=== PATIENT | male | born 1955 | race American Indian/Alaskan Native ===

== ENCOUNTER 2017-03-15 11:17 | Inpatient (IN) | payer MEDICAID ==
--- NOTE | 2017-03-15 12:38 | ED PDOC ---
Arrival/HPI - General Chief Complaint: GI Problem Time Seen by Provider: 03/15/17 12:17 Historian: Patient - History of Present Illness Narrative History of Present Illness (Text): 03/15/17 12:37 A 61 year old male, whose past medical history includes COPD, presents to the emergency department complaining of non-bloody watery diarrhea for the past few weeks. Patient notes mild abdominal cramping, which has currently resolved. Patient denies any fever, chills, nausea, vomiting, chest pain, shortness of breath or any other complaints. PMD: Dr. Cohen Time/Duration: Other (few weeks) Symptom Course: Unchanged Quality: Other Context: Home Past Medical History - Provider Review Nursing Documentation Reviewed: Yes - Infectious Disease Hx of Infectious Diseases: None - Tetanus Immunization Tetanus Immunization: Up to Date - Cardiac Hx Hypertension: Yes - Pulmonary Hx Respiratory Disorders: Yes Hx Bronchitis: Yes (Chronic) Hx Chronic Obstructive Pulmonary Disease (COPD): Yes Hx Emphysema: Yes - Neurological Hx Neurological Disorder: No - HEENT Hx HEENT Disorder: No - Renal Hx Renal Disorder: No - Endocrine/Metabolic Hx Endocrine Disorders: No - Hematological/Oncological Hx Blood Disorders: No - Integumentary Hx Dermatological Disorder: No - Musculoskeletal/Rheumatological Hx Falls: No - Gastrointestinal Hx Gastrointestinal Disorders: Yes Hx Diarrhea: Yes Hx Vomiting: Yes - Genitourinary/Gynecological Hx Genitourinary Disorders: No - Psychiatric Hx Psychophysiologic Disorder: No Hx Anxiety: No Hx Bipolar Disorder: No Hx Depression: Yes Hx Emotional Abuse: No Hx Hallucinations: No Hx Panic Disorder: No Hx Post Traumatic Stress Disorder: No Hx Psychosis: No Hx Physical Abuse: No Hx Schizophrenia: No Hx Sexual Abuse: No Hx Substance Use: Yes - Past Surgical History Past Surgical History: No Previous - Anesthesia Hx Anesthesia: No Hx Anesthesia Reactions: No Hx Malignant Hyperthermia: No - Suicidal Assessment Feels Threatened In Home Enviroment: No Family/Social History - Physician Review Nursing Documentation Reviewed: Yes Family/Social History: No Known Family HX Smoking Status: Heavy Smoker > 10 Cigarettes Daily Hx Alcohol Use: No Hx Substance Use: Yes Substance used: marijuana Amount: 1 Hx Substance Use Treatment: No Allergies/Home Meds Allergies/Adverse Reactions: Allergies No Known Allergies Allergy (Verified 03/15/17 11:22) Review of Systems - Physician Review All systems were reviewed & negative as marked: Yes - Review of Systems Constitutional: absent: Fevers, Night Sweats Respiratory: absent: SOB Cardiovascular: absent: Chest Pain Gastrointestinal: Abdominal Pain, Diarrhea. absent: Nausea, Vomiting Physical Exam Vital Signs Reviewed: Yes Vital Signs Temp Pulse Resp BP Pulse Ox 03/15/17 15:44 78 18 152/91 H 97 03/15/17 11:35 98.4 F 03/15/17 11:28 80 17 157/101 H 97 Temperature: Afebrile Blood Pressure: Hypertensive Pulse: Regular Respiratory Rate: Normal Appearance: Positive for: Well-Appearing, Non-Toxic, Comfortable Pain Distress: None Mental Status: Positive for: Alert and Oriented X 3 - Systems Exam Head: Present: Atraumatic, Normocephalic Pupils: Present: PERRL Extroacular Muscles: Present: EOMI Conjunctiva: Present: Normal Mouth: Present: Moist Mucous Membranes Neck: Present: Normal Range of Motion Respiratory/Chest: Present: Clear to Auscultation, Good Air Exchange. No: Respiratory Distress, Accessory Muscle Use Cardiovascular: Present: Regular Rate and Rhythm, Normal S1, S2. No: Murmurs Abdomen: Present: Normal Bowel Sounds. No: Tenderness, Distention, Peritoneal Signs, Rebound, Guarding Back: Present: Normal Inspection Upper Extremity: Present: Normal Inspection. No: Cyanosis, Edema Lower Extremity: Present: Normal Inspection. No: Edema Neurological: Present: GCS=15, CN II-XII Intact, Speech Normal Skin: Present: Warm, Dry, Normal Color. No: Rashes Psychiatric: Present: Alert, Oriented x 3, Normal Insight, Normal Concentration Medical Decision Making ED Course and Treatment: 03/15/17 12:37 Impression: A 61 year old male with non-bloody watery diarrhea Differential Diagnosis included but are not limited to: Gastroenteritis Plan: -- Labs -- Pepcid and IV fluids -- Reassess and disposition Progress Notes: 03/15/17 15:40 Reviewed labs and plan with the patient, who expresses understanding. Plan is to admit patient. 03/15/17 16:08 Patient's lipase elevated and treated with continual IVF. Case discussed with Dr. Quispe, hospitalist, who accepts admission to med-surg. Patient aware of and in agreement with plan. - Lab Interpretations Lab Results: 03/15/17 14:13 03/15/17 14:13 Lab Results 03/15/17 14:30: Lactate Dehydrogenase 567 03/15/17 14:30: Alcohol, Quantitative < 10 03/15/17 14:13: Sodium 138, Potassium 4.2, Chloride 102, Carbon Dioxide 29, Anion Gap 11, BUN 16, Creatinine 1.0, Est GFR ( Amer) > 60, Est GFR (Non- Af Amer) > 60, Random Glucose 83, Calcium 9.3, Total Bilirubin 0.3, AST 73 H, ALT 103 H, Alkaline Phosphatase 65, Total Protein 7.1, Albumin 3.7, Globulin 3.4 , Albumin/Globulin Ratio 1.1, Lipase 2783 H 03/15/17 14:13: WBC 4.7, RBC 3.83, Hgb 12.0 L D, Hct 36.2 L, MCV 94.5, MCH 31.3 , MCHC 33.1, RDW 12.9, Plt Count 191, MPV 9.2, Gran % 64.2, Lymph % (Auto) 28.2 , Trinity % (Auto) 6.6 H, Eos % (Auto) 0.6 L, Baso % (Auto) 0.4, Gran # 3.02, Lymph # 1.3, Trinity # 0.3, Eos # 0.0, Baso # 0.02 I have reviewed the lab results: Yes - Medication Orders Current Medication Orders: Discontinued Medications Albuterol/Ipratropium (Duoneb 3 Mg/0.5 Mg (3 Ml) Ud) 3 ml IH Q4H PRN PRN Reason: Shortness of Breath Stop: 03/16/17 05:16 Albuterol/Ipratropium (Duoneb 3 Mg/0.5 Mg (3 Ml) Ud) 3 ml IH Q6H JOSEMANUEL Stop: 03/16/17 17:30 Last Admin: 03/16/17 07:52 Dose: 3 ml Amlodipine Besylate (Norvasc) 5 mg PO DAILY [facility] Last Admin: 03/16/17 11:44 Dose: 5 mg MAR Pulse and Blood Pressure Document 03/16/17 11:44 [facility] (Rec: 03/16/17 11:45 [facility] [id number]) Pulse Pulse Rate (60-90) 69 Blood Pressure Blood Pressure (100/60-150/90) 133/77 Famotidine (Pepcid) 20 mg IVP STAT STA Stop: 03/15/17 12:41 Last Admin: 03/15/17 14:12 Dose: 20 mg IVP Administration Document 03/15/17 14:12 OCS (Rec: 03/15/17 14:12 OCS [id number]) Charges for Administration # of IVP Administrations 1 Heparin Sodium (Porcine) (Heparin) 5,000 units SC Q12 JOSEMANUEL PRN Reason: Protocol Last Admin: 03/16/17 10:40 Dose: 5,000 units Subcutaneous Administrations Document 03/16/17 10:40 JOSE (Rec: 03/16/17 10:40 [id number] Injection Site MAR Injection Site Right Abdomen Charges for Administration # of Subcutaneous Administrations 1 Hydralazine HCl (Apresoline) 10 mg IVP Q6 PRN PRN Reason: Systolic Blood Pressure Last Admin: 03/15/17 22:22 Dose: 10 mg IVP Administration Document 03/15/17 22:22 ST (Rec: 03/15/17 22:23 ST [id number]) Charges for Administration # of IVP Administrations 1 MAR Pulse and Blood Pressure Document 03/15/17 22:22 ST (Rec: 03/15/17 22:23 ST [id number]) Blood Pressure Blood Pressure (100/60-150/90) 164/103 Sodium Chloride (Sodium Chloride 0.9%) 1,000 mls @ 1,000 mls/hr IV .Q1H STA Stop: 03/15/17 13:39 Last Admin: 03/15/17 14:12 Dose: 1,000 mls/hr eMAR Start Stop Document 03/15/17 14:12 OCS (Rec: 03/15/17 14:12 [facility] [facility] [id number][place] Intravenous Solution Start Date 03/15/17 Start Time 14:12 End Date 03/15/17 End time 15:12 Total Infusion Time 60 Sodium Chloride (Sodium Chloride 0.9%) 1,000 mls @ 999 mls/hr IV .Q1H1M STA Stop: 03/15/17 16:12 Last Admin: 03/15/17 15:47 Dose: 999 mls/hr eMAR Start Stop Document 03/15/17 15:47 OCS (Rec: 03/15/17 15:47 OCS [id number]) Intravenous Solution Start Date 03/15/17 Start Time 15:47 End Date 03/15/17 End time 16:48 Total Infusion Time 61 Lactated Ringer's (Lactated Ringer's) 1,000 mls @ 250 mls/hr IV .Q4H [facility] Last Admin: 03/16/17 07:16 Dose: 250 mls/hr eMAR Start Stop Document 03/16/17 07:16 LG (Rec: 03/16/17 07:18 LG [facility] [id number]) Intravenous Solution Start Date 03/16/17 Start Time 06:30 End Date 03/16/17 End time 10:30 Total Infusion Time 240 Insulin Human Lispro (Humalog Low) 0 units SC ACHS JOSEMANUEL PRN Reason: Protocol Last Admin: 03/16/17 11:45 Dose: Not Given Non-Admin Reason: Patient Refused MAR Blood Glucose Document 03/16/17 11:45 [facility] (Rec: 03/16/17 11:51 [id number]) Blood Glucose Finger Stick Blood Glucose (70-120) 238 Subcutaneous Administrations Document 03/16/17 11:45 [facility] (Rec: 03/16/17 11:51 [id number]) Charges for Administration # of Subcutaneous Administrations 1 Methylprednisolone (Solu-Medrol) 40 mg IVP Q12 [facility] Last Admin: 03/16/17 10:34 Dose: 40 mg Comments: given by mona FLORES IVP Administration Document 03/16/17 10:34 [facility] (Rec: 03/16/17 10:34 [id number]) Charges for Administration # of IVP Administrations 1 Nicotine (Nicoderm Cq) 1 patch TD DAILY [facility] Last Admin: 03/16/17 10:40 Dose: 1 patch MAR Transdermal Patch Site Document 03/16/17 10:40 [facility] (Rec: 03/16/17 10:40 [id number]) Transdermal Patch Site Transdermal Patch Site Right Outer Upper Arm Ondansetron HCl (Zofran Inj) 4 mg IVP Q4H PRN PRN Reason: Nausea/Vomiting Last Admin: 03/15/17 22:50 Dose: 4 mg IVP Administration Document 03/15/17 22:50 ST (Rec: 03/15/17 22:50 ST [id number]) Charges for Administration # of IVP Administrations 1 Pantoprazole Sodium (Protonix Inj) 40 mg IVP DAILY JOSEMAUNEL Last Admin: 03/16/17 10:36 Dose: 40 mg IVP Administration Document 03/16/17 10:36 [facility] (Rec: 03/16/17 10:36 [facility] [id number]) Charges for Administration # of IVP Administrations 1 Pneumococcal Polyvalent Vaccine (Pneumovax 23 Vaccine) 0.5 ml IM .ONCE ONE Stop: 03/15/17 20:48 - Scribe Statement The provider has reviewed the documentation as recorded by the Desireeibkellie Jimenes Provider Scribe Attestation: All medical record entries made by the Scribe were at my direction and personally dictated by me. I have reviewed the chart and agree that the record accurately reflects my personal performance of the history, physical exam, medical decision making, and the department course for this patient. I have also personally directed, reviewed, and agree with the discharge instructions and disposition. Disposition/Present on Arrival - Present on Arrival Any Indicators Present on Arrival: No History of DVT/PE: No History of Uncontrolled Diabetes: No Urinary Catheter: No History of Decub. Ulcer: No History Surgical Site Infection Following: None - Disposition Have Diagnosis and Disposition been Completed?: Yes Diagnosis: Pancreatitis Disposition: HOSPITALIZED Disposition Time: 16:08 Patient Plan: Admission Condition: GUARDED
[2017-03-15] MEDS ORDERED: Sodium Chloride 0.9% 1,000 ML IV STA ×2 (12:40→15:12)
[2017-03-15 14:26] LABS: BASO # 0.02 K/mm3 (0.0-2.0); BASO % 0.4 % (0.0-3.0); EOS % 0.6 % (1.5-5.0); GRAN # 3.02 (1.4-6.5); GRAN % 64.2 % (50.0-68.0); LYMPH # 1.3 (1.2-3.4); LYMPH % 28.2 % (22.0-35.0); MEAN CELL VOLUME 94.5 fl (80.0-105.0); MEAN CORPUSCULAR HEMOGLOBIN 31.3 pg (25.0-35.0); MEAN CORPUSCULAR HGB CONC 33.1 g/dl (31.0-37.0); MEAN PLATELET VOLUME 9.2 fl (7.0-11.0); MONO # 0.3 (0.1-0.6); MONO % 6.6 % (1.0-6.0); RBC 3.83 10^6/uL (3.5-6.1); RED CELL DISTRIBUTION WIDTH 12.9 % (11.5-14.5); WHITE BLOOD COUNT 4.7 10^3/ul (4.5-11.0)
[2017-03-15 15:08] LABS: ALB/GLOB RATIO 1.1 (1.1-1.8); ALBUMIN 3.7 g/dL (3.0-4.8); ALT/SGPT 103 U/L (7-56); AST/SGOT 73 U/L (17-59); BLOOD UREA NITROGEN 16 mg/dL (7-21); CALCIUM 9.3 mg/dL (8.4-10.5); GFR AFRICAN-AMERICAN > 60; GFR NON-AFRICAN AMERICAN > 60; LIPASE 2783 U/L (23-300)
[2017-03-15] MEDS ORDERED: Sodium Chloride 0.9% 1,000 ML IV SCH (16:30)
[2017-03-15] MEDS ORDERED: Albuterol-Ipratrop 3 mg / 0.5 (3 ml) UD IH PRN ×2 (17:07→17:11)
--- NOTE | 2017-03-15 17:38 | CP.PCM.HP ---
<Hannah Moffett - Last Filed: 03/15/17 17:17> History of Present Illness - History of Present Illness History of Present Illness: 61year old male PMHx chronic bronchitis and emphysema [and as per chart patient has a hx of hypertension, diabetes, chronic back pain, polysubstance abuse] presents to the ED complaining of 3 weeks of abdominal pain and diarrhea. Patient denied any inciting event. Reported abdominal pain is cramping in nature in the middle of his abdomen radiating to his right flank and epigastric region. Patient rated the pain a 4/10 and stated it is intermittent. Patient also reported 7-8 episodes of watery diarrhea for the past 3 weeks which wakes him up at night. At the beginning of the episodes, at first he felt constipated and 20 minutes afterwards he started to have diarrhea. He reported it was dark in color at first like "oreo cookie crumbs" and more recently it has been brown. He denied noticing any blood. Patient tried imodium, peptobismol, Tums all of which did not help. He stated that eating food would exacerbate the diarrhea. Patient still has a strong appetite and is eager to eat although he has abd pain and diarrhea when he does eat. He also admitted to a weight loss of 30 pounds of the past month [140lb to 109lb]. He also complains of a productive cough which is chronic and patient is a smoker. He also admitted to hemoptysis and SOB on exertion at times. Patient denied fever, chills, headaches , dizziness, chest pain, bladder complaints, pain/swelling in his legs bilaterally. He denied any recent travel/sick contacts. ROS: 12 point review of system reviewed and negative unless stated above. PMHx: patient admitted to chronic bronchitis and emphysema; as per chart patient has a hx of hypertension, diabetes, chronic back pain, polysubstance abuse PSurgHx: denies PProcedures: Endocsopy 10+ years ago which was normal; Patient has never had a colonoscopy PHospitalization: none PERVisits: multiple Social Hx: admits to tobacco use 1/3ppd for 40 years; also smokes marijuana- 1 blunt 3-4x/week denies EtOH and illicit drug use; lives at home with girlfriend and 2 year old daughter; does not work Meds: none ALL: NKDA PMD: Dr. Cohen- hasn't seen PMD in years as he lost his insurance and job GI: None Payroll Officer: None [facility]acy: [facility] in [place] Present on Admission - Present on Admission Any Indicators Present on Admission: No Review of Systems - Constitutional Constitutional: As Per HPI. absent: Chills, Fever - EENT Eyes: As Per HPI. absent: Blurred Vision Ears: As Per HPI. absent: Dizziness Nose/Mouth/Throat: As Per HPI. absent: Sore Throat - Cardiovascular Cardiovascular: As Per HPI, Dyspnea on Exertion. absent: Chest Pain, Dyspnea, Edema - Respiratory Respiratory: As Per HPI, Cough, Hemoptysis, Dyspnea on Exertion, Wheezing. absent: Dyspnea, Snoring, Pain on Inspiration - Gastrointestinal Gastrointestinal: As Per HPI, Abdominal Pain, Change in Bowel Habits, Constipation, Cramping, Diarrhea, Heartburn, Loose Stools. absent: Coffee Ground Emesis, Hematemesis, Hematochezia, Melena, Nausea, Vomiting - Genitourinary Genitourinary: As Per HPI. absent: Dysuria, Hematuria, Pyuria - Musculoskeletal Musculoskeletal: As Per HPI. absent: Numbness, Tingling - Integumentary Integumentary: As Per HPI. absent: Dry Skin, Rash - Neurological Neurological: As Per HPI. absent: Dizziness, Numbness, Headaches, Tingling - Psychiatric Psychiatric: As Per HPI. absent: Anxiety, Depression - Endocrine Endocrine: As Per HPI. absent: Palpitations, Polydipsia, Polyphagia, Polyuria - Hematologic/Lymphatic Hematologic: As Per HPI. absent: Easy Bleeding, Easy Bruising, Lymphadenopathy Past Patient History - Infectious Disease Hx of Infectious Diseases: None - Tetanus Immunizations Tetanus Immunization: Up to Date - Past Social History Smoking Status: Heavy Smoker > 10 Cigarettes Daily - CARDIAC Hx Hypertension: Yes - PULMONARY Hx Respiratory Disorders: Yes Hx Bronchitis: Yes (Chronic) Hx Chronic Obstructive Pulmonary Disease (COPD): Yes Hx Emphysema: Yes - NEUROLOGICAL Hx Neurological Disorder: No - HEENT Hx HEENT Problems: No - RENAL Hx Chronic Kidney Disease: No - ENDOCRINE/METABOLIC Hx Endocrine Disorders: No - HEMATOLOGICAL/ONCOLOGICAL Hx Blood Disorders: No - INTEGUMENTARY Hx Dermatological Problems: No - MUSCULOSKELETAL/RHEUMATOLOGICAL Hx Falls: No - GASTROINTESTINAL Hx Gastrointestinal Disorders: Yes Hx Diarrhea: Yes Hx Vomiting: Yes - GENITOURINARY/GYNECOLOGICAL Hx Genitourinary Disorders: No - PSYCHIATRIC Hx Psychophysiologic Disorder: No Hx Anxiety: No Hx Bipolar Disorder: No Hx Depression: Yes Hx Emotional Abuse: No Hx Hallucinations: No Hx Panic Symptoms: No Hx Post Traumatic Stress Disorder: No Hx Psychosis: No Hx Physical Abuse: No Hx Schizophrenia: No Hx Sexual Abuse: No Hx Substance Use: Yes - SURGICAL HISTORY Hx Surgeries: No - ANESTHESIA Hx Anesthesia: No Hx Anesthesia Reactions: No Hx Malignant Hyperthermia: No Meds Home Medications: Home Medication List Medication Instructions Recorded Confirmed Type Albuterol HFA [Ventolin HFA 90 2 puff IH Q4 PRN #1 inhaler 03/16/17 Rx mcg/actuation (8 g)] Methylprednisolone [Medrol Dose See Taper PO DAILY #21 mg 03/16/17 Rx Pack (21 tabs)] amLODIPine [Norvasc] 10 mg PO DAILY #30 tab 03/16/17 Rx Allergies/Adverse Reactions: Allergies Allergy/AdvReac Type Severity Reaction Status Date / Time No Known Allergies Allergy Verified 03/15/17 11:22 Physical Exam - Constitutional Appears: Non-toxic, No Acute Distress, Chronically Ill - Head Exam Head Exam: ATRAUMATIC, NORMAL INSPECTION, NORMOCEPHALIC - Eye Exam Eye Exam: PERRL, Scleral icterus. absent: Conjunctival injection Pupil Exam: NORMAL ACCOMODATION - ENT Exam ENT Exam: Mucous Membranes Dry - Neck Exam Neck exam: Positive for: Full Rom, Normal Inspection. Negative for: Lymphadenopathy - Respiratory Exam Respiratory Exam: Rhonchi, Wheezes, NORMAL BREATHING PATTERN. absent: Accessory Muscle Use, Clear to Auscultation Bilateral, Respiratory Distress - Cardiovascular Exam Cardiovascular Exam: REGULAR RHYTHM, RRR, +S1, +S2 - GI/Abdominal Exam GI & Abdominal Exam: Hyperactive Bowel Sounds, Soft, Tenderness (diffuse to deep palpation). absent: Distended, Firm, Guarding, Rigid - Rectal Exam Rectal Exam: Deferred - Extremities Exam Extremities exam: Positive for: normal capillary refill, normal inspection, pedal pulses present. Negative for: pedal edema - Neurological Exam Neurological exam: Alert, CN II-XII Intact, Normal Gait, Oriented x3 - Psychiatric Exam Psychiatric exam: Normal Affect, Normal Mood - Skin Skin Exam: Dry, Intact, Normal Color, Warm Results - Vital Signs Recent Vital Signs: Last Vital Signs Temp 98.4 F 03/15/17 11:35 Pulse 78 03/15/17 15:44 Resp 18 03/15/17 15:44 BP 152/91 H 03/15/17 15:44 Pulse Ox 97 03/15/17 15:44 - Labs Result Diagrams: 03/15/17 14:13 03/15/17 14:13 Assessment & Plan - Assessment and Plan (Free Text) Assessment: 61year old male PMHx chronic bronchitis and emphysema [and as per chart patient has a hx of hypertension, diabetes, chronic back pain, polysubstance abuse] presents to the ED complaining of 3 weeks of abdominal pain and diarrhea Plan: Abdominal pain and diarrhea -r/o pancreatitis vs infectious etiology -LDH on admission: 567 -Lipase on admission: 2783 -AST/ALT: 73/103 -f/u Abd u/s -f/u stool studies -f/u C Diff -f/u acute hepatitis panel -LR @ 250cc/hr -CLD -Wali's criteria on admission: 2 - severe pancreatitis unlikely -GI Dr. Marin consulted Hx of Emphysema -f/u CXR -Duoneb 3ml inh q6 erwin -Duoneb 3ml inh q4 prn SOB -Solumedrol 40mg ivp q12 Hx of HTN? -Norvasc 5mg po qd -Hydralazine 10mg ivp q6 prn SBP > 160mmHg Hx of DM2? -f/u HgbA1c -Accucheck ACHS -RISS low Hx of Polysubstance abuse? -f/u UDS -f/u Alc level -f/u HIV Hx of tobacco abuse -Nicoderm 1 patch td qdaily -Counseled on tobacco cessation GI ppx: Protonix 40mg ivp qd DVT ppx: SCDs, Heparin 5000u sc q12 Diet: CLD Discussed with Dr. Brittaney Moffett PGY2 <Stoney Quispe - Last Filed: 03/16/17 15:10> Results - Vital Signs Recent Vital Signs: Last Vital Signs Temp 98.6 F 03/16/17 04:55 Pulse 78 03/16/17 12:17 Resp 16 03/16/17 12:17 BP 177/104 H 03/16/17 12:17 Pulse Ox 96 03/16/17 12:17 - Labs Result Diagrams: 03/16/17 03:40 03/16/17 03:40 Labs: Laboratory Results - last 24 hr 03/15/17 03/16/17 03/16/17 21:40 03:40 03:40 WBC 4.5 RBC 3.81 Hgb 11.9 L Hct 35.6 L MCV 93.4 MCH 31.2 MCHC 33.4 RDW 12.9 Plt Count 206 MPV 9.4 Gran % 83.2 H Lymph % (Auto) 14.6 L Phelps % (Auto) 2.0 Eos % (Auto) 0.0 L Baso % (Auto) 0.2 Gran # 3.71 Lymph # 0.7 L Phelps # 0.1 Eos # 0.0 Baso # 0.01 PT INR Sodium 134 Potassium 4.1 Chloride 103 Carbon Dioxide 26 Anion Gap 10 BUN 13 Creatinine 0.8 Est GFR ( Amer) > 60 Est GFR (Non-Af Amer) > 60 POC Glucose (mg/dL) 200 H Random Glucose 102 Hemoglobin A1c Calcium 8.9 Phosphorus 3.0 Magnesium 1.7 Total Bilirubin 0.4 AST 53 ALT 87 H Alkaline Phosphatase 63 Total Protein 6.6 Albumin 3.4 Globulin 3.2 Albumin/Globulin Ratio 1.1 Triglycerides 57 Cholesterol 132 LDL Cholesterol Direct 50 HDL Cholesterol 59 Lipase Hepatitis A IgM Ab Hep Bs Antigen Hep B Core IgM Ab Hepatitis C Antibody 03/16/17 03/16/17 03/16/17 03:40 03:40 03:40 WBC RBC Hgb Hct MCV MCH MCHC RDW Plt Count MPV Gran % Lymph % (Auto) Phelps % (Auto) Eos % (Auto) Baso % (Auto) Gran # Lymph # Phelps # Eos # Baso # PT 12.9 H INR 1.13 H Sodium Potassium Chloride Carbon Dioxide Anion Gap BUN Creatinine Est GFR ( Amer) Est GFR (Non-Af Amer) POC Glucose (mg/dL) Random Glucose Hemoglobin A1c 6.6 H Calcium Phosphorus Magnesium Total Bilirubin AST ALT Alkaline Phosphatase Total Protein Albumin Globulin Albumin/Globulin Ratio Triglycerides Cholesterol LDL Cholesterol Direct HDL Cholesterol Lipase Hepatitis A IgM Ab Negative Hep Bs Antigen Negative Hep B Core IgM Ab Negative Hepatitis C Antibody Negative 03/16/17 03/16/17 03/16/17 07:38 08:21 11:02 WBC RBC Hgb Hct MCV MCH MCHC RDW Plt Count MPV Gran % Lymph % (Auto) Phelps % (Auto) Eos % (Auto) Baso % (Auto) Gran # Lymph # Phelps # Eos # Baso # PT INR Sodium Potassium Chloride Carbon Dioxide Anion Gap BUN Creatinine Est GFR ( Amer) Est GFR (Non-Af Amer) POC Glucose (mg/dL) 83 263 H Random Glucose Hemoglobin A1c Calcium Phosphorus Magnesium Total Bilirubin AST ALT Alkaline Phosphatase Total Protein Albumin Globulin Albumin/Globulin Ratio Triglycerides Cholesterol LDL Cholesterol Direct HDL Cholesterol Lipase 1236 H Hepatitis A IgM Ab Hep Bs Antigen Hep B Core IgM Ab Hepatitis C Antibody Attending/Attestation - Attestation I have personally seen and examined this patient.: Yes I have fully participated in the care of the patient.: Yes I have reviewed all pertinent clinical information: Yes Notes (Text): 03/16/17 15:07 attending note; Patient seen and examined with resident In ER. patient is a 61-year-old male with a past medical history of polysubstance abuse , active smoking,emphysema, marijuana abuse is admitted with intermittent epigastric pain and diarrhea for the past few weeks. Patient also complains of loss of weight over 1 year. Previous EGD and colonoscopy over 10 years ago was normal. Elevated lipase; mild pancreatitis. GI evaluation requested. abdominal ultrasound ordered. Patient denied alcohol abuse. Active smoking; smoking cessation is strongly advised. Started on NicoDerm patch. Patient was explained in detail about his pulmonary disease. continue DuoNeb treatment, IV Solu-Medrol. Urine drug screen ordered. Stool studies ordered. Patient does not follow up with any PMD. Patient is strongly advised to follow-up with PMD of choice upon discharge. 03/16/17 15:10
[2017-03-15 20:47] VITALS: BMI 15.2
[2017-03-15] MEDS ORDERED: Influenza Vaccine 60 mcg/0.5 mL SYR (4YR UP) IM ONE (20:47)
[2017-03-15] MEDS ORDERED: Pneumococcal 23-Valent Vaccine IM ONE (20:47)
--- NOTE | 2017-03-15 20:53 | US ---
EXAM: US Abdomen Complete CLINICAL HISTORY: 61 years old, male; Pain; Abdominal pain; Flank; Right upper quadrant (ruq); Additional info: R/O gall stones TECHNIQUE: Real-time ultrasound of the abdomen (complete) with image documentation. COMPARISON: CT - ABD PELVIS IV CONTRAST ONLY 2017-02-24 12:29 FINDINGS: Liver: Normal echogenicity. No mass. No intrahepatic bile duct dilatation. Gallbladder: No gallstones. No wall thickening. No pericholecystic fluid. No sonographic Clark's sign. Common bile duct: No dilatation. No stones. Pancreas: Unremarkable as visualized. Kidneys: Increased in echogenicity. No hydronephrosis. Spleen: No splenomegaly. Aorta: Unremarkable. No aneurysm. Inferior vena cava: Unremarkable. Free fluid: Small free fluid within abdomen. IMPRESSION: 1. Echogenic kidneys suggesting medical renal disease. 2. Small ascites.
[2017-03-15] MEDS: Albuterol-Ipratrop 3 mg / 0.5 (3 ml) UD IH SCH (21:30)
[2017-03-15] MEDS: Insulin Lispro (humaLOG) LOW Coverage SC SCH (21:50)
[2017-03-15] MEDS: Lactated Ringer's 1,000 ML IV SCH (22:06)
[2017-03-15] MEDS: MethylPREDNISolone 40 mg Vial IVP SCH (22:47)
[2017-03-16] MEDS: Albuterol-Ipratrop 3 mg / 0.5 (3 ml) UD IH SCH ×2 (01:47→07:52)
[2017-03-16] MEDS: Lactated Ringer's 1,000 ML IV SCH ×3 (02:27→10:46)
[2017-03-16 04:42] LABS: BASO # 0.01 K/mm3 (0.0-2.0); BASO % 0.2 % (0.0-3.0); GRAN # 3.71 (1.4-6.5); GRAN % 83.2 % (50.0-68.0); HEMOGLOBIN 11.9 g/dL (14.0-18.0); INR 1.13 (0.93-1.08); LYMPH # 0.7 (1.2-3.4); LYMPH % 14.6 % (22.0-35.0); MEAN CELL VOLUME 93.4 fl (80.0-105.0); MEAN CORPUSCULAR HEMOGLOBIN 31.2 pg (25.0-35.0); MEAN CORPUSCULAR HGB CONC 33.4 g/dl (31.0-37.0); MEAN PLATELET VOLUME 9.4 fl (7.0-11.0); MONO # 0.1 (0.1-0.6); PROTHROMBIN TIME 12.9 SECONDS (9.4-12.5); RBC 3.81 10^6/uL (3.5-6.1); RED CELL DISTRIBUTION WIDTH 12.9 % (11.5-14.5); WHITE BLOOD COUNT 4.5 10^3/ul (4.5-11.0)
[2017-03-16 04:56] VITALS: TEMP 98.6
[2017-03-16 04:58] LABS: LDL CHOLESTEROL 50 mg/dL (0-129)
[2017-03-16 05:19] LABS: ALB/GLOB RATIO 1.1 (1.1-1.8); ALBUMIN 3.4 g/dL (3.0-4.8); ALT/SGPT 87 U/L (7-56); AST/SGOT 53 U/L (17-59); BLOOD UREA NITROGEN 13 mg/dL (7-21); CALCIUM 8.9 mg/dL (8.4-10.5); GFR AFRICAN-AMERICAN > 60; GFR NON-AFRICAN AMERICAN > 60; HDL CHOLESTEROL 59 mg/dL (29-60); MAGNESIUM 1.7 mg/dL (1.7-2.2)
--- NOTE | 2017-03-16 06:37 | CP.PCM.CON ---
<Trae Hebert - Last Filed: 03/16/17 09:18> History of Present Illness - History of Present Illness History of Present Illness: GI Consult Note: 61year old male PMHx chronic bronchitis, emphysema, hypertension, diabetes, chronic back pain, polysubstance abuse presents to the ED c/o 3 weeks of abdominal pain and diarrhea. Pt denies any inciting event. He reports the abdominal pain is intermittent, periumbilical, cramping in nature, and radiates around to his back. The pain is 4/10 in severity. Pain is associated with 7-8 episodes of non bloody watery diarrhea for the past 3 weeks. At times he feels constipated and after 20 minutes he gets diarrhea. He denied noticing any blood. He states that he tried imodium, peptobismol, Tums which did not alleviate his symptoms. He also admits to a unintentional weight loss of 30 pounds of the past year documented as 144lb to 109lb. Lab work showed patient has elevated LFTs (AST 73, ALT 87) and Lipase of 2783. Abd US showed echogenic kidneys and small ascites. ROS: 12 point review of system reviewed and negative unless stated above. PMHx: as above PSurgHx: denies Meds: none ALL: NKDA Social Hx: admits to tobacco use 1/2 ppd for 40 years; admits to smoking marijuana- few times per week; denies EtOH and illicit drug use; lives at home with girlfriend and 3 year old daughter; does not work Endo Hx: Endoscopy & colonoscopy many years ago and was reportedly normal Review of Systems - Review of Systems All systems: reviewed and no additional remarkable complaints except Past Patient History - Infectious Disease Hx of Infectious Diseases: None - Tetanus Immunizations Tetanus Immunization: Up to Date - Past Social History Smoking Status: Former Smoker - CARDIAC Hx Cardiac Disorders: Yes Hx Hypertension: Yes - PULMONARY Hx Respiratory Disorders: Yes (smokes cigarettes,pt smokes marijuana) Hx Bronchitis: Yes (Chronic) Hx Chronic Obstructive Pulmonary Disease (COPD): Yes Hx Emphysema: Yes - NEUROLOGICAL Hx Neurological Disorder: Yes Hx Dizziness: Yes - HEENT Hx HEENT Problems: No - RENAL Hx Chronic Kidney Disease: No - ENDOCRINE/METABOLIC Hx Endocrine Disorders: No - HEMATOLOGICAL/ONCOLOGICAL Hx Blood Disorders: No - INTEGUMENTARY Hx Dermatological Problems: No - MUSCULOSKELETAL/RHEUMATOLOGICAL Hx Musculoskeletal Disorders: Yes Hx Falls: No - GASTROINTESTINAL Hx Gastrointestinal Disorders: Yes (h/o upper gi bleed) - GENITOURINARY/GYNECOLOGICAL Hx Genitourinary Disorders: No - PSYCHIATRIC Hx Psychophysiologic Disorder: No (smokes marijuana and cigarettes,) Hx Anxiety: No Hx Bipolar Disorder: No Hx Depression: Yes Hx Emotional Abuse: No Hx Hallucinations: No Hx Panic Symptoms: No Hx Post Traumatic Stress Disorder: No Hx Psychosis: No Hx Physical Abuse: No Hx Schizophrenia: No Hx Sexual Abuse: No Hx Substance Use: Yes (marijuana use 3 x a week) - SURGICAL HISTORY Hx Surgeries: No - ANESTHESIA Hx Anesthesia: No Hx Anesthesia Reactions: No Hx Malignant Hyperthermia: No Meds Allergies/Adverse Reactions: Allergies Allergy/AdvReac Type Severity Reaction Status Date / Time No Known Allergies Allergy Verified 03/15/17 11:22 - Medications Medications: Current Medications Albuterol/Ipratropium (Duoneb 3 Mg/0.5 Mg (3 Ml) Ud) 3 ml IH Q6H [facility] Stop: 03/16/17 17:30 Last Admin: 03/16/17 01:47 Dose: Not Given Amlodipine Besylate (Norvasc) 5 mg PO DAILY [facility] Heparin Sodium (Porcine) (Heparin) 5,000 units SC Q12 JOSEMANUEL PRN Reason: Protocol Last Admin: 03/15/17 22:05 Dose: Not Given Hydralazine HCl (Apresoline) 10 mg IVP Q6 PRN PRN Reason: Systolic Blood Pressure Last Admin: 03/15/17 22:22 Dose: 10 mg Lactated Ringer's (Lactated Ringer's) 1,000 mls @ 250 mls/hr IV .Q4H [facility] Last Admin: 03/16/17 02:27 Dose: 250 mls/hr Insulin Human Lispro (Humalog Low) 0 units SC ACHS JOSMEANUEL PRN Reason: Protocol Last Admin: 03/15/17 21:50 Dose: Not Given Methylprednisolone (Solu-Medrol) 40 mg IVP Q12 [facility] Last Admin: 03/15/17 22:47 Dose: 40 mg Nicotine (Nicoderm Cq) 1 patch TD DAILY [facility] Ondansetron HCl (Zofran Inj) 4 mg IVP Q4H PRN PRN Reason: Nausea/Vomiting Last Admin: 03/15/17 22:50 Dose: 4 mg Pantoprazole Sodium (Protonix Inj) 40 mg IVP DAILY [facility] Physical Exam - Constitutional Appears: No Acute Distress - Head Exam Head Exam: ATRAUMATIC, NORMOCEPHALIC - Eye Exam Eye Exam: EOMI - ENT Exam ENT Exam: Mucous Membranes Moist - Respiratory Exam Respiratory Exam: Clear to Auscultation Bilateral. absent: Wheezes - Cardiovascular Exam Cardiovascular Exam: REGULAR RHYTHM, RRR, +S1, +S2 - GI/Abdominal Exam GI & Abdominal Exam: Normal Bowel Sounds, Soft. absent: Organomegaly, Tenderness - Extremities Exam Extremities exam: Negative for: calf tenderness, pedal edema - Neurological Exam Neurological exam: Alert, Oriented x3 - Psychiatric Exam Psychiatric exam: Normal Affect, Normal Mood - Skin Skin Exam: Dry, Intact, Warm Results - Vital Signs Recent Vital Signs: Last Vital Signs Temp 98.6 F 03/16/17 04:55 Pulse 76 03/16/17 04:55 Resp 18 03/16/17 04:55 BP 142/90 03/16/17 04:55 Pulse Ox 98 03/16/17 04:55 - Labs Result Diagrams: 03/16/17 03:40 03/16/17 03:40 Labs: Laboratory Results - last 24 hr 03/15/17 03/16/17 03/16/17 21:40 03:40 03:40 WBC 4.5 RBC 3.81 Hgb 11.9 L Hct 35.6 L MCV 93.4 MCH 31.2 MCHC 33.4 RDW 12.9 Plt Count 206 MPV 9.4 Gran % 83.2 H Lymph % (Auto) 14.6 L Winkler % (Auto) 2.0 Eos % (Auto) 0.0 L Baso % (Auto) 0.2 Gran # 3.71 Lymph # 0.7 L Winkler # 0.1 Eos # 0.0 Baso # 0.01 PT INR Sodium 134 Potassium 4.1 Chloride 103 Carbon Dioxide 26 Anion Gap 10 BUN 13 Creatinine 0.8 Est GFR ( Amer) > 60 Est GFR (Non-Af Amer) > 60 POC Glucose (mg/dL) 200 H Random Glucose 102 Calcium 8.9 Phosphorus 3.0 Magnesium 1.7 Total Bilirubin 0.4 AST 53 ALT 87 H Alkaline Phosphatase 63 Total Protein 6.6 Albumin 3.4 Globulin 3.2 Albumin/Globulin Ratio 1.1 Triglycerides 57 Cholesterol 132 LDL Cholesterol Direct 50 HDL Cholesterol 59 01/26/18 03:40 WBC RBC Hgb Hct MCV MCH MCHC RDW Plt Count MPV Gran % Lymph % (Auto) Winkler % (Auto) Eos % (Auto) Baso % (Auto) Gran # Lymph # Winkler # Eos # Baso # PT 12.9 H INR 1.13 H Sodium Potassium Chloride Carbon Dioxide Anion Gap BUN Creatinine Est GFR ( Amer) Est GFR (Non-Af Amer) POC Glucose (mg/dL) Random Glucose Calcium Phosphorus Magnesium Total Bilirubin AST ALT Alkaline Phosphatase Total Protein Albumin Globulin Albumin/Globulin Ratio Triglycerides Cholesterol LDL Cholesterol Direct HDL Cholesterol Assessment & Plan - Assessment and Plan (Free Text) Assessment: 61year old male PMHx chronic bronchitis, emphysema, hypertension, diabetes, chronic back pain, polysubstance abuse presents to the ED complaining of 3 weeks of abdominal pain and diarrhea likely 2/2 pancreatitis. GI team consulted for pancreatitis. Acute pancreatitis Diabetes Polysubstance abuse Emphysema - Low fat diet as tolerated - Abdominal pain and diarrhea mostly resolved this am - Elevated lipase of 2783 - Abd US shows small ascites - IV fluids LR @ 250cc/hr - F/u acute hepatitis panel - F/u stool studies and C Diff - Ordered IgG4 to r/o autoimmune pancreatitis - Continue with Protonix 40mg IVP daily - Patient would benefit from outpatient age appropriate screening colonoscopy - Will continue to monitor patients clinical course Case and plan was reviewed and discussed in detail with Dr Shaver. <Teofilo Shaver - Last Filed: 03/16/17 10:27> Meds - Medications Medications: Current Medications Albuterol/Ipratropium (Duoneb 3 Mg/0.5 Mg (3 Ml) Ud) 3 ml IH Q6H [facility] Stop: 03/16/17 17:30 Last Admin: 03/16/17 07:52 Dose: 3 ml Amlodipine Besylate (Norvasc) 5 mg PO DAILY [facility] Heparin Sodium (Porcine) (Heparin) 5,000 units SC Q12 JOSEMANUEL PRN Reason: Protocol Last Admin: 03/15/17 22:05 Dose: Not Given Hydralazine HCl (Apresoline) 10 mg IVP Q6 PRN PRN Reason: Systolic Blood Pressure Last Admin: 03/15/17 22:22 Dose: 10 mg Lactated Ringer's (Lactated Ringer's) 1,000 mls @ 250 mls/hr IV .Q4H [facility] Last Admin: 03/16/17 07:16 Dose: 250 mls/hr Insulin Human Lispro (Humalog Low) 0 units SC ACHS JOSEMANUEL PRN Reason: Protocol Last Admin: 03/16/17 09:10 Dose: Not Given Methylprednisolone (Solu-Medrol) 40 mg IVP Q12 [facility] Last Admin: 03/15/17 22:47 Dose: 40 mg Nicotine (Nicoderm Cq) 1 patch TD DAILY [facility] Ondansetron HCl (Zofran Inj) 4 mg IVP Q4H PRN PRN Reason: Nausea/Vomiting Last Admin: 03/15/17 22:50 Dose: 4 mg Pantoprazole Sodium (Protonix Inj) 40 mg IVP DAILY [facility] Results - Vital Signs Recent Vital Signs: Last Vital Signs Temp 98.6 F 03/16/17 04:55 Pulse 76 03/16/17 04:55 Resp 18 03/16/17 04:55 BP 142/90 03/16/17 04:55 Pulse Ox 98 03/16/17 04:55 - Labs Result Diagrams: 03/16/17 03:40 03/16/17 03:40 Labs: Laboratory Results - last 24 hr 03/15/17 03/16/17 03/16/17 21:40 03:40 03:40 WBC 4.5 RBC 3.81 Hgb 11.9 L Hct 35.6 L MCV 93.4 MCH 31.2 MCHC 33.4 RDW 12.9 Plt Count 206 MPV 9.4 Gran % 83.2 H Lymph % (Auto) 14.6 L Winkler % (Auto) 2.0 Eos % (Auto) 0.0 L Baso % (Auto) 0.2 Gran # 3.71 Lymph # 0.7 L Winkler # 0.1 Eos # 0.0 Baso # 0.01 PT INR Sodium 134 Potassium 4.1 Chloride 103 Carbon Dioxide 26 Anion Gap 10 BUN 13 Creatinine 0.8 Est GFR ( Amer) > 60 Est GFR (Non-Af Amer) > 60 POC Glucose (mg/dL) 200 H Random Glucose 102 Calcium 8.9 Phosphorus 3.0 Magnesium 1.7 Total Bilirubin 0.4 AST 53 ALT 87 H Alkaline Phosphatase 63 Total Protein 6.6 Albumin 3.4 Globulin 3.2 Albumin/Globulin Ratio 1.1 Triglycerides 57 Cholesterol 132 LDL Cholesterol Direct 50 HDL Cholesterol 59 Lipase 03/16/17 03/16/17 03/16/17 03:40 07:38 08:21 WBC RBC Hgb Hct MCV MCH MCHC RDW Plt Count MPV Gran % Lymph % (Auto) Winkler % (Auto) Eos % (Auto) Baso % (Auto) Gran # Lymph # Winkler # Eos # Baso # PT 12.9 H INR 1.13 H Sodium Potassium Chloride Carbon Dioxide Anion Gap BUN Creatinine Est GFR ( Amer) Est GFR (Non-Af Amer) POC Glucose (mg/dL) 83 Random Glucose Calcium Phosphorus Magnesium Total Bilirubin AST ALT Alkaline Phosphatase Total Protein Albumin Globulin Albumin/Globulin Ratio Triglycerides Cholesterol LDL Cholesterol Direct HDL Cholesterol Lipase 1236 H Attending/Attestation - Attestation I have personally seen and examined this patient.: Yes I have fully participated in the care of the patient.: Yes I have reviewed all pertinent clinical information: Yes Notes (Text): 03/16/17 10:17 I have seen and examined patient with GI fellow and quality engineer medical device. Agree with above documentation with the following additions. In brief, this is a 61 year old male with history of polysubstance abuse, DM, HTN, who presents to hospital with complaint of abdominal pain and diarrhea. He describes 3 weeks of intermittent nadeem-umbilical abdominal pain, at times radiating to back without clear association to food consumption. During this time he also reports multiple episodes of non-bloody diarrhea, up to 6 bowel movements daily. He denies nausea, vomiting, fever/chills, or rectal bleeding. He does report an unintentional weight loss of nearly 30 pounds over the past one year. He claims to have had EGD/colonsocopy over 10 years ago which were normal as per patient. Since arrival to hospital, patient no longer has abdominal pain or diarrhea. He is upset that his diet has not been advanced beyond liquid consistency. Family history: reviewed, patient denies history of GI malignancies DM / HTN Polysubstance abuse Abdominal pain - chemical pancreatitis CT imaging from earlier this month shows no pancreatic abnormalities, US from yesterday shows no biliary dilation or cholelithiasis - Advance diet to low fat as tolerated - Continue with supportive care, IVF hydration, pain control - Follow up stool studies - Obtain IGG4 autoimmune testing given unclear etiology of acute presentation - Obtain toxicology screen - Patient would benefit from additional outpatient follow up, particularly given unexplained weight loss. Appointment made in office for patient to see Dr. Gonzalez on SundayMar 20 at 3:15 PM. Will sign off case, please reconsult as necessary, thank you.
[2017-03-16] MEDS: Insulin Lispro (humaLOG) LOW Coverage SC SCH ×2 (09:10→11:45)
--- NOTE | 2017-03-16 10:33 | RAD ---
HISTORY: Emphysema. COMPARISON: 02/24/2017. TECHNIQUE: Chest PA and lateral FINDINGS: LUNGS: Hyperinflation, manifestations of COPD. No active pulmonary disease. Pleural parenchymal scarring at the apices with hilar retraction. PLEURA: No significant pleural effusion identified. No pneumothorax apparent. CARDIOVASCULAR: Normal. OSSEOUS STRUCTURES: No significant abnormalities. VISUALIZED UPPER ABDOMEN: Normal. OTHER FINDINGS: None. IMPRESSION: No active acute pulmonary abnormalities. No significant interval change compared to the prior examination(s).
[2017-03-16] MEDS: MethylPREDNISolone 40 mg Vial IVP SCH (10:34)
[2017-03-16 11:57] LABS: HEPATITIS B SURFACE AG Negative (NEGATIVE)
[2017-03-16 12:03] LABS: HEPATITIS A IGM NEGATIVE (NEGATIVE); HEPATITIS B CORE AB NEGATIVE (NEGATIVE)
[2017-03-16 12:15] LABS: HEPATITIS C ANTIBODY NEGATIVE (NEGATIVE)
[2017-03-16 12:18] VITALS: BP 177/104; PULSE 78; RESP 16; O2SAT 96
--- NOTE | 2017-03-16 19:45 | CP.PCM.DIS ---
<Conrado Solano - Last Filed: 03/16/17 21:23> Provider - Provider Date of Admission: 03/15/17 16:08 Attending physician: Stoney Quispe MD Primary care physician: Robin Cohen MD Consults: GI: Sivakumar Time Spent in preparation of Discharge (in minutes): 45 Diagnosis - Discharge Diagnosis (1) Pancreatitis Status: Acute (2) COPD (chronic obstructive pulmonary disease) Status: Chronic (3) Diabetes Status: Chronic (4) Hypertension Status: Chronic (5) Substance abuse Status: Chronic Hospital Course - Lab Results Lab Results: Most Recent Lab Values WBC 4.5 10^3/ul (4.5-11.0) 03/16/17 03:40 RBC 3.81 10^6/uL (3.5-6.1) 03/16/17 03:40 Hgb 11.9 g/dL (14.0-18.0) L 03/16/17 03:40 Hct 35.6 % (42.0-52.0) L 03/16/17 03:40 MCV 93.4 fl (80.0-105.0) 03/16/17 03:40 MCH 31.2 pg (25.0-35.0) 03/16/17 03:40 MCHC 33.4 g/dl (31.0-37.0) 03/16/17 03:40 RDW 12.9 % (11.5-14.5) 03/16/17 03:40 Plt Count 206 10^3/uL (120.0-450.0) 03/16/17 03:40 MPV 9.4 fl (7.0-11.0) 03/16/17 03:40 Gran % 83.2 % (50.0-68.0) H 03/16/17 03:40 Lymph % (Auto) 14.6 % (22.0-35.0) L 03/16/17 03:40 Piute % (Auto) 2.0 % (1.0-6.0) 03/16/17 03:40 Eos % (Auto) 0.0 % (1.5-5.0) L 03/16/17 03:40 Baso % (Auto) 0.2 % (0.0-3.0) 03/16/17 03:40 Gran # 3.71 (1.4-6.5) 03/16/17 03:40 Lymph # 0.7 (1.2-3.4) L 03/16/17 03:40 Piute # 0.1 (0.1-0.6) 03/16/17 03:40 Eos # 0.0 (0.0-0.7) 03/16/17 03:40 Baso # 0.01 K/mm3 (0.0-2.0) 03/16/17 03:40 PT 12.9 SECONDS (9.4-12.5) H 03/16/17 03:40 INR 1.13 (0.93-1.08) H 03/16/17 03:40 Sodium 134 mmol/L (132-148) 03/16/17 03:40 Potassium 4.1 mmol/L (3.6-5.0) 03/16/17 03:40 Chloride 103 mmol/L (98-107) 03/16/17 03:40 Carbon Dioxide 26 mmol/L (21-33) 03/16/17 03:40 Anion Gap 10 (10-20) 03/16/17 03:40 BUN 13 mg/dL (7-21) 03/16/17 03:40 Creatinine 0.8 mg/dl (0.8-1.5) 03/16/17 03:40 Est GFR ( Amer) > 60 03/16/17 03:40 Est GFR (Non-Af Amer) > 60 03/16/17 03:40 POC Glucose (mg/dL) 263 mg/dL (65-110) H 03/16/17 11:02 Random Glucose 102 mg/dL (70-110) 03/16/17 03:40 Hemoglobin A1c 6.6 % (4.2-6.5) H 03/16/17 03:40 Calcium 8.9 mg/dL (8.4-10.5) 03/16/17 03:40 Phosphorus 3.0 mg/dL (2.5-4.5) 03/16/17 03:40 Magnesium 1.7 mg/dL (1.7-2.2) 03/16/17 03:40 Total Bilirubin 0.4 mg/dL (0.2-1.3) 03/16/17 03:40 AST 53 U/L (17-59) 03/16/17 03:40 ALT 87 U/L (7-56) H 03/16/17 03:40 Alkaline Phosphatase 63 U/L (38-126) 03/16/17 03:40 Lactate Dehydrogenase 567 U/L (333-699) 03/15/17 14:30 Total Protein 6.6 g/dL (5.8-8.3) 03/16/17 03:40 Albumin 3.4 g/dL (3.0-4.8) 03/16/17 03:40 Globulin 3.2 gm/dL 03/16/17 03:40 Albumin/Globulin Ratio 1.1 (1.1-1.8) 03/16/17 03:40 Triglycerides 57 mg/dL (35-160) 03/16/17 03:40 Cholesterol 132 mg/dL (130-200) 03/16/17 03:40 LDL Cholesterol Direct 50 mg/dL (0-129) 03/16/17 03:40 HDL Cholesterol 59 mg/dL (29-60) 03/16/17 03:40 Lipase 1236 U/L (23-300) H 03/16/17 07:38 Alcohol, Quantitative < 10 mg/dL (0-10) 03/15/17 14:30 Hepatitis A IgM Ab Negative (NEGATIVE) 03/16/17 03:40 Hep Bs Antigen Negative (NEGATIVE) 03/16/17 03:40 Hep B Core IgM Ab Negative (NEGATIVE) 03/16/17 03:40 Hepatitis C Antibody Negative (NEGATIVE) 03/16/17 03:40 - Hospital Course Hospital Course: 61-year-old male with a past medical history of polysubstance abuse, active smoking, emphysema, marijuana abuse, DM, HTN, who presented complaining of abdominal pain and diarrhea for the past three weeks. After initial fluid resuscitation, patient was tolerating a diet and constant requesting advancement beyond a liquid diet, since admission. Patient had typical pancreatitis pain and elevated lipase, and was diagnosed with mild pancreatitis , and treated as such. Workup in the hospital was negative for mechanical or infectious etiology. Autoimmune workup was ordered and stool studies were obtained to ascertain the etiology of his diarrhea. During his hospitalization, he was also treated for COPD, hypertension, and diabetes. Today, patient was feeling much better in the morning, and denies abdominal pain , nausea, vomiting, diarrhea, constipation, fever, chills, chest pain, shortness of breath. He had a formed BM this morning, and ate a regular breakfast. As patient's clinical status improved dramatically, he was prepared for discharge. Patient became belligerent and angry that he was being discharged after only one day, and began shouting about his pain, though earlier in the day, he reported significant improvement in his pain, and was tolerating a regular diet, and no longer had any diarrhea. Patient was given new prescriptions for antihypertensives and COPD medications, as well as an appointment made in office for patient to see GI Dr. Gonzalez on SundayMar 20 at 3:15 PM. He was instructed to follow up with his primary care doctor within one week and to return to the ER if necessary. Patient was discharged to home. Discharge Exam - Head Exam Head Exam: ATRAUMATIC, NORMOCEPHALIC - Eye Exam Eye Exam: EOMI, Normal appearance, PERRL Pupil Exam: NORMAL ACCOMODATION - Neck Exam Neck exam: Normal Inspection - Respiratory Exam Respiratory Exam: Decreased Breath Sounds, Wheezes (faint), NORMAL BREATHING PATTERN - Cardiovascular Exam Cardiovascular Exam: RRR, +S1, +S2 - GI/Abdominal Exam GI & Abdominal Exam: Normal Bowel Sounds, Soft, Unremarkable. absent: Tenderness - Extremities Exam Extremities exam: normal inspection - Neurological Exam Neurological exam: Alert, CN II-XII Intact, Oriented x3 - Psychiatric Exam Psychiatric exam: Normal Affect, Normal Mood Additional comments: Patient became agitated and aggresive upon discharge - Skin Skin Exam: Dry, Intact, Normal Color Discharge Plan - Discharge Medications Prescriptions: Albuterol HFA [Ventolin HFA 90 mcg/actuation (8 g)] 2 puff IH Q4 PRN #1 inhaler PRN Reason: Wheezing amLODIPine [Norvasc] 10 mg PO DAILY #30 tab Methylprednisolone [Medrol Dose Pack (21 tabs)] See Taper PO DAILY #21 mg - Follow Up Plan Condition: GOOD Disposition: HOME/ ROUTINE Instructions: Pancreatitis (DC), Influenza Vaccine (GEN) Additional Instructions: 1. Continue to take medrol dose marisela, as instructed 2. Continue to take Norvasc 10mg daily for blood pressure control 3. Make sure to drink plenty of fluid; abstain from any alcohol consumption 4. Follow up with Dr. Gonzalez; appointment made for March 20 at 3:15 PM in [facility] 4th floor 5. Follow up with your primary care doctor or with [facility] clinic within one week for BP check and continued monitoring 6. For any new or worsening concerns, contact your PCP immediately, or return to the ER Referrals: Dinh Gonazlez MD [Staff Provider] - <Stoney Quispe - Last Filed: 03/17/17 14:09> Provider - Provider Date of Admission: 03/15/17 16:08 Attending physician: Stoney Quispe MD Primary care physician: Robin Cohen MD Hospital Course - Lab Results Lab Results: Micro Results 03/16/17 12:11 Stool Stool Culture - Preliminary LACTOSE MITOCHONDRIAL DISORDERS COUNSELOR, SUB SELENITE BROTH. Most Recent Lab Values WBC 4.5 10^3/ul (4.5-11.0) 03/16/17 03:40 RBC 3.81 10^6/uL (3.5-6.1) 03/16/17 03:40 Hgb 11.9 g/dL (14.0-18.0) L 03/16/17 03:40 Hct 35.6 % (42.0-52.0) L 03/16/17 03:40 MCV 93.4 fl (80.0-105.0) 03/16/17 03:40 MCH 31.2 pg (25.0-35.0) 03/16/17 03:40 MCHC 33.4 g/dl (31.0-37.0) 03/16/17 03:40 RDW 12.9 % (11.5-14.5) 03/16/17 03:40 Plt Count 206 10^3/uL (120.0-450.0) 03/16/17 03:40 MPV 9.4 fl (7.0-11.0) 03/16/17 03:40 Gran % 83.2 % (50.0-68.0) H 03/16/17 03:40 Lymph % (Auto) 14.6 % (22.0-35.0) L 03/16/17 03:40 Pi[place] % (Auto) 2.0 % (1.0-6.0) 03/16/17 03:40 Eos % (Auto) 0.0 % (1.5-5.0) L 03/16/17 03:40 Baso % (Auto) 0.2 % (0.0-3.0) 03/16/17 03:40 Gran # 3.71 (1.4-6.5) 03/16/17 03:40 Lymph # 0.7 (1.2-3.4) L 03/16/17 03:40 [place] # 0.1 (0.1-0.6) 03/16/17 03:40 Eos # 0.0 (0.0-0.7) 03/16/17 03:40 Baso # 0.01 K/mm3 (0.0-2.0) 03/16/17 03:40 PT 12.9 SECONDS (9.4-12.5) H 03/16/17 03:40 INR 1.13 (0.93-1.08) H 03/16/17 03:40 Sodium 134 mmol/L (132-148) 03/16/17 03:40 Potassium 4.1 mmol/L (3.6-5.0) 03/16/17 03:40 Chloride 103 mmol/L (98-107) 03/16/17 03:40 Carbon Dioxide 26 mmol/L (21-33) 03/16/17 03:40 Anion Gap 10 (10-20) 03/16/17 03:40 BUN 13 mg/dL (7-21) 03/16/17 03:40 Creatinine 0.8 mg/dl (0.8-1.5) 03/16/17 03:40 Est GFR ( Amer) > 60 03/16/17 03:40 Est GFR (Non-Af Amer) > 60 03/16/17 03:40 POC Glucose (mg/dL) 263 mg/dL (65-110) H 03/16/17 11:02 Random Glucose 102 mg/dL (70-110) 03/16/17 03:40 Hemoglobin A1c 6.6 % (4.2-6.5) H 03/16/17 03:40 Calcium 8.9 mg/dL (8.4-10.5) 03/16/17 03:40 Phosphorus 3.0 mg/dL (2.5-4.5) 03/16/17 03:40 Magnesium 1.7 mg/dL (1.7-2.2) 03/16/17 03:40 Total Bilirubin 0.4 mg/dL (0.2-1.3) 03/16/17 03:40 AST 53 U/L (17-59) 03/16/17 03:40 ALT 87 U/L (7-56) H 03/16/17 03:40 Alkaline Phosphatase 63 U/L (38-126) 03/16/17 03:40 Lactate Dehydrogenase 567 U/L (333-699) 03/15/17 14:30 Total Protein 6.6 g/dL (5.8-8.3) 03/16/17 03:40 Albumin 3.4 g/dL (3.0-4.8) 03/16/17 03:40 Globulin 3.2 gm/dL 03/16/17 03:40 Albumin/Globulin Ratio 1.1 (1.1-1.8) 03/16/17 03:40 Triglycerides 57 mg/dL (35-160) 03/16/17 03:40 Cholesterol 132 mg/dL (130-200) 03/16/17 03:40 LDL Cholesterol Direct 50 mg/dL (0-129) 03/16/17 03:40 HDL Cholesterol 59 mg/dL (29-60) 03/16/17 03:40 Lipase 1236 U/L (23-300) H 03/16/17 07:38 Alcohol, Quantitative < 10 mg/dL (0-10) 03/15/17 14:30 Hepatitis A IgM Ab Negative (NEGATIVE) 03/16/17 03:40 Hep Bs Antigen Negative (NEGATIVE) 03/16/17 03:40 Hep B Core IgM Ab Negative (NEGATIVE) 03/16/17 03:40 Hepatitis C Antibody Negative (NEGATIVE) 03/16/17 03:40 HIV 1&2 Ag/Ab, 4th Gen Nonreactive (Nonreactive) 03/16/17 03:40 Attending/Attestation - Attestation I have personally seen and examined this patient.: Yes I have fully participated in the care of the patient.: Yes I have reviewed all pertinent clinical information, including history, physical exam and plan: Yes Notes (Text): 03/17/17 14:06 attending note; patient is a 61-year-old male with a past medical history of polysubstance abuse , active smoking,emphysema, marijuana abuse is admitted with intermittent epigastric pain and diarrhea for the past few weeks. Patient also complains of loss of weight over 1 year. Previous EGD and colonoscopy over 10 years ago was normal. Elevated lipase; mild pancreatitis. GI evaluation appreciated. Active smoking; smoking cessation is strongly advised. Started on NicoDerm patch. Patient was explained in detail about his pulmonary disease/copd. Urine drug screen ordered. patient did not give a sample. Stool studies ordered. patient has been tolerating regular diet. Seen by GI. Outpatient follow-up appointment made GI clinic. colonoscopy will be arranged by GI. opiate abuse; patient is constantly asking for pain medication. But tolerating diet well. Denies any nausea or vomiting. Ambulating fine. Does not appear to be in any pain. no diarrhea documented as per nursing staff. Patient is strongly advised to follow-up with PMD of choice upon discharge. 03/17/17 14:09
== END 2017-03-16 13:46 | disposition home or self-care (01) | DRG 204 ==
LOC: ED 11:17 → ERH 16:08 → 2A 19:12 → 5RNO 03-16 12:17
PROVIDERS: ADMIT Internal Medicine; ATTEND Internal Medicine
DX: K85.90 Acute pancreatitis without necrosis or infection, unspecified (principal); J43.9 Emphysema, unspecified; I10 Essential (primary) hypertension; E11.9 Type 2 diabetes mellitus without complications; R19.7 Diarrhea, unspecified; F17.210 Nicotine dependence, cigarettes, uncomplicated; G89.29 Other chronic pain; M54.9 Dorsalgia, unspecified; F12.10 Cannabis abuse, uncomplicated; R63.4 Abnormal weight loss

== ENCOUNTER 2017-04-06 15:51 | Inpatient (IN) | payer MEDICAID ==
[2017-04-06 15:51] VITALS: BMI 15.2
[2017-04-06] MEDS ORDERED: Sodium Chloride 0.9% 1,000 ML IV STA (17:52)
--- NOTE | 2017-04-06 17:55 | ED PDOC ---
Arrival/HPI - General Chief Complaint: GI Problem Time Seen by Provider: 04/06/17 17:52 Historian: Patient - History of Present Illness Narrative History of Present Illness (Text): 04/06/171899 pt p/w + 2.5 months onset of daily diarrhea, at least 5-6 episodes/day; poor appetite, + intermittent abd cramps; was recently evaluated/admitted at [facility] and was subsequently discharged home; pt states he felt no improvement, and has lost ~ 35lbs over the last 2.5 months; pt + mild weakness/ fatigue; no fever/chills/sweats, no cp/sob/palpitations, + mid abd cramps, no nausea/vomiting, no urinary changes, no gross bleeding, no rashes, no LOC; pt is here for further eval; pt's without other complaints. 04/06/171914 pt also is non-compliant with his medications, due to loss of insurance ~ 2-3 years ago Time/Duration: > month Symptom Onset: Gradual Symptom Course: Unchanged Quality: Cramping Severity Level: 4 Activities at Onset: Rest Context: Home Past Medical History - Provider Review Nursing Documentation Reviewed: Yes - Travel History Have you recently traveled outside [place] w/in the past 3 mons?: No - Past History Past History: No Previous - Infectious Disease Hx of Infectious Diseases: None - Tetanus Immunization Tetanus Immunization: Up to Date - Cardiac Hx Hypertension: Yes - Pulmonary Hx Respiratory Disorders: Yes Hx Bronchitis: Yes (Chronic) Hx Chronic Obstructive Pulmonary Disease (COPD): Yes Hx Emphysema: Yes - Neurological Hx Neurological Disorder: No - HEENT Hx HEENT Disorder: No - Renal Hx Renal Disorder: No - Endocrine/Metabolic Hx Endocrine Disorders: No - Hematological/Oncological Hx Blood Disorders: No - Integumentary Hx Dermatological Disorder: No - Musculoskeletal/Rheumatological Hx Falls: No - Gastrointestinal Hx Gastrointestinal Disorders: Yes Hx Diarrhea: Yes Hx Vomiting: Yes - Genitourinary/Gynecological Hx Genitourinary Disorders: No - Psychiatric Hx Psychophysiologic Disorder: No Hx Anxiety: No Hx Bipolar Disorder: No Hx Depression: Yes Hx Emotional Abuse: No Hx Hallucinations: No Hx Panic Disorder: No Hx Post Traumatic Stress Disorder: No Hx Psychosis: No Hx Physical Abuse: No Hx Schizophrenia: No Hx Sexual Abuse: No Hx Substance Use: Yes - Past Surgical History Past Surgical History: No Previous - Anesthesia Hx Anesthesia: No Hx Anesthesia Reactions: No Hx Malignant Hyperthermia: No - Suicidal Assessment Feels Threatened In Home Enviroment: No Family/Social History - Physician Review Nursing Documentation Reviewed: Yes Family/Social History: No Known Family HX Smoking Status: Heavy Smoker > 10 Cigarettes Daily Hx Alcohol Use: No Hx Substance Use: Yes Substance used: marijuana Amount: 1 Hx Substance Use Treatment: No Allergies/Home Meds Allergies/Adverse Reactions: Allergies No Known Allergies Allergy (Verified 04/06/17 17:09) Review of Systems - Review of Systems Constitutional: Fatigue, Weight Change. absent: Fevers, Night Sweats Eyes: Normal ENT: Normal Respiratory: Normal Cardiovascular: Normal Gastrointestinal: Abdominal Pain, Diarrhea Genitourinary Male: Normal Musculoskeletal: Normal Skin: Normal Neurological: Normal Endocrine: Normal Hemo/Lymphatic: Normal Psychiatric: Normal Physical Exam Vital Signs Reviewed: Yes Vital Signs Temp Pulse Resp BP Pulse Ox 04/06/17 21:24 74 16 122/60 99 04/06/17 21:03 98.3 F 75 16 114/70 100 04/06/17 19:00 98.2 F 75 16 115/59 L 99 04/06/17 17:07 98.3 F 97 H 16 131/87 97 Temperature: Afebrile Blood Pressure: Normal Pulse: Regular Respiratory Rate: Normal Appearance: Positive for: Well-Appearing, Cachectic Pain Distress: None Mental Status: Positive for: Alert and Oriented X 3 - Systems Exam Head: Present: Atraumatic, Normocephalic, Other (bi-temporal wasting noted) Pupils: Present: PERRL, Other (no nystagmus, no photophobia, sclera anicteric) Extroacular Muscles: Present: EOMI Conjunctiva: Present: Normal Ears: Present: Normal Mouth: Present: Dry, Other (fair dentitions, no drooling/stridor, no exudate/ lesions, uvula/tongue are midline, no dysphonia) Pharnyx: Present: Normal Nose (External): Present: Atraumatic Nose (Internal): Present: Normal Inspection Neck: Present: Normal Range of Motion, Trachea Midline. No: MIDLINE TENDERNESS Respiratory/Chest: Present: Good Air Exchange, Other (+ coarse breath sounds b/l , + basiliar wheezing noted, no rales/rhonchi, no accessory muscle use noted, no retractions noted, no tachypenia) Cardiovascular: Present: Regular Rate and Rhythm, Normal S1, S2. No: Murmurs Abdomen: Present: Normal Bowel Sounds, Other (very thin male, no focal tenderness, no rodriguez's sign, no mcburney's point tenderness, no masses/rebound/ guarding/rigidity) Back: Present: Normal Inspection. No: CVA Tenderness, Midline Tenderness Upper Extremity: Present: Normal Inspection, Normal ROM, NORMAL PULSES, Neurovascularly Intact, Capillary Refill < 2s. No: Deformity Lower Extremity: Present: Normal Inspection, NORMAL PULSES, Normal ROM, Neurovascularly Intact, Capillary Refill < 2 s, Other (+ ambulatory, neurovasc intact b/l, strength 5/5 grossly intact b/l) Neurological: Present: GCS=15, CN II-XII Intact, Speech Normal Skin: Present: Warm, Normal Color, Other (cap refill ~ 1sec, no ulcerations, no petechiae, no rashes) Psychiatric: Present: Alert, Oriented x 3 Medical Decision Making ED Course and Treatment: 04/06/17 19:00 Impression: abd cramps, cachetic, weight loss/FTT, diarrhea x months i have consider all the differential diagnosis regarding pt's chief medical complaints/clinical findings, including but are not limited to: abd pain/FTT, diarrhea x months A/P: abd pain/cramps, cachetic, weight loss, diarrhea x months - labs - iv - observe - supportive care 1999 pt is currently comfortable pt is not in any distress pt states he is hungry NO vomiting pt is made aware of pt's medical results agrees with admission 04/06/17 21:[address] Bhardwaj, overnight hospitalist, whom is made aware of patient's medical condition and agrees with admission. Requests ABG to be ordered. Re-evaluation Time: 20:30 Reassessment Condition: Improving,but remains with symptoms - Lab Interpretations Lab Results: 04/06/17 17:53 04/06/17 17:53 Lab Results 04/06/17 17:53: Sodium 142, Potassium 3.8, Chloride 97 L, Carbon Dioxide 33, Anion Gap 16, BUN 12, Creatinine 0.9, Est GFR ( Amer) > 60, Est GFR (Non- Af Amer) > 60, Random Glucose 84, Calcium 10.2, Total Bilirubin 0.5, AST 53, ALT 66 H, Alkaline Phosphatase 81, Total Protein 8.3, Albumin 4.3, Globulin 4.0 , Albumin/Globulin Ratio 1.1, Lipase 6853 H 04/06/17 17:53: Urine Color Straw, Urine Appearance Sl cloudy, Urine pH 6.5, Ur Specific [place] >= 1.030, Urine Protein 100 H, Urine Glucose (UA) Negative, Urine Ketones 15 H, Urine Blood Moderate H, Urine Nitrate Negative, Urine Bilirubin Small H, Urine Urobilinogen 0.2, Ur Leukocyte Esterase Negative, Urine RBC 5 - 10, Urine WBC 2 - 5, Ur Epithelial Cells 1 - 3, Urine Bacteria Few 04/06/17 17:53: WBC 6.1 D, RBC 3.89, Hgb 12.3 L, Hct 36.3 L, MCV 93.3, MCH 31.6 , MCHC 33.9, RDW 13.3, Plt Count 242, MPV 9.5, Gran % 66.0, Lymph % (Auto) 23.3 , Mcdonald % (Auto) 10.2 H, Eos % (Auto) 0.3 L, Baso % (Auto) 0.2, Gran # 4.02, Lymph # (Auto) 1.4, Mcdonald # (Auto) 0.6, Eos # (Auto) 0.0, Baso # (Auto) 0.01 I have reviewed the lab results: Yes Interpretation: Abnormal lab values (elevated LIPASE) - EKG Interpretation EKG Interpretation (Text): 04/06/17 22:15 NSR at 65 bpm, normal axis, no ectopy, no st-t changes, Voltage criteria LVH, ABNL EKG; unchanged compare with old ekg 01/2016 Interpreted by ED Physician: Yes Type: 12 lead EKG Comparison: Similar to previous EKG - Medication Orders Current Medication Orders: Albuterol/Ipratropium (Duoneb 3 Mg/0.5 Mg (3 Ml) Ud) 3 ml IH Q6H JOSEMANUEL Stop: 04/07/17 16:16 Sodium Chloride (Sodium Chloride 0.9%) 1,000 mls @ 100 mls/hr IV .Q10H JOSEMANUEL Pantoprazole Sodium (Protonix Ec Tab) 40 mg PO DAILY JOSEMANUEL Discontinued Medications Albuterol/Ipratropium (Duoneb 3 Mg/0.5 Mg (3 Ml) Ud) 3 ml IH Q15M JOSEMANUEL Stop: 04/06/17 18:31 Last Admin: 04/06/17 18:42 Dose: 3 ml Famotidine (Pepcid) 20 mg IVP STAT STA Stop: 04/06/17 17:53 Last Admin: 04/06/17 18:15 Dose: 20 mg IVP Administration Document 04/06/17 18:15 SF (Rec: 04/06/17 18:16 SF [id number]) Charges for Administration # of IVP Administrations 1 Sodium Chloride (Sodium Chloride 0.9%) 1,000 mls @ 1,000 mls/hr IV .Q1H STA Stop: 04/06/17 18:51 Last Admin: 04/06/17 18:17 Dose: 1,000 mls/hr eMAR Start Stop Document 04/06/17 18:17 SF (Rec: 04/06/17 18:17 SF [id number]) Intravenous Solution Start Date 04/06/17 Start Time 18:17 End Date 04/06/17 End time 19:17 Total Infusion Time 60 Methylprednisolone (Solu-Medrol) 125 mg IVP STAT STA Stop: 04/06/17 17:54 Last Admin: 04/06/17 18:16 Dose: 125 mg IVP Administration Document 04/06/17 18:16 SF (Rec: 04/06/17 18:16 SF [id number]) Charges for Administration # of IVP Administrations 1 Disposition/Present on Arrival - Present on Arrival Any Indicators Present on Arrival: No History of DVT/PE: No History of Uncontrolled Diabetes: No Urinary Catheter: No History of Decub. Ulcer: No History Surgical Site Infection Following: None - Disposition Have Diagnosis and Disposition been Completed?: Yes Diagnosis: Acute pancreatitis, Weight loss, Cachectic, Diarrhea Disposition: HOSPITALIZED Disposition Time: 21:00 Patient Plan: Admission Condition: STABLE
[2017-04-06] MEDS: Albuterol-Ipratrop 3 mg / 0.5 (3 ml) UD IH SCH ×3 (18:16→18:42)
[2017-04-06 18:24] LABS: PH,URINE 6.5 (4.7-8.0); URINE BILIRUBIN SMALL (NEGATIVE); URINE BLOOD MODERATE (NEGATIVE); URINE GLUCOSE (UA) NEGATIVE (NEGATIVE); URINE LEUKOCYTE ESTERASE NEGATIVE Leu/uL (NEGATIVE); URINE NITRATE NEGATIVE (NEGATIVE); URINE PROTEIN 100 mg/dL (<30 mg/dL); URINE UROBILINOGEN 0.2 E.U./dL (<1 E.U./dL)
[2017-04-06 18:26] LABS: BASO # 0.01 K/mm3 (0.0-2.0); BASO % 0.2 % (0.0-3.0); EOS % 0.3 % (1.5-5.0); GRAN # 4.02 (1.4-6.5); HEMOGLOBIN 12.3 g/dL (14.0-18.0); LYMPH # 1.4 (1.2-3.4); LYMPH % 23.3 % (22.0-35.0); MEAN CELL VOLUME 93.3 fl (80.0-105.0); MEAN CORPUSCULAR HEMOGLOBIN 31.6 pg (25.0-35.0); MEAN CORPUSCULAR HGB CONC 33.9 g/dl (31.0-37.0); MEAN PLATELET VOLUME 9.5 fl (7.0-11.0); MONO # 0.6 (0.1-0.6); MONO % 10.2 % (1.0-6.0); RBC 3.89 10^6/uL (3.5-6.1); RED CELL DISTRIBUTION WIDTH 13.3 % (11.5-14.5); WHITE BLOOD COUNT 6.1 10^3/ul (4.5-11.0)
[2017-04-06 18:29] LABS: URINE APPEARANCE SL CLOUDY (CLEAR); URINE COLOR STRAW (YELLOW)
[2017-04-06 18:46] LABS: URINE BACTERIA FEW (NEG)
[2017-04-06 19:28] LABS: ALB/GLOB RATIO 1.1 (1.1-1.8); ALBUMIN 4.3 g/dL (3.0-4.8); ALT/SGPT 66 U/L (7-56); AST/SGOT 53 U/L (17-59); BLOOD UREA NITROGEN 12 mg/dL (7-21); CALCIUM 10.2 mg/dL (8.4-10.5); GFR AFRICAN-AMERICAN > 60; GFR NON-AFRICAN AMERICAN > 60; LIPASE 6853 U/L (23-300)
[2017-04-06] MEDS ORDERED: Sodium Chloride 0.9% 1,000 ML IV SCH (22:15)
[2017-04-06 22:27] LABS: ARTERIAL BLOOD GAS HCO3 27.9 mmol/L (21-28); ARTERIAL BLOOD GAS HEMOGLOBIN 11.4 g/dL (11.7-17.4); ARTERIAL BLOOD GAS O2 CAPACITY 15.6 mL/dl (16-24); ARTERIAL BLOOD GAS O2 CONTENT 15.1 ML/dl (15-23); ARTERIAL BLOOD GAS O2 SAT 97.1 % (95-98); ARTERIAL BLOOD GAS PCO2 44 mm/Hg (35-45); ARTERIAL BLOOD GAS PH 7.41 (7.35-7.45); ARTERIAL BLOOD GAS TCO2 29.3 mmol.L (22-28)
[2017-04-06 22:45] LABS: MAGNESIUM 2.1 mg/dL (1.7-2.2)
[2017-04-06] MEDS ORDERED: Albuterol-Ipratrop 3 mg / 0.5 (3 ml) UD IH PRN (23:23)
--- NOTE | 2017-04-06 23:25 | CP.PCM.HP ---
History of Present Illness - History of Present Illness History of Present Illness: 61 year old Male with PMHx of pancreatitis, polysubtance abuse, tobacco abuse, emphysema, Diabetes, hypertension, and COPD presents with complaints of diarrhea for the past 2 and 1/2 months. Patients presented with similar symptoms last month and was treated for pancreatitis conservatively. Patient was supposed to follow up with primary physician and GI (Dr. Gonzalez) but did not due to insurance issues. Patient states he has had about a 40 lbs weight loss over the past 2 and half months without an active attempt to lose weight. He complains of 4/10 crampy abdominal pain. He denies any fever, chills, chest pain, worsening SOB, nausea, vomiting, or any urinary symptoms. Patient states he found blood in his stool for the fist time on Sunday. He denies any dizziness, lightheadedness, palpitations, or generalized weakness. ROS: As stated above PMHx: pancreatitis, polysubtance abuse, tobacco abuse, emphysema, Diabetes, hypertension, and COPD PSHx: Denies Allergies: Denies Social Hx: 1/2-1 PPD for about 50 years. Denies Alcohol use. Admits to occasional marijuana use Hos: 2017 for similar symptoms FamHx: Denies Meds: Denies PMD: Dr. Sandoval Pryor/Dr. Rahman Present on Admission - Present on Admission Any Indicators Present on Admission: No Review of Systems - Review of Systems Review of Systems: As per HPI Past Patient History - Infectious Disease Hx of Infectious Diseases: None - Tetanus Immunizations Tetanus Immunization: Up to Date - Past Social History Smoking Status: Heavy Smoker > 10 Cigarettes Daily - CARDIAC Hx Hypertension: Yes - PULMONARY Hx Respiratory Disorders: Yes Hx Bronchitis: Yes (Chronic) Hx Chronic Obstructive Pulmonary Disease (COPD): Yes Hx Emphysema: Yes - NEUROLOGICAL Hx Neurological Disorder: No - HEENT Hx HEENT Problems: No - RENAL Hx Chronic Kidney Disease: No - ENDOCRINE/METABOLIC Hx Endocrine Disorders: No - HEMATOLOGICAL/ONCOLOGICAL Hx Blood Disorders: No - INTEGUMENTARY Hx Dermatological Problems: No - MUSCULOSKELETAL/RHEUMATOLOGICAL Hx Falls: No - GASTROINTESTINAL Hx Gastrointestinal Disorders: Yes Hx Diarrhea: Yes Hx Vomiting: Yes - GENITOURINARY/GYNECOLOGICAL Hx Genitourinary Disorders: No - PSYCHIATRIC Hx Psychophysiologic Disorder: No Hx Anxiety: No Hx Bipolar Disorder: No Hx Depression: Yes Hx Emotional Abuse: No Hx Hallucinations: No Hx Panic Symptoms: No Hx Post Traumatic Stress Disorder: No Hx Psychosis: No Hx Physical Abuse: No Hx Schizophrenia: No Hx Sexual Abuse: No Hx Substance Use: Yes - SURGICAL HISTORY Hx Surgeries: No - ANESTHESIA Hx Anesthesia: No Hx Anesthesia Reactions: No Hx Malignant Hyperthermia: No Meds Allergies/Adverse Reactions: Allergies Allergy/AdvReac Type Severity Reaction Status Date / Time No Known Allergies Allergy Verified 04/06/17 17:09 Physical Exam - Constitutional Appears: Non-toxic, No Acute Distress, Older Than Stated Age, Cachectic - Head Exam Head Exam: ATRAUMATIC, NORMAL INSPECTION, NORMOCEPHALIC - Eye Exam Eye Exam: EOMI, Normal appearance. absent: Scleral icterus - ENT Exam ENT Exam: Mucous Membranes Moist - Neck Exam Neck exam: Negative for: Lymphadenopathy - Respiratory Exam Respiratory Exam: Rales (Upper Lungs, B/L ), NORMAL BREATHING PATTERN. absent: Accessory Muscle Use, Clear to Auscultation Bilateral, Rhonchi, Wheezes, Respiratory Distress, Stridor - Cardiovascular Exam Cardiovascular Exam: RRR, +S1, +S2. absent: Diastolic murmur, JVD, Systolic Murmur - GI/Abdominal Exam GI & Abdominal Exam: Normal Bowel Sounds, Soft. absent: Organomegaly, Rebound, Rigid, Tenderness - Rectal Exam Additional comments: Patient refused rectal exam. - Extremities Exam Extremities exam: Positive for: normal capillary refill, normal inspection, pedal pulses present. Negative for: calf tenderness, pedal edema Additional comments: Finger Clubbing, B/L - Neurological Exam Neurological exam: Alert, Oriented x3 - Psychiatric Exam Psychiatric exam: Normal Affect, Normal Mood - Skin Skin Exam: Dry, Intact, Normal Color, Warm Results - Vital Signs Recent Vital Signs: Last Vital Signs Temp 98.3 F 04/06/17 21:03 Pulse 74 04/06/17 21:24 Resp 16 04/06/17 21:24 BP 122/60 04/06/17 21:24 Pulse Ox 99 04/06/17 21:24 - Labs Result Diagrams: 04/06/17 17:53 04/06/17 17:53 Labs: Laboratory Results - last 24 hr 04/06/17 04/06/17 21:45 22:24 ESR 75 H pCO2 44 pO2 71.0 L HCO3 27.9 ABG pH 7.41 ABG Total CO2 29.3 H ABG O2 Saturation 97.1 ABG O2 Content 15.1 ABG Base Excess 2.8 ABG Hemoglobin 11.4 L ABG Carboxyhemoglobin 2.4 H POC ABG HHb (Measured) 2.8 ABG Methemoglobin 1.0 ABG O2 Capacity 15.6 L Hgb O2 Saturation 93.8 L FiO2 21.0 Assessment & Plan - Assessment and Plan (Free Text) Assessment: 61 year old Male with PMHx of pancreatitis, polysubtance abuse, tobacco abuse, emphysema, Diabetes, hypertension, and COPD presents with complaints of diarrhea for the past 2 and 1/2 months. Plan: Chronic Watery Diarrhea DDX: Crohns, IBS, Celiac Disease, Microscopic Colitis, Chronic Pancreatitis ESR: Elevated @ 75 NPO after Midnight GI Consult (Dr. Gonzalez) Stool Culture/Occult Blood/C.Diff Tissue Transglutaminase IgA/IgG Abdominal Ultrasound Elevated Lipase w/ mild Abdominal Pain: DDx: Pancreatitis, Gastritis Abdominal Ultrasound: PENDING read Abdominal MRI Fluids, LR @ 100. Consider switching to 5-10 mL/kg/hr HIV 1 & 2 Hx of COPD DuoNebs Q6H JOSEMANUEL, Q2H PRN Patient has no home meds Hx of HTN Patient has no home meds Currently Normotensive Hx of Diabetes F/U HgBA1c Hx of Tobacco Abuse Nicotine Patch Proph Protonix/SCDs Patient seen and examined with Attending (Dr. Mario) Blanquita Perla, PGY1
[2017-04-07] MEDS ORDERED: Lactated Ringer's 1,000 ML IV SCH ×2 (00:15→07:30)
--- NOTE | 2017-04-07 01:21 | US ---
EXAM: US Abdomen Complete CLINICAL HISTORY: 61 years old, male; Pain; Abdominal pain; Generalized; Additional info: Abdominal pain, elevated lipase, diarrhea TECHNIQUE: Real-time ultrasound of the abdomen (complete) with image documentation. COMPARISON: US - ABDOMEN COMPLETE 2017-03-15 18:19 FINDINGS: Artifacts: Limited due to bowel gas shadowing. Limited due to shadowing from the ribs. Liver: The liver measures 13.5 cm. Limited evaluation of the liver due to shadowing. There is hepatic pedal flow in the portal vein. Gallbladder: The gallbladder wall measures 2 mm.There was no right upper quadrant tenderness during the sonographic examination. Correlation with patient's pain medication status is recommended. No gallstones. Common bile duct: Normal common bile duct measuring 5-6 mm the patient's stated age. No stones. No dilation. Pancreas: Dilated pancreatic duct measuring 6 mm. This is more prominent when compared to prior examination. The pancreas is not well-seen. Kidneys: The right kidney measures 8.8 x 4.1 x 4.1 cm. The left kidney measures 9.8 x 4.5 x 4.1 cm. Limited evaluation of the kidney due to shadowing. No hydronephrosis. Spleen: The spleen measures 7.2 x 2.9 x 2.7 cm. Aorta: The proximal aorta measures 2.3 cm. the mid to distal aorta is not well-seen. Inferior vena cava: IVC seen. Free fluid: Small to moderate amount of ascites. IMPRESSION: 1. Dilated pancreatic duct measuring 6 mm. This is more prominent when compared to prior examination. 2. Small to moderate amount of ascites.
[2017-04-07] MEDS: Albuterol-Ipratrop 3 mg / 0.5 (3 ml) UD IH SCH ×4 (01:22→14:00)
[2017-04-07] MEDS: Pantoprazole 40 mg EC Tab PO SCH (05:40)
[2017-04-07 08:23] LABS: GRAN # 3.69 (1.4-6.5); GRAN % 73.6 % (50.0-68.0); LYMPH # 0.9 (1.2-3.4); LYMPH % 18.8 % (22.0-35.0); MEAN CORPUSCULAR HEMOGLOBIN 31.3 pg (25.0-35.0); MEAN PLATELET VOLUME 9.3 fl (7.0-11.0); MONO # 0.4 (0.1-0.6); MONO % 7.6 % (1.0-6.0); RBC 3.52 10^6/uL (3.5-6.1); RED CELL DISTRIBUTION WIDTH 13.4 % (11.5-14.5)
[2017-04-07 08:47] LABS: ALB/GLOB RATIO 1.1 (1.1-1.8); ALT/SGPT 58 U/L (7-56); AST/SGOT 35 U/L (17-59); BLOOD UREA NITROGEN 17 mg/dL (7-21); CALCIUM 9.9 mg/dL (8.4-10.5); GFR AFRICAN-AMERICAN > 60; GFR NON-AFRICAN AMERICAN > 60; HDL CHOLESTEROL 65 mg/dL (29-60)
[2017-04-07 08:54] LABS: LDL CHOLESTEROL 68 mg/dL (0-129)
--- NOTE | 2017-04-07 10:11 | CARD ---
APPROVED REPORT EKG Measurement Heart [id number] <Conclusion> Normal sinus rhythm Septal SD, old No change
--- NOTE | 2017-04-07 11:14 | CP.PCM.CON ---
<Missy Hollins - Last Filed: 04/07/17 11:16> History of Present Illness - History of Present Illness History of Present Illness: GI Fellow PGY 4 Consult Note This is a 61year old male PMHx emphysema, hypertension, diabetes, chronic back pain presents to the ED c/o 2 days of abdominal pain and diarrhea. Pt reports diarrhea and weight loos over the past few months has lead to 3 admissions. He reports the abdominal pain is intermittent, periumbilical, cramping in nature, and radiates around to his back. He has been having 6-10 episodes of water diarrhea and feels like when he eats it runs straight out of him. He also reports losing weight but denies any decreased appetite or abdominal pain, no nausea or vomiting. There is documented unintentional weight loss of 30 pounds over the past year as 144lb to 109lbs. He denied noticing any melena or hematochezia. Pt denies any hx of alcohol abuse, prior US neg for gallstones, triglyceride levels negative, IgG4 level elevated. Pt also reports trauma to his back and leg after falling off a truck while picking up trash for the [facility]. No priro issues of abdominal pain, diarrhea or weightless since over the past 3-4 months. Pt denies any dry mouth, joint pain/swelling or skin rash. Lab work showed Lipase of 6853. ROS: 12 point review of system reviewed and negative unless stated above. PMHx: as above PSurgHx: denies Social Hx: admits to tobacco use 1/2 ppd for 40 years; admits to smoking marijuana- few times per week; denies EtOH and illicit drug use Endo Hx: Endoscopy & colonoscopy many years ago and was reportedly normal Past Patient History - Infectious Disease Hx of Infectious Diseases: None - Tetanus Immunizations Tetanus Immunization: Up to Date - Past Social History Smoking Status: Light Smoker < 10 Cigarettes Daily - CARDIAC Hx Hypertension: Yes - PULMONARY Hx Respiratory Disorders: Yes Hx Bronchitis: Yes (Chronic) Hx Chronic Obstructive Pulmonary Disease (COPD): Yes Hx Emphysema: Yes - NEUROLOGICAL Hx Neurological Disorder: No - HEENT Hx HEENT Problems: No - RENAL Hx Chronic Kidney Disease: No - ENDOCRINE/METABOLIC Hx Endocrine Disorders: No - HEMATOLOGICAL/ONCOLOGICAL Hx Blood Disorders: No - INTEGUMENTARY Hx Dermatological Problems: No - MUSCULOSKELETAL/RHEUMATOLOGICAL Hx Falls: No - GASTROINTESTINAL Hx Gastrointestinal Disorders: Yes - GENITOURINARY/GYNECOLOGICAL Hx Genitourinary Disorders: No - PSYCHIATRIC Hx Psychophysiologic Disorder: No Hx Anxiety: No Hx Bipolar Disorder: No Hx Depression: Yes Hx Emotional Abuse: No Hx Hallucinations: No Hx Panic Symptoms: No Hx Post Traumatic Stress Disorder: No Hx Psychosis: No Hx Physical Abuse: No Hx Schizophrenia: No Hx Sexual Abuse: No - SURGICAL HISTORY Hx Surgeries: No - ANESTHESIA Hx Anesthesia: No Hx Anesthesia Reactions: No Hx Malignant Hyperthermia: No Meds Allergies/Adverse Reactions: Allergies Allergy/AdvReac Type Severity Reaction Status Date / Time No Known Allergies Allergy Verified 04/06/17 17:09 - Medications Medications: Current Medications Albuterol/Ipratropium (Duoneb 3 Mg/0.5 Mg (3 Ml) Ud) 3 ml IH Q6H [facility] Stop: 04/07/17 16:16 Last Admin: 04/07/17 09:42 Dose: 3 ml Albuterol/Ipratropium (Duoneb 3 Mg/0.5 Mg (3 Ml) Ud) 3 ml IH Q2H PRN PRN Reason: Shortness of Breath Lactated Ringer's (Lactated Ringer's) 1,000 mls @ 250 mls/hr IV .Q4H [facility] Nicotine (Nicoderm Cq) 1 patch TD DAILY PRN PRN Reason: URGE TO SMOKE Pantoprazole Sodium (Protonix Ec Tab) 40 mg PO 0600 [facility] Last Admin: 04/07/17 05:40 Dose: Not Given Physical Exam - Constitutional Appears: Non-toxic, No Acute Distress, Cachectic - Head Exam Head Exam: ATRAUMATIC, NORMAL INSPECTION, NORMOCEPHALIC - Eye Exam Eye Exam: EOMI, Normal appearance, PERRL Pupil Exam: NORMAL ACCOMODATION - ENT Exam ENT Exam: Mucous Membranes Moist - Neck Exam Neck exam: Positive for: Normal Inspection - Respiratory Exam Respiratory Exam: NORMAL BREATHING PATTERN - Cardiovascular Exam Cardiovascular Exam: RRR - GI/Abdominal Exam GI & Abdominal Exam: Normal Bowel Sounds, Soft, Tenderness. absent: Distended, Guarding, Organomegaly, Rebound - Rectal Exam Rectal Exam: Deferred - Extremities Exam Extremities exam: Positive for: full ROM, normal inspection - Back Exam Back exam: NORMAL INSPECTION - Neurological Exam Neurological exam: Alert, Oriented x3 - Psychiatric Exam Psychiatric exam: Normal Affect, Normal Mood - Skin Skin Exam: Dry, Intact, Normal Color, Warm Results - Vital Signs Recent Vital Signs: Last Vital Signs Temp 97.4 F L 04/07/17 07:30 Pulse 84 04/07/17 07:30 Resp 16 04/07/17 07:30 BP 133/97 H 04/07/17 07:30 Pulse Ox 98 04/07/17 07:30 - Labs Result Diagrams: 04/07/17 07:00 04/07/17 07:00 Labs: Laboratory Results - last 24 hr 04/06/17 04/06/17 04/07/17 21:45 22:24 07:00 WBC RBC Hgb Hct MCV MCH MCHC RDW Plt Count MPV Gran % Lymph % (Auto) Upton % (Auto) Eos % (Auto) Baso % (Auto) Gran # Lymph # (Auto) Upton # (Auto) Eos # (Auto) Baso # (Auto) ESR 75 H pCO2 44 pO2 71.0 L HCO3 27.9 ABG pH 7.41 ABG Total CO2 29.3 H ABG O2 Saturation 97.1 ABG O2 Content 15.1 ABG Base Excess 2.8 ABG Hemoglobin 11.4 L ABG Carboxyhemoglobin 2.4 H POC ABG HHb (Measured) 2.8 ABG Methemoglobin 1.0 ABG O2 Capacity 15.6 L Hgb O2 Saturation 93.8 L FiO2 21.0 Sodium 141 Potassium 4.1 Chloride 99 Carbon Dioxide 30 Anion Gap 17 BUN 17 Creatinine 0.8 Est GFR ( Amer) > 60 Est GFR (Non-Af Amer) > 60 Random Glucose 106 Calcium 9.9 Total Bilirubin 0.5 AST 35 ALT 58 H Alkaline Phosphatase 66 Total Protein 7.5 Albumin 4.0 Globulin 3.5 Albumin/Globulin Ratio 1.1 Triglycerides 56 Cholesterol 151 LDL Cholesterol Direct 68 HDL Cholesterol 65 H 04/07/17 07:00 WBC 5.0 RBC 3.52 Hgb 11.0 L Hct 32.4 L MCV 92.0 MCH 31.3 MCHC 34.0 RDW 13.4 Plt Count 232 MPV 9.3 Gran % 73.6 H Lymph % (Auto) 18.8 L Upton % (Auto) 7.6 H Eos % (Auto) 0.0 L Baso % (Auto) 0.0 Gran # 3.69 Lymph # (Auto) 0.9 L Upton # (Auto) 0.4 Eos # (Auto) 0.0 Baso # (Auto) 0.00 ESR pCO2 pO2 HCO3 ABG pH ABG Total CO2 ABG O2 Saturation ABG O2 Content ABG Base Excess ABG Hemoglobin ABG Carboxyhemoglobin POC ABG HHb (Measured) ABG Methemoglobin ABG O2 Capacity Hgb O2 Saturation FiO2 Sodium Potassium Chloride Carbon Dioxide Anion Gap BUN Creatinine Est GFR ( Amer) Est GFR (Non-Af Amer) Random Glucose Calcium Total Bilirubin AST ALT Alkaline Phosphatase Total Protein Albumin Globulin Albumin/Globulin Ratio Triglycerides Cholesterol LDL Cholesterol Direct HDL Cholesterol Assessment & Plan - Assessment and Plan (Free Text) Assessment: This is a 61year old male PMHx chronic bronchitis, emphysema, hypertension, diabetes, chronic back pain presents to the ED complaining of 3 days of abdominal pain and diarrhea. 1. Acute pancreatitis 2. Weight loss 3. Diabetes 4. 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 - Will order MRCP to evaluate pancreas - IV fluids LR @ 150cc/hr - Will order fecal elastase to r/o pancreatic insufficiency causing diarrhea and may need to be started on pancreatic enzymes based on results - Continue with Protonix 40mg po daily - Patient would benefit from outpatient EUS with FNB of pancreas - Will continue to monitor patients clinical course <Dinh Gonzalez - Last Filed: 04/07/17 14:55> Meds - Medications Medications: Current Medications Albuterol/Ipratropium (Duoneb 3 Mg/0.5 Mg (3 Ml) Ud) 3 ml IH Q6H [facility] Stop: 04/07/17 16:16 Last Admin: 04/07/17 14:00 Dose: 3 ml Albuterol/Ipratropium (Duoneb 3 Mg/0.5 Mg (3 Ml) Ud) 3 ml IH Q2H PRN PRN Reason: Shortness of Breath Lactated Ringer's (Lactated Ringer's) 1,000 mls @ 150 mls/hr IV .Q6H40M [facility] Last Admin: 04/07/17 11:55 Dose: 150 mls/hr Nicotine (Nicoderm Cq) 1 patch TD DAILY PRN PRN Reason: URGE TO SMOKE Pantoprazole Sodium (Protonix Ec Tab) 40 mg PO 0600 [facility] Last Admin: 04/07/17 05:40 Dose: Not Given Results - Vital Signs Recent Vital Signs: Last Vital Signs Temp 97.4 F L 04/07/17 07:30 Pulse 84 04/07/17 07:30 Resp 16 04/07/17 07:30 BP 133/97 H 04/07/17 07:30 Pulse Ox 98 04/07/17 07:30 - Labs Result Diagrams: 04/07/17 07:00 04/07/17 07:00 Labs: Laboratory Results - last 24 hr 04/06/17 04/06/17 04/07/17 21:45 22:24 07:00 WBC RBC Hgb Hct MCV MCH MCHC RDW Plt Count MPV Gran % Lymph % (Auto) Upton % (Auto) Eos % (Auto) Baso % (Auto) Gran # Lymph # (Auto) Upton # (Auto) Eos # (Auto) Baso # (Auto) ESR 75 H pCO2 44 pO2 71.0 L HCO3 27.9 ABG pH 7.41 ABG Total CO2 29.3 H ABG O2 Saturation 97.1 ABG O2 Content 15.1 ABG Base Excess 2.8 ABG Hemoglobin 11.4 L ABG Carboxyhemoglobin 2.4 H POC ABG HHb (Measured) 2.8 ABG Methemoglobin 1.0 ABG O2 Capacity 15.6 L Hgb O2 Saturation 93.8 L FiO2 21.0 Sodium 141 Potassium 4.1 Chloride 99 Carbon Dioxide 30 Anion Gap 17 BUN 17 Creatinine 0.8 Est GFR ( Amer) > 60 Est GFR (Non-Af Amer) > 60 Random Glucose 106 Hemoglobin A1c Calcium 9.9 Total Bilirubin 0.5 AST 35 ALT 58 H Alkaline Phosphatase 66 Total Protein 7.5 Albumin 4.0 Globulin 3.5 Albumin/Globulin Ratio 1.1 Triglycerides 56 Cholesterol 151 LDL Cholesterol Direct 68 HDL Cholesterol 65 H HIV 1&2 Antibody Screen 04/07/17 04/07/17 04/07/17 07:00 07:00 07:00 WBC 5.0 RBC 3.52 Hgb 11.0 L Hct 32.4 L MCV 92.0 MCH 31.3 MCHC 34.0 RDW 13.4 Plt Count 232 MPV 9.3 Gran % 73.6 H Lymph % (Auto) 18.8 L Upton % (Auto) 7.6 H Eos % (Auto) 0.0 L Baso % (Auto) 0.0 Gran # 3.69 Lymph # (Auto) 0.9 L Upton # (Auto) 0.4 Eos # (Auto) 0.0 Baso # (Auto) 0.00 ESR pCO2 pO2 HCO3 ABG pH ABG Total CO2 ABG O2 Saturation ABG O2 Content ABG Base Excess ABG Hemoglobin ABG Carboxyhemoglobin POC ABG HHb (Measured) ABG Methemoglobin ABG O2 Capacity Hgb O2 Saturation FiO2 Sodium Potassium Chloride Carbon Dioxide Anion Gap BUN Creatinine Est GFR ( Amer) Est GFR (Non-Af Amer) Random Glucose Hemoglobin A1c 6.4 Calcium Total Bilirubin AST ALT Alkaline Phosphatase Total Protein Albumin Globulin Albumin/Globulin Ratio Triglycerides Cholesterol LDL Cholesterol Direct HDL Cholesterol HIV 1&2 Antibody Screen Negative Attending/Attestation - Attestation I have personally seen and examined this patient.: Yes I have fully participated in the care of the patient.: Yes I have reviewed all pertinent clinical information: Yes Notes (Text): 04/07/17 14:53 61 year old male with h/o COPD, HTN, DM admitted with abdominal pain, weight loss, and diarrhea, with possible pancreatitis. 1. Acute pancreatitis 2. Diarrhea 3. Weight loss Plan: -advance diet as tolerated -IV hydration -check IGG4 again, previous was slightly high -check CA 19-9 -check MRI/MRCP abdomen to eval pancreas for abnormalities or mass -check stool elastase to eval for panc insufficiency
[2017-04-07] MEDS: Lactated Ringer's 1,000 ML IV SCH (11:55)
[2017-04-07] MEDS ORDERED: Gadodiamide 287 MG/ML VIAL (15ML) IV ONE (16:18)
--- NOTE | 2017-04-07 17:44 | MRI ---
PROCEDURE: Magnetic Resonance Cholangiopancreatography HISTORY: COMPARISON: None available. TECHNIQUE: Multiplanar, multisequence MR images of the abdomen were obtained, including heavily T2 weighted MRCP images of the biliary system. Rotating maximum intensity projection images of the biliary system were generated. FINDINGS: MRCP: The MRCP is grossly limited. The common bile duct is of normal caliber. It measures approximately 6 mm. There is no intraluminal filling defect identified. LIVER: Normal size, contour and signal intensity. No mass. No biliary ductal dilatation. Smooth contour. GALLBLADDER: Unremarkable. SPLEEN: Unremarkable. PANCREAS: There is dilatation of the pancreatic duct to a diameter approximately 6 mm in the pancreatic body. The pancreatic duct is not visualized in the region of the pancreatic. This raises suspicion of a pancreatic mass or pancreatic ductal stricture, although no discrete mass is identified. Please note that post gadolinium images were grossly technically limited and are not available for evaluation of possible pancreatic mass. Recommend further evaluation with multiphasic contrast enhanced CT examination of the abdomen. ADRENALS: Unremarkable. KIDNEYS: Unremarkable. AORTA: No aneurysm. ASCITES: There is mild ascites. OTHER FINDINGS: None. IMPRESSION: Pancreatic ductal dilatation in the body and tail without visualization of the duct in the pancreatic head. Although no discrete mass is identified, this raises some suspicion of a pancreatic neoplasm or pancreatic ductal stricture. There is no biliary dilatation. There is mild ascites. Post gadolinium evaluation is grossly technically limited.
[2017-04-07] MEDS ORDERED: Morphine 4 mg/ml ISec IVP STA (19:52)
--- NOTE | 2017-04-08 06:05 | CP.PCM.PN ---
<Xu Poe - Last Filed: 04/08/17 06:09> Subjective - Date & Time of Evaluation Date of Evaluation: 04/07/17 Time of Evaluation: 07:35 - Subjective Subjective: Patient seen and examined at bedside in no acute distress. States he has no acute complaints aside from being really hungry. States his diarrhea has resolved since being admitted. Denies diarrhea, abdominal pain, shortness of breath, chest pain, nausea, vomiting, fevers, chills. Objective - Vital Signs/Intake and Output Vital Signs (last 24 hours): Temp Pulse Resp BP Pulse Ox 97.7 F 98 H 18 96/55 L 97 04/07/17 16:00 04/07/17 16:00 04/07/17 16:00 04/07/17 16:00 04/07/17 16:00 Intake and Output: 04/07/17 04/08/17 18:59 06:59 Intake Total 360 Balance 360 - Medications Medications: Current Medications Albuterol/Ipratropium (Duoneb 3 Mg/0.5 Mg (3 Ml) Ud) 3 ml IH Q2H PRN PRN Reason: Shortness of Breath Lactated Ringer's (Lactated Ringer's) 1,000 mls @ 150 mls/hr IV .Q6H40M [facility] Last Admin: 04/07/17 11:55 Dose: 150 mls/hr Nicotine (Nicoderm Cq) 1 patch TD DAILY PRN PRN Reason: URGE TO SMOKE Pantoprazole Sodium (Protonix Ec Tab) 40 mg PO 0600 [facility] Last Admin: 04/07/17 05:40 Dose: Not Given - Labs Labs: 04/07/17 07:00 04/07/17 07:00 - Constitutional Appears: Non-toxic, No Acute Distress - Head Exam Head Exam: ATRAUMATIC, NORMAL INSPECTION, NORMOCEPHALIC - Eye Exam Eye Exam: EOMI, Normal appearance - ENT Exam ENT Exam: Mucous Membranes Moist, Normal Exam - Neck Exam Neck Exam: Normal Inspection - Respiratory Exam Respiratory Exam: Clear to Ausculation Bilateral, NORMAL BREATHING PATTERN. absent: Rhonchi, Wheezes - Cardiovascular Exam Cardiovascular Exam: RRR, +S1, +S2 - GI/Abdominal Exam GI & Abdominal Exam: Soft, Normal Bowel Sounds. absent: Tenderness - Back Exam Back Exam: NORMAL INSPECTION - Neurological Exam Neurological Exam: Alert, Awake, Oriented x3 - Psychiatric Exam Psychiatric exam: Normal Affect, Normal Mood - Skin Skin Exam: Intact, Normal Color, Warm Assessment and Plan - Assessment and Plan (Free Text) Assessment: 61 year old Male with PMHx of pancreatitis, polysubtance abuse, tobacco abuse, emphysema, Diabetes, hypertension, and COPD presents with complaints of diarrhea for the past 2 and 1/2 months with associated 35 pound weight loss. Plan: Chronic Watery Diarrhea DDX: Pancreatic cancer vs. Chronic Pancreatitis vs. Microscopic Colitis vs. IBS ESR: 75 Heart healthy diet GI Consulted Stool Culture/Occult Blood/C.Diff; pending Tissue Transglutaminase IgA/IgG; pending Abdominal Ultrasound; dilated pancreatic duct measuring 6 mm, small amount of ascites present Elevated Lipase w/ mild Abdominal Pain: DDx: Pancreatitis, Gastritis Abdominal Ultrasound;dilated pancreatic duct measuring 6 mm, small amount of ascites present Abdominal MRI Fluids, LR @ 250 HIV 1 & 2; pending Hx of COPD DuoNebs Q6H [facility], Q2H PRN Patient has no home meds Hx of HTN Patient has no home meds Currently Normotensive Hx of Diabetes HgBA1c 6.4 Hx of Tobacco Abuse Nicotine Patch Proph Protonix/SCDs Patient seen and examined with Attending Dr. Mario <Burt Mario - Last Filed: 04/08/17 17:57> Objective - Vital Signs/Intake and Output Vital Signs (last 24 hours): Temp Pulse Resp BP Pulse Ox 97.9 F 70 20 142/86 96 04/08/17 08:00 04/08/17 08:00 04/08/17 08:00 04/08/17 08:00 04/08/17 08:00 Intake and Output: 04/08/17 04/08/17 06:59 18:59 Intake Total 360 Balance 360 - Medications Medications: Current Medications Albuterol/Ipratropium (Duoneb 3 Mg/0.5 Mg (3 Ml) Ud) 3 ml IH Q2H PRN PRN Reason: Shortness of Breath Lactated Ringer's (Lactated Ringer's) 1,000 mls @ 150 mls/hr IV .Q6H[facility]M [facility] Last Admin: 04/08/17 13:49 Dose: 150 mls/hr Morphine Sulfate (Morphine) 1 mg IVP Q4H PRN PRN Reason: Pain, moderate (4-7) Last Admin: 04/08/17 13:49 Dose: 1 mg Nicotine (Nicoderm Cq) 1 patch TD DAILY PRN PRN Reason: URGE TO SMOKE Pantoprazole Sodium (Protonix Ec Tab) 40 mg PO 0600 [facility] Last Admin: 04/08/17 06:18 Dose: 40 mg - Labs Labs: 04/08/17 08:00 04/08/17 08:00 Attending/Attestation - Attestation I have personally seen and examined this patient.: Yes I have fully participated in the care of the patient.: Yes I have reviewed all pertinent clinical information, including history, physical exam and plan: Yes Notes (Text): I have seen and examined the patient at bedside. Agree with the above note with the following additions/ exceptions: Briefly this is 61 year old male with history of pancreatitis, polysubtance abuse, tobacco abuse and COPD who came for evaluation of chronic watery diarrhea, abdominal soreness and 35 pounds unintentional weight loss. Lipase is elevated. Patient has acute pancreatitis. He was made NPO and started on LR@250 cc. Patient had multiple visits to the hospital and was advised to have a follow up. Patient has been very non compliant with follow up. Patient states that previously he did not have insurance therefor he was not able to follow up. His diarrhea has improved today. Fecal elastase pending to r/o pancreatic insufficiency. Stool culture pending. Cdiff pending. GI consult appreciated. US revealed 6 mm dilated pancreatic duct. MRCP ordered. HIV pending. Continue nicotine patch. Counselling provided regarding tobacco use. Hba1c is 6.4. Upon discharge patient will follow up with Dr Gonzalez and Dr Cohen. Dr Burt Mario
[2017-04-08] MEDS: Pantoprazole 40 mg EC Tab PO SCH (06:18)
[2017-04-08] MEDS: Lactated Ringer's 1,000 ML IV SCH ×2 (06:37→13:49)
[2017-04-08] MEDS ORDERED: Albuterol-Ipratrop 3 mg / 0.5 (3 ml) UD IH PRN (08:08)
--- NOTE | 2017-04-08 08:10 | CP.PCM.PN ---
Subjective - Date & Time of Evaluation Date of Evaluation: 04/08/17 Time of Evaluation: 08:10 - Subjective Subjective: Patient seen and examined at bedside. Patient is in no acute distress and has no acute complaints at this time. States he has a strong appetitie and feels better now than he has in the past few months. States he discussed with GI team plan for further outpatient workup regarding new finding from PRCP. Patient states his abdomen feels slightly sore but is in no pain at the moment. Denies diarrhea, nausea, vomiting, shortness of breath, fevers, chills. Objective - Vital Signs/Intake and Output Vital Signs (last 24 hours): Temp Pulse Resp BP Pulse Ox 97.7 F 98 H 18 96/55 L 97 04/07/17 16:00 04/07/17 16:00 04/07/17 16:00 04/07/17 16:00 04/07/17 16:00 Intake and Output: 04/08/17 04/08/17 06:59 18:59 Intake Total 360 Balance 360 - Medications Medications: Current Medications Albuterol/Ipratropium (Duoneb 3 Mg/0.5 Mg (3 Ml) Ud) 3 ml IH Q2H PRN PRN Reason: Shortness of Breath Albuterol/Ipratropium (Duoneb 3 Mg/0.5 Mg (3 Ml) Ud) 3 ml IH Q15M PRN PRN Reason: Shortness of Breath Stop: 04/08/17 08:46 Lactated Ringer's (Lactated Ringer's) 1,000 mls @ 150 mls/hr IV .Q6H40M [facility] Last Admin: 04/08/17 06:37 Dose: 150 mls/hr Nicotine (Nicoderm Cq) 1 patch TD DAILY PRN PRN Reason: URGE TO SMOKE Pantoprazole Sodium (Protonix Ec Tab) 40 mg PO 0600 [facility] Last Admin: 04/08/17 06:18 Dose: 40 mg - Labs Labs: 04/07/17 07:00 04/07/17 07:00 - Constitutional Appears: Non-toxic, No Acute Distress - Head Exam Head Exam: ATRAUMATIC, NORMAL INSPECTION, NORMOCEPHALIC - Eye Exam Eye Exam: EOMI, Normal appearance - ENT Exam ENT Exam: Mucous Membranes Moist - Respiratory Exam Respiratory Exam: Clear to Ausculation Bilateral, Rhonchi (lower right lobe), NORMAL BREATHING PATTERN. absent: Wheezes - Cardiovascular Exam Cardiovascular Exam: REGULAR RHYTHM, +S1, +S2 - Extremities Exam Extremities Exam: Normal Inspection - Back Exam Back Exam: NORMAL INSPECTION - Neurological Exam Neurological Exam: Alert, Awake, Oriented x3 - Psychiatric Exam Psychiatric exam: Normal Affect, Normal Mood - Skin Skin Exam: Intact, Normal Color, Warm Assessment and Plan - Assessment and Plan (Free Text) Assessment: 61 year old Male with PMHx of pancreatitis, polysubtance abuse, tobacco abuse, emphysema, Diabetes, hypertension, and COPD presents with complaints of diarrhea for the past 2 and 1/2 months with associated 35 pound weight loss found to have possible pancreatic mass vs. ductal stricture. Plan: Chronic Watery Diarrhea DDX: Pancreatic cancer vs. Chronic Pancreatitis vs. Microscopic Colitis vs. IBS ESR: 75 Heart healthy diet GI Consulted Stool Culture/Occult Blood/C.Diff; pending Tissue Transglutaminase IgA/IgG; pending Abdominal Ultrasound; dilated pancreatic duct measuring 6 mm, small amount of ascites present Elevated Lipase w/ mild Abdominal Pain: DDx: Pancreatitis, Gastritis Abdominal Ultrasound;dilated pancreatic duct measuring 6 mm, small amount of ascites present MRCP; pancreatic duct not visualized, raising suspicin of a pancreatic mass or pancreatic ductal stricture. Fluids, LR @ 250 HIV 1 & 2; pending Hx of COPD DuoNebs Q6H [facility], Q2H PRN Patient has no home meds Hx of HTN Patient has no home meds Currently Normotensive Hx of Diabetes HgBA1c 6.4 Hx of Tobacco Abuse Nicotine Patch Proph Protonix/SCDs Patient seen and examined with Attending Dr. Mario
[2017-04-08 08:30] LABS: BASO # 0.02 K/mm3 (0.0-2.0); BASO % 0.4 % (0.0-3.0); EOS # 0.1 (0.0-0.7); EOS % 0.9 % (1.5-5.0); GRAN # 3.2 (1.4-6.5); GRAN % 57.8 % (50.0-68.0); LYMPH # 1.8 (1.2-3.4); LYMPH % 32.1 % (22.0-35.0); MEAN CELL VOLUME 93.2 fl (80.0-105.0); MEAN CORPUSCULAR HEMOGLOBIN 31.2 pg (25.0-35.0); MEAN CORPUSCULAR HGB CONC 33.4 g/dl (31.0-37.0); MONO # 0.5 (0.1-0.6); MONO % 8.8 % (1.0-6.0); RBC 3.53 10^6/uL (3.5-6.1); RED CELL DISTRIBUTION WIDTH 13.4 % (11.5-14.5); WHITE BLOOD COUNT 5.5 10^3/ul (4.5-11.0)
[2017-04-08 08:38] VITALS: BP 142/86; PULSE 70; RESP 20; TEMP 97.9; O2SAT 96
[2017-04-08] MEDS: Morphine 2 mg/ml ISec IVP PRN ×2 (08:43→13:49)
[2017-04-08 08:47] LABS: ALB/GLOB RATIO 1.1 (1.1-1.8); ALBUMIN 3.5 g/dL (3.0-4.8); ALT/SGPT 62 U/L (7-56); AST/SGOT 53 U/L (17-59); BLOOD UREA NITROGEN 16 mg/dL (7-21); CALCIUM 9.3 mg/dL (8.4-10.5); GFR AFRICAN-AMERICAN > 60; GFR NON-AFRICAN AMERICAN > 60
--- NOTE | 2017-04-08 11:12 | CP.PCM.PN ---
<Missy Hollins - Last Filed: 04/08/17 11:13> Subjective - Date & Time of Evaluation Date of Evaluation: 04/08/17 Time of Evaluation: 07:40 - Subjective Subjective: GI Fellow PGY4 Progress Note Pt seen and evaluated at bedside, pt reports no more abdominal pain or diarrhea since admission. He reports a good appetite with no N/V. ROS: A 12pt ROS was negative except as above. Objective - Vital Signs/Intake and Output Vital Signs (last 24 hours): Temp Pulse Resp BP Pulse Ox 97.9 F 70 20 142/86 96 04/08/17 08:00 04/08/17 08:00 04/08/17 08:00 04/08/17 08:00 04/08/17 08:00 Intake and Output: 04/08/17 04/08/17 06:59 18:59 Intake Total 360 Balance 360 - Medications Medications: Current Medications Albuterol/Ipratropium (Duoneb 3 Mg/0.5 Mg (3 Ml) Ud) 3 ml IH Q2H PRN PRN Reason: Shortness of Breath Lactated Ringer's (Lactated Ringer's) 1,000 mls @ 150 mls/hr IV .Q6H40M [facility] Last Admin: 04/08/17 06:37 Dose: 150 mls/hr Morphine Sulfate (Morphine) 1 mg IVP Q4H PRN PRN Reason: Pain, moderate (4-7) Last Admin: 04/08/17 08:43 Dose: 1 mg Nicotine (Nicoderm Cq) 1 patch TD DAILY PRN PRN Reason: URGE TO SMOKE Pantoprazole Sodium (Protonix Ec Tab) 40 mg PO 0600 [facility] Last Admin: 04/08/17 06:18 Dose: 40 mg - Labs Labs: 04/08/17 08:00 04/08/17 08:00 - Constitutional Appears: Non-toxic, No Acute Distress - Head Exam Head Exam: ATRAUMATIC, NORMAL INSPECTION, NORMOCEPHALIC - Eye Exam Eye Exam: EOMI, Normal appearance, PERRL - ENT Exam ENT Exam: Mucous Membranes Moist, Normal Exam - Respiratory Exam Respiratory Exam: Clear to Ausculation Bilateral, NORMAL BREATHING PATTERN - Cardiovascular Exam Cardiovascular Exam: REGULAR RHYTHM - GI/Abdominal Exam GI & Abdominal Exam: Soft, Normal Bowel Sounds. absent: Distended, Tenderness - Extremities Exam Extremities Exam: Full ROM - Back Exam Back Exam: NORMAL INSPECTION - Neurological Exam Neurological Exam: Alert, Awake, Oriented x3 - Psychiatric Exam Psychiatric exam: Normal Affect, Normal Mood - Skin Skin Exam: Dry, Intact, Normal Color, Warm Assessment and Plan - Assessment and Plan (Free Text) Assessment: This is a 61year old male PMHx chronic bronchitis, emphysema, hypertension, diabetes, chronic back pain presents to the ED complaining of 3 days of abdominal pain and diarrhea. 1. Acute pancreatitis r/o pancreatic malignancy 2. Weight loss 3. Diabetes 4. Diarrhea Plan: -Continue supportive care with pain control and anti-emetics - Clinically pt with no abdominal pain, continue low fat diet - MRCP with dilated PD, concerning for pancreatic malignancy with [id number] - IV fluids - Fecal elastase to r/o pancreatic insufficiency causing diarrhea and may need to be started on pancreatic enzymes based on results - Continue with Protonix 40mg po daily - Discussed with patient need for outpatient EUS with FNB of pancreas, will make appointment for pt to have procedure done by the end of the week, pt's contact number is [phone] - From GI perspective pt okay for discharge home with followup for outpt procedure to be scheduled for this week <Dinh Gonzalez - Last Filed: 04/08/17 14:28> Objective - Vital Signs/Intake and Output Vital Signs (last 24 hours): Temp Pulse Resp BP Pulse Ox 97.9 F 70 20 142/86 96 04/08/17 08:00 04/08/17 08:00 04/08/17 08:00 04/08/17 08:00 04/08/17 08:00 Intake and Output: 04/08/17 04/08/17 06:59 18:59 Intake Total 360 Balance 360 - Medications Medications: Current Medications Albuterol/Ipratropium (Duoneb 3 Mg/0.5 Mg (3 Ml) Ud) 3 ml IH Q2H PRN PRN Reason: Shortness of Breath Lactated Ringer's (Lactated Ringer's) 1,000 mls @ 150 mls/hr IV .Q6H40M [facility] Last Admin: 04/08/17 13:49 Dose: 150 mls/hr Morphine Sulfate (Morphine) 1 mg IVP Q4H PRN PRN Reason: Pain, moderate (4-7) Last Admin: 04/08/17 13:49 Dose: 1 mg Nicotine (Nicoderm Cq) 1 patch TD DAILY PRN PRN Reason: URGE TO SMOKE Pantoprazole Sodium (Protonix Ec Tab) 40 mg PO 0600 [facility] Last Admin: 04/08/17 06:18 Dose: 40 mg - Labs Labs: 04/08/17 08:00 04/08/17 08:00 Attending/Attestation - Attestation I have personally seen and examined this patient.: Yes I have fully participated in the care of the patient.: Yes I have reviewed all pertinent clinical information, including history, physical exam and plan: Yes Notes (Text): 04/08/17 14:27 61 year old male with h/o COPD, HTN, DM admitted with abdominal pain, weight loss, and diarrhea, with possible pancreatitis. 1. Acute pancreatitis 2. Diarrhea 3. Weight loss Plan: -advance diet as tolerated -IV hydration -markedly elevated ca 19-9 -reviewed MRI and prior CT -suspect pancreatic malignancy -will arrange outpatient EUS later this week for biopsy (sun//sunday depending on availability)
[2017-04-08 12:56] LABS: BARBITURATES, UR NEGATIVE (NEGATIVE); BENZODIAZEPINES, UR NEGATIVE (NEGATIVE); OPIATES, UR POSITIVE (NEGATIVE); PHENCYCLIDINE, UR NEGATIVE (NEGATIVE)
--- NOTE | 2017-04-08 16:05 | CP.PCM.DIS ---
Provider - Provider Date of Admission: 04/06/17 21:00 Attending physician: Burt Mario MD Primary care physician: Kavon Pryor MD [facility] Course - Lab Results Lab Results: Most Recent Lab Values WBC 5.5 10^3/ul (4.5-11.0) 04/08/17 08:00 RBC 3.53 10^6/uL (3.5-6.1) 04/08/17 08:00 Hgb 11.0 g/dL (14.0-18.0) L 04/08/17 08:00 Hct 32.9 % (42.0-52.0) L 04/08/17 08:00 MCV 93.2 fl (80.0-105.0) 04/08/17 08:00 MCH 31.2 pg (25.0-35.0) 04/08/17 08:00 MCHC 33.4 g/dl (31.0-37.0) 04/08/17 08:00 RDW 13.4 % (11.5-14.5) 04/08/17 08:00 Plt Count 220 10^3/uL (120.0-450.0) 04/08/17 08:00 MPV 9.0 fl (7.0-11.0) 04/08/17 08:00 Gran % 57.8 % (50.0-68.0) 04/08/17 08:00 Lymph % (Auto) 32.1 % (22.0-35.0) 04/08/17 08:00 [place] % (Auto) 8.8 % (1.0-6.0) H 04/08/17 08:00 Eos % (Auto) 0.9 % (1.5-5.0) L 04/08/17 08:00 Baso % (Auto) 0.4 % (0.0-3.0) 04/08/17 08:00 Gran # 3.20 (1.4-6.5) 04/08/17 08:00 Lymph # (Auto) 1.8 (1.2-3.4) 04/08/17 08:00 [place] # (Auto) 0.5 (0.1-0.6) 04/08/17 08:00 Eos # (Auto) 0.1 (0.0-0.7) 04/08/17 08:00 Baso # (Auto) 0.02 K/mm3 (0.0-2.0) 04/08/17 08:00 ESR 75 mm/hr (0.00-15.0) H 04/06/17 21:45 pCO2 44 mm/Hg (35-45) 04/06/17 22:24 pO2 71.0 mm/Hg (80-100) L 04/06/17 22:24 HCO3 27.9 mmol/L (21-28) 04/06/17 22:24 ABG pH 7.41 (7.35-7.45) 04/06/17 22:24 ABG Total CO2 29.3 mmol.L (22-28) H 04/06/17 22:24 ABG O2 Saturation 97.1 % (95-98) 04/06/17 22:24 ABG O2 Content 15.1 ML/dl (15-23) 04/06/17 22:24 ABG Base Excess 2.8 mmol/L (-2.0-3.0) 04/06/17 22:24 ABG Hemoglobin 11.4 g/dL (11.7-17.4) L 04/06/17 22:24 ABG Carboxyhemoglobin 2.4 % (0.5-1.5) H 04/06/17 22:24 POC ABG HHb (Measured) 2.8 % (0-5) 04/06/17 22:24 ABG Methemoglobin 1.0 % (0.0-3.0) 04/06/17 22:24 ABG O2 Capacity 15.6 mL/dl (16-24) L 04/06/17 22:24 Hgb O2 Saturation 93.8 % (95.0-98.0) L 04/06/17 22:24 FiO2 21.0 % 04/06/17 22:24 Sodium 139 mmol/L (132-148) 04/08/17 08:00 Potassium 4.0 mmol/L (3.6-5.0) 04/08/17 08:00 Chloride 98 mmol/L (98-107) 04/08/17 08:00 Carbon Dioxide 33 mmol/L (21-33) 04/08/17 08:00 Anion Gap 12 (10-20) 04/08/17 08:00 BUN 16 mg/dL (7-21) 04/08/17 08:00 Creatinine 0.7 mg/dl (0.8-1.5) L 04/08/17 08:00 Est GFR ( Amer) > 60 04/08/17 08:00 Est GFR (Non-Af Amer) > 60 04/08/17 08:00 Random Glucose 82 mg/dL (70-110) 04/08/17 08:00 Hemoglobin A1c 6.4 % (4.2-6.5) 04/07/17 07:00 Calcium 9.3 mg/dL (8.4-10.5) 04/08/17 08:00 Phosphorus 3.6 mg/dL (2.5-4.5) 04/06/17 17:53 Magnesium 2.1 mg/dL (1.7-2.2) 04/06/17 17:53 Total Bilirubin 0.4 mg/dL (0.2-1.3) 04/08/17 08:00 AST 53 U/L (17-59) 04/08/17 08:00 ALT 62 U/L (7-56) H 04/08/17 08:00 Alkaline Phosphatase 54 U/L (38-126) 04/08/17 08:00 Total Protein 6.7 g/dL (5.8-8.3) 04/08/17 08:00 Albumin 3.5 g/dL (3.0-4.8) 04/08/17 08:00 Globulin 3.2 gm/dL 04/08/17 08:00 Albumin/Globulin Ratio 1.1 (1.1-1.8) 04/08/17 08:00 Triglycerides 56 mg/dL (35-160) 04/07/17 07:00 Cholesterol 151 mg/dL (130-200) 04/07/17 07:00 LDL Cholesterol Direct 68 mg/dL (0-129) 04/07/17 07:00 HDL Cholesterol 65 mg/dL (29-60) H 04/07/17 07:00 Lipase 6853 U/L (23-300) H 18 17:53 CA 19-9 Antigen 2440 U/mL (0-37) H 04/07/17 16:00 Urine Color Straw (YELLOW) 04/06/17 17:53 Urine Appearance Sl cloudy (CLEAR) 02/16/18 17:53 Urine pH 6.5 (4.7-8.0) 04/06/17 17:53 Ur Specific [place] >= 1.030 (1.005-1.035) 04/06/17 17:53 Urine Protein 100 mg/dL (<30 mg/dL) H 04/06/17 17:53 Urine Glucose (UA) Negative mg/dL (NEGATIVE) 04/06/17 17:53 Urine Ketones 15 mg/dL (NEGATIVE) H 04/06/17 17:53 Urine Blood Moderate (NEGATIVE) H 04/06/17 17:53 Urine Nitrate Negative (NEGATIVE) 04/06/17 17:53 Urine Bilirubin Small (NEGATIVE) H 04/06/17 17:53 Urine Urobilinogen 0.2 E.U./dL (<1 E.U./dL) 04/06/17 17:53 Ur Leukocyte Esterase Negative Ailyn/uL (NEGATIVE) 04/06/17 17:53 Urine RBC 5 - 10 /hpf (0-2) 04/06/17 17:53 Urine WBC 2 - 5 /hpf (0-6) 04/06/17 17:53 Ur Epithelial Cells 1 - 3 /hpf (0-5) 04/06/17 17:53 Urine Bacteria Few (NEG) 04/06/17 17:53 Urine Opiates Screen Positive (NEGATIVE) H 04/08/17 12:13 Urine Methadone Screen Negative (NEGATIVE) 04/08/17 12:13 Ur Barbiturates Screen Negative (NEGATIVE) 04/08/17 12:13 Ur Phencyclidine Scrn Negative (NEGATIVE) 04/08/17 12:13 Ur Amphetamines Screen Negative (NEGATIVE) 04/08/17 12:13 U Benzodiazepines Scrn Negative (NEGATIVE) 04/08/17 12:13 U Oth Cocaine Metabols Negative (NEGATIVE) 04/08/17 12:13 U Cannabinoids Screen Negative (NEGATIVE) 04/08/17 12:13 HIV 1&2 Antibody Screen Negative (NEGATIVE) 04/07/17 07:00 Discharge Exam - Head Exam Head Exam: ATRAUMATIC, NORMAL INSPECTION, NORMOCEPHALIC Discharge Plan - Follow Up Plan Condition: STABLE Disposition: HOME/ ROUTINE Referrals: Kavon Pryor MD [Primary Care Provider] -
--- NOTE | 2017-04-08 18:09 | CP.PCM.DIS ---
<Xu Poe - Last Filed: 04/08/17 18:12> Provider - Provider Date of Admission: 04/06/17 21:00 Attending physician: Burt Mario MD Primary care physician: Kavon Pryor MD Consults: Gastroenterology: Dr Gonzalez. Time Spent in preparation of Discharge (in minutes): 45 Diagnosis - Discharge Diagnosis (1) Pancreatic mass Status: Acute Priority: High (2) Cachectic Status: Acute Priority: High (3) Diarrhea Status: Acute Priority: High (4) Weight loss Status: Acute Priority: High (5) Pancreatitis Status: Acute Priority: High Hospital Course - Lab Results Lab Results: Most Recent Lab Values WBC 5.5 10^3/ul (4.5-11.0) 04/08/17 08:00 RBC 3.53 10^6/uL (3.5-6.1) 04/08/17 08:00 Hgb 11.0 g/dL (14.0-18.0) L 04/08/17 08:00 Hct 32.9 % (42.0-52.0) L 04/08/17 08:00 MCV 93.2 fl (80.0-105.0) 04/08/17 08:00 MCH 31.2 pg (25.0-35.0) 04/08/17 08:00 MCHC 33.4 g/dl (31.0-37.0) 04/08/17 08:00 RDW 13.4 % (11.5-14.5) 04/08/17 08:00 Plt Count 220 10^3/uL (120.0-450.0) 04/08/17 08:00 MPV 9.0 fl (7.0-11.0) 04/08/17 08:00 Gran % 57.8 % (50.0-68.0) 04/08/17 08:00 Lymph % (Auto) 32.1 % (22.0-35.0) 04/08/17 08:00 [place] % (Auto) 8.8 % (1.0-6.0) H 04/08/17 08:00 Eos % (Auto) 0.9 % (1.5-5.0) L 04/08/17 08:00 Baso % (Auto) 0.4 % (0.0-3.0) 04/08/17 08:00 Gran # 3.20 (1.4-6.5) 04/08/17 08:00 Lymph # (Auto) 1.8 (1.2-3.4) 04/08/17 08:00 [place] # (Auto) 0.5 (0.1-0.6) 04/08/17 08:00 Eos # (Auto) 0.1 (0.0-0.7) 04/08/17 08:00 Baso # (Auto) 0.02 K/mm3 (0.0-2.0) 04/08/17 08:00 ESR 75 mm/hr (0.00-15.0) H 04/06/17 21:45 pCO2 44 mm/Hg (35-45) 04/06/17 22:24 pO2 71.0 mm/Hg (80-100) L 04/06/17 22:24 HCO3 27.9 mmol/L (21-28) 04/06/17 22:24 ABG pH 7.41 (7.35-7.45) 04/06/17 22:24 ABG Total CO2 29.3 mmol.L (22-28) H 04/06/17 22:24 ABG O2 Saturation 97.1 % (95-98) 04/06/17 22:24 ABG O2 Content 15.1 ML/dl (15-23) 04/06/17 22:24 ABG Base Excess 2.8 mmol/L (-2.0-3.0) 04/06/17 22:24 ABG Hemoglobin 11.4 g/dL (11.7-17.4) L 04/06/17 22:24 ABG Carboxyhemoglobin 2.4 % (0.5-1.5) H 04/06/17 22:24 POC ABG HHb (Measured) 2.8 % (0-5) 04/06/17 22:24 ABG Methemoglobin 1.0 % (0.0-3.0) 04/06/17 22:24 ABG O2 Capacity 15.6 mL/dl (16-24) L 04/06/17 22:24 Hgb O2 Saturation 93.8 % (95.0-98.0) L 04/06/17 22:24 FiO2 21.0 % 04/06/17 22:24 Sodium 139 mmol/L (132-148) 04/08/17 08:00 Potassium 4.0 mmol/L (3.6-5.0) 04/08/17 08:00 Chloride 98 mmol/L (98-107) 04/08/17 08:00 Carbon Dioxide 33 mmol/L (21-33) 04/08/17 08:00 Anion Gap 12 (10-20) 04/08/17 08:00 BUN 16 mg/dL (7-21) 04/08/17 08:00 Creatinine 0.7 mg/dl (0.8-1.5) L 04/08/17 08:00 Est GFR ( Amer) > 60 04/08/17 08:00 Est GFR (Non-Af Amer) > 60 04/08/17 08:00 Random Glucose 82 mg/dL (70-110) 04/08/17 08:00 Hemoglobin A1c 6.4 % (4.2-6.5) 04/07/17 07:00 Calcium 9.3 mg/dL (8.4-10.5) 04/08/17 08:00 Phosphorus 3.6 mg/dL (2.5-4.5) 04/06/17 17:53 Magnesium 2.1 mg/dL (1.7-2.2) 04/06/17 17:53 Total Bilirubin 0.4 mg/dL (0.2-1.3) 04/08/17 08:00 AST 53 U/L (17-59) 04/08/17 08:00 ALT 62 U/L (7-56) H 04/08/17 08:00 Alkaline Phosphatase 54 U/L (38-126) 04/08/17 08:00 Total Protein 6.7 g/dL (5.8-8.3) 04/08/17 08:00 Albumin 3.5 g/dL (3.0-4.8) 04/08/17 08:00 Globulin 3.2 gm/dL 04/08/17 08:00 Albumin/Globulin Ratio 1.1 (1.1-1.8) 04/08/17 08:00 Triglycerides 56 mg/dL (35-160) 04/07/17 07:00 Cholesterol 151 mg/dL (130-200) 02/17/18 07:00 LDL Cholesterol Direct 68 mg/dL (0-129) 04/07/17 07:00 HDL Cholesterol 65 mg/dL (29-60) H 04/07/17 07:00 Lipase 6853 U/L (23-300) H 04/06/17 17:53 CA 19-9 Antigen 2440 U/mL (0-37) H 04/07/17 16:00 Urine Color Straw (YELLOW) 04/06/17 17:53 Urine Appearance Sl cloudy (CLEAR) 04/06/17 17:53 Urine pH 6.5 (4.7-8.0) 04/06/17 17:53 Ur Specific [place] >= 1.030 (1.005-1.035) 04/06/17 17:53 Urine Protein 100 mg/dL (<30 mg/dL) H 04/06/17 17:53 Urine Glucose (UA) Negative mg/dL (NEGATIVE) 04/06/17 17:53 Urine Ketones 15 mg/dL (NEGATIVE) H 04/06/17 17:53 Urine Blood Moderate (NEGATIVE) H 04/06/17 17:53 Urine Nitrate Negative (NEGATIVE) 04/06/17 17:53 Urine Bilirubin Small (NEGATIVE) H 04/06/17 17:53 Urine Urobilinogen 0.2 E.U./dL (<1 E.U./dL) 04/06/17 17:53 Ur Leukocyte Esterase Negative Ailyn/uL (NEGATIVE) 04/06/17 17:53 Urine RBC 5 - 10 /hpf (0-2) 04/06/17 17:53 Urine WBC 2 - 5 /hpf (0-6) 04/06/17 17:53 Ur Epithelial Cells 1 - 3 /hpf (0-5) 04/06/17 17:53 Urine Bacteria Few (NEG) 04/06/17 17:53 Urine Opiates Screen Positive (NEGATIVE) H 04/08/17 12:13 Urine Methadone Screen Negative (NEGATIVE) 04/08/17 12:13 Ur Barbiturates Screen Negative (NEGATIVE) 04/08/17 12:13 Ur Phencyclidine Scrn Negative (NEGATIVE) 04/08/17 12:13 Ur Amphetamines Screen Negative (NEGATIVE) 04/08/17 12:13 U Benzodiazepines Scrn Negative (NEGATIVE) 04/08/17 12:13 U Oth Cocaine Metabols Negative (NEGATIVE) 04/08/17 12:13 U Cannabinoids Screen Negative (NEGATIVE) 04/08/17 12:13 HIV 1&2 Antibody Screen Negative (NEGATIVE) 04/07/17 07:00 - Hospital Course Hospital Course: Patient is a 61 year old male with a past medical history significant for polysubstance abuse, pancreatitis , diabetes mellitus, hypertension, COPD who presented with complaints of diarhea for two and a half months associated with abdominal pain. Upon being admitted abdominal ultrasound was performed which revealed a dilated pancreatic duct of 6 mm as well as small to moderate ascites. Patient's lab values also revealed acute pancreatitis. Patient started on lactated ringers and allowed oral intake considering patient's desire to eat. Patient was evaluated by GI which recommended MRCP. MRCP was performed and revealed possible pancreatic mass which could be possible neoplasm vs. pancreatic ductal stricture. As per GI patient is cleared for discharge with protonix and will follow up with GI for outpatient EUS later this week for biopsy. Patient was in agreement with plan and then discharged. Case reviewed and discussed with Dr. Shelbi Poe PGY1 Discharge Exam - Head Exam Head Exam: ATRAUMATIC, NORMAL INSPECTION, NORMOCEPHALIC - Eye Exam Eye Exam: EOMI, Normal appearance - ENT Exam ENT Exam: Mucous Membranes Moist, Normal Exam - Neck Exam Neck exam: Normal Inspection - Respiratory Exam Respiratory Exam: Clear to PA & Lateral, NORMAL BREATHING PATTERN, UNREMARKABLE - Cardiovascular Exam Cardiovascular Exam: REGULAR RHYTHM, +S1, +S2 - GI/Abdominal Exam GI & Abdominal Exam: Normal Bowel Sounds, Unremarkable - Extremities Exam Extremities exam: normal inspection - Back Exam Back exam: NORMAL INSPECTION - Neurological Exam Neurological exam: Alert, Oriented x3 - Psychiatric Exam Psychiatric exam: Normal Affect, Normal Mood - Skin Skin Exam: Dry, Intact, Normal Color Discharge Plan - Discharge Medications Prescriptions: Gabapentin [Neurontin] 100 mg PO TID PRN #15 capsule PRN Reason: Pain, Moderate (4-7) Pantoprazole [Protonix EC Tab] 40 mg PO 0600 14 Days #14 ect - Follow Up Plan Condition: STABLE Disposition: HOME/ ROUTINE Instructions: Pancreatitis, Flu Vaccine Additional Instructions: 1. Please follow up with your PMD within 3-5 days regarding this admission. 2. Please fill and take medication as prescribed. 3. Do not hesitate to return to the ED if symptoms worsen or return. 4. Radioimaging results were discussed with you by Gastroenterology team and Internal medicine team, outpatient EUS will be arranged for later this week for biopsy (sun//sunday depending on availability) please follow up. Referrals: Kavon Pryor MD [Primary Care Provider] - <Burt Mario - Last Filed: 04/08/17 18:24> Provider - Provider Date of Admission: 04/06/17 21:00 Attending physician: Burt Mario MD Primary care physician: Kavon Pryor MD [facility] Course - Lab Results Lab Results: Most Recent Lab Values WBC 5.5 10^3/ul (4.5-11.0) 04/08/17 08:00 RBC 3.53 10^6/uL (3.5-6.1) 04/08/17 08:00 Hgb 11.0 g/dL (14.0-18.0) L 04/08/17 08:00 Hct 32.9 % (42.0-52.0) L 04/08/17 08:00 MCV 93.2 fl (80.0-105.0) 04/08/17 08:00 MCH 31.2 pg (25.0-35.0) 04/08/17 08:00 MCHC 33.4 g/dl (31.0-37.0) 04/08/17 08:00 RDW 13.4 % (11.5-14.5) 04/08/17 08:00 Plt Count 220 10^3/uL (120.0-450.0) 04/08/17 08:00 MPV 9.0 fl (7.0-11.0) 04/08/17 08:00 Gran % 57.8 % (50.0-68.0) 04/08/17 08:00 Lymph % (Auto) 32.1 % (22.0-35.0) 04/08/17 08:00 [place] % (Auto) 8.8 % (1.0-6.0) H 04/08/17 08:00 Eos % (Auto) 0.9 % (1.5-5.0) L 04/08/17 08:00 Baso % (Auto) 0.4 % (0.0-3.0) 04/08/17 08:00 Gran # 3.20 (1.4-6.5) 04/08/17 08:00 Lymph # (Auto) 1.8 (1.2-3.4) 04/08/17 08:00 [place] # (Auto) 0.5 (0.1-0.6) 04/08/17 08:00 Eos # (Auto) 0.1 (0.0-0.7) 04/08/17 08:00 Baso # (Auto) 0.02 K/mm3 (0.0-2.0) 04/08/17 08:00 ESR 75 mm/hr (0.00-15.0) H 04/06/17 21:45 pCO2 44 mm/Hg (35-45) 04/06/17 22:24 pO2 71.0 mm/Hg (80-100) L 04/06/17 22:24 HCO3 27.9 mmol/L (21-28) 04/06/17 22:24 ABG pH 7.41 (7.35-7.45) 04/06/17 22:24 ABG Total CO2 29.3 mmol.L (22-28) H 04/06/17 22:24 ABG O2 Saturation 97.1 % (95-98) 04/06/17 22:24 ABG O2 Content 15.1 ML/dl (15-23) 04/06/17 22:24 ABG Base Excess 2.8 mmol/L (-2.0-3.0) 04/06/17 22:24 ABG Hemoglobin 11.4 g/dL (11.7-17.4) L 04/06/17 22:24 ABG Carboxyhemoglobin 2.4 % (0.5-1.5) H 04/06/17 22:24 POC ABG HHb (Measured) 2.8 % (0-5) 04/06/17 22:24 ABG Methemoglobin 1.0 % (0.0-3.0) 04/06/17 22:24 ABG O2 Capacity 15.6 mL/dl (16-24) L 04/06/17 22:24 Hgb O2 Saturation 93.8 % (95.0-98.0) L 04/06/17 22:24 FiO2 21.0 % 04/06/17 22:24 Sodium 139 mmol/L (132-148) 04/08/17 08:00 Potassium 4.0 mmol/L (3.6-5.0) 04/08/17 08:00 Chloride 98 mmol/L (98-107) 04/08/17 08:00 Carbon Dioxide 33 mmol/L (21-33) 04/08/17 08:00 Anion Gap 12 (10-20) 04/08/17 08:00 BUN 16 mg/dL (7-21) 04/08/17 08:00 Creatinine 0.7 mg/dl (0.8-1.5) L 04/08/17 08:00 Est GFR ( Amer) > 60 04/08/17 08:00 Est GFR (Non-Af Amer) > 60 04/08/17 08:00 Random Glucose 82 mg/dL (70-110) 04/08/17 08:00 Hemoglobin A1c 6.4 % (4.2-6.5) 04/07/17 07:00 Calcium 9.3 mg/dL (8.4-10.5) 04/08/17 08:00 Phosphorus 3.6 mg/dL (2.5-4.5) 04/06/17 17:53 Magnesium 2.1 mg/dL (1.7-2.2) 04/06/17 17:53 Total Bilirubin 0.4 mg/dL (0.2-1.3) 04/08/17 08:00 AST 53 U/L (17-59) 04/08/17 08:00 ALT 62 U/L (7-56) H 04/08/17 08:00 Alkaline Phosphatase 54 U/L (38-126) 04/08/17 08:00 Total Protein 6.7 g/dL (5.8-8.3) 04/08/17 08:00 Albumin 3.5 g/dL (3.0-4.8) 04/08/17 08:00 Globulin 3.2 gm/dL 04/08/17 08:00 Albumin/Globulin Ratio 1.1 (1.1-1.8) 04/08/17 08:00 Triglycerides 56 mg/dL (35-160) 04/07/17 07:00 Cholesterol 151 mg/dL (130-200) 04/07/17 07:00 LDL Cholesterol Direct 68 mg/dL (0-129) 04/07/17 07:00 HDL Cholesterol 65 mg/dL (29-60) H 04/07/17 07:00 Lipase 6853 U/L (23-300) H 04/06/17 17:53 CA 19-9 Antigen 2440 U/mL (0-37) H 18 16:00 Urine Color Straw (YELLOW) 04/06/17 17:53 Urine Appearance Sl cloudy (CLEAR) 04/06/17 17:53 Urine pH 6.5 (4.7-8.0) 04/06/17 17:53 Ur Specific [place] >= 1.030 (1.005-1.035) 04/06/17 17:53 Urine Protein 100 mg/dL (<30 mg/dL) H 04/06/17 17:53 Urine Glucose (UA) Negative mg/dL (NEGATIVE) 04/06/17 17:53 Urine Ketones 15 mg/dL (NEGATIVE) H 04/06/17 17:53 Urine Blood Moderate (NEGATIVE) H 04/06/17 17:53 Urine Nitrate Negative (NEGATIVE) 04/06/17 17:53 Urine Bilirubin Small (NEGATIVE) H 04/06/17 17:53 Urine Urobilinogen 0.2 E.U./dL (<1 E.U./dL) 04/06/17 17:53 Ur Leukocyte Esterase Negative Ailyn/uL (NEGATIVE) 04/06/17 17:53 Urine RBC 5 - 10 /hpf (0-2) 04/06/17 17:53 Urine WBC 2 - 5 /hpf (0-6) 04/06/17 17:53 Ur Epithelial Cells 1 - 3 /hpf (0-5) 04/06/17 17:53 Urine Bacteria Few (NEG) 04/06/17 17:53 Urine Opiates Screen Positive (NEGATIVE) H 04/08/17 12:13 Urine Methadone Screen Negative (NEGATIVE) 04/08/17 12:13 Ur Barbiturates Screen Negative (NEGATIVE) 04/08/17 12:13 Ur Phencyclidine Scrn Negative (NEGATIVE) 04/08/17 12:13 Ur Amphetamines Screen Negative (NEGATIVE) 04/08/17 12:13 U Benzodiazepines Scrn Negative (NEGATIVE) 04/08/17 12:13 U Oth Cocaine Metabols Negative (NEGATIVE) 04/08/17 12:13 U Cannabinoids Screen Negative (NEGATIVE) 04/08/17 12:13 HIV 1&2 Antibody Screen Negative (NEGATIVE) 04/07/17 07:00 Attending/Attestation - Attestation I have personally seen and examined this patient.: Yes I have fully participated in the care of the patient.: Yes I have reviewed all pertinent clinical information, including history, physical exam and plan: Yes Notes (Text): I have seen and examined the patient at bedside. Agree with the above note with the following additions/ exceptions: Briefly this is 61 year old male with history of pancreatitis, polysubtance abuse, tobacco abuse and COPD who came for evaluation of chronic watery diarrhea, abdominal soreness and 35 pounds unintentional weight loss. Lipase was elevated upon admission. Patient was diagnosed with acute pancreatitis. He was made NPO and started on IVF. His abdominal soreness has completely resolved and he was able to tolerate regular diet which was ordered early in the morning by GI team. Patient has been very non compliant with follow up. Patient states that previously he did not have insurance therefor he was not able to follow up. His diarrhea has resolved. Fecal elastase pending to r/o pancreatic insufficiency. Stool culture and Cdiffwas not sent.. GI consult appreciated. US revealed 6 mm dilated pancreatic duct. MRCP revealed possible pancreatic mass . CA19-9 is elevated. Advised the patient regarding importance of follow up. Patient was explained hat he needs EUS which will be done later this week by Dr Gonzalez. Patient assured us that he will follow up this time and his daughter will bring him for EUS and biopsy. Patient was cleared for discharge by GI team. HIV pending. Continue nicotine patch. Counselling provided regarding tobacco use. Hba1c is 6.4. Upon discharge patient will follow up with Dr Gonzalez and Dr Cohen (Dr Sandoval Pryor). Dr Burt Mario
== END 2017-04-08 18:06 | disposition home or self-care (01) | DRG 204 ==
LOC: ED 15:51 → ERH 21:00 → 5RSO 22:40
PROVIDERS: ADMIT Hospitalist; ATTEND Hospitalist
DX: K85.90 Acute pancreatitis without necrosis or infection, unspecified (principal); R64 Cachexia; J43.9 Emphysema, unspecified; R18.8 Other ascites; E11.9 Type 2 diabetes mellitus without complications; F12.90 Cannabis use, unspecified, uncomplicated; I10 Essential (primary) hypertension; K86.89 Other specified diseases of pancreas; R62.7 Adult failure to thrive; Z91.14 Patient's other noncompliance with medication regimen; Z91.19 Patient's noncompliance with other medical treatment and regimen; F17.210 Nicotine dependence, cigarettes, uncomplicated; R40.2412 Glasgow coma scale score 13-15, at arrival to emergency department; M54.9 Dorsalgia, unspecified; R19.7 Diarrhea, unspecified; Z68.1 Body mass index [BMI] 19.9 or less, adult

== ENCOUNTER 2017-04-23 12:24 | Emergency (ER) | payer MEDICAID, OTHER ==
[2017-04-23 12:33] VITALS: TEMP 97.5; BMI 15.0
[2017-04-23] MEDS ORDERED: HYDROmorphone 2 mg/ml ISec IVP STA (12:35)
[2017-04-23] MEDS ORDERED: Sodium Chloride 0.9% 1,000 ML IV STA (12:35)
[2017-04-23] MEDS ORDERED: DiphenhydrAMINE 50 mg/ml Inj IVP STA (12:35)
[2017-04-23] MEDS ORDERED: Multivitamin (MVI) 10 ML, Thiamine 100 MG, Folic Acid 1 MG in Dextrose 5% In Water 1,00... IV ONE (12:35)
--- NOTE | 2017-04-23 12:38 | ED PDOC ---
Arrival/HPI - General Time Seen by Provider: 04/23/17 12:28 Historian: Patient - History of Present Illness Narrative History of Present Illness (Text): 04/23/17 12:34 Bandar Berman is a 61 year old male, whose past medical history includes COPD, who presents to the emergency department complaining of abdominal pain and multiple episodes of diarrhea for the past few days. Patient notes that he recently had an endoscopy last week at [facility]. Patient says that he was evaluated h in the emergency department twice before for the same symptoms. Patient denies any urinary symptoms, back pain, or any other complaints at this time. Patient endorses that he smokes marijuana occasionally. Time/Duration: 4-6 hours Symptom Onset: Gradual Symptom Course: Unchanged Activities at Onset: Light Past Medical History - Provider Review Nursing Documentation Reviewed: Yes - Past History Past History: No Previous - Infectious Disease Hx of Infectious Diseases: None - Tetanus Immunization Tetanus Immunization: Up to Date - Cardiac Hx Cardiac Disorders: Yes Hx Hypertension: Yes - Pulmonary Hx Respiratory Disorders: Yes Hx Bronchitis: Yes (CHRONIC) Hx Emphysema: Yes - Neurological Hx Neurological Disorder: No - HEENT Hx HEENT Disorder: No - Renal Hx Renal Disorder: No - Endocrine/Metabolic Hx Endocrine Disorders: No - Hematological/Oncological Hx Blood Disorders: No - Integumentary Hx Dermatological Disorder: No - Musculoskeletal/Rheumatological Hx Back Pain: Yes - Gastrointestinal Hx Gastrointestinal Disorders: Yes Hx Pancreatitis: Yes Other/Comment: DIARRHEA, ABDOMINAL PAIN - Genitourinary/Gynecological Hx Genitourinary Disorders: No - Psychiatric Hx Psychophysiologic Disorder: No Hx Substance Use: Yes - Past Surgical History Past Surgical History: No Previous - Surgical History Other/Comment: BRONCHOSCOPY - Anesthesia Hx Anesthesia: Yes Hx Anesthesia Reactions: No - Suicidal Assessment Feels Threatened In Home Enviroment: No Family/Social History - Physician Review Nursing Documentation Reviewed: Yes Family/Social History: No Known Family HX Smoking Status: Heavy Smoker > 10 Cigarettes Daily Hx Alcohol Use: No Hx Substance Use: Yes Substance used: marijuana Amount: 1 Hx Substance Use Treatment: No Allergies/Home Meds Allergies/Adverse Reactions: Allergies No Known Allergies Allergy (Verified 04/23/17 12:40) Review of Systems - Physician Review All systems were reviewed & negative as marked: Yes - Review of Systems Constitutional: absent: Fevers Eyes: absent: Vision Changes ENT: absent: Hearing Changes Respiratory: absent: SOB, Cough Cardiovascular: absent: Chest Pain Gastrointestinal: Abdominal Pain, Diarrhea Genitourinary Male: absent: Dysuria Musculoskeletal: absent: Arthralgias Skin: absent: Rash, Pruritis Neurological: absent: Headache Endocrine: absent: Diaphoresis Hemo/Lymphatic: absent: Adenopathy Psychiatric: absent: Anxiety, Depression Physical Exam Vital Signs Reviewed: Yes Vital Signs Temp Pulse Resp BP Pulse Ox 04/23/17 14:44 88 25 H 161/88 H 94 L 04/23/17 12:33 97.5 F L 80 18 137/104 H 99 Blood Pressure: Hypertensive Pulse: Regular Respiratory Rate: Normal Appearance: Positive for: Other (emaciated) Pain Distress: None Mental Status: Positive for: Alert and Oriented X 3 - Systems Exam Head: Present: Atraumatic, Normocephalic Pupils: Present: PERRL Extroacular Muscles: Present: EOMI Conjunctiva: Present: Normal Mouth: Present: Moist Mucous Membranes Neck: Present: Normal Range of Motion Respiratory/Chest: Present: Clear to Auscultation, Good Air Exchange. No: Respiratory Distress, Accessory Muscle Use Cardiovascular: Present: Regular Rate and Rhythm, Normal S1, S2. No: Murmurs Abdomen: Present: Normal Bowel Sounds. No: Tenderness, Distention, Peritoneal Signs Back: Present: Normal Inspection Upper Extremity: Present: Normal Inspection. No: Cyanosis, Edema Lower Extremity: Present: Normal Inspection. No: Edema Neurological: Present: GCS=15, CN II-XII Intact, Speech Normal Skin: Present: Warm, Dry, Normal Color. No: Rashes Psychiatric: Present: Alert, Oriented x 3, Normal Insight, Normal Concentration Medical Decision Making ED Course and Treatment: 04/23/17 12:47 Impression: 61 year old male complaining of abdominal pain and multiple episodes of diarrhea today. Differential Diagnosis included but are not limited to: Plan: -- Abdomen and Pelvis CT w/o contrast -- VBG and Blood Culture -- Urinalysis -- Labs -- Benadryl, Dilaudid, Toradol, Zofran, and IV fluids -- Reassess and disposition Prior Visits: Notes and results from previous visits were reviewed. Patient was last seen in the emergency department on 04/08/17 for 2.5 months onset of daily diarrhea, at least 5-6 episodes/day; poor appetite, + intermittent abd cramps. Patient was admitted to hospitalist care for further evaluation. Progress Notes: 04/23/17 15:[address] Cohn, who is aware and accepts patient to his service. 04/23/17 16:27 Leaving Against Medical Advice (AMA): The patient is choosing to leave against medical advice. I have personally explained to the patient that choosing to do so may result in permanent bodily harm or . I have discussed at great length that without further evaluation and monitoring there may be unforeseen circumstances and/or deterioration causing permanent bodily harm or as a result of their choice. The patient is alert, oriented, and shows the mental capacity to make clear decisions regarding the patients health care at this time. The patient continues to wish to leave against medical advice. In light of the patients decision to leave against medical advice, follow-up has been arranged and the patient is aware of the importance to following up as instructed. The patient has been advised that they should return to the emergency room immediately if they change their mind at any time, or if their condition begins to change or worsen in any way. - Lab Interpretations Lab Results: 04/23/17 13:24 04/23/17 13:24 Lab Results 04/23/17 13:24: Alcohol, Quantitative < 10 04/23/17 13:24: Sodium 141, Chloride 102, Potassium 3.7, Carbon Dioxide 31, Anion Gap 12, BUN 13, Creatinine 0.7 L, Est GFR ( Amer) > 60, Est GFR ( Non-Af Amer) > 60, Random Glucose 101, Calcium 9.4, Phosphorus 3.7, Magnesium 2.1, Total Bilirubin 0.3, AST 35, ALT 48, Alkaline Phosphatase 68, Total Protein 7.1, Albumin 3.6, Globulin 3.4, Albumin/Globulin Ratio 1.1, Lipase 4715 H 04/23/17 13:24: pO2 108 H, VBG pH 7.37, VBG pCO2 54.0, VBG HCO3 31.2 H, VBG Total CO2 32.9 H, VBG O2 Sat (Calc) 98.2 H, VBG Base Excess 4.5 H, VBG Potassium 3.8, Sodium 138.0, Chloride 105.0, Glucose 104, Lactate 1.1, FiO2 21.0 , Venous Blood Potassium 3.8 04/23/17 13:24: PT 12.2, INR 1.07 04/23/17 13:24: WBC 5.2, RBC 3.39 L, Hgb 10.7 L, Hct 32.2 L, MCV 95.0, MCH 31.6 , MCHC 33.2, RDW 14.1, Plt Count 249, MPV 9.1, Gran % 69.3 H, Lymph % (Auto) 20.9 L, [place] % (Auto) 8.6 H, Eos % (Auto) 0.8 L, Baso % (Auto) 0.4, Gran # 3.61 , Lymph # (Auto) 1.1 L, [place] # (Auto) 0.5, Eos # (Auto) 0.0, Baso # (Auto) 0.02 I have reviewed the lab results: Yes - RAD Interpretation Radiology Orders: 04/23/17 12:38 ABD PELVIS PO & IV CONTRAST [CT] Stat - Medication Orders Current Medication Orders: Discontinued Medications Diphenhydramine HCl (Benadryl) 25 mg IVP STAT STA Stop: 04/23/17 12:36 Last Admin: 04/23/17 13:28 Dose: 25 mg IVP Administration Document 04/23/17 13:28 MR (Rec: 04/23/17 13:28 MR [id number]) Charges for Administration # of IVP Administrations 1 Hydromorphone HCl (Dilaudid) 2 mg IVP STAT STA Stop: 04/23/17 12:36 Last Admin: 04/23/17 13:28 Dose: 2 mg MAR Pain Assessment Document 04/23/17 13:28 MR (Rec: 04/23/17 13:29 MR [id number]) Pain Reassessment Is this a pain reassessment? No Sleep Is patient sleeping during reassessment? No Presence of Pain Presence of Pain Yes Pain Scale Used Pain Scale Used Numeric Location Pain Location Body Site Abdomen Description Description Sharp Intensity of Pain at present 6 Pain Behavior Rubbing Site Facial Grimacing Alleviating Factors/Management Medication Techniques Alleviating Factors Medication IVP Administration Document 04/23/17 13:28 MR (Rec: 04/23/17 13:29 [id number]) Charges for Administration # of IVP Administrations 1 Multivitamins/Vitamin C 10 ml/Thiamine HCl 100 mg/ Folic Acid 1 mg/ Dextrose 1, 011.2 mls @ 1,000 mls/hr IV .Q1H1M ONE Stop: 04/23/17 13:35 Last Admin: 04/23/17 15:14 Dose: 1,000 mls/hr eMAR Start Stop Document 04/23/17 15:14 LA (Rec: 04/23/17 15:14 LA [id number]) Intravenous Solution Start Date 04/23/17 Start Time 15:14 Sodium Chloride (Sodium Chloride 0.9%) 1,000 mls @ 999 mls/hr IV .Q1H1M STA Stop: 04/23/17 13:35 Last Admin: 04/23/17 13:28 Dose: 999 mls/hr eMAR Start Stop Document 04/23/17 13:28 MR (Rec: 04/23/17 13:28 MR [id number]) Intravenous Solution Start Date 04/23/17 Start Time 13:28 End Date 04/23/17 End time 14:28 Total Infusion Time 60 Lactated Ringer's (Lactated Ringer's) 1,000 mls @ 250 mls/hr IV .Q4H JOSEMANUEL Ketorolac Tromethamine (Toradol) 30 mg IVP STAT STA Stop: 04/23/17 12:36 Last Admin: 04/23/17 13:29 Dose: 30 mg MAR Pain Assessment Document 04/23/17 13:29 MR (Rec: 04/23/17 13:30 MR [id number]) Pain Reassessment Is this a pain reassessment? No Sleep Is patient sleeping during reassessment? No Presence of Pain Presence of Pain Yes Pain Scale Used Pain Scale Used Numeric Location Pain Location Body Site Abdomen Description Description Sharp Intensity of Pain at present 6 Pain Behavior Grasping Site Rubbing Site Facial Grimacing Alleviating Factors/Management Medication Techniques Alleviating Factors Medication IVP Administration Document 04/23/17 13:29 MR (Rec: 04/23/17 13:30 MR [id number]) Charges for Administration # of IVP Administrations 1 Ondansetron HCl (Zofran Inj) 8 mg IVP STAT STA Stop: 04/23/17 12:36 Last Admin: 04/23/17 13:29 Dose: 8 mg IVP Administration Document 04/23/17 13:29 MR (Rec: 04/23/17 13:29 MR [id number]) Charges for Administration # of IVP Administrations 1 Ondansetron HCl (Zofran Inj) 4 mg IVP Q4H PRN PRN Reason: Nausea/Vomiting Pantoprazole Sodium (Protonix Inj) 40 mg IVP DAILY JOSEMANUEL Vitamin A (Vitamin A & D Oint Ud Foilpak) 1 ea TOP Q2 PRN PRN Reason: Dry mouth - PA / [employer] / Resident Statement MD/DO has reviewed & agrees with the documentation as recorded. - Scribe Statement The provider has reviewed the documentation as recorded by the Suzanne Fung Provider Scribe Attestation: All medical record entries made by the Desireeibkellie were at my direction and personally dictated by me. I have reviewed the chart and agree that the record accurately reflects my personal performance of the history, physical exam, medical decision making, and the department course for this patient. I have also personally directed, reviewed, and agree with the discharge instructions and disposition. Disposition/Present on Arrival - Present on Arrival Any Indicators Present on Arrival: No History of DVT/PE: No History of Uncontrolled Diabetes: No Urinary Catheter: No History Surgical Site Infection Following: None - Disposition Have Diagnosis and Disposition been Completed?: Yes Diagnosis: Pancreatitis Disposition: AGAINST MEDICAL ADVICE Disposition Time: 18:00 (AMA) Patient Plan: Other Condition: GOOD Forms: [employer] ([place])
[2017-04-23] MEDS ORDERED: Iohexol 240 (50 ml) ONE (13:09)
[2017-04-23 13:44] LABS: VENOUS BLOOD GAS BASE EXCESS 4.5 mmol/L (0.0-2.0); VENOUS BLOOD GAS PO2 108 mm/Hg (30-55); VENOUS BLOOD PH 7.37 (7.32-7.43)
[2017-04-23 13:51] LABS: BASO # 0.02 K/mm3 (0.0-2.0); BASO % 0.4 % (0.0-3.0); EOS % 0.8 % (1.5-5.0); GRAN # 3.61 (1.4-6.5); GRAN % 69.3 % (50.0-68.0); HEMOGLOBIN 10.7 g/dL (14.0-18.0); LYMPH # 1.1 (1.2-3.4); LYMPH % 20.9 % (22.0-35.0); MEAN CORPUSCULAR HEMOGLOBIN 31.6 pg (25.0-35.0); MEAN CORPUSCULAR HGB CONC 33.2 g/dl (31.0-37.0); MEAN PLATELET VOLUME 9.1 fl (7.0-11.0); MONO # 0.5 (0.1-0.6); MONO % 8.6 % (1.0-6.0); RBC 3.39 10^6/uL (3.5-6.1); RED CELL DISTRIBUTION WIDTH 14.1 % (11.5-14.5); WHITE BLOOD COUNT 5.2 10^3/ul (4.5-11.0)
[2017-04-23 13:53] LABS: INR 1.07 (0.93-1.08); PROTHROMBIN TIME 12.2 SECONDS (9.4-12.5)
[2017-04-23 14:13] LABS: ALB/GLOB RATIO 1.1 (1.1-1.8); ALBUMIN 3.6 g/dL (3.0-4.8); ALT/SGPT 48 U/L (7-56); AST/SGOT 35 U/L (17-59); BLOOD UREA NITROGEN 13 mg/dL (7-21); CALCIUM 9.4 mg/dL (8.4-10.5); GFR AFRICAN-AMERICAN > 60; GFR NON-AFRICAN AMERICAN > 60; MAGNESIUM 2.1 mg/dL (1.7-2.2)
[2017-04-23 14:18] LABS: LIPASE 4715 U/L (23-300)
[2017-04-23] MEDS ORDERED: Iohexol 350 MG/100 ML VIAL ONE (14:45)
[2017-04-23 14:46] VITALS: BP 161/88; PULSE 88; RESP 25; O2SAT 94
--- NOTE | 2017-04-23 15:40 | CT ---
PROCEDURE: CT Abdomen and Pelvis with contrast HISTORY: Abdominal Pain/Pancreatitis COMPARISON: 02/24/2017 TECHNIQUE: Contrast dose: 100 cc of Omni 350 Radiation dose: Total exam DLP = 189 mGy-cm. This CT exam was performed using one or more of the following dose reduction techniques: Automated exposure control, adjustment of the mA and/or kV according to patient size, and/or use of iterative reconstruction technique. FINDINGS: LOWER THORAX: Scattered bulla are seen at the lung bases LIVER: Unremarkable. No gross lesion or ductal dilatation. GALLBLADDER AND BILE DUCTS: Unremarkable. PANCREAS: The pancreatic duct is dilated measuring 5 mm in diameter. This has increased compared to the previous study. There is no obvious obstructing mass. SPLEEN: Unremarkable. ADRENALS: Unremarkable. No mass. KIDNEYS AND URETERS: Unremarkable. No hydronephrosis. No solid mass. VASCULATURE: Unremarkable. No aortic aneurysm. BOWEL: There is a lack of intra-abdominal fat. There is edema in the mesenteric and subcutaneous fat planes. There is also a small amount of ascites. These findings make it difficult to evaluate for inflammation. The findings are similar to the previous study. APPENDIX: Normal appendix. PERITONEUM: Unremarkable. No free fluid. No free air. LYMPH NODES: Unremarkable. No enlarged lymph nodes. BLADDER: Unremarkable. REPRODUCTIVE: Unremarkable. BONES: No acute fracture. OTHER FINDINGS: None. IMPRESSION: There is a lack of intra-abdominal fat. There is edema in the mesenteric and subcutaneous fat planes. There is also a small amount of ascites. These findings make it difficult to evaluate for inflammation. The findings are similar to the previous study. The pancreatic duct is dilated measuring 5 mm in diameter. This has increased compared to the previous study. There is no obvious obstructing mass.
[2017-04-23] MEDS ORDERED: Vitamins A & D Oint UD Foilpak TOP PRN (16:08)
[2017-04-23] MEDS ORDERED: Lactated Ringer's 1,000 ML IV SCH (16:15)
== END 2017-04-23 16:55 | disposition left against medical advice (07) ==
LOC: ED 12:24 → UNDOADMIN 15:53 → ERH 15:53
DX: K85.90 Acute pancreatitis without necrosis or infection, unspecified (principal)
CPT/HCPCS: 74177; 80053; 80320; 82330; 82803; 83690; 83735; 84100; 85025; 85610; 87040; 96361; 96374; 96375; 99284; J1170; J1200; J1885; J2405; J3411; J7040; J7070; Q9966; Q9967

== ENCOUNTER 2017-06-05 11:27 | Inpatient (IN) | payer MEDICAID, OTHER ==
[2017-06-05 11:28] VITALS: BMI 15.0
[2017-06-05] MEDS ORDERED: Famotidine 20mg/50ml 20 MG/50 ML BAG IVPB STA (12:04)
[2017-06-05] MEDS ORDERED: Morphine 4 mg/ml ISec IVP STA (12:04)
--- NOTE | 2017-06-05 12:08 | ED PDOC ---
Arrival/HPI - General Chief Complaint: Weakness/Neurological Deficit Time Seen by Provider: 06/05/17 11:53 Historian: Patient, Other (friend) - History of Present Illness Narrative History of Present Illness (Text): 06/05/17 12:06 pt p/w + progressive weakness/malaise/easily fatigued over the last few weeks; pt states he has lost ~ 10-15lbs in the last 2 weeks alone; pt was seen by Dr Oquendo earlier today and noted how weak/frail and thin patient had become in a short period of time and expressed concern, instructing patient to come to ED for further eval/mgt; pt is noted to have ongoing acute pancreatic Cancer pathology, no therapy is currently recommended or proposed at this time and Dr Oquendo had mention to patient possible hospice care; pt states persistent mid abd pain, at most pain is severe at 8-9/10; pt states mild nausea, no fever/ chills/sweats, no cp/sob/palpitations, no vomiting, no urinary/bowel changes ( chronic diarrhea over the last few months, non-bloody); pt with poor appetite, no fall/trauma/sick contact, no optics technical officer denied other complaints pt is here for further eval. PCP: Sandoval Pryor/Noel GI: Lisa Oncology: Jere Time/Duration: < month Symptom Onset: Gradual Symptom Course: Worsening Quality: Tightness, Cramping Severity Level: 9, Severe Activities at Onset: Rest Context: Home Past Medical History - Provider Review Nursing Documentation Reviewed: Yes - Travel History Have you recently traveled outside [place] w/in the past 3 mons?: No - Past History Past History: No Previous - Infectious Disease Hx of Infectious Diseases: None - Tetanus Immunization Tetanus Immunization: Up to Date - Cardiac Hx Cardiac Disorders: Yes Hx Hypertension: Yes - Pulmonary Hx Respiratory Disorders: Yes Hx Bronchitis: Yes (CHRONIC) Hx Chronic Obstructive Pulmonary Disease (COPD): Yes Hx Emphysema: Yes - Neurological Hx Neurological Disorder: No Hx Dizziness: Yes - HEENT Hx HEENT Disorder: No - Renal Hx Renal Disorder: No - Endocrine/Metabolic Hx Endocrine Disorders: No - Hematological/Oncological Hx Blood Disorders: No - Integumentary Hx Dermatological Disorder: No - Musculoskeletal/Rheumatological Hx Musculoskeletal Disorders: Yes Hx Back Pain: Yes Hx Falls: No - Gastrointestinal Hx Gastrointestinal Disorders: Yes Hx Pancreatitis: Yes Other/Comment: DIARRHEA, ABDOMINAL PAIN - Genitourinary/Gynecological Hx Genitourinary Disorders: No - Psychiatric Hx Psychophysiologic Disorder: No Hx Anxiety: No Hx Bipolar Disorder: No Hx Depression: Yes Hx Emotional Abuse: No Hx Hallucinations: No Hx Panic Disorder: No Hx Paranoia: No Hx Post Traumatic Stress Disorder: No Hx Psychosis: No Hx Physical Abuse: No Hx Schizophrenia: No Hx Sexual Abuse: No Hx Substance Use: Yes - Past Surgical History Past Surgical History: No Previous - Surgical History Other/Comment: BRONCHOSCOPY, EGD EUS - Anesthesia Hx Anesthesia: Yes Hx Anesthesia Reactions: No Hx Malignant Hyperthermia: No - Suicidal Assessment Feels Threatened In Home Enviroment: No Family/Social History - Physician Review Nursing Documentation Reviewed: Yes Family/Social History: No Known Family HX Smoking Status: Heavy Smoker > 10 Cigarettes Daily Hx Alcohol Use: No Hx Substance Use: Yes Substance used: marijuana Amount: 1 Hx Substance Use Treatment: No Allergies/Home Meds Allergies/Adverse Reactions: Allergies No Known Allergies Allergy (Verified 04/30/17 11:04) Home Medications: Home Meds Medication Instructions Recorded Confirmed Pantoprazole [Protonix EC Tab] 40 mg PO TID 04/30/17 06/05/17 Review of Systems - Review of Systems Constitutional: Fatigue, Weight Change Eyes: Normal ENT: Normal Respiratory: Normal Cardiovascular: Normal Gastrointestinal: Abdominal Pain, Diarrhea, Nausea Genitourinary Male: Normal Musculoskeletal: Normal Skin: Normal Neurological: Dizziness. absent: Headache Endocrine: Normal Hemo/Lymphatic: Normal Psychiatric: Normal Physical Exam Vital Signs Reviewed: Yes Vital Signs Temp Pulse Resp BP Pulse Ox 06/05/17 14:59 98.2 F 57 L 18 141/75 100 06/05/17 12:17 65 18 99 Temperature: Afebrile Blood Pressure: Normal Pulse: Regular Respiratory Rate: Normal Appearance: Positive for: Well-Appearing, Uncomfortable, Other (alert/awake, GCS = 15, oriented x 3, uncomfortable, mild distress due to abd pain, cooperative, resting in bed) Pain Distress: Mild Mental Status: Positive for: Alert and Oriented X 3 - Systems Exam Head: Present: Atraumatic, Normocephalic, Other (bi-temporal wasting noted) Pupils: Present: PERRL, Other (visual field intact b/l, no photophobia, sclera anicteric, no nystagmus) Extroacular Muscles: Present: EOMI Conjunctiva: Present: Normal Ears: Present: Normal Mouth: Present: Dry, Other (fair dentitions, mild dry oral mucosa, uvula/tongue are midline, no exudate/lesions, no dyphonia) Pharnyx: Present: Normal Nose (External): Present: Atraumatic Nose (Internal): Present: Normal Inspection Neck: Present: Normal Range of Motion, Trachea Midline, Other (no step off, no midline tenderness, no meningeal signs, no nuchal rigidity). No: Meningeal Signs, MIDLINE TENDERNESS Respiratory/Chest: Present: Clear to Auscultation, Good Air Exchange Cardiovascular: Present: Regular Rate and Rhythm, Normal S1, S2. No: Murmurs Abdomen: Present: Normal Bowel Sounds, Other (thin male, diffuse mid abd tenderness, no masses/rebound/guarding/rigidity, no rodriguez's sign, no mcburney' s point tenderness) Back: Present: Normal Inspection. No: CVA Tenderness, Midline Tenderness, Paraspinal Tenderness Upper Extremity: Present: Normal Inspection, Normal ROM, NORMAL PULSES, Neurovascularly Intact Lower Extremity: Present: Normal Inspection, NORMAL PULSES, Normal ROM, Neurovascularly Intact Neurological: Present: GCS=15, CN II-XII Intact, Speech Normal Skin: Present: Warm, Normal Color, Other (dry, cap refill < 1sec, no ulcerations , no petechiae, no rashes) Psychiatric: Present: Alert, Normal Insight, Normal Concentration Medical Decision Making ED Course and Treatment: 06/05/17 12:00 Impression: weakness, FTT, intractable abd pain/pancreatic cancer i have consider all the differential diagnosis regarding pt's chief medical complaints/clinical findings, including but are not limited to: weakness, FTT, intractable abd pain/pancreatic cancer A/P: weakness, FTT, intractable abd pain/pancreatic cancer - labs - iv - xray - supportive care - observe/reevaluation 06/05/[address] Cohen as he is preparation room manager for Dr Sandoval Pryor, made aware, would like hospitalists to admit patient I spoke to hospitalists preparation room manager, made aware, agrees with admission 06/06/17 1430 pt states he still has abd pain pt is requesting a dose of nebulizer for his bronchitis pt is made aware of his medical results agrees with admission Re-evaluation Time: 13:30 Reassessment Condition: Improving,but remains with symptoms - Lab Interpretations Lab Results: 06/05/17 12:30 06/05/17 12:30 Lab Results 06/05/17 13:30: Blood Type B NEGATIVE, Antibody Screen Negative, BBK History Checked Patient has bt 06/05/17 12:30: pO2 59 H, VBG pH 7.37, VBG pCO2 52.0, VBG HCO3 30.1 H, VBG Total CO2 31.7 H, VBG O2 Sat (Calc) 91.5 H, VBG Base Excess 3.6 H, VBG Potassium 3.8, Sodium 139.0, Chloride 106.0, Glucose 76, Lactate 1.3, FiO2 21.0 , Venous Blood Potassium 3.8 06/05/17 12:30: Sodium 141, Chloride 102, Potassium 4.1, Carbon Dioxide 29, Anion Gap 14, BUN 26 H, Creatinine 0.8, Est GFR ( Amer) > 60, Est GFR ( Non-Af Amer) > 60, Random Glucose 77, Calcium 9.2, Total Bilirubin 0.5, AST 60 H D, ALT 75 H, Alkaline Phosphatase 235 H D, Troponin I 0.06 D, Total Protein 7.2, Albumin 3.8, Globulin 3.4, Albumin/Globulin Ratio 1.1, Amylase 411 H, Lipase 3646 H 06/05/17 12:30: PT 14.6 H, INR 1.26 H, APTT 25.7 06/05/17 12:30: WBC 6.0, RBC 3.71, Hgb 11.9 L, Hct 34.9 L, MCV 94.1, MCH 32.1, MCHC 34.1, RDW 13.5, Plt Count 353, MPV 8.7, Gran % 79.2 H, Lymph % (Auto) 14.8 L, Izard % (Auto) 5.0, Eos % (Auto) 0.8 L, Baso % (Auto) 0.2, Gran # 4.76, Lymph # (Auto) 0.9 L, Izard # (Auto) 0.3, Eos # (Auto) 0.1, Baso # (Auto) 0.01 I have reviewed the lab results: Yes Interpretation: Abnormal lab values (+ elevated lipase; abnl LFTs) - RAD Interpretation Narrative RAD Interpretations (Text): Report Date : 06/05/2017 12:52:22 Procedure: Chest xray Dictator : Delfino Webber MD IMPRESSION: Hyperinflation with severe emphysematous changes. . Areas of fibrosis and honeycomb formation with large bleb/small bullous changes upper lobe predominance again noted. Mild biapical pleural thickening as well. Radiology Orders: 06/05/17 12:03 CHEST PORTABLE [RAD] Stat Painting Department Supervisor: Radiologist - EKG Interpretation EKG Interpretation (Text): 06/05/17 23:18 NSR at 60 bpm, normal axis, no ectopy, qs in leads V1-2, non-specific st-t changes, ABNL EKG; unchanged compare with old ekg 03/2017 Interpreted by ED Physician: Yes Type: 12 lead EKG Comparison: Similar to previous EKG - Medication Orders Current Medication Orders: Albuterol/Ipratropium (Duoneb 3 Mg/0.5 Mg (3 Ml) Ud) 3 ml IH [id number] [facility] Last Admin: 06/05/17 19:56 Dose: 3 ml Albuterol/Ipratropium (Duoneb 3 Mg/0.5 Mg (3 Ml) Ud) 3 ml IH Q2H PRN PRN Reason: Shortness of Breath Last Admin: 06/05/17 16:53 Dose: 3 ml Amlodipine Besylate (Norvasc) 10 mg PO DAILY [facility] Heparin Sodium (Porcine) (Heparin) 5,000 units SC Q12 JOSEMANUEL PRN Reason: Protocol Last Admin: 06/05/17 21:28 Dose: 5,000 units Subcutaneous Administrations Document 06/05/17 21:28 LIV (Rec: 06/05/17 21:28 LIV [id number]) Injection Site MAR Injection Site Left Abdomen Charges for Administration # of Subcutaneous Administrations 1 Sodium Chloride (Sodium Chloride 0.9%) 1,000 mls @ 100 mls/hr IV .Q10H [facility] Insulin Human Regular (Humulin R Low) 0 units SC ACHS JOSEMANUEL PRN Reason: Protocol Last Admin: 06/05/17 21:28 Dose: Not Given Non-Admin Reason: Blood Sugar Parameter MAR Blood Glucose Document 06/05/17 21:28 LIV (Rec: 06/05/17 21:28 LIV [id number]) Blood Glucose Finger Stick Blood Glucose (70-120) 172 Morphine Sulfate (Morphine) 2 mg IVP Q6H PRN PRN Reason: Pain, severe (8-10) Last Admin: 06/05/17 21:28 Dose: 2 mg MAR Pain Assessment Document 06/05/17 21:28 OLIVD (Rec: 06/05/17 21:30 OLIVD [id number]) Pain Reassessment Is this a pain reassessment? No Presence of Pain Presence of Pain Yes Pain Scale Used Pain Scale Used Numeric Location Left, Right or Bilateral Bilateral Pain Location Body Site Abdomen Description Description Constant Intensity of Pain at present 8 Pain Behavior Moaning IVP Administration Document 06/05/17 21:28 OLIVD (Rec: 06/05/17 21:30 OLIVD [id number]) Charges for Administration # of IVP Administrations 1 Re-Assess: AMBROSIO Pain Assessment Document 06/05/17 22:28 OLIVD (Rec: 06/05/17 23:00 OLIVD [id number]) Pain Reassessment Is this a pain reassessment? Yes Sleep Is patient sleeping during reassessment? Yes Nicotine (Nicoderm Cq) 1 patch TD DAILY JOSEMANUEL Last Admin: 06/05/17 17:34 Dose: 1 patch [facility] Transdermal Patch Site Document 06/05/17 17:34 MV (Rec: 06/05/17 17:34 MV [facility] [id number]) Transdermal Patch Site Transdermal Patch Site Left Outer Upper Arm Ondansetron HCl (Zofran Inj) 4 mg IVP Q6H PRN PRN Reason: Nausea/Vomiting Pantoprazole Sodium (Protonix Inj) 40 mg IVP DAILY JOSEMANUEL Discontinued Medications Albuterol/Ipratropium (Duoneb 3 Mg/0.5 Mg (3 Ml) Ud) 3 ml IH STAT STA Stop: 06/05/17 13:50 Last Admin: 06/05/17 16:53 Dose: Famotidine (Pepcid 20mg/50ml Premix) 20 mg in 50 mls @ 100 mls/hr IVPB STAT STA Stop: 06/05/17 12:33 Last Admin: 06/05/17 13:07 Dose: 100 mls/hr eMAR Start Stop Document 06/05/17 13:07 ASTRONOMY PROFESSOR (Rec: 06/05/17 13:08 ASTRONOMY PROFESSOR [id number]) Intravenous Solution Start Date 06/05/17 Start Time 13:08 End Date 06/05/17 End time 13:43 Total Infusion Time 35 Sodium Chloride (Sodium Chloride 0.9%) 1,000 mls @ 100 mls/hr IV .Q10H JOSEMANUEL Last Admin: 06/05/17 13:06 Dose: 100 mls/hr eMAR Start Stop Document 06/05/17 13:06 [facility] (Rec: 06/05/17 13:06 [facility] [id number]) Intravenous Solution Start Date 06/05/17 Start Time 13:06 Morphine Sulfate (Morphine) 4 mg IVP STAT STA Stop: 06/05/17 12:05 Last Admin: 06/05/17 13:08 Dose: 4 mg MAR Pain Assessment Document 06/05/17 13:08 [facility] (Rec: 06/05/17 13:08 [facility] [id number]) Pain Reassessment Is this a pain reassessment? No IVP Administration Document 06/05/17 13:08 [facility] (Rec: 06/05/17 13:08 [facility] [id number]) Charges for Administration # of IVP Administrations 1 Ondansetron HCl (Zofran Inj) 4 mg IVP STAT STA Stop: 06/05/17 12:05 Last Admin: 06/05/17 13:08 Dose: 4 mg IVP Administration Document 06/05/17 13:08 [facility] (Rec: 06/05/17 13:08 [facility] [id number]) Charges for Administration # of IVP Administrations 1 Pneumococcal Polyvalent Vaccine (Pneumovax 23 Vaccine) 0.5 ml IM .ONCE ONE Stop: 06/05/17 22:58 Disposition/Present on Arrival - Present on Arrival Any Indicators Present on Arrival: No History of DVT/PE: No History of Uncontrolled Diabetes: No Urinary Catheter: No History of Decub. Ulcer: No History Surgical Site Infection Following: None - Disposition Have Diagnosis and Disposition been Completed?: Yes Diagnosis: FTT (failure to thrive) in adult, Weakness, Pancreatitis, Pancreatic cancer Disposition: HOSPITALIZED Disposition Time: 13:35 Patient Plan: Admission Patient Problems: Current Active Problems Problem Status Onset FTT (failure to thrive) in adult Acute Weakness Acute Pancreatitis Acute Pancreatic cancer Acute Condition: STABLE
[2017-06-05] MEDS ORDERED: Sodium Chloride 0.9% 1,000 ML IV SCH (12:15)
[2017-06-05 12:48] LABS: VENOUS BLOOD GAS BASE EXCESS 3.6 mmol/L (0.0-2.0); VENOUS BLOOD GAS PO2 59 mm/Hg (30-55); VENOUS BLOOD PH 7.37 (7.32-7.43)
[2017-06-05 12:50] LABS: BASO # 0.01 K/mm3 (0.0-2.0); BASO % 0.2 % (0.0-3.0); EOS # 0.1 (0.0-0.7); EOS % 0.8 % (1.5-5.0); GRAN # 4.76 (1.4-6.5); GRAN % 79.2 % (50.0-68.0); HEMOGLOBIN 11.9 g/dL (14.0-18.0); LYMPH # 0.9 (1.2-3.4); LYMPH % 14.8 % (22.0-35.0); MEAN CELL VOLUME 94.1 fl (80.0-105.0); MEAN CORPUSCULAR HEMOGLOBIN 32.1 pg (25.0-35.0); MEAN CORPUSCULAR HGB CONC 34.1 g/dl (31.0-37.0); MEAN PLATELET VOLUME 8.7 fl (7.0-11.0); MONO # 0.3 (0.1-0.6); RBC 3.71 10^6/uL (3.5-6.1); RED CELL DISTRIBUTION WIDTH 13.5 % (11.5-14.5)
--- NOTE | 2017-06-05 12:53 | RAD ---
HISTORY: Weakness. COMPARISON: Comparison made with prior study 03/15/2017 FINDINGS: LUNGS: Hyperinflation with severe emphysematous changes. . Areas of fibrosis and honeycomb formation with large bleb/small bullous changes upper lobe predominance again noted. Mild biapical pleural thickening as well. PLEURA: No effusion. No apparent Pneumothorax apparent. CARDIOVASCULAR: Normal. OSSEOUS STRUCTURES: No significant abnormalities. VISUALIZED UPPER ABDOMEN: Normal. OTHER FINDINGS: None. IMPRESSION: Hyperinflation with severe emphysematous changes. . Areas of fibrosis and honeycomb formation with large bleb/small bullous changes upper lobe predominance again noted. Mild biapical pleural thickening as well.
[2017-06-05 12:57] LABS: ALB/GLOB RATIO 1.1 (1.1-1.8); ALBUMIN 3.8 g/dL (3.0-4.8); ALT/SGPT 75 U/L (7-56); AMYLASE 411 U/L (35-125); AST/SGOT 60 U/L (17-59); BLOOD UREA NITROGEN 26 mg/dL (7-21); CALCIUM 9.2 mg/dL (8.4-10.5); GFR AFRICAN-AMERICAN > 60; GFR NON-AFRICAN AMERICAN > 60
[2017-06-05 13:03] LABS: INR 1.26 (0.93-1.08); PARTIAL THROMBOPLASTIN TIME 25.7 Seconds (25.1-36.5); PROTHROMBIN TIME 14.6 SECONDS (9.4-12.5)
[2017-06-05 13:09] LABS: TROPONIN I 0.06 ng/mL
[2017-06-05 13:19] LABS: LIPASE 3646 U/L (23-300)
[2017-06-05] MEDS ORDERED: Dextrose 5%/0.45% NS 1,000 ML IV SCH (13:45)
[2017-06-05] MEDS ORDERED: Albuterol-Ipratrop 3 mg / 0.5 (3 ml) UD IH STA (13:49)
--- NOTE | 2017-06-05 13:59 | CP.PCM.HP ---
<Talia Frankel - Last Filed: 06/05/17 15:05> History of Present Illness - History of Present Illness History of Present Illness: CC: Abdominal pain History of present illness: Patient is a 61 year old male with past medical history of pancreatic cancer, hypertension, COPD, Diabetes Mellitus [place] [facility] [place]qu[place]. Patient states that he has been having worsening abdominal pain. States that he ran out of pain medication. Pain is diffuse and constant in nature. Patient is poor historian, aggravated during the interview. History is limited. Patient admits to having diarrhea 3-4 times a day. He was recently treated with PO vancomycin. Denies headaches, dizziness, cp, palpitations, sob, nausea/vomiting , urinary symptoms. ED course: Morphine 4mg IV, Pepcid 20mg, Duonebs, NS, Zofran PMD: Sandoval Pryor/Noel Allergies: NKDA Medications: Albuterol, Protonix, Norvasc, Gabapentin Medical History: pancreatic cancer, hypertension, COPD, Diabetes Mellitus Surgical History: Denies Social History: Smokes 7-8 cigarettes a day, smokes marijuana, denies alcohol use Present on Admission - Present on Admission Any Indicators Present on Admission: No Past Patient History - Infectious Disease Hx of Infectious Diseases: None - Tetanus Immunizations Tetanus Immunization: Up to Date - Past Medical History & Family History Past Medical History?: Yes - Past Social History Smoking Status: Heavy Smoker > 10 Cigarettes Daily - CARDIAC Hx Cardiac Disorders: Yes Hx Hypertension: Yes - PULMONARY Hx Respiratory Disorders: Yes Hx Bronchitis: Yes (CHRONIC) Hx Chronic Obstructive Pulmonary Disease (COPD): Yes Hx Emphysema: Yes - NEUROLOGICAL Hx Neurological Disorder: No Hx Dizziness: Yes - HEENT Hx HEENT Problems: No - RENAL Hx Chronic Kidney Disease: No - ENDOCRINE/METABOLIC Hx Endocrine Disorders: No - HEMATOLOGICAL/ONCOLOGICAL Hx Blood Disorders: No - INTEGUMENTARY Hx Dermatological Problems: No - MUSCULOSKELETAL/RHEUMATOLOGICAL Hx Musculoskeletal Disorders: Yes Hx Back Pain: Yes Hx Falls: No - GASTROINTESTINAL Hx Gastrointestinal Disorders: Yes Hx Pancreatitis: Yes Other/Comment: DIARRHEA, ABDOMINAL PAIN - GENITOURINARY/GYNECOLOGICAL Hx Genitourinary Disorders: No - PSYCHIATRIC Hx Psychophysiologic Disorder: No Hx Anxiety: No Hx Bipolar Disorder: No Hx Depression: Yes Hx Emotional Abuse: No Hx Hallucinations: No Hx Panic Symptoms: No Hx Paranoia: No Hx Post Traumatic Stress Disorder: No Hx Psychosis: No Hx Physical Abuse: No Hx Schizophrenia: No Hx Sexual Abuse: No Hx Substance Use: Yes - SURGICAL HISTORY Other/Comment: BRONCHOSCOPY, EGD EUS - ANESTHESIA Hx Anesthesia: Yes Hx Anesthesia Reactions: No Hx Malignant Hyperthermia: No Meds Allergies/Adverse Reactions: Allergies Allergy/AdvReac Type Severity Reaction Status Date / Time No Known Allergies Allergy Verified 04/30/17 11:04 Physical Exam - Constitutional Appears: Non-toxic, No Acute Distress, Cachectic, Chronically Ill - Head Exam Head Exam: ATRAUMATIC, NORMAL INSPECTION, NORMOCEPHALIC - Eye Exam Eye Exam: EOMI, Normal appearance - ENT Exam ENT Exam: Mucous Membranes Moist - Respiratory Exam Respiratory Exam: Clear to Auscultation Bilateral, NORMAL BREATHING PATTERN. absent: Rales, Rhonchi, Wheezes - Cardiovascular Exam Cardiovascular Exam: REGULAR RHYTHM, +S1, +S2 - GI/Abdominal Exam GI & Abdominal Exam: Normal Bowel Sounds, Soft. absent: Guarding, Rebound, Rigid - Extremities Exam Extremities exam: Positive for: normal inspection, pedal pulses present - Neurological Exam Neurological exam: Alert, Normal Gait, Oriented x3 - Psychiatric Exam Psychiatric exam: Normal Affect, Normal Mood - Skin Skin Exam: Dry, Normal Color, Warm Results - Vital Signs Recent Vital Signs: Last Vital Signs Temp Pulse 65 06/05/17 12:17 Resp 18 06/05/17 12:17 BP Pulse Ox 99 06/05/17 12:17 - Labs Result Diagrams: 06/05/17 12:30 06/05/17 12:30 Assessment & Plan - Assessment and Plan (Free Text) Assessment: Patient is 61 year old male with past medical history of pancreatic cancer, COPD , Hypertension, DM presented [place] [facility] [place] abdominal pain. Pancreatitis/Pancreatic Cancer: -Will admit inpatient -EGD: pancreatic duct stricture, moderate dilation of the pancreatic duct in the body of the pancrease and pancreatic duct in the tail of the panceas was found diffusely. EUS showed mass in the pancreas head -Pathology showed invasive adenocarcinoma, moderate to poorly differentiated -Pet Scan did not show evidence of metastaiss; pulmonary nodule was present, read as inflammatory -Lipase 3,646; Amylase 411 -IV fluid hydration -Clear liquid diet -Zofran prn nausea -Morphine prn pain -Heme/Onc on consult, Dr Oquendo help appreciated -GI on consult, Dr Gonzalez, help appreciated Diarrhea -Patient states that he has been having 3-4 episodes a day -History of C diff in the past, treated with Vancomycin -Will send stool for C diff History of COPD: -CXR: Hyperinflation with severe emphysematous changes. Areas of fibrosis and honeycomb formation with large bleb/small bullous changes upper lobe predominance again noted. Mild biapical thickening as well -Nicotine patch ordered -Duonebs Q6H JOSEMANUEL, Q2H PRN Hypertension -Continue Norvasc 10mg PO daily Diabetes Mellitus -HbA1C 03/2017 was 6.4 -Insulin sliding scale -Accuchecks ACHS History of substance abuse -F/U UTOX GI/DVT ppx: -Protonix 40mg IVP daily -Heparin 5000 Q12H -Patient asked about code status, does not wish to discuss at this time; Full code Plan discussed with Dr Cohn <Ldyia Cohn - Last Filed: 06/06/17 17:19> Results - Vital Signs Recent Vital Signs: Last Vital Signs Temp 98.2 F 06/06/17 08:16 Pulse 66 06/06/17 08:16 Resp 18 06/06/17 08:16 BP 145/100 H 06/06/17 09:30 Pulse Ox 98 06/06/17 08:16 - Labs Result Diagrams: 06/06/17 06:00 06/06/17 06:00 Labs: Laboratory Results - last 24 hr 06/05/17 06/05/17 06/05/17 17:11 19:10 19:10 WBC RBC Hgb Hct MCV MCH MCHC RDW Plt Count MPV Gran % Lymph % (Auto) Frontier % (Auto) Eos % (Auto) Baso % (Auto) Gran # Lymph # (Auto) Frontier # (Auto) Eos # (Auto) Baso # (Auto) Sodium Potassium Chloride Carbon Dioxide Anion Gap BUN Creatinine Est GFR ( Amer) Est GFR (Non-Af Amer) POC Glucose (mg/dL) 76 Random Glucose Calcium Total Bilirubin AST ALT Alkaline Phosphatase Total Protein Albumin Globulin Albumin/Globulin Ratio Urine Color Yellow Urine Appearance Sl cloudy Urine pH 6.0 Ur Specific [place] >= 1.030 Urine Protein 30 H Urine Glucose (UA) Negative Urine Ketones Trace H Urine Blood Small H Urine Nitrate Negative Urine Bilirubin Negative Urine Urobilinogen 0.2 Ur Leukocyte Esterase Negative Urine RBC 1 - 3 Urine WBC Negative Urine Opiates Screen Positive H Urine Methadone Screen Negative Ur Barbiturates Screen Negative Ur Phencyclidine Scrn Negative Ur Amphetamines Screen Negative U Benzodiazepines Scrn Negative U Oth Cocaine Metabols Negative U Cannabinoids Screen Positive H 06/05/17 06/06/17 06/06/17 21:21 06:00 06:00 WBC 7.4 D RBC 3.23 L Hgb 10.1 L Hct 29.9 L MCV 92.6 MCH 31.3 MCHC 33.8 RDW 13.2 Plt Count 320 MPV 8.7 Gran % 71.4 H Lymph % (Auto) 18.4 L Frontier % (Auto) 7.7 H Eos % (Auto) 2.2 Baso % (Auto) 0.3 Gran # 5.28 Lymph # (Auto) 1.4 Frontier # (Auto) 0.6 Eos # (Auto) 0.2 Baso # (Auto) 0.02 Sodium 138 Potassium 3.6 Chloride 101 Carbon Dioxide 29 Anion Gap 11 BUN 21 Creatinine 0.7 L Est GFR ( Amer) > 60 Est GFR (Non-Af Amer) > 60 POC Glucose (mg/dL) 172 H Random Glucose 93 Calcium 8.8 Total Bilirubin 0.3 AST 81 H D ALT 72 H Alkaline Phosphatase 217 H Total Protein 6.6 Albumin 3.4 Globulin 3.2 Albumin/Globulin Ratio 1.1 Urine Color Urine Appearance Urine pH Ur Specific [place] Urine Protein Urine Glucose (UA) Urine Ketones Urine Blood Urine Nitrate Urine Bilirubin Urine Urobilinogen Ur Leukocyte Esterase Urine RBC Urine WBC Urine Opiates Screen Urine Methadone Screen Ur Barbiturates Screen Ur Phencyclidine Scrn Ur Amphetamines Screen U Benzodiazepines Scrn U Oth Cocaine Metabols U Cannabinoids Screen 06/06/17 06/06/17 06/06/17 07:14 11:24 16:52 WBC RBC Hgb Hct MCV MCH MCHC RDW Plt Count MPV Gran % Lymph % (Auto) Frontier % (Auto) Eos % (Auto) Baso % (Auto) Gran # Lymph # (Auto) Frontier # (Auto) Eos # (Auto) Baso # (Auto) Sodium Potassium Chloride Carbon Dioxide Anion Gap BUN Creatinine Est GFR ( Amer) Est GFR (Non-Af Amer) POC Glucose (mg/dL) 95 137 H 97 Random Glucose Calcium Total Bilirubin AST ALT Alkaline Phosphatase Total Protein Albumin Globulin Albumin/Globulin Ratio Urine Color Urine Appearance Urine pH Ur Specific [place] Urine Protein Urine Glucose (UA) Urine Ketones Urine Blood Urine Nitrate Urine Bilirubin Urine Urobilinogen Ur Leukocyte Esterase Urine RBC Urine WBC Urine Opiates Screen Urine Methadone Screen Ur Barbiturates Screen Ur Phencyclidine Scrn Ur Amphetamines Screen U Benzodiazepines Scrn U Oth Cocaine Metabols U Cannabinoids Screen Attending/Attestation - Attestation I have personally seen and examined this patient.: Yes I have fully participated in the care of the patient.: Yes I have reviewed all pertinent clinical information: Yes Notes (Text): 06/06/17 17:16 Medical record note made by the resident after discussion with my direction and input after the patient was personally seen and examined by me. I have reviewed the chart and agree that the record accurately reflects by personal performance of the history, physical exam, data review, and medical decision-making, in the course for the patient. I have also personally directed the plan of care. 61 M w/ hx of invasive adenocarcinoma of the pancreas, HTN, chronic smoking and drug abuse , who presents with abdominal pain. Pt was found to have elevated lipase.Patient abdominal examination is benigh.We will start patient on IV hydration, clear liquid diet and PRN Pain medication.We will get Oncology evaluation. COPD is stable, patient is on room air and is not wheezing. Management plan was discussed in detail with patient. Education was provided.
[2017-06-05] MEDS ORDERED: Albuterol-Ipratrop 3 mg / 0.5 (3 ml) UD IH PRN (14:32)
[2017-06-05] MEDS: Insulin Reg-LOW-Coverage SC SCH ×2 (17:32→21:28)
[2017-06-05 19:35] LABS: URINE APPEARANCE SL CLOUDY (CLEAR); URINE BILIRUBIN NEGATIVE (NEGATIVE); URINE BLOOD SMALL (NEGATIVE); URINE COLOR YELLOW (YELLOW); URINE GLUCOSE (UA) NEGATIVE (NEGATIVE); URINE LEUKOCYTE ESTERASE NEGATIVE Leu/uL (NEGATIVE); URINE PROTEIN 30 mg/dL (<30 mg/dL); URINE UROBILINOGEN 0.2 E.U./dL (<1 E.U./dL)
[2017-06-05 19:42] LABS: URINE WBC NEGATIVE /hpf (0-6)
[2017-06-05] MEDS: Albuterol-Ipratrop 3 mg / 0.5 (3 ml) UD IH SCH (19:56)
[2017-06-05 20:04] LABS: BARBITURATES, UR NEGATIVE (NEGATIVE); BENZODIAZEPINES, UR NEGATIVE (NEGATIVE); OPIATES, UR POSITIVE (NEGATIVE); PHENCYCLIDINE, UR NEGATIVE (NEGATIVE)
--- NOTE | 2017-06-05 21:22 | CARD ---
APPROVED REPORT EKG Measurement Heart [id number] <Conclusion> Sinus bradycardia with premature atrial complexes Septal infarct, age undetermined Abnormal ECG
[2017-06-05] MEDS: Morphine 4 mg/ml ISec IVP PRN (21:28)
[2017-06-05] MEDS ORDERED: Pneumococcal 23-Valent Vaccine IM ONE (22:57)
[2017-06-06] MEDS: Albuterol-Ipratrop 3 mg / 0.5 (3 ml) UD IH SCH ×5 (02:29→20:26)
[2017-06-06 06:20] LABS: BASO # 0.02 K/mm3 (0.0-2.0); BASO % 0.3 % (0.0-3.0); EOS # 0.2 (0.0-0.7); EOS % 2.2 % (1.5-5.0); GRAN # 5.28 (1.4-6.5); GRAN % 71.4 % (50.0-68.0); HEMOGLOBIN 10.1 g/dL (14.0-18.0); LYMPH # 1.4 (1.2-3.4); LYMPH % 18.4 % (22.0-35.0); MEAN CELL VOLUME 92.6 fl (80.0-105.0); MEAN CORPUSCULAR HEMOGLOBIN 31.3 pg (25.0-35.0); MEAN CORPUSCULAR HGB CONC 33.8 g/dl (31.0-37.0); MEAN PLATELET VOLUME 8.7 fl (7.0-11.0); MONO # 0.6 (0.1-0.6); MONO % 7.7 % (1.0-6.0); RBC 3.23 10^6/uL (3.5-6.1); RED CELL DISTRIBUTION WIDTH 13.2 % (11.5-14.5)
[2017-06-06 07:06] LABS: WHITE BLOOD COUNT 7.4 10^3/ul (4.5-11.0)
[2017-06-06 07:31] LABS: ALB/GLOB RATIO 1.1 (1.1-1.8); ALBUMIN 3.4 g/dL (3.0-4.8); ALT/SGPT 72 U/L (7-56); AST/SGOT 81 U/L (17-59); BLOOD UREA NITROGEN 21 mg/dL (7-21); CALCIUM 8.8 mg/dL (8.4-10.5); GFR AFRICAN-AMERICAN > 60; GFR NON-AFRICAN AMERICAN > 60
[2017-06-06] MEDS: Insulin Reg-LOW-Coverage SC SCH (07:48)
--- NOTE | 2017-06-06 11:32 | CP.PCM.CON ---
<Kasi Manjarrez - Last Filed: 06/06/17 11:45> History of Present Illness - History of Present Illness History of Present Illness: PGY4 Initial GI Consultation This is a 61year old male PMHx invasive adenocarcinoma of the pancreas ( diagnosed 04/2017), emphysema, hypertension, diabetes, chronic back pain presents to the ED c/o acute on chronic abd pain. Pt states that his pain is in the epigastic area radiating toward his back. He noted that his pain was a 10 out of 10. He was at Dr. Oquendo's office for f/u and was referred to the ER. He was found to have an elevated lipase >1000. He states that he ran out of his pain medication. He denied noticing any melena or hematochezia. Pt denies any hx of alcohol abuse, prior US neg for gallstones, triglyceride levels negative, IgG4 level elevated. Significant weightloss over the past 3-4 months. Today in the AM, he wanted to advance his diet and noted that his abd pain has improved significantly. ROS: 12 point review of system reviewed and negative unless stated above. PMHx: as above PSurgHx: denies Family hx: reviewed; denies any hx of GI malignancy Social Hx: admits to tobacco use 1/2 ppd for 40 years; admits to smoking marijuana- few times per week; denies EtOH and illicit drug use Endo Hx: ERCP/Spyglass w/ biopsy of PD stricture 03/2017 (biopsy neg and FNA inconclusive), Repeat EUS w/ FNA 04/2017 + invasive adenocarcinoma of pancreas ROS: 12 point ROS conducted, neg other than above Past Patient History - Infectious Disease Hx of Infectious Diseases: None - Tetanus Immunizations Tetanus Immunization: Up to Date - Past Medical History & Family History Past Medical History?: Yes - Past Social History Smoking Status: Heavy Smoker > 10 Cigarettes Daily - CARDIAC Hx Cardiac Disorders: Yes Hx Hypertension: Yes - PULMONARY Hx Respiratory Disorders: Yes Hx Bronchitis: Yes (CHRONIC) Hx Chronic Obstructive Pulmonary Disease (COPD): Yes Hx Emphysema: Yes - NEUROLOGICAL Hx Neurological Disorder: No Hx Dizziness: Yes - HEENT Hx HEENT Problems: No - RENAL Hx Chronic Kidney Disease: No - ENDOCRINE/METABOLIC Hx Endocrine Disorders: No - HEMATOLOGICAL/ONCOLOGICAL Hx Blood Disorders: No - INTEGUMENTARY Hx Dermatological Problems: No - MUSCULOSKELETAL/RHEUMATOLOGICAL Hx Musculoskeletal Disorders: Yes Hx Back Pain: Yes Hx Falls: No - GASTROINTESTINAL Hx Gastrointestinal Disorders: Yes Hx Pancreatitis: Yes Other/Comment: DIARRHEA, ABDOMINAL PAIN - GENITOURINARY/GYNECOLOGICAL Hx Genitourinary Disorders: No - PSYCHIATRIC Hx Psychophysiologic Disorder: No Hx Anxiety: No Hx Bipolar Disorder: No Hx Depression: Yes Hx Emotional Abuse: No Hx Hallucinations: No Hx Panic Symptoms: No Hx Paranoia: No Hx Post Traumatic Stress Disorder: No Hx Psychosis: No Hx Physical Abuse: No Hx Schizophrenia: No Hx Sexual Abuse: No Hx Substance Use: Yes - SURGICAL HISTORY Other/Comment: BRONCHOSCOPY, EGD EUS - ANESTHESIA Hx Anesthesia: Yes Hx Anesthesia Reactions: No Hx Malignant Hyperthermia: No Meds Allergies/Adverse Reactions: Allergies Allergy/AdvReac Type Severity Reaction Status Date / Time No Known Allergies Allergy Verified 04/30/17 11:04 - Medications Medications: Current Medications Albuterol/Ipratropium (Duoneb 3 Mg/0.5 Mg (3 Ml) Ud) 3 ml IH [id number] [facility] Last Admin: 06/06/17 08:06 Dose: 3 ml Albuterol/Ipratropium (Duoneb 3 Mg/0.5 Mg (3 Ml) Ud) 3 ml IH Q2H PRN PRN Reason: Shortness of Breath Last Admin: 06/05/17 16:53 Dose: 3 ml Amlodipine Besylate (Norvasc) 10 mg PO DAILY [facility] Last Admin: 06/06/17 09:30 Dose: 10 mg Heparin Sodium (Porcine) (Heparin) 5,000 units SC Q12 [facility] PRN Reason: Protocol Last Admin: 06/06/17 09:30 Dose: 5,000 units Sodium Chloride (Sodium Chloride 0.9%) 1,000 mls @ 100 mls/hr IV .Q10H [facility] Morphine Sulfate (Morphine) 2 mg IVP Q6H PRN PRN Reason: Pain, severe (8-10) Last Admin: 06/05/17 21:28 Dose: 2 mg Nicotine (Nicoderm Cq) 1 patch TD DAILY [facility] Last Admin: 06/06/17 09:29 Dose: 1 patch Ondansetron HCl (Zofran Inj) 4 mg IVP Q6H PRN PRN Reason: Nausea/Vomiting Pantoprazole Sodium (Protonix Inj) 40 mg IVP DAILY [facility] Last Admin: 06/06/17 09:29 Dose: 40 mg Physical Exam - Constitutional Appears: Well, No Acute Distress - Head Exam Head Exam: ATRAUMATIC, NORMOCEPHALIC - Eye Exam Eye Exam: Normal appearance - ENT Exam ENT Exam: Mucous Membranes Moist, Normal Exam - Neck Exam Neck exam: Positive for: Normal Inspection - Respiratory Exam Respiratory Exam: Clear to Auscultation Bilateral, NORMAL BREATHING PATTERN. absent: Rales, Rhonchi, Wheezes, Respiratory Distress - Cardiovascular Exam Cardiovascular Exam: REGULAR RHYTHM, +S1, +S2 - GI/Abdominal Exam GI & Abdominal Exam: Normal Bowel Sounds, Soft, Tenderness (epigastric area). absent: Distended, Firm, Guarding, Hernia, Organomegaly, Rebound, Rigid - Extremities Exam Extremities exam: Negative for: joint swelling, pedal edema - Neurological Exam Neurological exam: Alert, Oriented x3 - Psychiatric Exam Psychiatric exam: Normal Affect, Normal Mood - Skin Skin Exam: Dry, Intact, Normal Color, Warm Results - Vital Signs Recent Vital Signs: Last Vital Signs Temp 98.2 F 06/06/17 08:16 Pulse 66 06/06/17 08:16 Resp 18 06/06/17 08:16 BP 145/100 H 06/06/17 09:30 Pulse Ox 98 06/06/17 08:16 - Labs Result Diagrams: 06/06/17 06:00 06/06/17 06:00 Labs: Laboratory Results - last 24 hr 06/05/17 06/05/17 06/05/17 16:14 17:11 19:10 WBC RBC Hgb Hct MCV MCH MCHC RDW Plt Count MPV Gran % Lymph % (Auto) [place] % (Auto) Eos % (Auto) Baso % (Auto) Gran # Lymph # (Auto) [place] # (Auto) Eos # (Auto) Baso # (Auto) Sodium Potassium Chloride Carbon Dioxide Anion Gap BUN Creatinine Est GFR ( Amer) Est GFR (Non-Af Amer) POC Glucose (mg/dL) 47 L 76 Random Glucose Calcium Total Bilirubin AST ALT Alkaline Phosphatase Total Protein Albumin Globulin Albumin/Globulin Ratio Urine Color Urine Appearance Urine pH Ur Specific [place] Urine Protein Urine Glucose (UA) Urine Ketones Urine Blood Urine Nitrate Urine Bilirubin Urine Urobilinogen Ur Leukocyte Esterase Urine RBC Urine WBC Urine Opiates Screen Positive H Urine Methadone Screen Negative Ur Barbiturates Screen Negative Ur Phencyclidine Scrn Negative Ur Amphetamines Screen Negative U Benzodiazepines Scrn Negative U Oth Cocaine Metabols Negative U Cannabinoids Screen Positive H 06/05/17 06/05/17 06/06/17 19:10 21:21 06:00 WBC 7.4 D RBC 3.23 L Hgb 10.1 L Hct 29.9 L MCV 92.6 MCH 31.3 MCHC 33.8 RDW 13.2 Plt Count 320 MPV 8.7 Gran % 71.4 H Lymph % (Auto) 18.4 L [place] % (Auto) 7.7 H Eos % (Auto) 2.2 Baso % (Auto) 0.3 Gran # 5.28 Lymph # (Auto) 1.4 [place] # (Auto) 0.6 Eos # (Auto) 0.2 Baso # (Auto) 0.02 Sodium Potassium Chloride Carbon Dioxide Anion Gap BUN Creatinine Est GFR ( Amer) Est GFR (Non-Af Amer) POC Glucose (mg/dL) 172 H Random Glucose Calcium Total Bilirubin AST ALT Alkaline Phosphatase Total Protein Albumin Globulin Albumin/Globulin Ratio Urine Color Yellow Urine Appearance Sl cloudy Urine pH 6.0 Ur Specific [place] >= 1.030 Urine Protein 30 H Urine Glucose (UA) Negative Urine Ketones Trace H Urine Blood Small H Urine Nitrate Negative Urine Bilirubin Negative Urine Urobilinogen 0.2 Ur Leukocyte Esterase Negative Urine RBC 1 - 3 Urine WBC Negative Urine Opiates Screen Urine Methadone Screen Ur Barbiturates Screen Ur Phencyclidine Scrn Ur Amphetamines Screen U Benzodiazepines Scrn U Oth Cocaine Metabols U Cannabinoids Screen 06/06/17 06/06/17 06:00 07:14 WBC RBC Hgb Hct MCV MCH MCHC RDW Plt Count MPV Gran % Lymph % (Auto) [place] % (Auto) Eos % (Auto) Baso % (Auto) Gran # Lymph # (Auto) [place] # (Auto) Eos # (Auto) Baso # (Auto) Sodium 138 Potassium 3.6 Chloride 101 Carbon Dioxide 29 Anion Gap 11 BUN 21 Creatinine 0.7 L Est GFR ( Amer) > 60 Est GFR (Non-Af Amer) > 60 POC Glucose (mg/dL) 95 Random Glucose 93 Calcium 8.8 Total Bilirubin 0.3 AST 81 H D ALT 72 H Alkaline Phosphatase 217 H Total Protein 6.6 Albumin 3.4 Globulin 3.2 Albumin/Globulin Ratio 1.1 Urine Color Urine Appearance Urine pH Ur Specific [place] Urine Protein Urine Glucose (UA) Urine Ketones Urine Blood Urine Nitrate Urine Bilirubin Urine Urobilinogen Ur Leukocyte Esterase Urine RBC Urine WBC Urine Opiates Screen Urine Methadone Screen Ur Barbiturates Screen Ur Phencyclidine Scrn Ur Amphetamines Screen U Benzodiazepines Scrn U Oth Cocaine Metabols U Cannabinoids Screen Assessment & Plan - Assessment and Plan (Free Text) Assessment: Bandar Berman is a 61M w/ hx of invasive adenocarcinoma of the pancreas, HTN, who presents with abd pain. Pt was found to have elevated lipase. Acute recurrent pancreatitis Invasive Pancreatic adeno Chronic diarrhea Plan: Advance diet as tolerated Follow-up with hem/onc and Dr. Gonzalez as an oupt Pain control in the meantime, panc enzymes, and ppi Continue IV fluids while in the hospital, but can d/c if tolerating PO intake will check TG continue to monitor daily HCT and BUN while in hospital if able to tolerate reg diet without pain and pain has sig imporved, can be d/c home from GI standpoint D/W Dr. Shaver <Teofilo Shaver - Last Filed: 06/06/17 14:04> Meds - Medications Medications: Current Medications Albuterol/Ipratropium (Duoneb 3 Mg/0.5 Mg (3 Ml) Ud) 3 ml IH [id number] [facility] Last Admin: 06/06/17 13:15 Dose: 3 ml Albuterol/Ipratropium (Duoneb 3 Mg/0.5 Mg (3 Ml) Ud) 3 ml IH Q2H PRN PRN Reason: Shortness of Breath Last Admin: 06/05/17 16:53 Dose: 3 ml Amlodipine Besylate (Norvasc) 10 mg PO DAILY [facility] Last Admin: 06/06/17 09:30 Dose: 10 mg Heparin Sodium (Porcine) (Heparin) 5,000 units SC Q12 [facility] PRN Reason: Protocol Last Admin: 06/06/17 09:30 Dose: 5,000 units Sodium Chloride (Sodium Chloride 0.9%) 1,000 mls @ 100 mls/hr IV .Q10H [facility] Last Admin: 06/06/17 11:45 Dose: Not Given Morphine Sulfate (Morphine) 2 mg IVP Q6H PRN PRN Reason: Pain, severe (8-10) Last Admin: 06/06/17 12:12 Dose: 2 mg Nicotine (Nicoderm Cq) 1 patch TD DAILY [facility] Last Admin: 06/06/17 09:29 Dose: 1 patch Ondansetron HCl (Zofran Inj) 4 mg IVP Q6H PRN PRN Reason: Nausea/Vomiting Pantoprazole Sodium (Protonix Inj) 40 mg IVP DAILY [facility] Last Admin: 06/06/17 09:29 Dose: 40 mg Results - Vital Signs Recent Vital Signs: Last Vital Signs Temp 98.2 F 06/06/17 08:16 Pulse 66 06/06/17 08:16 Resp 18 06/06/17 08:16 BP 145/100 H 06/06/17 09:30 Pulse Ox 98 06/06/17 08:16 - Labs Result Diagrams: 06/06/17 06:00 06/06/17 06:00 Labs: Laboratory Results - last 24 hr 06/05/17 06/05/17 06/05/17 16:14 17:11 19:10 WBC RBC Hgb Hct MCV MCH MCHC RDW Plt Count MPV Gran % Lymph % (Auto) [place] % (Auto) Eos % (Auto) Baso % (Auto) Gran # Lymph # (Auto) [place] # (Auto) Eos # (Auto) Baso # (Auto) Sodium Potassium Chloride Carbon Dioxide Anion Gap BUN Creatinine Est GFR ( Amer) Est GFR (Non-Af Amer) POC Glucose (mg/dL) 47 L 76 Random Glucose Calcium Total Bilirubin AST ALT Alkaline Phosphatase Total Protein Albumin Globulin Albumin/Globulin Ratio Urine Color Urine Appearance Urine pH Ur Specific [place] Urine Protein Urine Glucose (UA) Urine Ketones Urine Blood Urine Nitrate Urine Bilirubin Urine Urobilinogen Ur Leukocyte Esterase Urine RBC Urine WBC Urine Opiates Screen Positive H Urine Methadone Screen Negative Ur Barbiturates Screen Negative Ur Phencyclidine Scrn Negative Ur Amphetamines Screen Negative U Benzodiazepines Scrn Negative U Oth Cocaine Metabols Negative U Cannabinoids Screen Positive H 06/05/17 06/05/17 06/06/17 19:10 21:21 06:00 WBC 7.4 D RBC 3.23 L Hgb 10.1 L Hct 29.9 L MCV 92.6 MCH 31.3 MCHC 33.8 RDW 13.2 Plt Count 320 MPV 8.7 Gran % 71.4 H Lymph % (Auto) 18.4 L [place] % (Auto) 7.7 H Eos % (Auto) 2.2 Baso % (Auto) 0.3 Gran # 5.28 Lymph # (Auto) 1.4 [place] # (Auto) 0.6 Eos # (Auto) 0.2 Baso # (Auto) 0.02 Sodium Potassium Chloride Carbon Dioxide Anion Gap BUN Creatinine Est GFR ( Amer) Est GFR (Non-Af Amer) POC Glucose (mg/dL) 172 H Random Glucose Calcium Total Bilirubin AST ALT Alkaline Phosphatase Total Protein Albumin Globulin Albumin/Globulin Ratio Urine Color Yellow Urine Appearance Sl cloudy Urine pH 6.0 Ur Specific [place] >= 1.030 Urine Protein 30 H Urine Glucose (UA) Negative Urine Ketones Trace H Urine Blood Small H Urine Nitrate Negative Urine Bilirubin Negative Urine Urobilinogen 0.2 Ur Leukocyte Esterase Negative Urine RBC 1 - 3 Urine WBC Negative Urine Opiates Screen Urine Methadone Screen Ur Barbiturates Screen Ur Phencyclidine Scrn Ur Amphetamines Screen U Benzodiazepines Scrn U Oth Cocaine Metabols U Cannabinoids Screen 06/06/17 06/06/17 06/06/17 06:00 07:14 11:24 WBC RBC Hgb Hct MCV MCH MCHC RDW Plt Count MPV Gran % Lymph % (Auto) [place] % (Auto) Eos % (Auto) Baso % (Auto) Gran # Lymph # (Auto) [place] # (Auto) Eos # (Auto) Baso # (Auto) Sodium 138 Potassium 3.6 Chloride 101 Carbon Dioxide 29 Anion Gap 11 BUN 21 Creatinine 0.7 L Est GFR ( Amer) > 60 Est GFR (Non-Af Amer) > 60 POC Glucose (mg/dL) 95 137 H Random Glucose 93 Calcium 8.8 Total Bilirubin 0.3 AST 81 H D ALT 72 H Alkaline Phosphatase 217 H Total Protein 6.6 Albumin 3.4 Globulin 3.2 Albumin/Globulin Ratio 1.1 Urine Color Urine Appearance Urine pH Ur Specific [place] Urine Protein Urine Glucose (UA) Urine Ketones Urine Blood Urine Nitrate Urine Bilirubin Urine Urobilinogen Ur Leukocyte Esterase Urine RBC Urine WBC Urine Opiates Screen Urine Methadone Screen Ur Barbiturates Screen Ur Phencyclidine Scrn Ur Amphetamines Screen U Benzodiazepines Scrn U Oth Cocaine Metabols U Cannabinoids Screen Attending/Attestation - Attestation I have personally seen and examined this patient.: Yes I have fully participated in the care of the patient.: Yes I have reviewed all pertinent clinical information: Yes Notes (Text): 06/06/17 13:59 I have seen and examined patient with GI fellow. Agree with above documentation with the following additions. In brief, this is a 61 year old male with history of pancreatic cancer, DM, HTN who presented to hospital with complaint of abdominal pain. He describes recently running out of outpatient pain medication and on arrival to oncologist office he was found to have significant epigastric 10/10 intensity pain radiating to back and sent to hospital. He denies associated nausea, vomiting, fever/chills, diarrhea, rectal bleeding, or recent weight loss since cancer diagnosis. He has been tolerating PO diet recently without difficulty. He is currently seen resting in bed comfortably, claims pain has now resolved since arrival to hospital and asking for diet to be advanced. Review of vitals from today shows elevated BP. Pancreatic cancer DM / HTN Acute abdominal pain, resolved - Low fat diet as tolerated - Continue with pancreatic enzyme replacement therapy - Pain control - No further planned inpatient GI intervention, follow up oncology recommendations. If tolerating PO diet from GI standpoint ok to discharge home with subsequent outpatient follow up. Will sign off case, please reconsult as necessary, thank you.
[2017-06-06] MEDS: Sodium Chloride 0.9% 1,000 ML IV SCH ×2 (11:45→17:07)
[2017-06-06] MEDS: Morphine 4 mg/ml ISec IVP PRN ×2 (12:12→20:25)
--- NOTE | 2017-06-06 15:23 | CP.PCM.PN ---
<Talia Frankel - Last Filed: 06/06/17 15:26> Subjective - Date & Time of Evaluation Date of Evaluation: 06/06/17 Time of Evaluation: 15:21 - Subjective Subjective: Internal Medicine Progress Note: Patient seen and examined at bedside. Per nursing no acute events overnight. Patient having some abdominal discomfort but improving. Tolerated diet, ambulating without difficulty. Patient is unsure if he wants to proceed with chemotherapy. Denies headaches, dizziness, cp, palpitations, sob, urinary symptoms. Objective - Vital Signs/Intake and Output Vital Signs (last 24 hours): Temp Pulse Resp BP Pulse Ox 98.2 F 66 18 145/100 H 98 06/06/17 08:16 06/06/17 08:16 06/06/17 08:16 06/06/17 09:30 06/06/17 08:16 Intake and Output: 06/06/17 06/06/17 06:59 18:59 Intake Total 2880 Balance 2880 - Medications Medications: Current Medications Albuterol/Ipratropium (Duoneb 3 Mg/0.5 Mg (3 Ml) Ud) 3 ml IH [id number] [facility] Last Admin: 06/06/17 13:15 Dose: 3 ml Albuterol/Ipratropium (Duoneb 3 Mg/0.5 Mg (3 Ml) Ud) 3 ml IH Q2H PRN PRN Reason: Shortness of Breath Last Admin: 06/05/17 16:53 Dose: 3 ml Amlodipine Besylate (Norvasc) 10 mg PO DAILY [facility] Last Admin: 06/06/17 09:30 Dose: 10 mg Heparin Sodium (Porcine) (Heparin) 5,000 units SC Q12 [facility] PRN Reason: Protocol Last Admin: 06/06/17 09:30 Dose: 5,000 units Sodium Chloride (Sodium Chloride 0.9%) 1,000 mls @ 100 mls/hr IV .Q10H [facility] Last Admin: 06/06/17 11:45 Dose: Not Given Morphine Sulfate (Morphine) 2 mg IVP Q6H PRN PRN Reason: Pain, severe (8-10) Last Admin: 06/06/17 12:12 Dose: 2 mg Nicotine (Nicoderm Cq) 1 patch TD DAILY [facility] Last Admin: 06/06/17 09:29 Dose: 1 patch Ondansetron HCl (Zofran Inj) 4 mg IVP Q6H PRN PRN Reason: Nausea/Vomiting Pantoprazole Sodium (Protonix Inj) 40 mg IVP DAILY [facility] Last Admin: 06/06/17 09:29 Dose: 40 mg - Labs Labs: 06/06/17 06:00 06/06/17 06:00 PT 14.6 SECONDS (9.4-12.5) H 06/05/17 12:30 INR 1.26 (0.93-1.08) H 06/05/17 12:30 APTT 25.7 Seconds (25.1-36.5) 06/05/17 12:30 - Constitutional Appears: Non-toxic, No Acute Distress, Cachectic, Chronically Ill - Head Exam Head Exam: ATRAUMATIC, NORMAL INSPECTION, NORMOCEPHALIC - Eye Exam Eye Exam: EOMI, Normal appearance Pupil Exam: NORMAL ACCOMODATION - ENT Exam ENT Exam: Mucous Membranes Moist - Respiratory Exam Respiratory Exam: Clear to Ausculation Bilateral, NORMAL BREATHING PATTERN. absent: Rales, Rhonchi, Wheezes - Cardiovascular Exam Cardiovascular Exam: REGULAR RHYTHM, +S1, +S2 - GI/Abdominal Exam GI & Abdominal Exam: Soft, Tenderness, Normal Bowel Sounds. absent: Guarding, Rigid - Extremities Exam Extremities Exam: Normal Inspection - Back Exam Back Exam: NORMAL INSPECTION - Neurological Exam Neurological Exam: Alert, Awake, CN II-XII Intact, Normal Gait, Oriented x3 - Psychiatric Exam Psychiatric exam: Anxious, Normal Affect, Normal Mood - Skin Skin Exam: Dry, Normal Color, Warm Assessment and Plan - Assessment and Plan (Free Text) Assessment: Patient is 61 year old male with past medical history of pancreatic cancer, COPD , Hypertension, DM [place] [facility] [place]. Pancreatitis/Pancreatic Cancer: -Abdominal pain improving, diet advanced to low fat/low cholesterol -EGD: pancreatic duct stricture, moderate dilation of the pancreatic duct in the body of the pancrease and pancreatic duct in the tail of the panceas was found diffusely. EUS showed mass in the pancreas head -Pathology showed invasive adenocarcinoma, moderate to poorly differentiated -Pet Scan did not show evidence of metastasis; pulmonary nodule was present, read as inflammatory -Lipase 3,646; Amylase 411 on admission -IV fluid hydration -Zofran prn nausea, Morphine prn pain -Heme/Onc on consult, Dr Oquendo help appreciated -GI on consult, feng Ross appreciated -Patient to follow up with Dr Oquendo on Sunday to discuss treatment options ( chemotherapy) Diarrhea -Patient states that he has been having 3-4 episodes a day -History of C diff in the past, treated with Vancomycin -C diff negative History of COPD: -CXR: Hyperinflation with severe emphysematous changes. Areas of fibrosis and honeycomb formation with large bleb/small bullous changes upper lobe predominance again noted. Mild biapical thickening as well -Nicotine patch ordered -Duonebs Q6H [facility], Q2H PRN Hypertension -Continue Norvasc 10mg PO daily Diabetes Mellitus -HbA1C 03/2017 was 6.4 History of substance abuse -UTOX positive for opiates and cannibinoids -Cessation advised GI/DVT ppx: -Protonix 40mg IVP daily -Heparin 5000 Q12H -Patient asked about code status, does not wish to discuss at this time; Full code Plan discussed with Dr Cohn <Lydia Cohn - Last Filed: 06/06/17 17:21> Objective - Vital Signs/Intake and Output Vital Signs (last 24 hours): Temp Pulse Resp BP Pulse Ox 98.2 F 66 18 145/100 H 98 06/06/17 08:16 06/06/17 08:16 06/06/17 08:16 06/06/17 09:30 06/06/17 08:16 Intake and Output: 06/06/17 06/06/17 06:59 18:59 Intake Total 2880 Balance 2880 - Medications Medications: Current Medications Albuterol/Ipratropium (Duoneb 3 Mg/0.5 Mg (3 Ml) Ud) 3 ml IH [id number] [facility] Last Admin: 06/06/17 13:15 Dose: 3 ml Albuterol/Ipratropium (Duoneb 3 Mg/0.5 Mg (3 Ml) Ud) 3 ml IH Q2H PRN PRN Reason: Shortness of Breath Last Admin: 06/05/17 16:53 Dose: 3 ml Amlodipine Besylate (Norvasc) 10 mg PO DAILY [facility] Last Admin: 06/06/17 09:30 Dose: 10 mg Heparin Sodium (Porcine) (Heparin) 5,000 units SC Q12 [facility] PRN Reason: Protocol Last Admin: 06/06/17 09:30 Dose: 5,000 units Sodium Chloride (Sodium Chloride 0.9%) 1,000 mls @ 100 mls/hr IV .Q10H [facility] Last Admin: 06/06/17 17:07 Dose: 100 mls/hr Morphine Sulfate (Morphine) 2 mg IVP Q6H PRN PRN Reason: Pain, severe (8-10) Last Admin: 06/06/17 12:12 Dose: 2 mg Nicotine (Nicoderm Cq) 1 patch TD DAILY [facility] Last Admin: 06/06/17 09:29 Dose: 1 patch Ondansetron HCl (Zofran Inj) 4 mg IVP Q6H PRN PRN Reason: Nausea/Vomiting Pantoprazole Sodium (Protonix Inj) 40 mg IVP DAILY [facility] Last Admin: 06/06/17 09:29 Dose: 40 mg - Labs Labs: 06/06/17 06:00 06/06/17 06:00 PT 14.6 SECONDS (9.4-12.5) H 06/05/17 12:30 INR 1.26 (0.93-1.08) H 06/05/17 12:30 APTT 25.7 Seconds (25.1-36.5) 06/05/17 12:30 Attending/Attestation - Attestation I have personally seen and examined this patient.: Yes I have fully participated in the care of the patient.: Yes I have reviewed all pertinent clinical information, including history, physical exam and plan: Yes Notes (Text): 06/06/17 17:20 Medical record note made by the resident after discussion with my direction and input after the patient was personally seen and examined by me. I have reviewed the chart and agree that the record accurately reflects by personal performance of the history, physical exam, data review, and medical decision-making, in the course for the patient. I have also personally directed the plan of care. 61 M w/ hx of invasive adenocarcinoma of the pancreas, HTN, chronic smoking and drug abuse , who presents with abdominal pain. Pt was found to have elevated lipase.Patient abdominal examination is benign.He is tolerating diet.Patient is not sure about chemotherapy for his cancer.He is ambulatory. He can be discharged home aqnd will follow up with his Oncologist. . Management plan was discussed in detail with patient. Education was provided.
--- NOTE | 2017-06-06 18:38 | CON ---
DATE: ONCOLOGY CONSULTATION HISTORY OF PRESENT ILLNESS: This is a 61-year-old man with pancreas cancer, most likely metastatic to his peritoneum. He has been having abdominal pains for many months and he underwent 2 procedures to have biopsies of his pancreas and these were all negative. He currently underwent an upper endoscopy and also they were looking for gallstone and found adenocarcinoma of the pancreas. I saw him a week and a half ago in the office and made arrangements to get a CAT/PET scan and I saw him again yesterday in the office with the CAT/PET scan showed that there was ascites and some uptake probably in the lymph nodes of the periaortic region. The patient has been having severe abdominal pain and was admitted because he has now eaten, just feeling very weak and having abdominal pain. PHYSICAL EXAMINATION: SKIN: No petechiae, no bruises. HEENT: Severe temporal wasting noted, anicteric. NODES: Nonpalpable in axillary, cervical, supraclavicular, or inguinal regions. LUNGS: Clear. HEART: S1 and S2. ABDOMEN: Shows no liver, no spleen, no mass. Some mild tenderness, but ascites is present. EXTREMITIES: No edema. CENTRAL NERVOUS SYSTEM: No focal finding. LABORATORY DATA: Show a BUN of 26 with a creatinine of 0.8. He was dehydrated. The AST and ALT are in the 60-75 range, alkaline phosphatase 20-35. This is relatively new. amylase 400, lipase 3600. So, he may have had an element of pancreatitis here and dehydration with a white count of 7, hemoglobin of 10.1, and platelet count of 320. ASSESSMENT AND PLAN: I also spoke with the patient at length yesterday and explained that the pancreas cancer is not curable and that he will get treatment with chemotherapy if he was strong enough and the chemotherapy is not to cure, but to slow down and that an alternative would be hospice where he will stay home and have nursing care until he . I told them that we would see how he did in the office, in the hospital and he can make a decision. So at this point, we are treating him for pancreatitis and dehydration. If he is somewhat better and more stable, we can consider putting in a Port-A-Cath with Interventional Radiology by Dr. Yousif Pryor and then see about sending him home for chemotherapy. The alternative would be placement as I do not believe he has very much family to help him out at home. Nick Oquendo MD
[2017-06-07] MEDS: Albuterol-Ipratrop 3 mg / 0.5 (3 ml) UD IH SCH ×2 (01:48→08:01)
--- NOTE | 2017-06-07 06:44 | CP.PCM.DIS ---
<Talia Frankel - Last Filed: 06/07/17 10:55> Provider - Provider Date of Admission: 06/05/17 13:34 Attending physician: Lydia Cohn MD Primary care physician: Azael Cameron MD Consults: GI: Lisa Time Spent in preparation of Discharge (in minutes): 32 Hospital Course - Lab Results Lab Results: Micro Results 06/05/17 20:42 Stool C. difficile Antigen & Toxin A,B (M - Final Most Recent Lab Values WBC 7.4 10^3/ul (4.5-11.0) D 06/06/17 06:00 RBC 3.23 10^6/uL (3.5-6.1) L 06/06/17 06:00 Hgb 10.1 g/dL (14.0-18.0) L 06/06/17 06:00 Hct 29.9 % (42.0-52.0) L 06/06/17 06:00 MCV 92.6 fl (80.0-105.0) 06/06/17 06:00 MCH 31.3 pg (25.0-35.0) 06/06/17 06:00 MCHC 33.8 g/dl (31.0-37.0) 06/06/17 06:00 RDW 13.2 % (11.5-14.5) 06/06/17 06:00 Plt Count 320 10^3/uL (120.0-450.0) 06/06/17 06:00 MPV 8.7 fl (7.0-11.0) 06/06/17 06:00 Gran % 71.4 % (50.0-68.0) H 06/06/17 06:00 Lymph % (Auto) 18.4 % (22.0-35.0) L 06/06/17 06:00 Simpson % (Auto) 7.7 % (1.0-6.0) H 06/06/17 06:00 Eos % (Auto) 2.2 % (1.5-5.0) 06/06/17 06:00 Baso % (Auto) 0.3 % (0.0-3.0) 06/06/17 06:00 Gran # 5.28 (1.4-6.5) 06/06/17 06:00 Lymph # (Auto) 1.4 (1.2-3.4) 06/06/17 06:00 [place] # (Auto) 0.6 (0.1-0.6) 06/06/17 06:00 Eos # (Auto) 0.2 (0.0-0.7) 06/06/17 06:00 Baso # (Auto) 0.02 K/mm3 (0.0-2.0) 06/06/17 06:00 PT 14.6 SECONDS (9.4-12.5) H 06/05/17 12:30 INR 1.26 (0.93-1.08) H 06/05/17 12:30 APTT 25.7 Seconds (25.1-36.5) 06/05/17 12:30 pO2 59 mm/Hg (30-55) H 06/05/17 12:30 VBG pH 7.37 (7.32-7.43) 06/05/17 12:30 VBG pCO2 52.0 (40-60) 06/05/17 12:30 VBG HCO3 30.1 mmol/l (21-28) H 06/05/17 12:30 VBG Total CO2 31.7 mmol.L (22-28) H 06/05/17 12:30 VBG O2 Sat (Calc) 91.5 % (40-65) H 06/05/17 12:30 VBG Base Excess 3.6 mmol/L (0.0-2.0) H 06/05/17 12:30 VBG Potassium 3.8 mmol/L (3.6-5.2) 06/05/17 12:30 Sodium 139.0 mmol/L (132-148) 06/05/17 12:30 Chloride 106.0 mmol/L (98-107) 06/05/17 12:30 Glucose 76 mg/dl (75-110) 06/05/17 12:30 Lactate 1.3 mmol/L (0.7-2.1) 06/05/17 12:30 FiO2 21.0 % 06/05/17 12:30 Sodium 138 mmol/L (132-148) 06/06/17 06:00 Potassium 3.6 mmol/L (3.6-5.0) 06/06/17 06:00 Chloride 101 mmol/L (98-107) 06/06/17 06:00 Carbon Dioxide 29 mmol/L (21-33) 06/06/17 06:00 Anion Gap 11 (10-20) 06/06/17 06:00 BUN 21 mg/dL (7-21) 06/06/17 06:00 Creatinine 0.7 mg/dl (0.8-1.5) L 06/06/17 06:00 Est GFR ( Amer) > 60 06/06/17 06:00 Est GFR (Non-Af Amer) > 60 06/06/17 06:00 POC Glucose (mg/dL) 207 mg/dL (65-110) H 06/06/17 21:00 Random Glucose 93 mg/dL (70-110) 06/06/17 06:00 Calcium 8.8 mg/dL (8.4-10.5) 06/06/17 06:00 Total Bilirubin 0.3 mg/dL (0.2-1.3) 06/06/17 06:00 AST 81 U/L (17-59) H D 06/06/17 06:00 ALT 72 U/L (7-56) H 06/06/17 06:00 Alkaline Phosphatase 217 U/L (38-126) H 06/06/17 06:00 Troponin I 0.06 ng/mL D 06/05/17 12:30 Total Protein 6.6 g/dL (5.8-8.3) 06/06/17 06:00 Albumin 3.4 g/dL (3.0-4.8) 06/06/17 06:00 Globulin 3.2 gm/dL 06/06/17 06:00 Albumin/Globulin Ratio 1.1 (1.1-1.8) 06/06/17 06:00 Amylase 411 U/L (35-125) H 06/05/17 12:30 Lipase 3646 U/L (23-300) H 06/05/17 12:30 Venous Blood Potassium 3.8 mmol/L (3.6-5.2) 06/05/17 12:30 Urine Color Yellow (YELLOW) 06/05/17 19:10 Urine Appearance Sl cloudy (CLEAR) 06/05/17 19:10 Urine pH 6.0 (4.7-8.0) 06/05/17 19:10 Ur Specific [place] >= 1.030 (1.005-1.035) 06/05/17 19:10 Urine Protein 30 mg/dL (<30 mg/dL) H 06/05/17 19:10 Urine Glucose (UA) Negative mg/dL (NEGATIVE) 06/05/17 19:10 Urine Ketones Trace mg/dL (NEGATIVE) H 06/05/17 19:10 Urine Blood Small (NEGATIVE) H 06/05/17 19:10 Urine Nitrate Negative (NEGATIVE) 06/05/17 19:10 Urine Bilirubin Negative (NEGATIVE) 06/05/17 19:10 Urine Urobilinogen 0.2 E.U./dL (<1 E.U./dL) 06/05/17 19:10 Ur Leukocyte Esterase Negative Ailyn/uL (NEGATIVE) 06/05/17 19:10 Urine RBC 1 - 3 /hpf (0-2) 06/05/17 19:10 Urine WBC Negative /hpf (0-6) 06/05/17 19:10 Urine Opiates Screen Positive (NEGATIVE) H 06/05/17 19:10 Urine Methadone Screen Negative (NEGATIVE) 06/05/17 19:10 Ur Barbiturates Screen Negative (NEGATIVE) 06/05/17 19:10 Ur Phencyclidine Scrn Negative (NEGATIVE) 06/05/17 19:10 Ur Amphetamines Screen Negative (NEGATIVE) 06/05/17 19:10 U Benzodiazepines Scrn Negative (NEGATIVE) 06/05/17 19:10 U Oth Cocaine Metabols Negative (NEGATIVE) 06/05/17 19:10 U Cannabinoids Screen Positive (NEGATIVE) H 06/05/17 19:10 Blood Type B NEGATIVE 06/05/17 13:30 Antibody Screen Negative 06/05/17 13:30 BBK History Checked Patient has bt 06/05/17 13:30 - Hospital Course Hospital Course: History of Present Illness: Patient is a 61 year old male with past medical history of pancreatic cancer, hypertension, COPD, Diabetes Mellitus presented to [facility] from Dr Oquendo's office. Patient states that he has been having worsening abdominal pain. States that he ran out of pain medication. Pain is diffuse and constant in nature. Patient is poor historian, aggravated during the interview. History is limited. Patient admits to having diarrhea 3-4 times a day. He was recently treated with PO vancomycin. Denies headaches, dizziness, cp, palpitations, sob, nausea/vomiting , urinary symptoms. Hospital Course: Patient was admitted to Med/Surg. Lipase was elevated at 3,646, amylase 411. Patient started on IV fluids for pancreatitis. GI was consulted and on the case. Heme/Onc also consulted. Attempt was made to discuss code status with the patient, however the patient did not want to discuss at this time. Patients diet was advanced. LFTs were mildly elevated and was improving. Patient was having loose stools, he has history of C diff in the past. C diff sent and was negative. On day of discharge, pain improving. Patient was ambulating and tolerating diet. Patient instructed to follow up with Dr Oquendo Sunday at 10am to discuss treatment options. Patient also to follow up with Dr Gonzalez outpatient. Patient medically stable for discharge home. Discharge Medications: Percocet 5/325mg PO Q6H prn pain Discharge Exam - Head Exam Head Exam: ATRAUMATIC, NORMAL INSPECTION, NORMOCEPHALIC - Eye Exam Eye Exam: EOMI, Normal appearance Pupil Exam: NORMAL ACCOMODATION - Respiratory Exam Respiratory Exam: Clear to PA & Lateral, NORMAL BREATHING PATTERN, UNREMARKABLE. absent: Rales, Rhonchi, Wheezes - Cardiovascular Exam Cardiovascular Exam: REGULAR RHYTHM, +S1, +S2 - GI/Abdominal Exam GI & Abdominal Exam: Normal Bowel Sounds, Soft, Tenderness (mild diffuse tenderness to palpation). absent: Guarding, Rebound, Rigid - Extremities Exam Extremities exam: normal inspection - Back Exam Back exam: NORMAL INSPECTION - Neurological Exam Neurological exam: Alert, CN II-XII Intact, Normal Gait, Oriented x3 - Psychiatric Exam Psychiatric exam: Normal Affect, Normal Mood - Skin Skin Exam: Dry, Normal Color, Warm Discharge Plan - Discharge Medications Prescriptions: oxyCODONE/Acetaminophen [Percocet 5/325 mg Tab] 1 ea PO Q6H PRN #20 tab PRN Reason: Pain, Severe (8-10) - Follow Up Plan Condition: STABLE Disposition: HOME/ ROUTINE Instructions: Pancreatic Cancer Additional Instructions: 1. Take medication as prescribed. 2. Low fat diet. 3. Follow up with Dr. Oquendo at his office on Sunday 10am to discuss further treatment recommendations. Referrals: Nick Oquendo MD [Medical Doctor] - Azael Cameron MD [Primary Care Provider] - Follow up with primary <Lydia Cohn - Last Filed: 06/07/17 13:09> Provider - Provider Date of Admission: 06/05/17 13:34 Attending physician: Lydia Cohn MD Primary care physician: Azael Cameron MD Hospital Course - Lab Results Lab Results: Micro Results 06/05/17 20:42 Stool C. difficile Antigen & Toxin A,B (M - Final Most Recent Lab Values WBC 5.5 10^3/ul (4.5-11.0) D 06/07/17 06:00 RBC 3.24 10^6/uL (3.5-6.1) L 06/07/17 06:00 Hgb 10.2 g/dL (14.0-18.0) L 06/07/17 06:00 Hct 29.9 % (42.0-52.0) L 06/07/17 06:00 MCV 92.3 fl (80.0-105.0) 06/07/17 06:00 MCH 31.5 pg (25.0-35.0) 06/07/17 06:00 MCHC 34.1 g/dl (31.0-37.0) 06/07/17 06:00 RDW 13.2 % (11.5-14.5) 06/07/17 06:00 Plt Count 306 10^3/uL (120.0-450.0) 06/07/17 06:00 MPV 8.4 fl (7.0-11.0) 06/07/17 06:00 Gran % 58.9 % (50.0-68.0) 06/07/17 06:00 Lymph % (Auto) 28.4 % (22.0-35.0) 06/07/17 06:00 Simpson % (Auto) 8.1 % (1.0-6.0) H 06/07/17 06:00 Eos % (Auto) 4.2 % (1.5-5.0) 06/07/17 06:00 Baso % (Auto) 0.4 % (0.0-3.0) 06/07/17 06:00 Gran # 3.26 (1.4-6.5) 06/07/17 06:00 Lymph # (Auto) 1.6 (1.2-3.4) 06/07/17 06:00 [place] # (Auto) 0.5 (0.1-0.6) 06/07/17 06:00 Eos # (Auto) 0.2 (0.0-0.7) 06/07/17 06:00 Baso # (Auto) 0.02 K/mm3 (0.0-2.0) 06/07/17 06:00 PT 14.6 SECONDS (9.4-12.5) H 06/05/17 12:30 INR 1.26 (0.93-1.08) H 06/05/17 12:30 APTT 25.7 Seconds (25.1-36.5) 06/05/17 12:30 pO2 59 mm/Hg (30-55) H 06/05/17 12:30 VBG pH 7.37 (7.32-7.43) 06/05/17 12:30 VBG pCO2 52.0 (40-60) 06/05/17 12:30 VBG HCO3 30.1 mmol/l (21-28) H 06/05/17 12:30 VBG Total CO2 31.7 mmol.L (22-28) H 06/05/17 12:30 VBG O2 Sat (Calc) 91.5 % (40-65) H 06/05/17 12:30 VBG Base Excess 3.6 mmol/L (0.0-2.0) H 06/05/17 12:30 VBG Potassium 3.8 mmol/L (3.6-5.2) 06/05/17 12:30 Sodium 139.0 mmol/L (132-148) 06/05/17 12:30 Chloride 106.0 mmol/L (98-107) 06/05/17 12:30 Glucose 76 mg/dl (75-110) 06/05/17 12:30 Lactate 1.3 mmol/L (0.7-2.1) 06/05/17 12:30 FiO2 21.0 % 06/05/17 12:30 Sodium 136 mmol/L (132-148) 06/07/17 06:00 Potassium 3.6 mmol/L (3.6-5.0) 06/07/17 06:00 Chloride 99 mmol/L (98-107) 06/07/17 06:00 Carbon Dioxide 31 mmol/L (21-33) 06/07/17 06:00 Anion Gap 11 (10-20) 06/07/17 06:00 BUN 15 mg/dL (7-21) 06/07/17 06:00 Creatinine 0.7 mg/dl (0.8-1.5) L 06/07/17 06:00 Est GFR ( Amer) > 60 06/07/17 06:00 Est GFR (Non-Af Amer) > 60 06/07/17 06:00 POC Glucose (mg/dL) 93 mg/dL (65-110) 06/07/17 07:31 Random Glucose 88 mg/dL (70-110) 06/07/17 06:00 Calcium 8.6 mg/dL (8.4-10.5) 06/07/17 06:00 Total Bilirubin 0.3 mg/dL (0.2-1.3) 06/07/17 06:00 AST 57 U/L (17-59) 06/07/17 06:00 ALT 68 U/L (7-56) H 06/07/17 06:00 Alkaline Phosphatase 191 U/L (38-126) H 06/07/17 06:00 Troponin I 0.06 ng/mL D 06/05/17 12:30 Total Protein 6.6 g/dL (5.8-8.3) 06/07/17 06:00 Albumin 3.5 g/dL (3.0-4.8) 06/07/17 06:00 Globulin 3.1 gm/dL 06/07/17 06:00 Albumin/Globulin Ratio 1.1 (1.1-1.8) 06/07/17 06:00 Amylase 411 U/L (35-125) H 06/05/17 12:30 Lipase 3646 U/L (23-300) H 06/05/17 12:30 Venous Blood Potassium 3.8 mmol/L (3.6-5.2) 06/05/17 12:30 Urine Color Yellow (YELLOW) 06/05/17 19:10 Urine Appearance Sl cloudy (CLEAR) 06/05/17 19:10 Urine pH 6.0 (4.7-8.0) 06/05/17 19:10 Ur Specific [place] >= 1.030 (1.005-1.035) 06/05/17 19:10 Urine Protein 30 mg/dL (<30 mg/dL) H 06/05/17 19:10 Urine Glucose (UA) Negative mg/dL (NEGATIVE) 06/05/17 19:10 Urine Ketones Trace mg/dL (NEGATIVE) H 06/05/17 19:10 Urine Blood Small (NEGATIVE) H 06/05/17 19:10 Urine Nitrate Negative (NEGATIVE) 06/05/17 19:10 Urine Bilirubin Negative (NEGATIVE) 06/05/17 19:10 Urine Urobilinogen 0.2 E.U./dL (<1 E.U./dL) 06/05/17 19:10 Ur Leukocyte Esterase Negative Ailyn/uL (NEGATIVE) 06/05/17 19:10 Urine RBC 1 - 3 /hpf (0-2) 06/05/17 19:10 Urine WBC Negative /hpf (0-6) 06/05/17 19:10 Urine Opiates Screen Positive (NEGATIVE) H 06/05/17 19:10 Urine Methadone Screen Negative (NEGATIVE) 06/05/17 19:10 Ur Barbiturates Screen Negative (NEGATIVE) 06/05/17 19:10 Ur Phencyclidine Scrn Negative (NEGATIVE) 06/05/17 19:10 Ur Amphetamines Screen Negative (NEGATIVE) 06/05/17 19:10 U Benzodiazepines Scrn Negative (NEGATIVE) 06/05/17 19:10 U Oth Cocaine Metabols Negative (NEGATIVE) 06/05/17 19:10 U Cannabinoids Screen Positive (NEGATIVE) H 06/05/17 19:10 Blood Type B NEGATIVE 06/05/17 13:30 Antibody Screen Negative 06/05/17 13:30 BBK History Checked Patient has bt 06/05/17 13:30 Attending/Attestation - Attestation I have personally seen and examined this patient.: Yes I have fully participated in the care of the patient.: Yes I have reviewed all pertinent clinical information, including history, physical exam and plan: Yes Notes (Text): 06/07/17 13:05 Medical record note made by the resident after discussion with my direction and input after the patient was personally seen and examined by me. I have reviewed the chart and agree that the record accurately reflects by personal performance of the history, physical exam, data review, and medical decision-making, in the course for the patient. I have also personally directed the plan of care. 61 yrs old male with PMH of recently diagnosed invasive adenocarcinoma of the pancreas, HTN, chronic smoking and drug abuse , was admitted with abdominal pain. Patient was found to have elevated lipase.Patient abdominal examination is benign.He is tolerating diet.Patient is not sure about chemotherapy for his cancer.He is ambulatory.He will be discharged home and will follow up with his Oncologist for treatment options for his pancreatic cancer. The issue of chronic sming and Marijuana abuse was also discussed in detail. . Management plan was discussed in detail with patient. Education was provided. DIAGNOSIS. Abdominal pain due to Invasive adenocarcinoma of the pancreas 06/07/17 13:08
[2017-06-07 07:15] LABS: BASO # 0.02 K/mm3 (0.0-2.0); BASO % 0.4 % (0.0-3.0); EOS # 0.2 (0.0-0.7); EOS % 4.2 % (1.5-5.0); GRAN # 3.26 (1.4-6.5); GRAN % 58.9 % (50.0-68.0); HEMOGLOBIN 10.2 g/dL (14.0-18.0); LYMPH # 1.6 (1.2-3.4); LYMPH % 28.4 % (22.0-35.0); MEAN CELL VOLUME 92.3 fl (80.0-105.0); MEAN CORPUSCULAR HEMOGLOBIN 31.5 pg (25.0-35.0); MEAN CORPUSCULAR HGB CONC 34.1 g/dl (31.0-37.0); MEAN PLATELET VOLUME 8.4 fl (7.0-11.0); MONO # 0.5 (0.1-0.6); MONO % 8.1 % (1.0-6.0); RBC 3.24 10^6/uL (3.5-6.1); RED CELL DISTRIBUTION WIDTH 13.2 % (11.5-14.5); WHITE BLOOD COUNT 5.5 10^3/ul (4.5-11.0)
[2017-06-07 07:36] LABS: ALB/GLOB RATIO 1.1 (1.1-1.8); ALBUMIN 3.5 g/dL (3.0-4.8); ALT/SGPT 68 U/L (7-56); AST/SGOT 57 U/L (17-59); BLOOD UREA NITROGEN 15 mg/dL (7-21); CALCIUM 8.6 mg/dL (8.4-10.5); GFR AFRICAN-AMERICAN > 60; GFR NON-AFRICAN AMERICAN > 60
[2017-06-07 08:28] VITALS: PULSE 80; RESP 18; TEMP 98.1; O2SAT 100
[2017-06-07] MEDS: Morphine 4 mg/ml ISec IVP PRN (09:30)
[2017-06-07 09:37] VITALS: BP 126/81
== END 2017-06-07 10:29 | disposition home or self-care (01) | DRG 203 ==
LOC: ED 11:27 → ERH 13:34 → 3RNO 15:14
PROVIDERS: ADMIT Internal Medicine; ATTEND Internal Medicine
DX: C25.9 Malignant neoplasm of pancreas, unspecified (principal); E86.0 Dehydration; K85.90 Acute pancreatitis without necrosis or infection, unspecified; J43.9 Emphysema, unspecified; R18.8 Other ascites; E11.9 Type 2 diabetes mellitus without complications; F12.10 Cannabis abuse, uncomplicated; F17.210 Nicotine dependence, cigarettes, uncomplicated; G89.29 Other chronic pain; I10 Essential (primary) hypertension; K52.9 Noninfective gastroenteritis and colitis, unspecified; K86.1 Other chronic pancreatitis; R62.7 Adult failure to thrive; Z79.899 Other long term (current) drug therapy; Z85.07 Personal history of malignant neoplasm of pancreas

== ENCOUNTER 2017-06-14 12:24 | Emergency (ER) | payer OTHER ==
[2017-06-14 12:49] VITALS: TEMP 97.3
[2017-06-14 12:51] VITALS: BMI 14.6
--- NOTE | 2017-06-14 12:51 | ED PDOC ---
Arrival/HPI - General Time Seen by Provider: 06/14/17 12:46 - History of Present Illness Narrative History of Present Illness (Text): 06/14/17 12:49 Patient is a 61 y/o M with pancreatic cancer with ?peritoneal mets, htn, copd, dm, with recent admission for worsening abdominal pain, discharged on percocet, presenting with persistent abdominal pain. Patient reports that he followed up with Dr. Oquendo last week and is scheduled to start pallative chemotherapy once his insurance is approved. Patient reports that he has had generalized abdominal pain, vomiting, and bright bed blood in his stool. Reports diarrhea. (c.diff culture on prior admission was negative). Patient denies chest pain or shortness of breath. Oncologist: Jere GI: Lisa Past Medical History - Past History Past History: No Previous - Infectious Disease Hx of Infectious Diseases: None - Tetanus Immunization Tetanus Immunization: Up to Date - Cardiac Hx Cardiac Disorders: Yes Hx Hypertension: Yes - Pulmonary Hx Respiratory Disorders: Yes Hx Bronchitis: Yes (CHRONIC) Hx Chronic Obstructive Pulmonary Disease (COPD): Yes Hx Emphysema: Yes - Neurological Hx Neurological Disorder: No Hx Dizziness: Yes - HEENT Hx HEENT Disorder: No - Renal Hx Renal Disorder: No - Endocrine/Metabolic Hx Endocrine Disorders: No - Hematological/Oncological Hx Blood Disorders: No - Integumentary Hx Dermatological Disorder: No - Musculoskeletal/Rheumatological Hx Musculoskeletal Disorders: Yes Hx Back Pain: Yes Hx Falls: No - Gastrointestinal Hx Gastrointestinal Disorders: Yes Hx Pancreatitis: Yes Other/Comment: DIARRHEA, ABDOMINAL PAIN - Genitourinary/Gynecological Hx Genitourinary Disorders: No - Psychiatric Hx Psychophysiologic Disorder: No Hx Anxiety: No Hx Bipolar Disorder: No Hx Depression: Yes Hx Emotional Abuse: No Hx Hallucinations: No Hx Panic Disorder: No Hx Paranoia: No Hx Post Traumatic Stress Disorder: No Hx Psychosis: No Hx Physical Abuse: No Hx Schizophrenia: No Hx Sexual Abuse: No Hx Substance Use: Yes - Past Surgical History Past Surgical History: No Previous - Surgical History Other/Comment: BRONCHOSCOPY, EGD EUS - Anesthesia Hx Anesthesia: Yes Hx Anesthesia Reactions: No Hx Malignant Hyperthermia: No - Suicidal Assessment Feels Threatened In Home Enviroment: No Family/Social History Family/Social History: No Known Family HX Smoking Status: Heavy Smoker > 10 Cigarettes Daily Hx Alcohol Use: No Hx Substance Use: Yes Substance used: marijuana Amount: 1 Hx Substance Use Treatment: No Allergies/Home Meds Allergies/Adverse Reactions: Allergies No Known Allergies Allergy (Verified 04/30/17 11:04) Home Medications: Home Meds Medication Instructions Recorded Confirmed Pantoprazole [Protonix EC Tab] 40 mg PO TID 04/30/17 06/05/17 Review of Systems - Review of Systems Constitutional: Weight Change. absent: Fevers Eyes: absent: Vision Changes ENT: absent: Hearing Changes Respiratory: absent: SOB, Cough, Sputum, Wheezing Cardiovascular: absent: Chest Pain, Palpitations, Edema, Orthopnea Gastrointestinal: Abdominal Pain, Diarrhea, Nausea, Vomiting. absent: Constipation Genitourinary Male: absent: Dysuria, Frequency, Hematuria Musculoskeletal: Arthralgias Skin: absent: Rash, Pruritis Neurological: absent: Headache Psychiatric: absent: Anxiety, Depression Physical Exam Vital Signs Temp Pulse Resp BP Pulse Ox 06/14/17 15:34 66 18 138/87 97 06/14/17 12:54 65 98 06/14/17 12:48 97.3 F L 136/87 Temperature: Afebrile Blood Pressure: Normal Pulse: Regular Respiratory Rate: Normal Appearance: Positive for: Well-Appearing, Non-Toxic, Cachectic Pain Distress: None Mental Status: Positive for: Alert and Oriented X 3 - Systems Exam Head: Present: Atraumatic, Normocephalic Pupils: Present: PERRL Extroacular Muscles: Present: EOMI Conjunctiva: Present: Normal Mouth: Present: Moist Mucous Membranes Neck: Present: Normal Range of Motion Respiratory/Chest: Present: Clear to Auscultation, Good Air Exchange. No: Respiratory Distress, Accessory Muscle Use Cardiovascular: Present: Regular Rate and Rhythm, Normal S1, S2. No: Murmurs Abdomen: Present: Tenderness (generalized). No: Rebound, Guarding Upper Extremity: Present: Normal Inspection Lower Extremity: Present: Normal Inspection Neurological: Present: GCS=15, CN II-XII Intact, Gait Normal Psychiatric: Present: Alert, Oriented x 3 Medical Decision Making ED Course and Treatment: 06/14/17 14:31 Labs at baseline Spoke to Dr. Oquendo. Reports that patient continues to refuse hospice. Reports that there are no curative options and that chemotherapy would be pallative. Reports that patient has home po pain medication. Reports that if patient is tolerating po, has pain resolved, and symptoms improved, patient can be discharged home and there is nothing that inpatient admission could offer. 06/14/17 15:22 On reevaluation after food and IV hydration patient reports that he feels better. I again explained to patient the terminal nature of his disease and offered hospice. He again refused hospice and became angry that I have no curative options. He reports that he wants to leave the ED. He reports that he was not told that cancer is not curative, in conflict of my conversation with Dr. Oquendo and as documented by medicine team on prior admission. I believe there is some component of denial. Patient reports that he wants to go. He was instructed on importance of following up with oncology. - Lab Interpretations Lab Results: 06/14/17 13:27 06/14/17 13:27 Lab Results 06/14/17 13:35: Blood Type B NEGATIVE, Antibody Screen Negative, BBK History Checked Patient has bt 06/14/17 13:27: PT 16.2 H, INR 1.40 H, APTT 25.1 06/14/17 13:27: Sodium 143, Potassium 4.2, Chloride 103, Carbon Dioxide 31, Anion Gap 13, BUN 32 H, Creatinine 0.9, Est GFR ( Amer) > 60, Est GFR ( Non-Af Amer) > 60, Random Glucose 112 H, Calcium 9.1, Phosphorus 4.1, Magnesium 2.2, Total Bilirubin 0.4, AST 61 H, ALT 80 H, Alkaline Phosphatase 141 H D, Total Protein 6.7, Albumin 3.5, Globulin 3.2, Albumin/Globulin Ratio 1.1, Lipase 3166 H 06/14/17 13:27: WBC 4.9, RBC 3.41 L, Hgb 10.9 L, Hct 32.3 L, MCV 94.7, MCH 32.0 , MCHC 33.7, RDW 13.4, Plt Count 298, MPV 8.5, Gran % 70.0 H, Lymph % (Auto) 24.1, [place] % (Auto) 5.3, Eos % (Auto) 0.4 L, Baso % (Auto) 0.2, Gran # 3.40, Lymph # (Auto) 1.2, [place] # (Auto) 0.3, Eos # (Auto) 0.0, Baso # (Auto) 0.01 - Medication Orders Current Medication Orders: Discontinued Medications Sodium Chloride (Sodium Chloride 0.9%) 1,000 mls @ 999 mls/hr IV .Q1H1M STA Stop: 06/14/17 13:56 Last Admin: 06/14/17 13:10 Dose: 999 mls/hr eMAR Start Stop Document 06/14/17 13:10 EQ (Rec: 06/14/17 13:10 [id number]) Intravenous Solution Start Date 06/14/17 Start Time 13:10 Sodium Chloride (Sodium Chloride 0.9%) 2,000 mls @ 999 mls/hr IV .Q2H1M STA Stop: 06/14/17 16:28 Last Admin: 06/14/17 15:29 Dose: Not Given Non-Admin Reason: Patient Refused Metoclopramide HCl (Reglan) 10 mg IVP STAT STA Stop: 06/14/17 13:00 Last Admin: 06/14/17 13:09 Dose: 10 mg IVP Administration Document 06/14/17 13:09 EQ (Rec: 06/14/17 13:09 [id number]) Charges for Administration # of IVP Administrations 1 Morphine Sulfate (Morphine) 4 mg IVP STAT STA Stop: 06/14/17 12:57 Last Admin: 06/14/17 13:09 Dose: 4 mg MAR Pain Assessment Document 06/14/17 13:09 EQ (Rec: 06/14/17 13:10 [id number]) Pain Reassessment Is this a pain reassessment? No Sleep Is patient sleeping during reassessment? No Presence of Pain Presence of Pain Yes IVP Administration Document 06/14/17 13:09 EQ (Rec: 06/14/17 13:10 EQ [id number]) Charges for Administration # of IVP Administrations 1 Disposition/Present on Arrival - Present on Arrival Any Indicators Present on Arrival: No History of DVT/PE: No History of Uncontrolled Diabetes: No Urinary Catheter: No History Surgical Site Infection Following: None - Disposition Have Diagnosis and Disposition been Completed?: Yes Diagnosis: Pancreatic cancer, FTT (failure to thrive) in adult Disposition: HOME/ ROUTINE Disposition Time: 15:24 Patient Plan: Discharge Condition: FAIR Discharge Instructions (ExitCare): Pancreatic Cancer, Failure to Thrive, Adult (DC) Additional Instructions: Follow-up with your oncologist for further management. Follow-up with PMD within 2 days. Return to ED if condition worsens. Take pain medication for your cancer pain. Return immediately with any worsening symptoms. Forms: [employer] ([place]ian)
[2017-06-14] MEDS ORDERED: Sodium Chloride 0.9% 1,000 ML IV STA (12:56)
[2017-06-14] MEDS ORDERED: Morphine 4 mg/ml ISec IVP STA (12:56)
[2017-06-14 13:31] LABS: BASO # 0.01 K/mm3 (0.0-2.0); BASO % 0.2 % (0.0-3.0); EOS % 0.4 % (1.5-5.0); GRAN # 3.4 (1.4-6.5); HEMOGLOBIN 10.9 g/dL (14.0-18.0); LYMPH # 1.2 (1.2-3.4); LYMPH % 24.1 % (22.0-35.0); MEAN CELL VOLUME 94.7 fl (80.0-105.0); MEAN CORPUSCULAR HGB CONC 33.7 g/dl (31.0-37.0); MEAN PLATELET VOLUME 8.5 fl (7.0-11.0); MONO # 0.3 (0.1-0.6); MONO % 5.3 % (1.0-6.0); RBC 3.41 10^6/uL (3.5-6.1); RED CELL DISTRIBUTION WIDTH 13.4 % (11.5-14.5); WHITE BLOOD COUNT 4.9 10^3/ul (4.5-11.0)
[2017-06-14 13:43] LABS: INR 1.4 (0.93-1.08); PARTIAL THROMBOPLASTIN TIME 25.1 Seconds (25.1-36.5); PROTHROMBIN TIME 16.2 SECONDS (9.4-12.5)
[2017-06-14 14:18] LABS: ALB/GLOB RATIO 1.1 (1.1-1.8); ALBUMIN 3.5 g/dL (3.0-4.8); ALT/SGPT 80 U/L (7-56); AST/SGOT 61 U/L (17-59); BLOOD UREA NITROGEN 32 mg/dL (7-21); CALCIUM 9.1 mg/dL (8.4-10.5); GFR AFRICAN-AMERICAN > 60; GFR NON-AFRICAN AMERICAN > 60; LIPASE 3166 U/L (23-300)
[2017-06-14] MEDS ORDERED: Sodium Chloride 0.9% 2,000 ML IV STA (14:28)
[2017-06-14 15:35] VITALS: BP 138/87; PULSE 66; RESP 18; O2SAT 97
== END 2017-06-14 15:35 | disposition home or self-care (01) ==
LOC: ED 12:24
DX: C25.9 Malignant neoplasm of pancreas, unspecified (principal); R62.7 Adult failure to thrive; E11.9 Type 2 diabetes mellitus without complications; I10 Essential (primary) hypertension; J44.9 Chronic obstructive pulmonary disease, unspecified; F17.210 Nicotine dependence, cigarettes, uncomplicated
CPT/HCPCS: 80053; 83690; 83735; 84100; 85025; 85610; 85730; 86850; 86900; 96374; 96375; 99283; J2270; J2765; J7040

== ENCOUNTER 2017-06-22 17:38 | Emergency (ER) | payer OTHER ==
--- NOTE | 2017-06-22 18:03 | ED PDOC ---
Arrival/HPI - General Chief Complaint: Abdominal Pain Time Seen by Provider: 06/22/17 17:57 Historian: Patient, Other (family - brother) - History of Present Illness Narrative History of Present Illness (Text): 06/22/17 18:00 pt p/w + worsening mid/lower abd pain today, similar pain in the past, consistent with pt's hx of pancreatitis/pancreatic cancer; pt also noted + sob/ wheezing, consistent with his prior hx of COPD/emphysema; pt still smokes; pt states at home pain medications are not helping with his pain currently; pt states intact appetite, no nausea/vomiting, no fever/sweats, intermittent chills , no palpitations, no numbness/tingling, no urinary/bowel changes; pt is here for further eval pt's without other complaints pt is accompanied by his brother PCP: none? HEME/ONC: DR short Time/Duration: Other (chronic) Symptom Course: Worsening Quality: Aching, Cramping Severity Level: Severe Activities at Onset: Rest Context: Home Past Medical History - Provider Review Nursing Documentation Reviewed: Yes - Travel History Have you recently traveled outside [place] w/in the past 3 mons?: No - Past History Past History: No Previous - Infectious Disease Hx of Infectious Diseases: None - Tetanus Immunization Tetanus Immunization: Up to Date - Cardiac Hx Cardiac Disorders: Yes Hx Hypertension: Yes - Pulmonary Hx Respiratory Disorders: Yes Hx Bronchitis: Yes (CHRONIC) Hx Chronic Obstructive Pulmonary Disease (COPD): Yes Hx Emphysema: Yes - Neurological Hx Neurological Disorder: No Hx Dizziness: Yes - HEENT Hx HEENT Disorder: No - Renal Hx Renal Disorder: No - Endocrine/Metabolic Hx Endocrine Disorders: No - Hematological/Oncological Hx Blood Disorders: No - Integumentary Hx Dermatological Disorder: No - Musculoskeletal/Rheumatological Hx Musculoskeletal Disorders: Yes Hx Back Pain: Yes Hx Falls: No - Gastrointestinal Hx Gastrointestinal Disorders: Yes Hx Pancreatitis: Yes Other/Comment: DIARRHEA, ABDOMINAL PAIN - Genitourinary/Gynecological Hx Genitourinary Disorders: No - Psychiatric Hx Psychophysiologic Disorder: No Hx Anxiety: No Hx Bipolar Disorder: No Hx Depression: Yes Hx Emotional Abuse: No Hx Hallucinations: No Hx Panic Disorder: No Hx Paranoia: No Hx Post Traumatic Stress Disorder: No Hx Psychosis: No Hx Physical Abuse: No Hx Schizophrenia: No Hx Sexual Abuse: No Hx Substance Use: Yes - Past Surgical History Past Surgical History: No Previous - Surgical History Other/Comment: BRONCHOSCOPY, EGD EUS - Anesthesia Hx Anesthesia: Yes Hx Anesthesia Reactions: No Hx Malignant Hyperthermia: No - Suicidal Assessment Feels Threatened In Home Enviroment: No Family/Social History - Physician Review Nursing Documentation Reviewed: Yes Family/Social History: No Known Family HX Smoking Status: Heavy Smoker > 10 Cigarettes Daily Hx Alcohol Use: No Hx Substance Use: Yes Substance used: marijuana Amount: 1 Hx Substance Use Treatment: No Allergies/Home Meds Allergies/Adverse Reactions: Allergies No Known Allergies Allergy (Verified 04/30/17 11:04) Home Medications: Home Meds Medication Instructions Recorded Confirmed Pantoprazole [Protonix EC Tab] 40 mg PO TID 04/30/17 06/05/17 Review of Systems - Review of Systems Constitutional: Fatigue, Weight Change Eyes: Normal ENT: Normal Respiratory: SOB, Cough, Wheezing. absent: Sputum Cardiovascular: Normal Gastrointestinal: Abdominal Pain. absent: Nausea, Vomiting Genitourinary Male: Normal Musculoskeletal: Normal Skin: Normal Neurological: Normal Endocrine: Normal Hemo/Lymphatic: Normal Psychiatric: Normal Physical Exam Vital Signs Reviewed: Yes Vital Signs Temp Pulse Resp BP Pulse Ox 06/22/17 18:00 98.2 F 86 18 138/75 97 Temperature: Afebrile Blood Pressure: Normal Pulse: Regular Respiratory Rate: Normal Appearance: Positive for: Uncomfortable, Cachectic, Other (mild distress due to pain, uncomfortable, alert/awake, GCS = 15, oriented x 3, cooperative, follows command with ease) Pain Distress: Moderate Mental Status: Positive for: Alert and Oriented X 3 - Systems Exam Head: Present: Atraumatic, Normocephalic, Other (bi-tempora wasting) Pupils: Present: PERRL, Other (no nystagmus, no photophobia, sclera anicteric, visual field intact b/l) Extroacular Muscles: Present: EOMI Conjunctiva: Present: Normal Ears: Present: Normal Mouth: Present: Other (fair dentitions, dry oral mucosa, no drooling/stridor, no exudate/lesions, uvula/tongue are midline) Pharnyx: Present: Normal Nose (External): Present: Atraumatic Nose (Internal): Present: Normal Inspection Neck: Present: Normal Range of Motion, Trachea Midline. No: Meningeal Signs, MIDLINE TENDERNESS, Paraspinal Tenderness Respiratory/Chest: Present: Decreased Breath Sounds, Other (+ bi-basiliar wheezing, left >> right; no rales/rhonchi, no tachypenia/rales, no accessory muscle use noted). No: Respiratory Distress, Accessory Muscle Use Cardiovascular: Present: Regular Rate and Rhythm, Normal S1, S2. No: Murmurs Abdomen: Present: Normal Bowel Sounds, Other (very thin male, + diffuse mid abd tenderness, no rodriguez's sign, no mcburney's point tenderness, no masses/rebound/ guarding/rigidity) Back: Present: Normal Inspection. No: CVA Tenderness, Midline Tenderness, Paraspinal Tenderness Upper Extremity: Present: Normal Inspection, Normal ROM, NORMAL PULSES, Neurovascularly Intact. No: Deformity Lower Extremity: Present: Normal Inspection, NORMAL PULSES, Normal ROM, Neurovascularly Intact Neurological: Present: GCS=15, CN II-XII Intact, Speech Normal Skin: Present: Warm, Dry, Other (cap refill ~ 1 sec, no ulcerations, no petechiae, no rashes). No: Rashes Psychiatric: Present: Alert, Oriented x 3 Medical Decision Making ED Course and Treatment: 06/22/17 18:01 Impression: epigastric pain i have consider all the differential diagnosis regarding pt's chief medical complaints/clinical findings, including but are not limited to: epigastric pain , acute on chronic (pancreatic cancer) A/P: pancreatic cancer, acute on chronic pain; sob - labs - iv - supportive care - observe/reevaluation 06/22/17 18:30 pt is comfortable pt is not in any distress/pain pt is hungry and requesting a meal pt tolerated po well 1930 pt remained comfortable pt is made aware of his medical results pt is encouraged fluids pt is encouraged not to smoke pt will f/u as directed pt will be discharged home Re-evaluation Time: 19:53 Reassessment Condition: Improved - Lab Interpretations Lab Results: 06/22/17 18:50 06/22/17 18:50 Lab Results 06/22/17 19:48: Urine Color Yellow, Urine Appearance Clear, Urine pH 7.0, Ur Specific [place] 1.020, Urine Protein 30 H, Urine Glucose (UA) Negative, Urine Ketones Negative, Urine Blood Moderate H, Urine Nitrate Negative, Urine Bilirubin Negative, Urine Urobilinogen 0.2, Ur Leukocyte Esterase Negative, Urine RBC 2 - 5, Urine WBC 0 - 2, Ur Epithelial Cells 0 - 2 06/22/17 18:50: pO2 81 H, VBG pH 7.48 H, VBG pCO2 49.0, VBG HCO3 36.5 H, VBG Total CO2 38.0 H, VBG O2 Sat (Calc) 97.5 H, VBG Base Excess 11.2 H, VBG Potassium 3.8, Sodium 139.0, Chloride 104.0, Glucose 66 L, Lactate 0.8, FiO2 21.0, Venous Blood Potassium 3.8 06/22/17 18:50: Sodium 140, Chloride 99, Potassium 4.0, Carbon Dioxide 35 H, Anion Gap 10, BUN 33 H, Creatinine 0.8, Est GFR ( Amer) > 60, Est GFR ( Non-Af Amer) > 60, Random Glucose 66 L, Calcium 8.3 L, Magnesium 2.3 H, Total Bilirubin 0.7, AST 85 H, ALT 82 H, Alkaline Phosphatase 125, NT-Pro-B Natriuret Pep 1040 H, Total Protein 6.6, Albumin 3.2, Globulin 3.3, Albumin/Globulin Ratio 1.0 L, Lipase 6125 H 06/22/17 18:50: WBC 6.8, RBC 3.50, Hgb 11.1 L, Hct 33.4 L, MCV 95.4, MCH 31.7, MCHC 33.2, RDW 13.4, Plt Count 159, MPV 9.4, Gran % 81.7 H, Lymph % (Auto) 14.6 L, [place] % (Auto) 3.7, Eos % (Auto) 0.0 L, Baso % (Auto) 0.0, Gran # 5.54, Lymph # (Auto) 1.0 L, [place] # (Auto) 0.3, Eos # (Auto) 0.0, Baso # (Auto) 0.00 I have reviewed the lab results: Yes Interpretation: Abnormal lab values (elevated LFTs, unchanged) - Medication Orders Current Medication Orders: Discontinued Medications Albuterol/Ipratropium (Duoneb 3 Mg/0.5 Mg (3 Ml) Ud) 3 ml IH Q15M JOSEMANUEL Stop: 06/22/17 18:46 Last Admin: 06/22/17 18:54 Dose: 3 ml Famotidine (Pepcid 20mg/50ml Premix) 20 mg in 50 mls @ 100 mls/hr IVPB STAT STA Stop: 06/22/17 18:37 Last Admin: 06/22/17 18:53 Dose: 100 mls/hr eMAR Start Stop Document 06/22/17 18:53 SS (Rec: 06/22/17 18:53 SS [id number]) Intravenous Solution Start Date 06/22/17 Start Time 18:53 End Date 06/22/17 End time 19:30 Total Infusion Time 37 Sodium Chloride (Sodium Chloride 0.9%) 1,000 mls @ 1,000 mls/hr IV .Q1H STA Stop: 06/22/17 19:06 Last Admin: 06/22/17 18:54 Dose: 1,000 mls/hr eMAR Start Stop Document 06/22/17 18:54 SS (Rec: 06/22/17 18:54 SS [id number]) Intravenous Solution Start Date 06/22/17 Start Time 18:54 End Date 06/22/17 End time 19:54 Total Infusion Time 60 Morphine Sulfate (Morphine) 4 mg IVP STAT STA Stop: 06/22/17 18:08 Last Admin: 06/22/17 18:53 Dose: 4 mg MAR Pain Assessment Document 06/22/17 18:53 SS (Rec: 06/22/17 18:54 SS [id number]) Pain Reassessment Is this a pain reassessment? No Sleep Is patient sleeping during reassessment? No Presence of Pain Presence of Pain Yes Location Pain Location Body Site Abdomen IVP Administration Document 06/22/17 18:53 SS (Rec: 06/22/17 18:54 SS [id number]) Charges for Administration # of IVP Administrations 1 Morphine Sulfate (Morphine) 4 mg IVP STAT STA Stop: 06/22/17 18:10 Ondansetron HCl (Zofran Inj) 4 mg IVP STAT STA Stop: 06/22/17 18:08 Last Admin: 06/22/17 18:54 Dose: 4 mg IVP Administration Document 06/22/17 18:54 SS (Rec: 06/22/17 18:54 SS [id number]) Charges for Administration # of IVP Administrations 1 Prednisone (Prednisone Tab) 60 mg PO STAT ONE Stop: 06/22/17 18:09 Last Admin: 06/22/17 19:24 Dose: 60 mg Disposition/Present on Arrival - Present on Arrival Any Indicators Present on Arrival: No History of DVT/PE: No History of Uncontrolled Diabetes: No Urinary Catheter: No History of Decub. Ulcer: No History Surgical Site Infection Following: None - Disposition Have Diagnosis and Disposition been Completed?: Yes Diagnosis: Pancreatic cancer, COPD (chronic obstructive pulmonary disease), Weight loss, Chronic abdominal pain Disposition: HOME/ ROUTINE Disposition Time: 19:54 Patient Plan: Discharge Condition: STABLE Discharge Instructions (ExitCare): Pancreatic Cancer, Chronic Obstructive Pulmonary Disease (COPD), Including Emphysema, Chronic Pain (DC) Print Language: SPANISH Additional Instructions: Make sure to see your doctor in 1-2 days DRINK PLENTY OF FLUIDS take your medications as prescribed DONT SMOKE IF YOU SMOKE RETURN TO ED IF worse pain, cant breath, persistent vomiting, high fever >101- 102 for hours, altered behavior, slurr speech, facial changes, focal weakness ( arm/leg or both), unable to urinate, heavy/persistent bleeding, passing out, chest pain, or other medical emergencies Referrals: [facility] Remaria, [Primary Care Provider] - Follow up with primary Nick Oquendo MD [Medical Doctor] - Follow up with primary Forms: [employer] ([place])
[2017-06-22] MEDS ORDERED: Sodium Chloride 0.9% 1,000 ML IV STA (18:07)
[2017-06-22] MEDS ORDERED: Morphine 4 mg/ml ISec IVP STA ×2 (18:07→18:09)
[2017-06-22] MEDS ORDERED: Famotidine 20mg/50ml 20 MG/50 ML BAG IVPB STA (18:08)
[2017-06-22 18:10] VITALS: BMI 13.9
[2017-06-22 18:33] VITALS: BP 138/75; PULSE 86; RESP 18; TEMP 98.2; O2SAT 97
[2017-06-22] MEDS: Albuterol-Ipratrop 3 mg / 0.5 (3 ml) UD IH SCH (18:54)
[2017-06-22 19:07] LABS: GRAN # 5.54 (1.4-6.5); GRAN % 81.7 % (50.0-68.0); HEMOGLOBIN 11.1 g/dL (14.0-18.0); LYMPH % 14.6 % (22.0-35.0); MEAN CELL VOLUME 95.4 fl (80.0-105.0); MEAN CORPUSCULAR HEMOGLOBIN 31.7 pg (25.0-35.0); MEAN CORPUSCULAR HGB CONC 33.2 g/dl (31.0-37.0); MEAN PLATELET VOLUME 9.4 fl (7.0-11.0); MONO # 0.3 (0.1-0.6); MONO % 3.7 % (1.0-6.0); RBC 3.5 10^6/uL (3.5-6.1); RED CELL DISTRIBUTION WIDTH 13.4 % (11.5-14.5); WHITE BLOOD COUNT 6.8 10^3/ul (4.5-11.0)
[2017-06-22 19:12] LABS: VENOUS BLOOD GAS BASE EXCESS 11.2 mmol/L (0.0-2.0); VENOUS BLOOD GAS PO2 81 mm/Hg (30-55); VENOUS BLOOD PH 7.48 (7.32-7.43)
[2017-06-22 19:23] LABS: B-TYPE NATRIURETIC PEPTIDE 1040 pg/mL (0-450)
[2017-06-22 19:25] LABS: ALBUMIN 3.2 g/dL (3.0-4.8); ALT/SGPT 82 U/L (7-56); AST/SGOT 85 U/L (17-59); BLOOD UREA NITROGEN 33 mg/dL (7-21); CALCIUM 8.3 mg/dL (8.4-10.5); GFR AFRICAN-AMERICAN > 60; GFR NON-AFRICAN AMERICAN > 60
[2017-06-22 20:01] LABS: URINE BILIRUBIN NEGATIVE (NEGATIVE); URINE BLOOD MODERATE (NEGATIVE); URINE GLUCOSE (UA) NEGATIVE (NEGATIVE); URINE LEUKOCYTE ESTERASE NEGATIVE Leu/uL (NEGATIVE); URINE PROTEIN 30 mg/dL (<30 mg/dL); URINE UROBILINOGEN 0.2 E.U./dL (<1 E.U./dL)
[2017-06-22 20:02] LABS: URINE APPEARANCE CLEAR (CLEAR); URINE COLOR YELLOW (YELLOW)
[2017-06-22 20:03] LABS: URINE WBC 0 - 2 /hpf (0-6)
[2017-06-22 20:04] LABS: URINE EPITHELIAL CELLS 0 - 2 /hpf (0-5)
[2017-06-22 20:11] LABS: LIPASE 6125 U/L (23-300)
== END 2017-06-22 20:35 | disposition home or self-care (01) ==
LOC: ED 17:38
DX: C25.9 Malignant neoplasm of pancreas, unspecified (principal); J44.9 Chronic obstructive pulmonary disease, unspecified; R10.9 Unspecified abdominal pain; G89.29 Other chronic pain; R63.4 Abnormal weight loss; Z68.1 Body mass index [BMI] 19.9 or less, adult; I10 Essential (primary) hypertension; F17.210 Nicotine dependence, cigarettes, uncomplicated
CPT/HCPCS: 80053; 81001; 82803; 83690; 83735; 83880; 85025; 94640; 96365; 96375; 99283; J2270; J2405; J7040

== ENCOUNTER 2017-06-24 17:23 | Inpatient (IN) | payer OTHER ==
[2017-06-24 17:27] VITALS: BMI 13.9
[2017-06-24] MEDS ORDERED: HYDROmorphone 1 mg/ml ISec IVP STA (18:00)
[2017-06-24] MEDS ORDERED: Sodium Chloride 0.9% 1,000 ML IV SCH (18:00)
--- NOTE | 2017-06-24 18:03 | ED PDOC ---
Arrival/HPI - General Chief Complaint: Abdominal Pain Time Seen by Provider: 06/24/17 17:33 Historian: Patient - History of Present Illness Narrative History of Present Illness (Text): 06/24/17 17:58 61 y/o male, pmh including copd/pancreatic cancer/dm, nkda, c/o epigastric abdominal with nausea and vomiting started today. Pt. stated that he has chronic pancreatic cancer, not sure if he is under the hospice care, stated that he has epigastric pain today, couple episodes of vomiting, no night sweat, no rash, no numbness or tingling, no palpitation, no rash, no flank pain, no urinary symptoms, no other medical or psychological complaints. Past Medical History - Provider Review Nursing Documentation Reviewed: Yes - Travel History Have you recently traveled outside [place] w/in the past 3 mons?: Yes - Past History Past History: No Previous - Infectious Disease Hx of Infectious Diseases: None - Tetanus Immunization Tetanus Immunization: Up to Date - Cardiac Hx Cardiac Disorders: Yes Hx Hypertension: Yes - Pulmonary Hx Respiratory Disorders: Yes Hx Bronchitis: Yes (CHRONIC) Hx Chronic Obstructive Pulmonary Disease (COPD): Yes Hx Emphysema: Yes - Neurological Hx Neurological Disorder: No Hx Dizziness: Yes - HEENT Hx HEENT Disorder: No - Renal Hx Renal Disorder: No - Endocrine/Metabolic Hx Endocrine Disorders: No - Hematological/Oncological Hx Blood Disorders: No - Integumentary Hx Dermatological Disorder: No - Musculoskeletal/Rheumatological Hx Musculoskeletal Disorders: Yes Hx Back Pain: Yes Hx Falls: No - Gastrointestinal Hx Gastrointestinal Disorders: Yes Hx Pancreatitis: Yes Other/Comment: DIARRHEA, ABDOMINAL PAIN - Genitourinary/Gynecological Hx Genitourinary Disorders: No - Psychiatric Hx Psychophysiologic Disorder: No Hx Anxiety: No Hx Bipolar Disorder: No Hx Depression: Yes Hx Emotional Abuse: No Hx Hallucinations: No Hx Panic Disorder: No Hx Post Traumatic Stress Disorder: No Hx Psychosis: No Hx Physical Abuse: No Hx Schizophrenia: No Hx Sexual Abuse: No Hx Substance Use: Yes - Past Surgical History Past Surgical History: No Previous - Surgical History Other/Comment: BRONCHOSCOPY, EGD EUS - Anesthesia Hx Anesthesia: Yes Hx Anesthesia Reactions: No Hx Malignant Hyperthermia: No - Suicidal Assessment Feels Threatened In Home Enviroment: No Family/Social History - Physician Review Nursing Documentation Reviewed: Yes Family/Social History: Unknown Family HX Smoking Status: Heavy Smoker > 10 Cigarettes Daily Hx Alcohol Use: No Hx Substance Use: Yes Substance used: marijuana Amount: 1 Hx Substance Use Treatment: No Allergies/Home Meds Allergies/Adverse Reactions: Allergies No Known Allergies Allergy (Verified 04/30/17 11:04) Home Medications: Home Meds Medication Instructions Recorded Confirmed Pantoprazole [Protonix EC Tab] 40 mg PO TID 04/30/17 06/05/17 Review of Systems - Review of Systems Constitutional: absent: Fatigue, Fevers Eyes: absent: Vision Changes ENT: absent: Hearing Changes Respiratory: absent: SOB, Cough Cardiovascular: absent: Chest Pain Gastrointestinal: Abdominal Pain, Nausea, Vomiting. absent: Diarrhea Skin: absent: Rash, Pruritis Neurological: absent: Headache, Dizziness Psychiatric: absent: Anxiety, Depression Physical Exam Vital Signs Reviewed: Yes Vital Signs Temp Pulse Resp BP Pulse Ox 06/24/17 20:41 44 L 16 161/80 H 100 06/24/17 19:40 55 L 18 190/93 H 97 06/24/17 17:43 98.3 F 71 18 145/114 H Temperature: Afebrile Blood Pressure: Hypertensive Pulse: Regular Respiratory Rate: Normal Appearance: Positive for: Ill-Appearing, Unkept Pain Distress: Moderate Mental Status: Positive for: Alert and Oriented X 3 - Systems Exam Head: Present: Atraumatic, Normocephalic Pupils: Present: PERRL Extroacular Muscles: Present: EOMI Conjunctiva: Present: Normal Mouth: Present: Moist Mucous Membranes Neck: Present: Normal Range of Motion Respiratory/Chest: Present: Clear to Auscultation, Good Air Exchange. No: Respiratory Distress, Accessory Muscle Use Cardiovascular: Present: Regular Rate and Rhythm, Normal S1, S2. No: Murmurs Abdomen: Present: Tenderness (+epigastric tenderness, negative rodriguez). No: Distention, Peritoneal Signs, Rebound, Guarding Back: Present: Normal Inspection Upper Extremity: Present: Normal Inspection. No: Cyanosis, Edema Lower Extremity: Present: Normal Inspection. No: Edema Neurological: Present: GCS=15, Speech Normal, Motor Func Grossly Intact, Memory Normal Skin: Present: Warm, Dry, Normal Color. No: Rashes Psychiatric: Present: Alert, Oriented x 3, Normal Insight, Normal Concentration Medical Decision Making ED Course and Treatment: 06/24/17 18:03 -labs/lipase/cardiac enzyme -ekg -abdominal and chest xray -IVF/pepcid/zofran/dilaudid/aspirin 06/24/17 19:49 -NSR @ 73 BPM, no ST elevation or depression, T wave inversion on lead V3V4, compared with previous ekg. -Chest xray No significant interval change. -Abdominal xrays show No acute findings. -Labs show glucose 40 (D50 and D25 ordered), Lipase 3237 -Troponin is 0.25 -UA is pending -Pt. needs to be admitted for abnormal ekg to rule out ACS although epigastric can be cardiopulmonary related. I spoke to Dr. Holt (poundmaster) covering Dr. T[employer] telecommunications professional, discussed about the case/labs/ekg suggest no anticoagulant or cardiac cath indicated at this time except aspirin and betablocker if needed which he will see the patient tomorrow and repeat troponin trending, consult placed in for him. -Hospitalist paged. -I discussed with Dr. Perkins about the case and he agreed with the consult. Note , pt. has no chest pain. 06/24/17 20:01 -I spoke to the ICU oncall Dr. Tavarez, discussed about the case/labs/vital signs/ poundmaster consult and recommendation, agreed no betablocker and no anticoagulant, tele is sufficient and not a candidiate for ICU as per Dr. Tavarez. vice president regulatory Dr. Frankel and Dr. Tavarez will both evaluate the patient on the bed side. -Cardiac pace attached for bradycardia. 06/24/17 20:05 -Pt. awared of the findings and I spent 15 minutes discussed with him about the labs/radiology result and ICU/poundmaster recommendation. - Critical Care Critical Care Minutes: 30 minutes Critical Care Time: Unstable Narrative Critical Care (Text): 06/24/17 20:00 NSTEMI/hypoglycemia, ICU and poundmaster consult. - Lab Interpretations Lab Results: 06/24/17 18:27 06/24/17 18:27 Lab Results 06/24/17 19:38: POC Glucose (mg/dL) 143 H 06/24/17 18:27: WBC 7.8, RBC 4.25, Hgb 13.7 L D, Hct 40.1 L, MCV 94.4, MCH 32.2 , MCHC 34.2, RDW 13.5, Plt Count 208, MPV 10.1, Gran % 84.8 H, Lymph % (Auto) 14.6 L, [place] % (Auto) 0.6 L, Eos % (Auto) 0.0 L, Baso % (Auto) 0.0, Gran # 6.64 H, Lymph # (Auto) 1.1 L, [place] # (Auto) 0.1, Eos # (Auto) 0.0, Baso # (Auto) 0.00 06/24/17 18:27: Sodium 144, Potassium 4.0, Chloride 97 L, Carbon Dioxide 36 H, Anion Gap 15, BUN 49 H, Creatinine 0.9, Est GFR ( Amer) > 60, Est GFR ( Non-Af Amer) > 60, Random Glucose 40 L* D, Calcium 8.6, Magnesium 2.5 H, Total Bilirubin 1.4 H, AST 112 H D, ALT 108 H, Alkaline Phosphatase 152 H D, Lactate Dehydrogenase 1023 H, Total Creatine Kinase 380 H, CK-MB (CK-2) 1.7, CK-MB (CK-2 ) % Cancelled, Troponin I 0.25 H* D, Total Protein 7.5, Albumin 3.9, Globulin 3.7, Albumin/Globulin Ratio 1.0 L, Lipase 3237 H 06/24/17 17:40: PT 21.4 H, INR 1.85 H, APTT 25.1 I have reviewed the lab results: Yes - RAD Interpretation Radiology Orders: 06/24/17 18:00 ABD 2 VIEWS (FLAT/UP OR DECUB) [RAD] Stat 06/24/17 18:01 CHEST PORTABLE [RAD] Stat Chest xray: Intraperitoneal space: No definite pneumoperitoneum. Gastrointestinal tract: Unremarkable. No dilation. Organs: Unremarkable as visualized. Bones/joints: Degenerative changes of spine. No acute fracture. Other findings: No abnormal calcifications. IMPRESSION: 1. No acute findings. 2. Non-acute findings are described above. Thank you for allowing us to participate in the care of your patient. Dictated and Authenticated by: Kyle Amos MD 06/24/2017 9:37 PM Eastern Time ([place] & [place]) Abdominal xray: Lungs: Probable extensive fibrosis/scarring within lung apices, grossly stable. No new consolidation. Pleural space: No pleural effusion. No pneumothorax. Heart: No cardiomegaly. Mediastinum: Retraction of nima. Bones/joints: No acute fracture. Tubes, lines and devices: Leads overlying chest. IMPRESSION: 1. No significant interval change. 2. Incidental/non-acute findings are described above. Thank you for allowing us to participate in the care of your patient. Dictated and Authenticated by: Kyle Amos MD 06/24/2017 9:37 PM Eastern Time ([place] & [place]) Dredge Runner: Radiologist - EKG Interpretation EKG Interpretation (Text): 06/24/17 18:06 -NSR @ 73 BPM, no ST elevation or depression, T wave inversion on lead V3V4, compared with previous ekg. Interpreted by ED Physician: Yes Type: 12 lead EKG Comparison: Com.w/previous EKG - Medication Orders Current Medication Orders: Dextrose/Sodium Chloride (Dextrose 5%/0.9% Ns 1000 Ml) 1,000 mls @ 125 mls/hr IV .Q8H JOSEMANUEL Last Admin: 06/24/17 19:41 Dose: 125 mls/hr eMAR Start Stop Document 06/24/17 19:41 JOL (Rec: 06/24/17 19:41 LONG [id number]) Intravenous Solution Start Date 06/24/17 Start Time 19:41 Discontinued Medications Aspirin (Aspirin) 325 mg PO STAT STA Stop: 06/24/17 18:13 Last Admin: 06/24/17 18:29 Dose: 325 mg Dextrose (Dextrose 50% Inj) 50 ml IVP STAT STA Stop: 06/24/17 19:23 Last Admin: 06/24/17 19:25 Dose: 50 ml IVP Administration Document 06/24/17 19:25 JOL (Rec: 06/24/17 19:41 LONG [id number]) Charges for Administration # of IVP Administrations 1 Famotidine (Pepcid) 20 mg IVP STAT STA Stop: 06/24/17 18:01 Last Admin: 06/24/17 18:30 Dose: 20 mg IVP Administration Document 06/24/17 18:30 [facility] (Rec: 06/24/17 18:30 [facility] [id number]) Charges for Administration # of IVP Administrations 1 Hydromorphone HCl (Dilaudid) 1 mg IVP STAT STA Stop: 06/24/17 18:01 Last Admin: 06/24/17 18:30 Dose: 1 mg MAR Pain Assessment Document 06/24/17 18:30 [facility] (Rec: 06/24/17 18:30 [facility] [id number]) Pain Reassessment Is this a pain reassessment? No Sleep Is patient sleeping during reassessment? No Presence of Pain Presence of Pain Yes Pain Scale Used Pain Scale Used Numeric Location Pain Location Body Site Abdomen Description Intensity of Pain at present 8 IVP Administration Document 06/24/17 18:30 [facility] (Rec: 06/24/17 18:30 [facility] [id number]) Charges for Administration # of IVP Administrations 1 Sodium Chloride (Sodium Chloride 0.9%) 1,000 mls @ 100 mls/hr IV .Q10H JOSEMANUEL Last Admin: 06/24/17 18:29 Dose: 100 mls/hr eMAR Start Stop Document 06/24/17 18:29 [facility] (Rec: 06/24/17 18:29 [facility] [id number]) Intravenous Solution Start Date 06/24/17 Start Time 18:29 Ondansetron HCl (Zofran Inj) 4 mg IVP STAT STA Stop: 06/24/17 18:01 Last Admin: 06/24/17 18:30 Dose: 4 mg IVP Administration Document 06/24/17 18:30 [facility] (Rec: 06/24/17 18:30 [facility] [id number]) Charges for Administration # of IVP Administrations 1 - PA / MAINTENANCE ASSISTANT / Resident Statement MD/DO has reviewed & agrees with the documentation as recorded. Disposition/Present on Arrival - Present on Arrival Any Indicators Present on Arrival: No History of DVT/PE: No History of Uncontrolled Diabetes: No Urinary Catheter: No History of Decub. Ulcer: No History Surgical Site Infection Following: None - Disposition Have Diagnosis and Disposition been Completed?: Yes Diagnosis: Pancreatic cancer, Abnormal EKG, Epigastric abdominal pain, Elevated troponin, NSTEMI (non-ST elevated myocardial infarction), Hypoglycemia Disposition: HOSPITALIZED Disposition Time: 18:09 Patient Plan: Admission, Telemetry Patient Problems: Current Active Problems Problem Status Onset Pancreatic cancer Acute Abnormal EKG Acute Epigastric abdominal pain Acute Elevated troponin Acute NSTEMI (non-ST elevated myocardial infarction) Acute Hypoglycemia Acute Condition: STABLE
[2017-06-24 19:05] LABS: GRAN # 6.64 (1.4-6.5); GRAN % 84.8 % (50.0-68.0); HEMOGLOBIN 13.7 g/dL (14.0-18.0); LYMPH # 1.1 (1.2-3.4); LYMPH % 14.6 % (22.0-35.0); MEAN CELL VOLUME 94.4 fl (80.0-105.0); MEAN CORPUSCULAR HEMOGLOBIN 32.2 pg (25.0-35.0); MEAN CORPUSCULAR HGB CONC 34.2 g/dl (31.0-37.0); MEAN PLATELET VOLUME 10.1 fl (7.0-11.0); MONO # 0.1 (0.1-0.6); MONO % 0.6 % (1.0-6.0); RBC 4.25 10^6/uL (3.5-6.1); RED CELL DISTRIBUTION WIDTH 13.5 % (11.5-14.5); WHITE BLOOD COUNT 7.8 10^3/ul (4.5-11.0)
[2017-06-24] MEDS ORDERED: Dextrose 50% SYRINGE Inj (50 ml) IVP STA (19:22)
[2017-06-24 19:23] LABS: ALBUMIN 3.9 g/dL (3.0-4.8); ALT/SGPT 108 U/L (7-56); AST/SGOT 112 U/L (17-59); BLOOD UREA NITROGEN 49 mg/dL (7-21); CALCIUM 8.6 mg/dL (8.4-10.5); GFR AFRICAN-AMERICAN > 60; GFR NON-AFRICAN AMERICAN > 60; LIPASE 3237 U/L (23-300); TROPONIN I 0.25 ng/mL
[2017-06-24 19:30] LABS: CK-MB 1.7 ng/mL (0.0-3.6)
[2017-06-24] MEDS: Dextrose 5%/0.9% NS 1,000 ML IV SCH (19:41)
[2017-06-24 19:58] LABS: INR 1.85 (0.93-1.08); PARTIAL THROMBOPLASTIN TIME 25.1 Seconds (25.1-36.5); PROTHROMBIN TIME 21.4 SECONDS (9.4-12.5)
--- NOTE | 2017-06-24 21:37 | RAD ---
EXAM: XR Chest, 1 View CLINICAL HISTORY: 61 years old, male; Signs and symptoms; Other: Medical clearance TECHNIQUE: Frontal view of the chest. COMPARISON: No relevant prior studies available. FINDINGS: Lungs: Probable extensive fibrosis/scarring within lung apices, grossly stable. No new consolidation. Pleural space: No pleural effusion. No pneumothorax. Heart: No cardiomegaly. Mediastinum: Retraction of nima. Bones/joints: No acute fracture. Tubes, lines and devices: Leads overlying chest. IMPRESSION: 1. No significant interval change. 2. Incidental/non-acute findings are described above.
--- NOTE | 2017-06-24 21:38 | RAD ---
EXAM: XR Abdomen, 2 Views CLINICAL HISTORY: 61 years old, male; Signs and symptoms; Other: Pancreatic cancer and vomiting, R/O obstruction TECHNIQUE: Frontal view of the abdomen/pelvis with upright view of the abdomen. COMPARISON: No relevant prior studies available. FINDINGS: Intraperitoneal space: No definite pneumoperitoneum. Gastrointestinal tract: Unremarkable. No dilation. Organs: Unremarkable as visualized. Bones/joints: Degenerative changes of spine. No acute fracture. Other findings: No abnormal calcifications. IMPRESSION: 1.No acute findings. 2.Non-acute findings are described above.
[2017-06-24] MEDS ORDERED: Albuterol 0.083% Inhal Sol (2.5 mg/3 mL) UD IH PRN (22:02)
--- NOTE | 2017-06-25 01:25 | CP.PCM.HP ---
<Lang Dubois - Last Filed: 06/25/17 01:19> History of Present Illness - History of Present Illness History of Present Illness: CC: Nausea/Vomiting HPI: 61 year old AA male with past medical history that includes pancreatic cancer, COPD, and DM complaining of epigastric pain and nausea vomiting beginning today. Patient reports he suddenly developed his symptoms today and reports a few episodes of non bloody vomiting. Patient reports ability to tolerate regular diet when pain medication is active. He denies fever, chills, diarrhea, shortness of breath, chest pain, sweats. In ED patient found to have elevated troponin of 0.[address] segment elevations or depressions. Cardiology was notified and patient was not plavix loaded as per cardiology instructions. PMD: Sandoval Pryor/Noel Allergies: NKDA Medications: Albuterol, Protonix, Norvasc, Gabapentin Medical History: pancreatic cancer, hypertension, COPD, Diabetes Mellitus Surgical History: Denies Social History: Smokes 7-8 cigarettes a day, smokes marijuana, denies alcohol use Oncologist: Dr. Oquendo GI: Dr. Gonzalez Review of Systems - Review of Systems All systems: reviewed and no additional remarkable complaints except (as mentioned in HPI) Past Patient History - Infectious Disease Hx of Infectious Diseases: None - Tetanus Immunizations Tetanus Immunization: Up to Date - Past Medical History & Family History Past Medical History?: Yes - Past Social History Smoking Status: Current Some Days Smoker - CARDIAC Hx Cardiac Disorders: Yes Hx Hypertension: Yes - PULMONARY Hx Respiratory Disorders: Yes Hx Bronchitis: Yes (CHRONIC) Hx Chronic Obstructive Pulmonary Disease (COPD): Yes Hx Emphysema: Yes - NEUROLOGICAL Hx Neurological Disorder: No Hx Dizziness: Yes - HEENT Hx HEENT Problems: No - RENAL Hx Chronic Kidney Disease: No - ENDOCRINE/METABOLIC Hx Endocrine Disorders: No - HEMATOLOGICAL/ONCOLOGICAL Hx Blood Disorders: No - INTEGUMENTARY Hx Dermatological Problems: No - MUSCULOSKELETAL/RHEUMATOLOGICAL Hx Musculoskeletal Disorders: Yes Hx Back Pain: Yes Hx Falls: No - GASTROINTESTINAL Hx Gastrointestinal Disorders: Yes Hx Pancreatitis: Yes Other/Comment: DIARRHEA, ABDOMINAL PAIN - GENITOURINARY/GYNECOLOGICAL Hx Genitourinary Disorders: No - PSYCHIATRIC Hx Psychophysiologic Disorder: No Hx Anxiety: No Hx Bipolar Disorder: No Hx Depression: Yes Hx Emotional Abuse: No Hx Hallucinations: No Hx Panic Symptoms: No Hx Post Traumatic Stress Disorder: No Hx Psychosis: No Hx Physical Abuse: No Hx Schizophrenia: No Hx Sexual Abuse: No Hx Substance Use: Yes (Marijuana) - SURGICAL HISTORY Other/Comment: BRONCHOSCOPY, EGD EUS - ANESTHESIA Hx Anesthesia: Yes Hx Anesthesia Reactions: No Hx Malignant Hyperthermia: No Meds Allergies/Adverse Reactions: Allergies Allergy/AdvReac Type Severity Reaction Status Date / Time No Known Allergies Allergy Verified 04/30/17 11:04 Physical Exam - Constitutional Appears: Older Than Stated Age Additional comments: thin, cachectic male - Head Exam Head Exam: ATRAUMATIC, NORMAL INSPECTION, NORMOCEPHALIC Additional comments: temporal bossing - Eye Exam Eye Exam: EOMI, PERRL - Neck Exam Neck exam: Positive for: Full Rom. Negative for: Lymphadenopathy - Respiratory Exam Respiratory Exam: Clear to Auscultation Bilateral, NORMAL BREATHING PATTERN. absent: Rhonchi, Wheezes - Cardiovascular Exam Cardiovascular Exam: Bradycardia, REGULAR RHYTHM, +S1, +S2 - GI/Abdominal Exam GI & Abdominal Exam: Diminished Bowel Sounds, Soft, Tenderness (mid epigastric tenderness). absent: Guarding, Rigid - Extremities Exam Extremities exam: Positive for: normal capillary refill, pedal pulses present. Negative for: calf tenderness, pedal edema - Neurological Exam Neurological exam: Alert, Oriented x3 Additional comments: motor and sensory grossly intact, able to follow simple commands, move all four extremities past midline - Psychiatric Exam Psychiatric exam: Normal Affect, Normal Mood - Skin Skin Exam: Dry, Warm Results - Vital Signs Recent Vital Signs: Last Vital Signs Temp 97.4 F L 06/24/17 22:19 Pulse 48 L 06/24/17 22:19 Resp 18 06/24/17 22:19 BP 170/105 H 06/24/17 22:19 Pulse Ox 100 06/24/17 20:41 - Labs Result Diagrams: 06/24/17 18:27 06/24/17 18:27 Assessment & Plan - Assessment and Plan (Free Text) Assessment: Patient is 61 year old male with past medical history of pancreatic cancer, COPD , Hypertension, DM presented to [facility] [place] with nausea and vomiting. Patient found to have elevated troponin and admitted for NSTEMI. Cardiology consulted and on board. Plan: NSTEMI Details: - EKG in ED: NSR @ 73 BPM, no ST elevation or depression, T wave inversion on lead V3V4, compared with previous ekg - Troponin 0.25 - Cardiology consulted, Dr. Talavera - no AC or cardiac cath indicated at time - Beta Dennis held due to bradycardia - CXR no acute findings, probable extensive fibrosis/scarring with lung apices, stable - Hypoglycemia of 40 on admission - D50 and D25 administered Plan: - Statin, Nitro prn, ASA - Hold BB due to bradycardia - f/u cardiology recs Hx of Pancreatitis/Pancreatic Cancer: - Previous EGD: pancreatic duct stricture, moderate dilation of the pancreatic duct in the body of the pancreas and pancreatic duct in the tail of the pancreas was found diffusely. EUS showed mass in the pancreas head - Pathology showed invasive adenocarcinoma, moderate to poorly differentiated - Previous Pet Scan did not show evidence of metastasis; pulmonary nodule was present, read as inflammatory - Lipase 3,237 - IV fluid hydration - Zofran prn nausea History of COPD: -CXR: No sigficiant intreval changes -Duonebs Q6H prn sob Hypertension -Continue Norvasc 10mg PO daily - Holding BB due to bradycardia Diabetes Mellitus -HbA1C 03/2017 was 6.4 - Patient hypoglycemic on admission -Insulin sliding scale low -Accuchecks ACHS GI ppx: Protonix DVT ppx: Heparin Case and plan discussed with attending Rosio Dubois PGY-1 - Date & Time Date: 06/25/17 Time: 01:28 <Daysi SERRANO,Gasper - Last Filed: 06/25/17 13:05> Present on Admission - Present on Admission Any Indicators Present on Admission: No Results - Vital Signs Recent Vital Signs: Last Vital Signs Temp 98.7 F 06/25/17 12:00 Pulse 84 06/25/17 12:00 Resp 18 06/25/17 12:00 BP 138/100 H 06/25/17 12:00 Pulse Ox 94 L 06/25/17 06:00 - Labs Result Diagrams: 06/25/17 05:30 06/25/17 05:30 Labs: Laboratory Results - last 24 hr 06/25/17 06/25/17 06/25/17 00:40 05:30 05:30 WBC 6.8 RBC 3.62 Hgb 11.4 L D Hct 34.1 L MCV 94.2 MCH 31.5 MCHC 33.4 RDW 13.3 Plt Count 155 MPV 9.6 Gran % 85.5 H Lymph % (Auto) 13.6 L Toombs % (Auto) 0.9 L Eos % (Auto) 0.0 L Baso % (Auto) 0.0 Gran # 5.84 Lymph # (Auto) 0.9 L Toombs # (Auto) 0.1 Eos # (Auto) 0.0 Baso # (Auto) 0.00 PT 21.9 H INR 1.88 H APTT 23.8 L Sodium Potassium Chloride Carbon Dioxide Anion Gap BUN Creatinine Est GFR ( Amer) Est GFR (Non-Af Amer) Random Glucose Calcium Magnesium Total Bilirubin AST ALT Alkaline Phosphatase Troponin I 0.23 H* Total Protein Albumin Globulin Albumin/Globulin Ratio 06/25/17 05:30 WBC RBC Hgb Hct MCV MCH MCHC RDW Plt Count MPV Gran % Lymph % (Auto) Toombs % (Auto) Eos % (Auto) Baso % (Auto) Gran # Lymph # (Auto) Toombs # (Auto) Eos # (Auto) Baso # (Auto) PT INR APTT Sodium 140 Potassium 3.1 L Chloride 97 L Carbon Dioxide 32 Anion Gap 15 BUN 40 H Creatinine 0.8 Est GFR ( Amer) > 60 Est GFR (Non-Af Amer) > 60 Random Glucose 214 H Calcium 7.6 L Magnesium 1.9 Total Bilirubin 1.0 AST 94 H ALT 93 H Alkaline Phosphatase 123 Troponin I 0.27 H* Total Protein 6.1 Albumin 3.0 Globulin 3.1 Albumin/Globulin Ratio 1.0 L Attending/Attestation - Attestation I have personally seen and examined this patient.: Yes I have fully participated in the care of the patient.: Yes I have reviewed all pertinent clinical information: Yes Notes (Text): -I agree with the above H&P completed by the resident physician with the following changes and/or additions: The patient is a 61 year old man with a history of pancreatic cancer, COPD, HTN and NIDDM who is being admitted to telemetry for NSTEMI. Per phone rec's from cardiology (obtained by ED physician), we will not initiate therapeutic anticoagulation. Due to patient's sinus bradycardia (HR=40's), beta-dennis will not be given overnight. He will only receive Lipitor and ASA. We will check serial trop's and EKG's. As mentioned above, cardiology has already been consulted.
[2017-06-25] MEDS: Dextrose 5%/0.9% NS 1,000 ML IV SCH ×4 (04:57→23:09)
[2017-06-25] MEDS ORDERED: Morphine 4 mg/ml ISec IVP ONE (05:07)
[2017-06-25 06:26] LABS: GRAN # 5.84 (1.4-6.5); GRAN % 85.5 % (50.0-68.0); LYMPH # 0.9 (1.2-3.4); LYMPH % 13.6 % (22.0-35.0); MEAN CELL VOLUME 94.2 fl (80.0-105.0); MEAN CORPUSCULAR HEMOGLOBIN 31.5 pg (25.0-35.0); MEAN CORPUSCULAR HGB CONC 33.4 g/dl (31.0-37.0); MEAN PLATELET VOLUME 9.6 fl (7.0-11.0); MONO # 0.1 (0.1-0.6); MONO % 0.9 % (1.0-6.0); RBC 3.62 10^6/uL (3.5-6.1); RED CELL DISTRIBUTION WIDTH 13.3 % (11.5-14.5); WHITE BLOOD COUNT 6.8 10^3/ul (4.5-11.0)
[2017-06-25 06:36] LABS: HEMOGLOBIN 11.4 g/dL (14.0-18.0)
[2017-06-25 06:39] LABS: INR 1.88 (0.93-1.08); PARTIAL THROMBOPLASTIN TIME 23.8 Seconds (25.1-36.5); PROTHROMBIN TIME 21.9 SECONDS (9.4-12.5)
[2017-06-25 07:23] LABS: ALT/SGPT 93 U/L (7-56); AST/SGOT 94 U/L (17-59); BLOOD UREA NITROGEN 40 mg/dL (7-21); CALCIUM 7.6 mg/dL (8.4-10.5); GFR AFRICAN-AMERICAN > 60; GFR NON-AFRICAN AMERICAN > 60; TROPONIN I 0.27 ng/mL
[2017-06-25] MEDS: Insulin Lispro (humaLOG) LOW Coverage SC SCH ×4 (08:27→22:36)
[2017-06-25] MEDS ORDERED: Morphine 4 mg/ml ISec IVP STA ×2 (11:19→22:54)
[2017-06-25] MEDS ORDERED: Oxycodone/Acetaminophen 5/325 mg Tab PO PRN (12:39)
[2017-06-25] MEDS ORDERED: Potassium Chloride 20 mEq ER Tab PO STA (13:20)
[2017-06-25] MEDS: Albuterol-Ipratrop 3 mg / 0.5 (3 ml) UD IH PRN ×2 (14:05→18:40)
--- NOTE | 2017-06-25 14:07 | CARD ---
APPROVED REPORT EKG Measurement Heart [id number] ID [id number] <Conclusion> Marked sinus bradycardia Septal infarct, age undetermined Abnormal ECG
--- NOTE | 2017-06-25 14:08 | CARD ---
APPROVED REPORT EKG Measurement Heart [id number] <Conclusion> Normal sinus rhythm Septal infarct, age undetermined T wave abnormality, consider inferior ischemia T wave abnormality, consider anterior ischemia Abnormal ECG
[2017-06-25 14:47] LABS: CK-MB 1.9 ng/mL (0.0-3.6); TROPONIN I 0.21 ng/mL
[2017-06-25] MEDS: Pantoprazole 40 mg EC Tab PO SCH ×2 (14:49→18:02)
[2017-06-25] MEDS ORDERED: Potassium Chloride 20 mEq ER Tab PO ONE (15:30)
[2017-06-25] MEDS: PROTEASE PO SCH (18:01)
[2017-06-25] MEDS: LIPASE PO SCH (18:01)
[2017-06-25] MEDS: AMYLASE PO SCH (18:01)
--- NOTE | 2017-06-25 21:31 | CON ---
DATE: 06/25/2017 INDICATIONS: Mid epigastric pain and positive troponins with EKG changes. HISTORY OF PRESENT ILLNESS: This is a 61-year-old male with pancreatic cancer who was admitted yesterday with mid epigastric pain and nausea with vomiting, which developed suddenly. He was seen in the emergency room and admitted to telemetry. This morning, he feels much better. There was no chest pain. The mid epigastric discomfort has subsided. There is no shortness of breath, orthopnea, PND, syncope, dizziness, vertigo, palpitations, edema, claudication. No fever, chills, cough, sputum production, hemoptysis. No melena. PAST MEDICAL HISTORY: Notable for pancreatic cancer. He is under the care of Dr. Gonzalez and Dr. Oquendo. He has COPD, diabetes, hypertension. MEDICATIONS: See MAR SOCIAL HISTORY: He is a current smoker. He smokes marijuana in addition to cigarettes. He does not drink alcohol. FAMILY HISTORY: Noncontributory. REVIEW OF SYSTEMS: A 10-point review of systems is otherwise unremarkable except as noted above. ALLERGIES: THERE WERE NO MEDICATION ALLERGIES REPORTED. PHYSICAL EXAMINATION: GENERAL: He is a cachectic male, who looks older than his stated age. VITAL SIGNS: Notable for sinus rhythm to sinus bradycardia, 48 to 72 beats per minute. He is afebrile. Blood pressure 125/97, respirations 18 to 20, O2 sat 94% to 100% on room air. HEENT: Reveals no neck vein distention, thyromegaly, or carotid bruits. Mucous membranes are moist. Conjunctivae are pink. NECK: Supple. LUNGS: Lung irggins clear. HEART: Reveals irregular rhythm, normal first and second heart sounds. ABDOMEN: Reveals no mass, organomegaly, tenderness, rebound, or guarding. No CVA tenderness. No palpable abdominal aortic aneurysm. EXTREMITIES: Reveal no cyanosis, clubbing, or edema. NEUROLOGIC: He is awake, alert, and oriented. PSYCHIATRIC: Normal as to mood and affect. SKIN: Warm and dry. No rash or cellulitis. LABORATORY AND IMAGING: EKG demonstrates sinus bradycardia, T-wave inversions in V2, V3, V4, new compared to an old EKG. An x-ray of the abdomen reveals no acute findings. A chest x-ray reveals extensive fibrosis, scarring in the lung apices, no change. White count normal, hemoglobin 11.4, hematocrit 34.1, platelet count normal. PT 21.9, INR 1.88, PTT 23.8. Electrolytes noted for potassium of 3.1 this morning, BUN 40, creatinine 0.8. Blood sugar was 40, repeat 214. Magnesium 1.9. Elevated LFTs are noted. CK 380. Troponin 0.25, 0.23, and 0.27. Lipase 3237. IMPRESSION: Bandar Berman is a 61-year-old man with advanced pancreatic cancer who presented with mid epigastric pain, mildly elevated troponins, and T-wave inversions in precordial leads that were new. He is getting aspirin and Lipitor. Beta-darrin was not given because of baseline bradycardia. I will order an echocardiogram to help differentiate whether or not he has suffered an NSTEMI versus mid epigastric pain due to pancreatic cancer and nonspecific elevation of the troponin and nonspecific ST changes on his current EKG. Given his diagnosis of pancreatic cancer, a conservative approach to potential cardiac disease seems warranted. He is getting aspirin, IV fluids, albuterol, Lipitor, nicotine patch, Norvasc, Pepcid. I will order an echocardiogram. We will monitor I's and O's and check stool for occult blood. He can be out of bed to a chair. He will have GI and Oncology followup. I will follow along with you and make additional recommendations based on his clinical course. Daryl Talavera MD MTDD
[2017-06-25 23:20] LABS: CK-MB 2.1 ng/mL (0.0-3.6); TROPONIN I 0.17 ng/mL
[2017-06-26] MEDS: Dextrose 5%/0.9% NS 1,000 ML IV SCH ×3 (05:50→21:30)
[2017-06-26 06:17] LABS: EOS % 0.3 % (1.5-5.0); GRAN # 4.95 (1.4-6.5); GRAN % 79.2 % (50.0-68.0); HEMOGLOBIN 10.2 g/dL (14.0-18.0); LYMPH # 1.2 (1.2-3.4); LYMPH % 19.5 % (22.0-35.0); MEAN CELL VOLUME 93.6 fl (80.0-105.0); MEAN CORPUSCULAR HEMOGLOBIN 31.2 pg (25.0-35.0); MEAN CORPUSCULAR HGB CONC 33.3 g/dl (31.0-37.0); MEAN PLATELET VOLUME 9.6 fl (7.0-11.0); MONO # 0.1 (0.1-0.6); RBC 3.27 10^6/uL (3.5-6.1); RED CELL DISTRIBUTION WIDTH 13.1 % (11.5-14.5); WHITE BLOOD COUNT 6.3 10^3/ul (4.5-11.0)
[2017-06-26 06:46] LABS: TROPONIN I 0.16 ng/mL
[2017-06-26 07:09] LABS: CK-MB 1.8 ng/mL (0.0-3.6)
[2017-06-26] MEDS ORDERED: Morphine 2 mg/ml ISec IVP PRN ×2 (07:13→07:15)
[2017-06-26] MEDS ORDERED: Morphine 4 mg/ml ISec IV PRN (07:26)
[2017-06-26] MEDS: Albuterol-Ipratrop 3 mg / 0.5 (3 ml) UD IH PRN ×3 (07:51→20:13)
--- NOTE | 2017-06-26 08:40 | CP.PCM.PN ---
Subjective - Date & Time of Evaluation Date of Evaluation: 06/26/17 Time of Evaluation: 07:00 - Subjective Subjective: Stable on 2R. Still JOVANI pain. Not eating much. Wt = 91 lbs. V/S noted. RSR PE: Lungs: clear Cor.: S1S2 Abd.: soft Ext.: no edema Neuro.: alert I/O= 120/1100 trop 0.16 Echo done. See report. Objective - Vital Signs/Intake and Output Vital Signs (last 24 hours): Temp Pulse Resp BP Pulse Ox 97.7 F 79 18 127/84 100 06/26/17 05:56 06/26/17 05:56 06/26/17 05:56 06/26/17 05:56 06/26/17 05:56 Intake and Output: 06/26/17 06/26/17 06:59 18:59 Intake Total 1500 120 Output Total 1100 Balance 1500 -980 - Medications Medications: Current Medications Albuterol Sulfate (Albuterol 0.083% Inhal Roxann (2.5 Mg/3 Ml) Ud) 2.5 mg IH [id number] PRN PRN Reason: Wheezing Albuterol/Ipratropium (Duoneb 3 Mg/0.5 Mg (3 Ml) Ud) 3 ml IH [id number] PRN PRN Reason: Shortness of Breath Last Admin: 06/26/17 07:51 Dose: 3 ml Amlodipine Besylate (Norvasc) 10 mg PO DAILY [facility] Last Admin: 06/25/17 09:40 Dose: 10 mg Aspirin (Aspirin Chewable) 81 mg PO DAILY [facility] Last Admin: 06/25/17 11:34 Dose: 81 mg Atorvastatin Calcium (Lipitor) 80 mg PO DIN [facility] Last Admin: 06/25/17 18:01 Dose: 80 mg Heparin Sodium (Porcine) (Heparin) 5,000 units SC Q8 JOSEMANUEL PRN Reason: Protocol Last Admin: 06/26/17 05:39 Dose: 5,000 units Dextrose/Sodium Chloride (Dextrose 5%/0.9% Ns 1000 Ml) 1,000 mls @ 125 mls/hr IV .Q8H [facility] Last Admin: 06/26/17 05:50 Dose: 125 mls/hr Insulin Human Lispro (Humalog Low) 0 units SC ACHS [facility] PRN Reason: Protocol Last Admin: 06/25/17 22:36 Dose: Not Given Morphine Sulfate (Morphine) 4 mg IV Q4H PRN PRN Reason: Pain, moderate (4-7) Nicotine (Nicoderm Cq) 1 patch TD DAILY [facility] Last Admin: 06/25/17 09:40 Dose: 1 patch Lipase/Protease/Amylase [Zenpep Dr 25,000 Unit Capsule] 1 each PO WM [facility] Last Admin: 06/25/17 18:01 Dose: Not Given Pantoprazole Sodium (Protonix Ec Tab) 40 mg PO TID [facility] Last Admin: 06/25/17 18:02 Dose: 40 mg Potassium Phos/Sodium Phos (Neutra-Phos) 1 pkt PO Q2H [facility] Stop: 06/26/17 11:31 - Labs Labs: 06/26/17 05:30 06/25/17 05:30 PT 21.9 SECONDS (9.4-12.5) H 06/25/17 05:30 INR 1.88 (0.93-1.08) H 06/25/17 05:30 APTT 23.8 Seconds (25.1-36.5) L 06/25/17 05:30 Assessment and Plan - Assessment and Plan (Free Text) Assessment: Epigastric pain probably due to pancreatic cancer Possible acute NH, possible old NH. COPD Diabetes HBP Cachexia Plan: Check echo results As per GI and Oncology and Medical Team Analgesia. IVF Conservative cardiac care.
[2017-06-26] MEDS: Potassium & Sodium Phosphate PO SCH ×3 (09:03→13:03)
[2017-06-26] MEDS: Pantoprazole 40 mg EC Tab PO SCH ×3 (09:03→17:32)
[2017-06-26] MEDS: Insulin Lispro (humaLOG) LOW Coverage SC SCH ×4 (09:03→21:24)
[2017-06-26] MEDS: LIPASE PO SCH ×3 (09:05→17:08)
[2017-06-26] MEDS: AMYLASE PO SCH ×3 (09:05→17:08)
[2017-06-26] MEDS: PROTEASE PO SCH ×3 (09:05→17:08)
--- NOTE | 2017-06-26 09:31 | CARD ---
APPROVED REPORT EXAM: Two-dimensional and M-mode echocardiogram with Doppler and color Doppler. Other Information Quality : FairRhythm : INDICATION JOVANI pain, + trops, abn. ECG. 2D DIMENSIONS Left Atrium (2D)2.9 (1.6-4.0cm)IVSd1.0 (0.7-1.1cm) LVDd3.6 (3.9-5.9cm)PWd1.2 (0.7-1.1cm) LVDs2.9 (2.5-4.0cm)LVEF (%)45.0 (>50%) M-Mode DIMENSIONS Aortic Root2.60 (2.2-3.7cm)Aortic Cusp Exc.1.70 (1.5-2.0cm) Aortic Valve AoV Peak Ibbzyfyz61.9cm/s Mitral Valve E/A ratio0.0 TDI E/Lateral E'0.0E/Medial E'0.0 Tricuspid Valve TR Peak [id number] [id number] Peak Gr.15mmHg [id number] LEFT VENTRICLE The left ventricle is normal size. There is normal left ventricular wall thickness. Left ventricle systolic function is mildly impaired. The Ejection Fraction is - 45 % RIGHT VENTRICLE The right ventricle is normal size. ATRIA The left atrium size is normal. The right atrium size is normal. The interatrial septum is intact with no evidence for an atrial septal defect. AORTIC VALVE The aortic valve is moderately calcified. MITRAL VALVE The mitral valve is moderately thickened but opens well. TRICUSPID VALVE The tricuspid valve is normal in structure. There is trace tricuspid regurgitation. PULMONIC VALVE The pulmonic valve is not well visualized. PERICARDIAL EFFUSION There is no pericardial effusion. <Conclusion> The left ventricle is normal size. There is normal left ventricular wall thickness. Left ventricle systolic function is mildly impaired. The Ejection Fraction is - 45 % The aortic valve is moderately calcified. Aortic sclerosis.
[2017-06-26 10:28] LABS: ALB/GLOB RATIO 0.9 (1.1-1.8); ALBUMIN 2.7 g/dL (3.0-4.8); ALT/SGPT 90 U/L (7-56); AST/SGOT 71 U/L (17-59); BLOOD UREA NITROGEN 17 mg/dL (7-21); CALCIUM 7.3 mg/dL (8.4-10.5); GFR AFRICAN-AMERICAN > 60; GFR NON-AFRICAN AMERICAN > 60
[2017-06-26] MEDS ORDERED: Potassium Phosphate 15 MMOLE in Sodium Chloride 0.9% 250 ML IVPB ONE ×2 (12:12→23:38)
[2017-06-26] MEDS: Potassium Chloride 20 mEq ER Tab PO STA ×2 (13:03→13:07)
[2017-06-26] MEDS: Potassium Chloride 20 mEq ER Tab PO ONE ×2 (13:32→19:36)
[2017-06-26] MEDS: Morphine 4 mg/ml ISec IVP PRN ×2 (14:21→20:11)
--- NOTE | 2017-06-26 14:55 | CP.PCM.PN ---
<Veronica Sharif - Last Filed: 06/26/17 14:38> Subjective - Date & Time of Evaluation Date of Evaluation: 06/26/17 Time of Evaluation: 14:38 - Subjective Subjective: Veronica Sharif, PGY1, Progress Note for Dr Scott: Patient seen and examined at bedside. Overnight, pt had abdominal pain, requiring morphine. This AM, pt reports persistent intractable abdominal pain and requests to be sent home on oxycodone 10 mg (double the dose he was on at home). Denies further nausea, vomiting, diarrheal episodes since admission. Pt reports good appetite and tolerating PO diet well. Denies cp, sob, dizziness, urinary symptoms, leg swelling. Objective - Vital Signs/Intake and Output Vital Signs (last 24 hours): Temp Pulse Resp BP Pulse Ox 97.7 F 81 18 136/93 H 100 06/26/17 12:00 06/26/17 12:00 06/26/17 12:00 06/26/17 12:00 06/26/17 05:56 Intake and Output: 06/26/17 06/26/17 06:59 18:59 Intake Total 1500 120 Output Total 1100 Balance 1500 -980 - Medications Medications: Current Medications Albuterol Sulfate (Albuterol 0.083% Inhal Roxann (2.5 Mg/3 Ml) Ud) 2.5 mg IH [id number] PRN PRN Reason: Wheezing Albuterol/Ipratropium (Duoneb 3 Mg/0.5 Mg (3 Ml) Ud) 3 ml IH [id number] PRN PRN Reason: Shortness of Breath Last Admin: 06/26/17 13:28 Dose: 3 ml Amlodipine Besylate (Norvasc) 10 mg PO DAILY [facility] Last Admin: 06/26/17 09:02 Dose: 10 mg Aspirin (Aspirin Chewable) 81 mg PO DAILY [facility] Last Admin: 06/26/17 09:03 Dose: 81 mg Atorvastatin Calcium (Lipitor) 80 mg PO DIN [facility] Last Admin: 06/25/17 18:01 Dose: 80 mg Heparin Sodium (Porcine) (Heparin) 5,000 units SC Q8 [facility] PRN Reason: Protocol Last Admin: 06/26/17 14:22 Dose: 5,000 units Dextrose/Sodium Chloride (Dextrose 5%/0.9% Ns 1000 Ml) 1,000 mls @ 125 mls/hr IV .Q8H [facility] Last Admin: 06/26/17 13:02 Dose: Not Given Potassium Phosphate 15 mmole/ (Sodium Chloride) 255 mls @ 42.5 mls/hr IVPB ONCE ONE Stop: 06/26/17 18:11 Last Admin: 06/26/17 14:22 Dose: 42.5 mls/hr Insulin Human Lispro (Humalog Low) 0 units SC ACHS [facility] PRN Reason: Protocol Last Admin: 06/26/17 13:02 Dose: 1 units Morphine Sulfate (Morphine) 2 mg IVP Q6H PRN PRN Reason: Pain, moderate (4-7) Last Admin: 06/26/17 14:21 Dose: 2 mg Nicotine (Nicoderm Cq) 1 patch TD DAILY [facility] Last Admin: 06/26/17 09:02 Dose: 1 patch Lipase/Protease/Amylase [Zenpep Dr 25,000 Unit Capsule] 1 each PO WM [facility] Last Admin: 06/26/17 12:36 Dose: Not Given Pantoprazole Sodium (Protonix Ec Tab) 40 mg PO TID [facility] Last Admin: 06/26/17 14:22 Dose: 40 mg - Labs Labs: 06/26/17 05:30 06/26/17 05:30 PT 21.9 SECONDS (9.4-12.5) H 06/25/17 05:30 INR 1.88 (0.93-1.08) H 06/25/17 05:30 APTT 23.8 Seconds (25.1-36.5) L 06/25/17 05:30 - Constitutional Appears: Non-toxic, Cachectic, Chronically Ill - Head Exam Head Exam: ATRAUMATIC, NORMOCEPHALIC - Eye Exam Eye Exam: EOMI, PERRL. absent: Conjunctival injection, Nystagmus, Scleral icterus Pupil Exam: NORMAL ACCOMODATION, PERRL. absent: Fixed, Irregular, Miosis, Unequal - ENT Exam ENT Exam: Mucous Membranes Moist - Neck Exam Neck Exam: Full ROM - Respiratory Exam Respiratory Exam: Clear to Ausculation Bilateral, NORMAL BREATHING PATTERN. absent: Accessory Muscle Use, Rhonchi, Wheezes, Stridor - Cardiovascular Exam Cardiovascular Exam: RRR, +S1, +S2. absent: Murmur - GI/Abdominal Exam GI & Abdominal Exam: Soft, Tenderness (mild epigastric tenderness), Normal Bowel Sounds. absent: Distended, Firm, Guarding, Rigid, Mass, Organomegaly, Rebound - Extremities Exam Extremities Exam: Normal Inspection. absent: Calf Tenderness, Pedal Edema - Back Exam Back Exam: NORMAL INSPECTION. absent: CVA tenderness (L), CVA tenderness (R) - Neurological Exam Neurological Exam: Alert, Awake, Oriented x3 - Psychiatric Exam Psychiatric exam: Agitated - Skin Skin Exam: Dry, Normal Color, Warm Assessment and Plan - Assessment and Plan (Free Text) Assessment: 61 year old male with past medical history of pancreatic cancer (diagnosed 2017), COPD, Hypertension, DM, presents for epigastric pain, nausea, vomiting. Pt admitted for mildly elevated trops, intractable epigastric pain. Pt's phosphorous and potassium low today, repleted. Will repeat levels in afternoon: Intractable epigastric pain: 2/ pancreatic cancer, pancreatitis - Previous EGD: pancreatic duct stricture, moderate dilation of the pancreatic duct in the body of the pancreas and pancreatic duct in the tail of the pancreas was found diffusely. EUS showed mass in the pancreas head - Pathology showed invasive adenocarcinoma, moderate to poorly differentiated - Lipase 3,237 - IV fluid hydration - Tolerating PO diet - Pancreatic enzymes - Spoke to pt's outpatient heme-onc Dr Oquendo's associate (Dr Saez): she stated that patient receives single agent chemotherapy, pt likely has metastatic pancreatic cancer. Agrees with palliative consult. - Palliative consulted. F/u recs. - Morphine 2 mg q4h IV prn Hypokalemia and hypophosphatemia: - repleted - will repeat levels in afternoon NSTEMI: - EKG in ED: NSR @ 73 BPM, no ST elevation or depression, T wave inversion on lead V3V4, compared with previous ekg - Troponin mildly elevated, but trended down - Cardiology consulted, Dr. Talavera - no AC or cardiac cath indicated due to pt' s poor underlying pancreatic cancer. Conservative management. - Beta Dennis held due to bradycardia - CXR no acute findings, probable extensive fibrosis/scarring with lung apices, stable - Statin, Norvasc, ASA History of COPD: -CXR: No sigficiant intreval changes -Duonebs Q6H prn sob Hx of Hypertension: - Continue Norvasc 10mg PO daily Diabetes Mellitus: -HbA1C 03/2017 was 6.4 -Patient hypoglycemic on admission -Insulin sliding scale low -Accuchecks ACHS GI ppx: Protonix DVT ppx: Heparin Case and plan discussed with attending, Dr Scott. Veronica Sharif, PGY1 <Marlene Scott - Last Filed: 06/26/17 15:25> Objective - Vital Signs/Intake and Output Vital Signs (last 24 hours): Temp Pulse Resp BP Pulse Ox 97.7 F 81 18 136/93 H 100 06/26/17 12:00 06/26/17 12:00 06/26/17 12:00 06/26/17 12:00 06/26/17 05:56 Intake and Output: 06/26/17 06/26/17 06:59 18:59 Intake Total 1500 120 Output Total 1100 Balance 1500 -980 - Medications Medications: Current Medications Albuterol Sulfate (Albuterol 0.083% Inhal Roxann (2.5 Mg/3 Ml) Ud) 2.5 mg IH [id number] PRN PRN Reason: Wheezing Albuterol/Ipratropium (Duoneb 3 Mg/0.5 Mg (3 Ml) Ud) 3 ml IH [id number] PRN PRN Reason: Shortness of Breath Last Admin: 06/26/17 13:28 Dose: 3 ml Amlodipine Besylate (Norvasc) 10 mg PO DAILY [facility] Last Admin: 06/26/17 09:02 Dose: 10 mg Aspirin (Aspirin Chewable) 81 mg PO DAILY [facility] Last Admin: 06/26/17 09:03 Dose: 81 mg Atorvastatin Calcium (Lipitor) 80 mg PO DIN [facility] Last Admin: 06/25/17 18:01 Dose: 80 mg Heparin Sodium (Porcine) (Heparin) 5,000 units SC Q8 [facility] PRN Reason: Protocol Last Admin: 06/26/17 14:22 Dose: 5,000 units Dextrose/Sodium Chloride (Dextrose 5%/0.9% Ns 1000 Ml) 1,000 mls @ 125 mls/hr IV .Q8H [facility] Last Admin: 06/26/17 13:02 Dose: Not Given Potassium Phosphate 15 mmole/ (Sodium Chloride) 255 mls @ 42.5 mls/hr IVPB ONCE ONE Stop: 06/26/17 18:11 Last Admin: 05/08/18 14:22 Dose: 42.5 mls/hr Insulin Human Lispro (Humalog Low) 0 units SC ACHS [facility] PRN Reason: Protocol Last Admin: 06/26/17 13:02 Dose: 1 units Morphine Sulfate (Morphine) 2 mg IVP Q6H PRN PRN Reason: Pain, moderate (4-7) Last Admin: 06/26/17 14:21 Dose: 2 mg Nicotine (Nicoderm Cq) 1 patch TD DAILY [facility] Last Admin: 06/26/17 09:02 Dose: 1 patch Lipase/Protease/Amylase [Zenpep Dr 25,000 Unit Capsule] 1 each PO WM [facility] Last Admin: 06/26/17 12:36 Dose: Not Given Pantoprazole Sodium (Protonix Ec Tab) 40 mg PO TID [facility] Last Admin: 06/26/17 14:22 Dose: 40 mg - Labs Labs: 06/26/17 05:30 06/26/17 05:30 PT 21.9 SECONDS (9.4-12.5) H 06/25/17 05:30 INR 1.88 (0.93-1.08) H 06/25/17 05:30 APTT 23.8 Seconds (25.1-36.5) L 06/25/17 05:30 Attending/Attestation - Attestation I have personally seen and examined this patient.: Yes I have fully participated in the care of the patient.: Yes I have reviewed all pertinent clinical information, including history, physical exam and plan: Yes Notes (Text): 06/26/17 15:19 61 year old male with past medical history of pancreatic cancer, COPD, hypertension and diabetes who presented with complaint of nausea, vomiting and epigastric pain. He was found to have elevated cardiac enzymes and admitted for possible NSTEMI. He is being followed by cardiology who recommended conservative management. He is on aspirin and statin. He is not on BB secondary to bradycardia. His nausea/vomiting have resolved. States he had chronic abdominal pain not relieved by percocet. I have stressed the importance of outpatient follow up with his pmd, lead cashier and oncologist to the patient and his sister at bedside. He states he is on outpatient chemotherapy. Will request for palliative care evaluation. Today he has significant hypokalemia and hypophosphatemia which we will replete and repeat. Marlene Scott MD Hospitalist.
[2017-06-26 16:14] LABS: TROPONIN I 0.11 ng/mL
[2017-06-26 16:36] LABS: CK-MB 2.5 ng/mL (0.0-3.6)
[2017-06-26] MEDS ORDERED: Potassium Chloride 20 mEq ER Tab PO STA ×2 (18:40→23:38)
[2017-06-26] MEDS ORDERED: Potassium Chloride 20 mEq ER Tab PO SCH (20:00)
--- NOTE | 2017-06-26 23:37 | PCM.FALL ---
<JeffreyMaría - Last Filed: 06/26/17 23:44> Post Fall Progress Note - Post Fall Fall Date: 06/26/17 Fall Time: 22:43 Description of Fall: Patient is a 61 y/o with pmhx of pancreatic cancer, COPD, Hypertension, DM, initially admitted with intractable abdominal pain, and code star is being called due to witnessed fall. Patient states while coming out of the bathroom, he felt weak in his legs and fell on her knees. Denies LOC, denies hitting his head, no headache, no dizziness, no witnessed seizure like activity. Fingerstick was 86, BP 117/88, HR 56. Afebrile. - Post Fall Exam Vital Sign: Temp Pulse Resp BP Pulse Ox 98 F 88 18 124/87 100 06/26/17 17:11 06/26/17 22:00 06/26/17 17:11 06/26/17 17:11 06/26/17 05:56 Eye Exam: Positive for: Pupils equal, Pupils reactive Ear Exam: Positive for: Discharge. Negative for: Bleeding Nose Exam: Negative for: Bleeding Skin Exam: Negative for: Colour, Lacerations, Grazes, Bruising Mouth Exam: Negative for: Tongue bitten, Teeth dislodge Neck Exam: Negative for: Tenderness, Tingling, Weakness Spinal Exam: Negative for: Tenderness, Tingling, Weakness Chest Exam: Negative for: Difficulty breathing, Tenderness in collar bones, Tenderness in ribs Abdomen Exam: Negative for: Tenderness Pelvic Exam: Negative for: Tenderness, Hematuria Arm Exam: Negative for: Deformity, Alteration in range of movement Leg Exam: Negative for: Deformity, Alteration in range of movement Impression/Plan: Patient was able to get up and light on the bed, is a&ox3, following commands, grossly moving his extremities, and no focal deficit noted. Recent labs reviewed, potassium of 3.5 and phos of 1.7. - Will replete electrolytes - Bedside commode - Bed rest <Shanita Miradna - Last Filed: 06/27/17 03:19> Post Fall Progress Note - Post Fall Exam Vital Sign: Temp Pulse Resp BP Pulse Ox 97.6 F 72 18 117/88 95 06/26/17 23:36 06/27/17 02:00 06/26/17 23:36 06/26/17 23:36 06/26/17 23:36 Attending/Attestation - Attestation I have personally seen and examined this patient.: Yes I have fully participated in the care of the patient.: Yes I have reviewed all pertinent clinical information, including history, physical exam and plan: Yes Notes (Text): 06/27/17 03:18 Agree with documentation and orders placed.
[2017-06-27] MEDS: Dextrose 5%/0.9% NS 1,000 ML IV SCH ×2 (05:17→12:09)
[2017-06-27] MEDS: Morphine 4 mg/ml ISec IVP PRN ×2 (05:43→12:06)
[2017-06-27 06:06] VITALS: O2SAT 99
[2017-06-27 06:45] LABS: EOS % 0.5 % (1.5-5.0); GRAN # 2.88 (1.4-6.5); GRAN % 67.4 % (50.0-68.0); HEMOGLOBIN 10.2 g/dL (14.0-18.0); LYMPH # 1.3 (1.2-3.4); MEAN CELL VOLUME 93.8 fl (80.0-105.0); MEAN CORPUSCULAR HEMOGLOBIN 31.4 pg (25.0-35.0); MEAN CORPUSCULAR HGB CONC 33.4 g/dl (31.0-37.0); MEAN PLATELET VOLUME 9.5 fl (7.0-11.0); MONO # 0.1 (0.1-0.6); MONO % 2.1 % (1.0-6.0); RBC 3.25 10^6/uL (3.5-6.1); WHITE BLOOD COUNT 4.3 10^3/ul (4.5-11.0)
[2017-06-27 07:14] LABS: ALB/GLOB RATIO 0.9 (1.1-1.8); ALBUMIN 2.8 g/dL (3.0-4.8); ALT/SGPT 94 U/L (7-56); AST/SGOT 75 U/L (17-59); BLOOD UREA NITROGEN 13 mg/dL (7-21); CALCIUM 7.7 mg/dL (8.4-10.5); GFR AFRICAN-AMERICAN > 60; GFR NON-AFRICAN AMERICAN > 60
[2017-06-27] MEDS: Albuterol-Ipratrop 3 mg / 0.5 (3 ml) UD IH PRN (07:34)
[2017-06-27] MEDS: Insulin Lispro (humaLOG) LOW Coverage SC SCH ×2 (07:51→12:08)
[2017-06-27] MEDS: LIPASE PO SCH ×2 (08:15→12:09)
[2017-06-27] MEDS: AMYLASE PO SCH ×2 (08:15→12:09)
[2017-06-27] MEDS: PROTEASE PO SCH ×2 (08:15→12:09)
[2017-06-27] MEDS ORDERED: Potassium Phosphate 3 mmol/ml Inj IV ONE (08:17)
[2017-06-27] MEDS ORDERED: Potassium Phosphate 15 MMOLE in Sodium Chloride 0.9% 250 ML IV ONE (08:45)
[2017-06-27] MEDS: Pantoprazole 40 mg EC Tab PO SCH (09:29)
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
[2017-06-27] MEDS ORDERED: oxyCODONE 5 mg Immediate Release Tab PO STA (09:40)
[2017-06-27] MEDS ORDERED: LIPASE PO SCH (10:00)
[2017-06-27] MEDS ORDERED: Potassium & Sodium Phosphate PO SCH ×2 (10:00→18:44)
[2017-06-27] MEDS ORDERED: AMYLASE PO SCH (10:00)
[2017-06-27] MEDS ORDERED: [UNRECOGNIZED DRUG - OTHER] PO SCH (10:00)
[2017-06-27] MEDS ORDERED: PROTEASE PO SCH (10:00)
[2017-06-27] MEDS ORDERED: Morphine 4 mg/ml ISec IVP ONE (10:12)
[2017-06-27] MEDS ORDERED: oxyCODONE 10 mg Immediate Release Tab PO PRN (10:16)
--- NOTE | 2017-06-27 11:52 | CP.PCM.DIS ---
<Veronica Sharif - Last Filed: 06/27/17 14:46> Provider - Provider Date of Admission: 06/24/17 20:00 Attending physician: Marlene Scott MD Primary care physician: Kavon Pryor MD Consults: Cardio Sadaf Palliative Monica Morrison Time Spent in preparation of Discharge (in minutes): 60 Diagnosis - Discharge Diagnosis (1) Epigastric abdominal pain Status: Chronic (2) Intractable abdominal pain Status: Acute (3) NSTEMI (non-ST elevated myocardial infarction) Status: Acute (4) Pancreatic cancer Status: Chronic Hospital Course - Lab Results Lab Results: Most Recent Lab Values WBC 4.3 10^3/ul (4.5-11.0) L D 06/27/17 06:00 RBC 3.25 10^6/uL (3.5-6.1) L 06/27/17 06:00 Hgb 10.2 g/dL (14.0-18.0) L 06/27/17 06:00 Hct 30.5 % (42.0-52.0) L 06/27/17 06:00 MCV 93.8 fl (80.0-105.0) 06/27/17 06:00 MCH 31.4 pg (25.0-35.0) 06/27/17 06:00 MCHC 33.4 g/dl (31.0-37.0) 06/27/17 06:00 RDW 13.0 % (11.5-14.5) 06/27/17 06:00 Plt Count 109 10^3/uL (120.0-450.0) L 06/27/17 06:00 MPV 9.5 fl (7.0-11.0) 06/27/17 06:00 Gran % 67.4 % (50.0-68.0) 06/27/17 06:00 Lymph % (Auto) 30.0 % (22.0-35.0) 06/27/17 06:00 [place] % (Auto) 2.1 % (1.0-6.0) 06/27/17 06:00 Eos % (Auto) 0.5 % (1.5-5.0) L 06/27/17 06:00 Baso % (Auto) 0.0 % (0.0-3.0) 06/27/17 06:00 Gran # 2.88 (1.4-6.5) 06/27/17 06:00 Lymph # (Auto) 1.3 (1.2-3.4) 06/27/17 06:00 [place] # (Auto) 0.1 (0.1-0.6) 06/27/17 06:00 Eos # (Auto) 0.0 (0.0-0.7) 06/27/17 06:00 Baso # (Auto) 0.00 K/mm3 (0.0-2.0) 06/27/17 06:00 PT 21.9 SECONDS (9.4-12.5) H 06/25/17 05:30 INR 1.88 (0.93-1.08) H 06/25/17 05:30 APTT 23.8 Seconds (25.1-36.5) L 06/25/17 05:30 Sodium 139 mmol/L (132-148) 06/27/17 06:00 Potassium 4.1 mmol/L (3.6-5.0) 06/27/17 06:00 Chloride 100 mmol/L (98-107) 06/27/17 06:00 Carbon Dioxide 33 mmol/L (21-33) 06/27/17 06:00 Anion Gap 10 (10-20) 06/27/17 06:00 BUN 13 mg/dL (7-21) 06/27/17 06:00 Creatinine 0.5 mg/dl (0.8-1.5) L 06/27/17 06:00 Est GFR ( Amer) > 60 06/27/17 06:00 Est GFR (Non-Af Amer) > 60 06/27/17 06:00 POC Glucose (mg/dL) 156 mg/dL (65-110) H 06/27/17 11:38 Random Glucose 72 mg/dL (70-110) 06/27/17 06:00 Hemoglobin A1c 6.1 % (4.2-6.5) 06/25/17 14:10 Calcium 7.7 mg/dL (8.4-10.5) L 06/27/17 06:00 Phosphorus 2.1 mg/dL (2.5-4.5) L 06/27/17 06:00 Magnesium 1.8 mg/dL (1.7-2.2) 06/27/17 06:00 Total Bilirubin 0.9 mg/dL (0.2-1.3) 06/27/17 06:00 AST 75 U/L (17-59) H 06/27/17 06:00 ALT 94 U/L (7-56) H 06/27/17 06:00 Alkaline Phosphatase 111 U/L (38-126) 06/27/17 06:00 Lactate Dehydrogenase 995 U/L (333-699) H 06/26/17 15:40 Total Creatine Kinase 709 U/L (35-230) H 06/26/17 15:40 CK-MB (CK-2) 2.5 ng/mL (0.0-3.6) 06/26/17 15:40 CK-MB (CK-2) % Cancelled 06/24/17 18:27 Troponin I 0.11 ng/mL D 06/26/17 15:40 Total Protein 5.9 g/dL (5.8-8.3) 06/27/17 06:00 Albumin 2.8 g/dL (3.0-4.8) L 06/27/17 06:00 Globulin 3.0 gm/dL 06/27/17 06:00 Albumin/Globulin Ratio 0.9 (1.1-1.8) L 06/27/17 06:00 Lipase 3237 U/L (23-300) H 06/24/17 18:27 - Hospital Course Hospital Course: 61 year old male with past medical history of pancreatic cancer (diagnosed 2017), COPD, Hypertension, DM, presents for intractable epigastric pain, likely from pancreatic cancer. Pt also found to have T wave inversions in leads V3, V4 on ekG, mildly elevated troponins, downtrended. Cardiology (Dr Talavera) on board , recommended conservative management. Pt's pain controlled, tolerating PO diet well. Pt had electrolyte imbalance, hypokalemic and hypophosphatemia, repleted. Pt also had a mechanical fall last night, states that he forgot to use his home cane and tripped on the IV pole. Dr Miller's office contacted regarding patient's pancreatic cancer, pt scheduled to have chemotherapy session tomorrow. Pt has an appointment with Dr Oquendo on Sunday, and with Pain management on Sunday. Pt discharged on pancreatic enzymes, pain medication, and other home meds as per medication reconciliation. Palliative consult obtained, however patient wants all treatment and wants to be full code. Pt stable for discharge, and encouraged to follow up with all doctors outpatient. Note that this is a review of hospital course. For further details, review the medical records. Case seen and discussed with Dr Scott. Veronica Sharif, PGY1 Discharge Exam - Head Exam Head Exam: NORMAL INSPECTION - Eye Exam Eye Exam: EOMI, PERRL. absent: Conjunctival injection, Nystagmus, Periorbital swelling, Scleral icterus Pupil Exam: NORMAL ACCOMODATION, PERRL. absent: Fixed, Irregular, Unequal - ENT Exam ENT Exam: Mucous Membranes Moist - Neck Exam Neck exam: Full Rom - Respiratory Exam Respiratory Exam: Clear to PA & Lateral, NORMAL BREATHING PATTERN - Cardiovascular Exam Cardiovascular Exam: RRR, +S1, +S2. absent: Systolic Murmur - GI/Abdominal Exam GI & Abdominal Exam: Normal Bowel Sounds, Soft. absent: Distended, Firm, Guarding, Mass, Organomegaly, Rebound, Rigid, Tenderness - Extremities Exam Extremities exam: normal inspection - Back Exam Back exam: NORMAL INSPECTION - Neurological Exam Neurological exam: Alert, Oriented x3 - Psychiatric Exam Psychiatric exam: Normal Affect, Normal Mood - Skin Skin Exam: Dry, Normal Color, Warm Discharge Plan - Discharge Medications Prescriptions: Albuterol Sulfate [Ventolin Hfa] 1 puff IH Q6H #1 ml Aspirin [Aspirin Chewable] 81 mg PO DAILY 30 Days chew Atorvastatin [Lipitor] 40 mg PO DAILY 14 Days tab oxyCODONE [oxyCODONE Immediate Release Tab] 10 mg PO Q6H PRN #12 tab PRN Reason: Pain, Severe (8-10) - Follow Up Plan Condition: STABLE Disposition: HOME/ ROUTINE Instructions: Quitting Smoking for Older Adults, Heart Attack (DC), Pancreatic Cancer (DC), Acute Abdominal Pain (DC), Acute Abdominal Pain (GEN) Additional Instructions: - Take oxycodone as needed for pain. - Avoid taking percocet or tylenol as your liver function tests are elevated. Follow up with PMD in 1-2 weeks. - Take lipitor 40 mg Po daily. Repeat lipid levels outpatient in 4-6 weeks, follow up with PMD. - Follow up with Dr Pryor, your primary care doctor, in 1 week - Follow up with Dr. Talvaera, your diversity manager in 1 week. - Follow up with Dr. Oquendo, your oncologist in 1 week. - Follow up with Dr. Gonzalez, your GI doctor in 2 week. - Return to ER for any concerns. Referrals: Nick Oquendo MD [Medical Doctor] - Daryl Talavera MD [Staff Provider] - Dinh Gonzalez MD [Staff Provider] - Kavon Pryor MD [Primary Care Provider] - <Marlene Scott - Last Filed: 06/27/17 17:53> Provider - Provider Date of Admission: 06/24/17 20:00 Attending physician: Marlene Scott MD Primary care physician: Kavon Pryor MD Hospital Course - Lab Results Lab Results: Most Recent Lab Values WBC 4.3 10^3/ul (4.5-11.0) L D 06/27/17 06:00 RBC 3.25 10^6/uL (3.5-6.1) L 06/27/17 06:00 Hgb 10.2 g/dL (14.0-18.0) L 06/27/17 06:00 Hct 30.5 % (42.0-52.0) L 06/27/17 06:00 MCV 93.8 fl (80.0-105.0) 06/27/17 06:00 MCH 31.4 pg (25.0-35.0) 06/27/17 06:00 MCHC 33.4 g/dl (31.0-37.0) 06/27/17 06:00 RDW 13.0 % (11.5-14.5) 06/27/17 06:00 Plt Count 109 10^3/uL (120.0-450.0) L 06/27/17 06:00 MPV 9.5 fl (7.0-11.0) 06/27/17 06:00 Gran % 67.4 % (50.0-68.0) 06/27/17 06:00 Lymph % (Auto) 30.0 % (22.0-35.0) 06/27/17 06:00 [place] % (Auto) 2.1 % (1.0-6.0) 06/27/17 06:00 Eos % (Auto) 0.5 % (1.5-5.0) L 06/27/17 06:00 Baso % (Auto) 0.0 % (0.0-3.0) 06/27/17 06:00 Gran # 2.88 (1.4-6.5) 06/27/17 06:00 Lymph # (Auto) 1.3 (1.2-3.4) 06/27/17 06:00 [place] # (Auto) 0.1 (0.1-0.6) 06/27/17 06:00 Eos # (Auto) 0.0 (0.0-0.7) 06/27/17 06:00 Baso # (Auto) 0.00 K/mm3 (0.0-2.0) 06/27/17 06:00 PT 21.9 SECONDS (9.4-12.5) H 06/25/17 05:30 INR 1.88 (0.93-1.08) H 06/25/17 05:30 APTT 23.8 Seconds (25.1-36.5) L 06/25/17 05:30 Sodium 139 mmol/L (132-148) 06/27/17 06:00 Potassium 4.1 mmol/L (3.6-5.0) 06/27/17 06:00 Chloride 100 mmol/L (98-107) 06/27/17 06:00 Carbon Dioxide 33 mmol/L (21-33) 06/27/17 06:00 Anion Gap 10 (10-20) 06/27/17 06:00 BUN 13 mg/dL (7-21) 06/27/17 06:00 Creatinine 0.5 mg/dl (0.8-1.5) L 06/27/17 06:00 Est GFR ( Amer) > 60 06/27/17 06:00 Est GFR (Non-Af Amer) > 60 06/27/17 06:00 POC Glucose (mg/dL) 156 mg/dL (65-110) H 06/27/17 11:38 Random Glucose 72 mg/dL (70-110) 06/27/17 06:00 Hemoglobin A1c 6.1 % (4.2-6.5) 06/25/17 14:10 Calcium 7.7 mg/dL (8.4-10.5) L 06/27/17 06:00 Phosphorus 2.1 mg/dL (2.5-4.5) L 06/27/17 06:00 Magnesium 1.8 mg/dL (1.7-2.2) 06/27/17 06:00 Total Bilirubin 0.9 mg/dL (0.2-1.3) 06/27/17 06:00 AST 75 U/L (17-59) H 06/27/17 06:00 ALT 94 U/L (7-56) H 06/27/17 06:00 Alkaline Phosphatase 111 U/L (38-126) 06/27/17 06:00 Lactate Dehydrogenase 995 U/L (333-699) H 06/26/17 15:40 Total Creatine Kinase 709 U/L (35-230) H 06/26/17 15:40 CK-MB (CK-2) 2.5 ng/mL (0.0-3.6) 06/26/17 15:40 CK-MB (CK-2) % Cancelled 06/24/17 18:27 Troponin I 0.11 ng/mL D 06/26/17 15:40 Total Protein 5.9 g/dL (5.8-8.3) 06/27/17 06:00 Albumin 2.8 g/dL (3.0-4.8) L 06/27/17 06:00 Globulin 3.0 gm/dL 06/27/17 06:00 Albumin/Globulin Ratio 0.9 (1.1-1.8) L 06/27/17 06:00 Triglycerides 32 mg/dL (35-160) L 06/27/17 05:30 Cholesterol 72 mg/dL (130-200) L 06/27/17 05:30 LDL Cholesterol Direct < 30 mg/dL (0-129) 06/27/17 05:30 HDL Cholesterol 50 mg/dL (29-60) 06/27/17 05:30 Lipase 3237 U/L (23-300) H 06/24/17 18:27 Attending/Attestation - Attestation I have personally seen and examined this patient.: Yes I have fully participated in the care of the patient.: Yes I have reviewed all pertinent clinical information, including history, physical exam and plan: Yes Notes (Text): 06/27/17 17:50 61 year old male with past medical history of pancreatic cancer, COPD, hypertension and diabetes who presented with complaint of nausea, vomiting and epigastric pain. He was found to have elevated cardiac enzymes and admitted for possible NSTEMI. He is being followed by cardiology who recommended conservative management. He is on aspirin and statin. He is not on BB secondary to bradycardia. His nausea/vomiting have resolved. Reports chronic abdominal pain for which he is on oxycodone. Importance of outpatient follow up with his pmd, bumper straightener and oncologist were again emphasized to the patient today. He states he is on outpatient chemotherapy. Palliative care evaluation was appreciated. His hypokalemia and hypophosphatemia have improved. Patient will be discharged home to follow up with pmd. Follow up with bumper straightener and oncologist. Marlene Scott MD Hospitalist.
--- NOTE | 2017-06-27 12:00 | PN ---
DATE: 06/27/2017 SUBJECTIVE: The patient is seen lying in bed on telemetry. He feels weak. He denies any chest pain. CURRENT MEDICATIONS: Include albuterol inhaler, aspirin, IV fluids, subcutaneous heparin, Zenpep, Lipitor, Neutra-Phos, Nicoderm patch, Norvasc 10 mg daily, Protonix 40 mg t.i.d. OBJECTIVE: GENERAL: He is a cachectic middle-aged man. VITAL SIGNS: His blood pressure is 110/76 with pulse 64 and sinus, respirations are 16. He is afebrile. HEENT: No temporal wasting noted. No JVD. CHEST: Few scattered rhonchi. HEART: No pathological murmur or gallops noted. ABDOMEN: Soft. Bowel sounds present. EXTREMITIES: Extensive muscle wasting noted. No edema. DIAGNOSTIC DATA: Potassium 4.1, BUN and creatinine 13 and 0.5. White count 4.3, hemoglobin and hematocrit of 10.2 and 30.5 with platelet count of 109,000. Followup troponin is 0.11. Total CK is 709 with a negative MB fraction. IMPRESSION: 1. Advanced pancreatic cancer. 2. Mildly elevated troponins, doubt this represents true myocardial infarction. 3. History of tobacco abuse and chronic obstructive pulmonary disease. 4. History of hypertension and apparent diabetes. RECOMMENDATIONS: Conservative management is most appropriate at this time. No further cardiac enzymes need be drawn. Given his cachectic state, I would not continue to treat with high-dose statin either. Telemetry can be discontinued at this time. Comfort care and pain control should be the main treatment goal at this time. We will be happy to follow along in the future if needed. Tapan Holt MD
[2017-06-27 12:13] VITALS: BP 119/87; PULSE 93; RESP 20; TEMP 97.6
[2017-06-27 14:07] LABS: HDL CHOLESTEROL 50 mg/dL (29-60)
[2017-06-27 14:20] LABS: LDL CHOLESTEROL < 30 mg/dL (0-129)
== END 2017-06-27 15:38 | disposition home or self-care (01) | DRG 122 ==
LOC: ED 17:23 → ERH 20:00 → 2RNO 21:30
PROVIDERS: ADMIT Hospitalist; ATTEND Internal Medicine
DX: I21.4 Non-ST elevation (NSTEMI) myocardial infarction (principal); E11.649 Type 2 diabetes mellitus with hypoglycemia without coma; E87.6 Hypokalemia; J43.9 Emphysema, unspecified; K92.0 Hematemesis; R64 Cachexia; C25.0 Malignant neoplasm of head of pancreas; E83.39 Other disorders of phosphorus metabolism; F12.90 Cannabis use, unspecified, uncomplicated; F17.210 Nicotine dependence, cigarettes, uncomplicated; G89.29 Other chronic pain; I10 Essential (primary) hypertension; Z87.19 Personal history of other diseases of the digestive system; I25.2 Old myocardial infarction; W18.30XA Fall on same level, unspecified, initial encounter; Z79.82 Long term (current) use of aspirin; Z79.899 Other long term (current) drug therapy; R10.13 Epigastric pain

== ENCOUNTER 2017-07-01 13:37 | Inpatient (IN) | payer OTHER ==
[2017-07-01 13:38] VITALS: BMI 13.9
--- NOTE | 2017-07-01 13:55 | ED PDOC ---
Arrival/HPI - General Time Seen by Provider: 07/01/17 13:44 Historian: Family - History of Present Illness Narrative History of Present Illness (Text): 07/01/17 13:46 61 year old male, whose medical history includes pancreatic cancer, presents to the Emergency department status post being found unresponsive. As per brother-in -law, patient was visited by family in the morning and he ate pancakes. Later, the [id number] stopped by, found the patient unresponsive, and called emergency services. Patient was found with a bottle of Oxycodone issued on 06/27 containing 2 pills; patient was given Narcan and his breathing improved but he did not yet return to full consciousness. Patient's blood sugar level was then measured to be 30; he was given an amp of D50 and woke up. While in the Emergency department, the patient's condition is improved and he is able to answer questions. Time/Duration: 1-3 hours Symptom Onset: Sudden Symptom Course: Improving Context: Home Past Medical History - Provider Review Nursing Documentation Reviewed: Yes - Past History Past History: No Previous - Infectious Disease Hx of Infectious Diseases: None - Tetanus Immunization Tetanus Immunization: Up to Date - Cardiac Hx Cardiac Disorders: Yes Hx Hypertension: Yes - Pulmonary Hx Chronic Obstructive Pulmonary Disease (COPD): Yes - Neurological Hx Neurological Disorder: No Hx Dizziness: Yes - HEENT Hx HEENT Disorder: No - Renal Hx Renal Disorder: No - Endocrine/Metabolic Hx Diabetes Mellitus Type 2: Yes - Hematological/Oncological Hx Blood Disorders: No - Integumentary Hx Dermatological Disorder: No - Musculoskeletal/Rheumatological Hx Musculoskeletal Disorders: Yes Hx Back Pain: Yes Hx Falls: No - Gastrointestinal Hx Gastrointestinal Disorders: Yes Hx Pancreatitis: Yes Other/Comment: DIARRHEA, ABDOMINAL PAIN - Genitourinary/Gynecological Hx Genitourinary Disorders: No - Psychiatric Hx Psychophysiologic Disorder: No Hx Anxiety: No Hx Bipolar Disorder: No Hx Depression: Yes Hx Emotional Abuse: No Hx Hallucinations: No Hx Panic Disorder: No Hx Post Traumatic Stress Disorder: No Hx Psychosis: No Hx Physical Abuse: No Hx Schizophrenia: No Hx Sexual Abuse: No Hx Substance Use: Yes (Marijuana) - Past Surgical History Past Surgical History: No Previous - Surgical History Other/Comment: BRONCHOSCOPY, EGD EUS - Anesthesia Hx Anesthesia: Yes Hx Anesthesia Reactions: No Hx Malignant Hyperthermia: No - Suicidal Assessment Feels Threatened In Home Enviroment: No Family/Social History - Physician Review Nursing Documentation Reviewed: Yes Family/Social History: Unknown Family HX Smoking Status: Current Some Days Smoker Hx Alcohol Use: No Hx Substance Use: Yes (Marijuana) Substance used: marijuana Amount: 1 Hx Substance Use Treatment: No Allergies/Home Meds Allergies/Adverse Reactions: Allergies No Known Allergies Allergy (Verified 04/30/17 11:04) Home Medications: Home Meds Medication Instructions Recorded Confirmed Pantoprazole [Protonix EC Tab] 40 mg PO TID 04/30/17 07/01/17 Lipase/Protease/Amylase [Zenpep Dr 1 each PO WM 06/25/17 07/01/17 25,000 Unit Capsule] Review of Systems - Physician Review All systems were reviewed & negative as marked: Yes - Review of Systems Constitutional: absent: Fevers Respiratory: absent: Cough Physical Exam Vital Signs Reviewed: Yes Vital Signs Temp Pulse Resp BP Pulse Ox 07/01/17 17:15 98.9 F 69 18 126/89 07/01/17 17:00 98.9 F 69 18 126/89 98 07/01/17 15:38 68 18 131/98 H 100 07/01/17 13:38 97.9 F 93 H 18 146/109 H 100 Appearance: Positive for: Other (thin, emaciated) - Systems Exam Head: Present: Atraumatic, Normocephalic Pupils: Present: PERRL Extroacular Muscles: Present: EOMI Conjunctiva: Present: Normal Mouth: Present: Moist Mucous Membranes Neck: Present: Normal Range of Motion Respiratory/Chest: Present: Clear to Auscultation, Good Air Exchange. No: Respiratory Distress, Accessory Muscle Use Cardiovascular: Present: Regular Rate and Rhythm, Normal S1, S2. No: Murmurs Abdomen: No: Tenderness, Distention, Peritoneal Signs Back: Present: Normal Inspection Upper Extremity: Present: Normal Inspection. No: Cyanosis, Edema Lower Extremity: Present: Normal Inspection. No: Edema Neurological: Present: GCS=15, CN II-XII Intact, Speech Normal Skin: Present: Warm, Dry, Normal Color. No: Rashes Psychiatric: Present: Alert, Oriented x 3, Normal Insight, Normal Concentration Medical Decision Making ED Course and Treatment: 07/01/17 13:57 Impression: 61 year old male presents to the Emergency department status post being found unresponsive at home. Plan: -- Chest xray -- EKG -- Urinalysis, urine drug screen -- Labs -- Dextrose 5% & 0.9% Sodium Chloride IV -- Reassess and disposition Prior Visits: Notes and results from previous visits were reviewed. Patient was last seen in the emergency department on 06/24/17, was diagnosed with Pancreatic cancer, Abnormal EKG, Epigastric abdominal pain, Elevated troponin, NSTEMI (non-ST elevated myocardial infarction), Hypoglycemia, and was admitted to Telemetry. Progress Notes: - Lab Interpretations Lab Results: 07/01/17 14:09 07/01/17 14:09 Lab Results 07/01/17 14:09: Alcohol, Quantitative < 10 07/01/17 14:09: Sodium 140, Potassium 4.7, Chloride 95 L, Carbon Dioxide 32, Anion Gap 19, BUN 39 H, Creatinine 0.8, Est GFR ( Amer) > 60, Est GFR ( Non-Af Amer) > 60, Random Glucose 146 H, Calcium 8.5, Total Bilirubin 1.5 H, AST 202 H D, ALT 189 H, Alkaline Phosphatase 168 H D, Lactate Dehydrogenase 1169 H, Total Creatine Kinase 422 H, CK-MB (CK-2) 3.1, CK-MB (CK-2) % Cancelled , Troponin I 0.03 D, NT-Pro-B Natriuret Pep 1980 H, Total Protein 7.6, Albumin 4.0, Globulin 3.6, Albumin/Globulin Ratio 1.1, Lipase 2150 H 07/01/17 14:09: PT 22.9 H, INR 1.98 H 07/01/17 14:09: WBC 4.1 L, RBC 4.08, Hgb 13.0 L D, Hct 37.8 L, MCV 92.6, MCH 31.9, MCHC 34.4, RDW 12.7, Plt Count 105 L, MPV 9.9, Gran % 77.9 H, Lymph % ( Auto) 21.9 L, [place]ah % (Auto) 0.2 L, Eos % (Auto) 0.0 L, Baso % (Auto) 0.0, Gran # 3.17, Lymph # (Auto) 0.9 L, [place]ah # (Auto) 0.0 L, Eos # (Auto) 0.0, Baso # ( Auto) 0.00 07/01/17 13:43: POC Glucose (mg/dL) 96 - RAD Interpretation Radiology Orders: 07/01/17 14:00 CHEST PORTABLE [RAD] Stat - EKG Interpretation EKG Interpretation (Text): 07/01/17 13:48 EKG: Ordered, reviewed, and independently interpreted the EKG. Rate : 109 BPM Rhythm : Sinus Tachycardia Interpretation : Anteroseptal infarct, age undetermined. Interpreted by ED Physician: Yes Type: 12 lead EKG - Medication Orders Current Medication Orders: Albuterol/Ipratropium (Duoneb 3 Mg/0.5 Mg (3 Ml) Ud) 3 ml IH [id number] PRN PRN Reason: Shortness of Breath Albuterol/Ipratropium (Duoneb 3 Mg/0.5 Mg (3 Ml) Ud) 3 ml IH [id number] [facility] Last Admin: 07/05/17 01:08 Dose: Not Given Non-Admin Reason: Patient Asleep Amlodipine Besylate (Norvasc) 10 mg PO DAILY [facility] Last Admin: 07/04/17 09:30 Dose: 10 mg MAR Blood Pressure Document 07/04/17 09:30 (Rec: 07/04/17 09:30 [id number]) Blood Pressure Blood Pressure (100/60-150/90) 100/75 Amylase (Pancrease 05469 U-5000 U-50632 U) 5,000 unit PO WM [facility] Last Admin: 07/04/17 17:05 Dose: 5,000 unit Docusate Sodium (Colace) 100 mg PO DAILY [facility] Last Admin: 07/04/17 09:30 Dose: 100 mg Dextrose/Sodium Chloride (Dextrose 5%/0.45% Ns 1000 Ml) 1,000 mls @ 80 mls/hr IV .[id number] [facility] Last Admin: 07/04/17 21:40 Dose: 80 mls/hr eMAR Start Stop Document 07/04/17 21:40 MV (Rec: 07/04/17 21:40 MV [email or web address]) Intravenous Solution Start Date 07/04/17 Start Time 21:40 End Date 07/04/17 Megestrol Acetate (Megace) 800 mg PO DAILY [facility] Last Admin: 07/04/17 13:09 Dose: 800 mg Morphine Sulfate (Morphine) 2 mg IVP Q4H PRN PRN Reason: Pain, moderate (4-7) Last Admin: 07/05/17 03:36 Dose: 2 mg [facility] Pain Assessment Document 07/05/17 03:36 MV (Rec: 07/05/17 03:36 [facility] Pain Reassessment Is this a pain reassessment? No Sleep Is patient sleeping during reassessment? No Presence of Pain Presence of Pain Yes Pain Scale Used Pain Scale Used Numeric Location Pain Location Body Site Abdomen Description Description Constant Pain Behavior Irritability Alleviating Factors/Management Medication Techniques Alleviating Factors Medication IVP Administration Document 07/05/17 03:36 MV (Rec: 07/05/17 03:36 MV [facility] Charges for Administration # of IVP Administrations 1 Re-Assess: [facility] Pain Assessment Document 07/05/17 04:36 MV (Rec: 07/05/17 05:31 [facility] Pain Reassessment Is this a pain reassessment? Yes Sleep Is patient sleeping during reassessment? Yes Morphine Sulfate (Morphine Extended Release Tab) 15 mg PO Q12 [facility] Last Admin: 07/04/17 21:39 Dose: 15 mg [facility] Pain Assessment Document 07/04/17 21:39 MV (Rec: 07/04/17 21:39 MV [facility] Pain Reassessment Is this a pain reassessment? No Sleep Is patient sleeping during reassessment? No Presence of Pain Presence of Pain Yes Pain Scale Used Pain Scale Used Numeric Location Pain Location Body Site Abdomen Description Description Constant Intensity of Pain at present 8 Pain Behavior Irritability Alleviating Factors/Management Medication Techniques Alleviating Factors Medication Re-Assess: [facility] Pain Assessment Document 07/04/17 22:39 MV (Rec: 07/05/17 04:08 MV [facility] [id number] Pain Reassessment Is this a pain reassessment? Yes Sleep Is patient sleeping during reassessment? Yes Ondansetron HCl (Zofran Inj) 4 mg IVP Q6H PRN PRN Reason: Nausea/Vomiting Pantoprazole Sodium (Protonix Ec Tab) 40 mg PO ACB [facility] Last Admin: 07/04/17 07:54 Dose: 40 mg Discontinued Medications Aspirin (Aspirin Chewable) 81 mg PO DAILY [facility] Last Admin: 07/04/17 09:30 Dose: 81 mg Dextrose (Dextrose 50% Inj) 50 ml IVP ONCE ONE Stop: 07/01/17 22:39 Last Admin: 07/01/17 22:45 Dose: 50 ml IVP Administration Document 07/01/17 22:45 OLIVD (Rec: 07/01/17 22:46 OLIVD [id number]) Charges for Administration # of IVP Administrations 1 Dextrose (Dextrose 50% Inj) 50 ml IV STAT STA Stop: 07/02/17 07:16 Last Admin: 07/02/17 07:30 Dose: 50 ml eMAR Start Stop Document 07/02/17 07:30 MV (Rec: 07/02/17 08:51 MV [id number]) Intravenous Solution Start Date 07/02/17 Start Time 08:50 Dextrose (Dextrose 50% Inj) 50 ml IVP ONCE ONE Stop: 07/02/17 22:56 Last Admin: 07/02/17 23:01 Dose: 50 ml IVP Administration Document 07/02/17 23:01 FC (Rec: 07/02/17 23:01 FC [id number]) Charges for Administration # of IVP Administrations 1 Dextrose (Dextrose 50% Inj) 25 ml IVP STAT STA Stop: 07/04/17 22:38 Last Admin: 07/04/17 22:47 Dose: 25 ml IVP Administration Document 07/04/17 22:47 MV (Rec: 07/04/17 22:47 MV [facility] Charges for Administration # of IVP Administrations 1 Dextrose/Sodium Chloride (Dextrose 5%/0.9% Ns 1000 Ml) 2,000 mls @ 999 mls/hr IV .Q2H1M [facility] Last Admin: 07/01/17 14:08 Dose: 999 mls/hr eMAR Start Stop Document 07/01/17 14:08 EWO (Rec: 07/01/17 14:08 EWO [id number] Intravenous Solution Start Date 07/01/17 Start Time 14:08 End Date 07/01/17 End time 16:08 Total Infusion Time 120 Dextrose/Sodium Chloride (Dextrose 5%/0.45% Ns 1000 Ml) 1,000 mls @ 80 mls/hr IV .[id number] [facility] Last Admin: 07/03/17 21:00 Dose: 80 mls/hr eMAR Start Stop Document 07/03/17 21:00 MV (Rec: 07/04/17 06:00 [facility] Intravenous Solution Start Date 07/04/17 Start Time 02:00 Potassium Chloride 40 meq/ (Dextrose/Sodium Chloride) 1,020 mls @ 80 mls/hr IV .[id number] [facility] Phytonadione 5 mg/ Sodium (Chloride) 50.5 mls @ 100 mls/hr IV ONCE ONE Stop: 07/04/17 12:55 Last Admin: 07/04/17 13:27 Dose: 100 mls/hr eMAR Start Stop Document 07/04/17 13:27 (Rec: 07/04/17 13:27 [id number]) Intravenous Solution Start Date 07/04/17 Start Time 13:27 End Date 07/04/17 End time 13:57 Total Infusion Time 30 Insulin Human Regular (Humulin R Low) 0 units SC ACHS [facility] PRN Reason: Protocol Last Admin: 07/02/17 12:57 Dose: Not Given Non-Admin Reason: Patient Refused Morphine Sulfate (Morphine) 1 mg IVP Q6H PRN PRN Reason: Pain, severe (8-10) Last Admin: 07/02/17 09:51 Dose: 1 mg [facility] Pain Assessment Document 07/02/17 09:51 MV (Rec: 07/02/17 09:52 MV [place] [id number]) Pain Reassessment Is this a pain reassessment? No Sleep Is patient sleeping during reassessment? Yes IVP Administration Document 07/02/17 09:51 MV (Rec: 07/02/17 09:52 MV [place] [id number]) Charges for Administration # of IVP Administrations 1 Re-Assess: MAR Pain Assessment Document 07/02/17 10:51 FC (Rec: 07/03/17 02:08 [email or web address] Pain Reassessment Is this a pain reassessment? Yes Presence of Pain Presence of Pain No Morphine Sulfate (Morphine) 1 mg IVP Q6H PRN PRN Reason: Pain, severe (8-10) Morphine Sulfate (Morphine) 2 mg IVP Q4H PRN PRN Reason: Pain, severe (8-10) Last Admin: 07/03/17 12:00 Dose: 2 mg MAR Pain Assessment Document 07/03/17 12:00 (Rec: 07/03/17 12:10 [facility] Pain Reassessment Is this a pain reassessment? No Presence of Pain Presence of Pain Yes IVP Administration Document 07/03/17 12:00 (Rec: 07/03/17 12:10 [email or web address]) Charges for Administration # of IVP Administrations 1 Re-Assess: [facility] Pain Assessment Document 07/03/17 13:00 (Rec: 07/03/17 15:30 [email or web address]) Pain Reassessment Is this a pain reassessment? Yes Sleep Is patient sleeping during reassessment? Yes Morphine Sulfate (Morphine) 1 mg IVP Q6H PRN PRN Reason: Pain, moderate (4-7) Last Admin: 07/04/17 11:50 Dose: 1 mg [facility] Pain Assessment Document 07/04/17 11:50 (Rec: 07/04/17 11:50 [id number]) Pain Reassessment Is this a pain reassessment? No Presence of Pain Presence of Pain Yes IVP Administration Document 07/04/17 11:50 (Rec: 07/04/17 11:50 [id number]) Charges for Administration # of IVP Administrations 1 Re-Assess: [facility] Pain Assessment Document 07/04/17 12:50 (Rec: 07/04/17 14:51 [id number]) Pain Reassessment Is this a pain reassessment? Yes Sleep Is patient sleeping during reassessment? Yes Morphine Sulfate (Morphine) 2 mg IVP STAT STA Stop: 07/04/17 07:47 Last Admin: 07/04/17 07:54 Dose: 2 mg [facility] Pain Assessment Document 07/04/17 07:54 (Rec: 07/04/17 07:58 [id number]) Pain Reassessment Is this a pain reassessment? No Presence of Pain Presence of Pain Yes Pain Scale Used Pain Scale Used Numeric Location Upper or Lower Lower Pain Location Body Site Abdomen Description Description Constant Intensity of Pain at present 7 Acceptable Level of Pain 0 Pain Behavior Irritability Rubbing Site Aggravating Factors Contant Alleviating Factors/Management Medication Techniques Alleviating Factors Medication IVP Administration Document 07/04/17 07:54 (Rec: 07/04/17 07:58 [id number]) Charges for Administration # of IVP Administrations 1 Re-Assess: [facility] Pain Assessment Document 07/04/17 08:53 (Rec: 07/04/17 08:53 [email or web address]) Pain Reassessment Is this a pain reassessment? Yes Presence of Pain Presence of Pain Yes Pantoprazole Sodium (Protonix Inj) 40 mg IVP DAILY [facility] Potassium Chloride (K-Dur 20 Meq Er Tab) 40 meq PO ONCE ONE Stop: 07/03/17 08:45 Last Admin: 07/03/17 09:45 Dose: 40 meq - Scribe Statement The provider has reviewed the documentation as recorded by the Suzanne Puentes All medical record entries made by the Suzanne were at my direction and personally dictated by me. I have reviewed the chart and agree that the record accurately reflects my personal performance of the history, physical exam, medical decision making, and the department course for this patient. I have also personally directed, reviewed, and agree with the discharge instructions and disposition. Disposition/Present on Arrival - Present on Arrival Any Indicators Present on Arrival: No History of DVT/PE: No History of Uncontrolled Diabetes: No Urinary Catheter: No History of Decub. Ulcer: No History Surgical Site Infection Following: None - Disposition Have Diagnosis and Disposition been Completed?: Yes Diagnosis: Pancreatitis, Cachectic, Weakness Disposition: HOSPITALIZED Disposition Time: 15:00 Patient Plan: Admission Patient Problems: Current Active Problems Problem Status Onset Cachectic Acute Pancreatitis Acute Weakness Acute Condition: GOOD
[2017-07-01] MEDS ORDERED: DEXTROSE IV SCH (14:00)
[2017-07-01] MEDS ORDERED: NS IV SCH (14:00)
[2017-07-01 14:14] LABS: GRAN # 3.17 (1.4-6.5); GRAN % 77.9 % (50.0-68.0); LYMPH # 0.9 (1.2-3.4); LYMPH % 21.9 % (22.0-35.0); MEAN CELL VOLUME 92.6 fl (80.0-105.0); MEAN CORPUSCULAR HEMOGLOBIN 31.9 pg (25.0-35.0); MEAN CORPUSCULAR HGB CONC 34.4 g/dl (31.0-37.0); MEAN PLATELET VOLUME 9.9 fl (7.0-11.0); MONO % 0.2 % (1.0-6.0); RBC 4.08 10^6/uL (3.5-6.1); RED CELL DISTRIBUTION WIDTH 12.7 % (11.5-14.5); WHITE BLOOD COUNT 4.1 10^3/ul (4.5-11.0)
[2017-07-01 14:19] LABS: INR 1.98 (0.93-1.08); PROTHROMBIN TIME 22.9 SECONDS (9.4-12.5)
[2017-07-01 14:23] LABS: ALB/GLOB RATIO 1.1 (1.1-1.8); ALT/SGPT 189 U/L (7-56); AST/SGOT 202 U/L (17-59); BLOOD UREA NITROGEN 39 mg/dL (7-21); CALCIUM 8.5 mg/dL (8.4-10.5); GFR AFRICAN-AMERICAN > 60; GFR NON-AFRICAN AMERICAN > 60
--- NOTE | 2017-07-01 14:23 | RAD ---
HISTORY: Narcotic Overdose COMPARISON: No comparison made with chest radiograph 06/24/[address] scan chest 04/17/2013. FINDINGS: LUNGS: Re- demonstrated are extensive emphysematous changes. Significant fibronodular scarring bleb and bullous changes both lung apices. . Biapical pleural thickening right greater than left No focal consolidation PLEURA: No significant pleural effusion identified, no pneumothorax apparent. CARDIOVASCULAR: Normal. OSSEOUS STRUCTURES: No significant abnormalities. VISUALIZED UPPER ABDOMEN: Normal. OTHER FINDINGS: None. IMPRESSION: Re- demonstrated are extensive emphysematous changes. Significant fibronodular scarring bleb and bullous changes both lung apices. . Biapical pleural thickening right greater than left No focal consolidation
[2017-07-01 14:34] LABS: B-TYPE NATRIURETIC PEPTIDE 1980 pg/mL (0-450); TROPONIN I 0.03 ng/mL
[2017-07-01 14:36] LABS: LIPASE 2150 U/L (23-300)
[2017-07-01 14:38] LABS: CK-MB 3.1 ng/mL (0.0-3.6)
[2017-07-01] MEDS ORDERED: Albuterol-Ipratrop 3 mg / 0.5 (3 ml) UD IH PRN (17:11)
--- NOTE | 2017-07-01 17:20 | CP.PCM.HP ---
<Manoj Griffin - Last Filed: 07/01/17 17:13> History of Present Illness - History of Present Illness History of Present Illness: H&P for Hospitalist service - Aaron Griffin PGY2 cc: AMS HPI: Patient is a 61yo male with past medical history of pancreatic cancer diagnosed 04/2017, hypertension, COPD, DM and NSTEMI that presented to [facility] [place] with report of altered mental status. Patient was found at home by his brother laying next to a bottle of oxycodone at which point EMS was called. He was given narcan in the field and reportedly had moderate improvement. Blood sugar was noted to be 30 and he was subsequently given D50. Patient is a poor historian and reported not recalling the events earlier in the day. Per brother , he had been fine earlier this morning and had eaten breakfast however upon checking on the patient later in the day he found him unresponsive. He denied chest pain, palpitations, SOB, abdominal pain, nausea, vomiting, fever, chills, cough, focal weakness, numbness, tingling. 12point ROS as per HPI above otherwise negative PMH: as stated above PSH: denies Allergies: NKDA Social History: Smokes 7-8 cigarettes a day, smokes marijuana, denies alcohol use Family Hx: Non-contributory Patient is 61 year old male with past medical history of pancreatic cancer, COPD , Hypertension, DM presented to [facility] [place] for worsening abdominal pain. Present on Admission - Present on Admission Any Indicators Present on Admission: No Past Patient History - Infectious Disease Hx of Infectious Diseases: None - Tetanus Immunizations Tetanus Immunization: Up to Date - Past Medical History & Family History Past Medical History?: Yes - Past Social History Smoking Status: Current Some Days Smoker - CARDIAC Hx Cardiac Disorders: Yes Hx Hypertension: Yes - PULMONARY Hx Chronic Obstructive Pulmonary Disease (COPD): Yes - NEUROLOGICAL Hx Neurological Disorder: No Hx Dizziness: Yes - HEENT Hx HEENT Problems: No - RENAL Hx Chronic Kidney Disease: No - ENDOCRINE/METABOLIC Hx Diabetes Mellitus Type 2: Yes - HEMATOLOGICAL/ONCOLOGICAL Hx Blood Disorders: No - INTEGUMENTARY Hx Dermatological Problems: No - MUSCULOSKELETAL/RHEUMATOLOGICAL Hx Musculoskeletal Disorders: Yes Hx Back Pain: Yes Hx Falls: No - GASTROINTESTINAL Hx Gastrointestinal Disorders: Yes Hx Pancreatitis: Yes Other/Comment: DIARRHEA, ABDOMINAL PAIN - GENITOURINARY/GYNECOLOGICAL Hx Genitourinary Disorders: No - PSYCHIATRIC Hx Psychophysiologic Disorder: No Hx Anxiety: No Hx Bipolar Disorder: No Hx Depression: Yes Hx Emotional Abuse: No Hx Hallucinations: No Hx Panic Symptoms: No Hx Post Traumatic Stress Disorder: No Hx Psychosis: No Hx Physical Abuse: No Hx Schizophrenia: No Hx Sexual Abuse: No Hx Substance Use: Yes (Marijuana) - SURGICAL HISTORY Other/Comment: BRONCHOSCOPY, EGD EUS - ANESTHESIA Hx Anesthesia: Yes Hx Anesthesia Reactions: No Hx Malignant Hyperthermia: No Meds Allergies/Adverse Reactions: Allergies Allergy/AdvReac Type Severity Reaction Status Date / Time No Known Allergies Allergy Verified 04/30/17 11:04 Physical Exam - Constitutional Appears: Cachectic, Chronically Ill - Head Exam Head Exam: ATRAUMATIC, NORMOCEPHALIC - Eye Exam Eye Exam: EOMI, PERRL - ENT Exam ENT Exam: Mucous Membranes Moist - Respiratory Exam Respiratory Exam: Decreased Breath Sounds. absent: Rales, Rhonchi, Wheezes - Cardiovascular Exam Cardiovascular Exam: RRR, +S1, +S2. absent: Gallop, Rubs - GI/Abdominal Exam GI & Abdominal Exam: Soft. absent: Distended, Firm, Guarding, Rebound, Tenderness - Extremities Exam Extremities exam: Positive for: normal inspection. Negative for: pedal edema - Neurological Exam Neurological exam: Alert, CN II-XII Intact, Oriented x3 - Psychiatric Exam Psychiatric exam: Normal Affect, Normal Mood - Skin Skin Exam: Dry, Intact, Normal Color, Warm Results - Vital Signs Recent Vital Signs: Last Vital Signs Temp 98.9 F 07/01/17 17:00 Pulse 69 07/01/17 17:00 Resp 18 07/01/17 17:00 BP 126/89 07/01/17 17:00 Pulse Ox 98 07/01/17 17:00 - Labs Result Diagrams: 07/01/17 14:09 07/01/17 14:09 Assessment & Plan - Assessment and Plan (Free Text) Plan: 61yo male with history of pancreatic ca, COPD, HTN, DM presents with altered mental status 1. Altered mental status -Possibly secondary to overdose on oxycodone vs hypoglycemia -Narcan and D50 given by EMS, presently alert and oriented -CT Head pending -Neuro checks q4h -Utox pending -Fall precautions 2. Pancreatic Ca/Elevated LFT's -Abdominal US pending -Tylenol level pending -Prior EGD revealed pancreatic duct stricture, moderate dilation of the pancreatic duct in the body of the pancrease and pancreatic duct in the tail of the panceas was found diffusely. EUS showed mass in the pancreas head -Pathology revealed invasive adenocarcinoma, moderate to poorly differentiated -Pet Scan did not show evidence of metastasis; pulmonary nodule was present, read as inflammatory -IV fluid hydration -Zofran prn nausea -Morphine prn pain 3. DM -Fingersticks q4h -Consistent carb diet -Humulin ISS low dose -HbA1C 03/2017 was 6.4 4. COPD -CXR reviewed -Duoneb JOSEMANUEL and PRN 5. Hypertension -Continue Norvasc 10mg PO daily 6. GI/DVT ppx: -Protonix 40mg IVP daily -Heparin 5000 Q12H Patient seen and case discussed/reviewed with attending, Dr. Scott <Marlene Scott - Last Filed: 07/01/17 18:18> Results - Vital Signs Recent Vital Signs: Last Vital Signs Temp 98.9 F 07/01/17 17:30 Pulse 69 07/01/17 17:30 Resp 18 07/01/17 17:30 BP 126/89 07/01/17 17:30 Pulse Ox 98 07/01/17 17:30 - Labs Result Diagrams: 07/01/17 14:09 07/01/17 14:09 Attending/Attestation - Attestation I have personally seen and examined this patient.: Yes I have fully participated in the care of the patient.: Yes I have reviewed all pertinent clinical information: Yes Notes (Text): 07/01/17 18:13 61 year old male with past medical history of pancreatic cancer, COPD, diabetes , hypertension and recent NSTEMI who presented with altered mental status possible secondary to narcotic overdose vs hypoglycemia. He responded to narcan and D50 given by EMS. Will obtain CT head and urine drug screen. He needs serial fingersticks and neurochecks. He does not take any medications for diabetes, neither insulin nor oral hypoglycemics. Currently he is AAOx3 to his baseline. PT evaluation and palliative consult evaluations will be requested. Will check abdominal US and tylenol level for elevated LFTs. Marlene Scott MD Hospitalist.
--- NOTE | 2017-07-01 17:42 | CT ---
PROCEDURE: CT HEAD WITHOUT CONTRAST. HISTORY: AMS COMPARISON: Comparison made with prior CT scan brain 02/01/2016. TECHNIQUE: Axial computed tomography images were obtained through the head/brain without intravenous contrast. Radiation dose: Total exam DLP = 930.58 mGy-cm. This CT exam was performed using one or more of the following dose reduction techniques: Automated exposure control, adjustment of the mA and/or kV according to patient size, and/or use of iterative reconstruction technique. FINDINGS: HEMORRHAGE: No intracranial hemorrhage. BRAIN: Moderate to significant diffuse/confluent chronic white matter ischemic changes seen extending peripherally into the deep and subcortical white matter both cerebral hemispheres. Multiple more discrete deep and subcortical white matter as well as bilateral basal nuclei lacunar type infarcts also present. Moderate generalized volume loss progressed since prior study. . VENTRICLES: No obstructive hydrocephalus. CALVARIUM: There are no acute calvarial fractures. PARANASAL SINUSES: Unremarkable as visualized. No significant inflammatory changes. MASTOID AIR CELLS: Unremarkable as visualized. No inflammatory changes. OTHER FINDINGS: None. IMPRESSION: No acute intracranial hemorrhage. Moderate to significant chronic white matter ischemic changes. There also appear to be a few scattered chronic bilateral basal nuclei lacunar type infarcts. Moderate volume loss which has progressed from prior study.
[2017-07-01] MEDS: Albuterol-Ipratrop 3 mg / 0.5 (3 ml) UD IH SCH (20:10)
[2017-07-01] MEDS: Insulin Reg-LOW-Coverage SC SCH (21:36)
[2017-07-01] MEDS ORDERED: Dextrose 50% SYRINGE Inj (50 ml) IVP ONE (22:38)
[2017-07-01 23:39] LABS: OPIATES, UR NEGATIVE (NEGATIVE)
[2017-07-01 23:42] LABS: URINE BILIRUBIN NEGATIVE (NEGATIVE); URINE BLOOD MODERATE (NEGATIVE); URINE GLUCOSE (UA) NEGATIVE (NEGATIVE); URINE LEUKOCYTE ESTERASE NEGATIVE Leu/uL (NEGATIVE); URINE PROTEIN TRACE mg/dL (<30 mg/dL); URINE UROBILINOGEN 0.2 E.U./dL (<1 E.U./dL)
[2017-07-01 23:45] LABS: URINE COLOR YELLOW (YELLOW)
[2017-07-01 23:46] LABS: URINE APPEARANCE SL CLOUDY (CLEAR)
[2017-07-01 23:50] LABS: URINE EPITHELIAL CELLS 0 - 2 /hpf (0-5); URINE WBC 0 - 2 /hpf (0-6)
[2017-07-02] LABS: BARBITURATES, UR NEGATIVE (NEGATIVE); BENZODIAZEPINES, UR NEGATIVE (NEGATIVE); PHENCYCLIDINE, UR NEGATIVE (NEGATIVE)
[2017-07-02] MEDS: Albuterol-Ipratrop 3 mg / 0.5 (3 ml) UD IH SCH ×4 (02:09→20:43)
[2017-07-02] MEDS: Morphine 4 mg/ml ISec IVP PRN ×2 (06:21→09:51)
[2017-07-02] MEDS ORDERED: Dextrose 50% SYRINGE Inj (50 ml) IV STA (07:15)
--- NOTE | 2017-07-02 07:46 | CP.PCM.PN ---
<Chad Dunne - Last Filed: 07/02/17 14:34> Subjective - Date & Time of Evaluation Date of Evaluation: 07/02/17 Time of Evaluation: 07:00 - Subjective Subjective: Medicine Note for Dr. Cohn Patient seen and examined at bedside. No acute event overnight. Patient is alert , awake and oriented x 3 this morning. Patient continued to have hypoglycemia do D50 was given and fluids were started. Patient denies pain. He is upset about the way nursing and staff had been treating him. Patien thas history of pancreatic CA and was suppose to follow up with oncologist today. He states he is currently receiving radiation. Objective - Vital Signs/Intake and Output Vital Signs (last 24 hours): Temp Pulse Resp BP Pulse Ox 97.8 F 86 20 155/95 H 95 07/01/17 19:00 07/02/17 06:00 07/01/17 19:00 07/01/17 19:00 07/01/17 19:00 Intake and Output: 07/02/17 07/02/17 06:59 18:59 Intake Total 120 Output Total 950 Balance -830 - Medications Medications: Current Medications Albuterol/Ipratropium (Duoneb 3 Mg/0.5 Mg (3 Ml) Ud) 3 ml IH [id number] PRN PRN Reason: Shortness of Breath Albuterol/Ipratropium (Duoneb 3 Mg/0.5 Mg (3 Ml) Ud) 3 ml IH [id number] JOSEMANUEL Last Admin: 07/02/17 07:23 Dose: Not Given Amlodipine Besylate (Norvasc) 10 mg PO DAILY [facility] Amylase (Pancrease 95297 U-5000 U-[id number] U) 5,000 unit PO WM [facility] Aspirin (Aspirin Chewable) 81 mg PO DAILY [facility] Dextrose/Sodium Chloride (Dextrose 5%/0.45% Ns 1000 Ml) 1,000 mls @ 80 mls/hr IV .[id number] [facility] Insulin Human Regular (Humulin R Low) 0 units SC ACHS JOSEMANUEL PRN Reason: Protocol Last Admin: 07/01/17 21:36 Dose: Not Given Morphine Sulfate (Morphine) 1 mg IVP Q6H PRN PRN Reason: Pain, severe (8-10) Last Admin: 07/02/17 06:21 Dose: 1 mg Ondansetron HCl (Zofran Inj) 4 mg IVP Q6H PRN PRN Reason: Nausea/Vomiting Pantoprazole Sodium (Protonix Inj) 40 mg IVP DAILY JOSEMANUEL - Labs Labs: PT 22.9 SECONDS (9.4-12.5) H 07/01/17 14:09 INR 1.98 (0.93-1.08) H 07/01/17 14:09 - Constitutional Appears: No Acute Distress, Cachectic, Chronically Ill - Head Exam Head Exam: ATRAUMATIC, NORMOCEPHALIC - Eye Exam Eye Exam: EOMI, Normal appearance Pupil Exam: PERRL - ENT Exam ENT Exam: Mucous Membranes Dry - Respiratory Exam Respiratory Exam: Clear to Ausculation Bilateral, NORMAL BREATHING PATTERN - Cardiovascular Exam Cardiovascular Exam: REGULAR RHYTHM, +S1, +S2 - GI/Abdominal Exam GI & Abdominal Exam: Soft, Normal Bowel Sounds. absent: Distended, Firm, Guarding, Rigid, Tenderness, Rebound - Extremities Exam Extremities Exam: Normal Capillary Refill - Back Exam Back Exam: absent: CVA tenderness (L), CVA tenderness (R) - Neurological Exam Neurological Exam: Alert, Awake, CN II-XII Intact, Oriented x3 - Psychiatric Exam Psychiatric exam: Normal Affect, Normal Mood - Skin Skin Exam: Dry, Intact, Warm Assessment and Plan - Assessment and Plan (Free Text) Assessment: 61M with history of pancreatic ca, COPD, HTN, DM presents with altered mental status due to hypoglycemia 1. Altered mental status; resolved -secondary to hypoglycemia 2. Hypoglycemia D5/0.45% NS 80 cc/hr D50 given this morning Accuchecks Q4H Heart healthy diet 3. Pancreatic Ca/Elevated LFT's -f/u Abdominal US -f/u CT abd/pelvis with IV contrast -Prior EGD revealed pancreatic duct stricture, moderate dilation of the pancreatic duct in the body of the pancrease and pancreatic duct in the tail of the panceas was found diffusely. EUS showed mass in the pancreas head -Pathology revealed invasive adenocarcinoma, moderate to poorly differentiated -Pet Scan did not show evidence of metastasis; pulmonary nodule was present, read as inflammatory -Zofran prn nausea -Morphine prn pain 4. COPD -CXR reviewed -Duoneb JOSEMANUEL and PRN 5. Hypertension -Norvasc 10mg PO daily 6.Prophylactic measures -Protonix 40mg IVP daily -Heparin 5000 Q12H Case discussed with Dr. Lalit Dunne PGY1 <Lydia Cohn - Last Filed: 07/04/17 14:15> Objective - Vital Signs/Intake and Output Vital Signs (last 24 hours): Temp Pulse Resp BP Pulse Ox 98.1 F 86 20 100/75 100 07/04/17 08:27 07/04/17 08:27 07/04/17 08:27 07/04/17 09:30 07/04/17 08:27 Intake and Output: 07/04/17 07/04/17 06:59 18:59 Intake Total 840 180 Output Total 550 300 Balance 290 -120 - Medications Medications: Current Medications Albuterol/Ipratropium (Duoneb 3 Mg/0.5 Mg (3 Ml) Ud) 3 ml IH [id number] PRN PRN Reason: Shortness of Breath Albuterol/Ipratropium (Duoneb 3 Mg/0.5 Mg (3 Ml) Ud) 3 ml IH [id number] [facility] Last Admin: 07/04/17 13:35 Dose: 3 ml Amlodipine Besylate (Norvasc) 10 mg PO DAILY [facility] Last Admin: 07/04/17 09:30 Dose: 10 mg Amylase (Pancrease 55068 U-5000 U-[id number] U) 5,000 unit PO WM [facility] Last Admin: 07/04/17 12:16 Dose: 5,000 unit Docusate Sodium (Colace) 100 mg PO DAILY [facility] Last Admin: 07/04/17 09:30 Dose: 100 mg Dextrose/Sodium Chloride (Dextrose 5%/0.45% Ns 1000 Ml) 1,000 mls @ 80 mls/hr IV .[id number] [facility] Last Admin: 07/04/17 09:32 Dose: 80 mls/hr Megestrol Acetate (Megace) 800 mg PO DAILY [facility] Last Admin: 07/04/17 13:09 Dose: 800 mg Morphine Sulfate (Morphine) 2 mg IVP Q4H PRN PRN Reason: Pain, moderate (4-7) Morphine Sulfate (Morphine Extended Release Tab) 15 mg PO Q12 [facility] Last Admin: 07/04/17 12:16 Dose: 15 mg Ondansetron HCl (Zofran Inj) 4 mg IVP Q6H PRN PRN Reason: Nausea/Vomiting Pantoprazole Sodium (Protonix Ec Tab) 40 mg PO ACB JOSEMANUEL Last Admin: 07/04/17 07:54 Dose: 40 mg - Labs Labs: 07/03/17 06:20 07/04/17 13:30 PT 22.9 SECONDS (9.4-12.5) H 07/01/17 14:09 INR 1.98 (0.93-1.08) H 07/01/17 14:09 Attending/Attestation - Attestation I have personally seen and examined this patient.: Yes I have fully participated in the care of the patient.: Yes I have reviewed all pertinent clinical information, including history, physical exam and plan: Yes Notes (Text): 07/04/17 14:07 Medical record note made by the resident after discussion with my direction and input after the patient was personally seen and examined by me. I have reviewed the chart and agree that the record accurately reflects by personal performance of the history, physical exam, data review, and medical decision-making, in the course for the patient. I have also personally directed the plan of care. 61 yrs old male with PMH of recently diagnosed invasive adenocarcinoma of the pancreas 04/2017 , HTN, chronic smoking and drug abuse was admitted for evaluation and treatment for altered mental status which has resolved.He is s/p narcan and d50. Patient was hypoglycemic at the time of admission.Blood sugars are better now.Patient is alert,awake and oriented.Patient has elevated LFT.Abdominal CT reveals ascites, dilated mesenteric veins with narrowing of the SMV near the portal vein, pancreatic mass , and a severe enlargement of the pancreatic duct..We will get GI consult. Management plan was discussed in detail with patient. Education was provided. 07/04/17 14:13
[2017-07-02] MEDS: Amylase/Lipase/Protease 5,000 Units ECC PO SCH ×3 (08:00→18:14)
[2017-07-02] MEDS: Insulin Reg-LOW-Coverage SC SCH ×2 (08:15→12:57)
--- NOTE | 2017-07-02 08:36 | CARD ---
APPROVED REPORT EKG Measurement Heart [id number] <Conclusion> Sinus tachycardia Anteroseptal infarct, age undetermined NSSTW changes Prolonged QTc
[2017-07-02 11:02] LABS: GRAN # 2.16 (1.4-6.5); GRAN % 76.1 % (50.0-68.0); HEMOGLOBIN 10.7 g/dL (14.0-18.0); LYMPH # 0.7 (1.2-3.4); LYMPH % 23.2 % (22.0-35.0); MEAN CELL VOLUME 92.1 fl (80.0-105.0); MEAN CORPUSCULAR HEMOGLOBIN 31.4 pg (25.0-35.0); MEAN CORPUSCULAR HGB CONC 34.1 g/dl (31.0-37.0); MEAN PLATELET VOLUME 9.1 fl (7.0-11.0); MONO % 0.7 % (1.0-6.0); RBC 3.41 10^6/uL (3.5-6.1); RED CELL DISTRIBUTION WIDTH 12.9 % (11.5-14.5)
[2017-07-02 11:11] LABS: WHITE BLOOD COUNT 2.8 10^3/ul (4.5-11.0)
[2017-07-02 11:17] LABS: ALB/GLOB RATIO 0.9 (1.1-1.8); ALBUMIN 2.9 g/dL (3.0-4.8); ALT/SGPT 172 U/L (7-56); AST/SGOT 183 U/L (17-59); BLOOD UREA NITROGEN 34 mg/dL (7-21); CALCIUM 7.5 mg/dL (8.4-10.5); GFR AFRICAN-AMERICAN > 60; GFR NON-AFRICAN AMERICAN > 60
[2017-07-02] MEDS ORDERED: Morphine 2 mg/ml ISec IVP PRN (12:34)
[2017-07-02] MEDS ORDERED: Iohexol 350 MG/100 ML VIAL ONE (12:56)
--- NOTE | 2017-07-02 13:23 | CP.PCM.CON ---
History of Present Illness - History of Present Illness History of Present Illness: Palliative consult requested by Dr Analy Scott Reason: Goals of care 61 year old male with history of pancreatic cancer HTN, COPD, N STEMI and DM who presented with altered mental status. Oxycodone found on scene when EMS arrived, Narcan given. Patient remained altered. Glucose level found to be 30, D50 given. The patient has diffuse abdominal pain, denies chest pain,SOB, nausea , vomiting, fever,chills, cough, focal, weakness, numbness. CT of head showed no acute intracranial hemorrhage, chronic ischemic changes, scattered basal nuclei lacunar type infarcts. Chest x ray showing extensive emphysema, fibronodular scarring and bullous changes in both lung apexes. PMHx: COPD,DM, NSTEMI, HTN , pancreatic cancer. Social History: Smoker,smokes marijuana, denies alcohol. Family History: Non contributory. Advance Care Planning:The patient does not have an Advanced Directive. Review of Systems:As per HPI, otherwise negative review. Past Patient History - Infectious Disease Hx of Infectious Diseases: None - Tetanus Immunizations Tetanus Immunization: Up to Date - Past Medical History & Family History Past Medical History?: Yes - Past Social History Smoking Status: Current Some Days Smoker - CARDIAC Hx Cardiac Disorders: Yes Hx Hypertension: Yes - PULMONARY Hx Chronic Obstructive Pulmonary Disease (COPD): Yes - NEUROLOGICAL Hx Neurological Disorder: No Hx Dizziness: Yes - HEENT Hx HEENT Problems: No - RENAL Hx Chronic Kidney Disease: No - ENDOCRINE/METABOLIC Hx Diabetes Mellitus Type 2: Yes - HEMATOLOGICAL/ONCOLOGICAL Hx Blood Disorders: No - INTEGUMENTARY Hx Dermatological Problems: No - MUSCULOSKELETAL/RHEUMATOLOGICAL Hx Musculoskeletal Disorders: Yes Hx Back Pain: Yes Hx Falls: No - GASTROINTESTINAL Hx Gastrointestinal Disorders: Yes Hx Pancreatitis: Yes Other/Comment: DIARRHEA, ABDOMINAL PAIN - GENITOURINARY/GYNECOLOGICAL Hx Genitourinary Disorders: No - PSYCHIATRIC Hx Psychophysiologic Disorder: No Hx Anxiety: No Hx Bipolar Disorder: No Hx Depression: Yes Hx Emotional Abuse: No Hx Hallucinations: No Hx Panic Symptoms: No Hx Post Traumatic Stress Disorder: No Hx Psychosis: No Hx Physical Abuse: No Hx Schizophrenia: No Hx Sexual Abuse: No Hx Substance Use: Yes (Marijuana) - SURGICAL HISTORY Other/Comment: BRONCHOSCOPY, EGD EUS - ANESTHESIA Hx Anesthesia: Yes Hx Anesthesia Reactions: No Hx Malignant Hyperthermia: No Meds Allergies/Adverse Reactions: Allergies Allergy/AdvReac Type Severity Reaction Status Date / Time No Known Allergies Allergy Verified 04/30/17 11:04 - Medications Medications: Current Medications Albuterol/Ipratropium (Duoneb 3 Mg/0.5 Mg (3 Ml) Ud) 3 ml IH [id number] PRN PRN Reason: Shortness of Breath Albuterol/Ipratropium (Duoneb 3 Mg/0.5 Mg (3 Ml) Ud) 3 ml IH [id number] [facility] Last Admin: 07/02/17 07:23 Dose: Not Given Amlodipine Besylate (Norvasc) 10 mg PO DAILY [facility] Last Admin: 07/02/17 10:47 Dose: 10 mg Amylase (Pancrease [id number] U) 5,000 unit PO WM [facility] Last Admin: 07/02/17 08:00 Dose: Not Given Aspirin (Aspirin Chewable) 81 mg PO DAILY [facility] Last Admin: 07/02/17 10:47 Dose: 81 mg Dextrose/Sodium Chloride (Dextrose 5%/0.45% Ns 1000 Ml) 1,000 mls @ 80 mls/hr IV .[id number] [facility] Insulin Human Regular (Humulin R Low) 0 units SC ACHS [facility] PRN Reason: Protocol Last Admin: 07/02/17 08:15 Dose: Not Given Morphine Sulfate (Morphine) 2 mg IVP Q4H PRN PRN Reason: Pain, severe (8-10) Ondansetron HCl (Zofran Inj) 4 mg IVP Q6H PRN PRN Reason: Nausea/Vomiting Pantoprazole Sodium (Protonix Ec Tab) 40 mg PO ACB [facility] Physical Exam - Constitutional Appears: Cachectic, Chronically Ill - Head Exam Head Exam: NORMAL INSPECTION - Eye Exam Eye Exam: Normal appearance, PERRL - ENT Exam ENT Exam: Mucous Membranes Moist, Normal Oropharynx - Respiratory Exam Respiratory Exam: Decreased Breath Sounds, NORMAL BREATHING PATTERN - Cardiovascular Exam Cardiovascular Exam: REGULAR RHYTHM, +S1, +S2 - GI/Abdominal Exam GI & Abdominal Exam: Normal Bowel Sounds - Extremities Exam Extremities exam: Positive for: normal inspection, pedal pulses present - Neurological Exam Neurological exam: Alert, Oriented x3 - Skin Skin Exam: Dry, Pallor - Additional Findings Additional findings: palliative performance scale rating 40 % Results - Vital Signs Recent Vital Signs: Last Vital Signs Temp 97.5 F L 07/02/17 08:45 Pulse 90 07/02/17 08:45 Resp 20 07/02/17 08:45 BP 108/81 07/02/17 10:47 Pulse Ox 99 07/02/17 08:45 - Labs Result Diagrams: 07/02/17 10:45 07/02/17 10:45 Labs: Laboratory Results - last 24 hr 07/01/17 07/01/17 07/01/17 21:25 22:34 23:00 WBC RBC Hgb Hct MCV MCH MCHC RDW Plt Count MPV Gran % Lymph % (Auto) [place] % (Auto) Eos % (Auto) Baso % (Auto) Gran # Lymph # (Auto) [place] # (Auto) Eos # (Auto) Baso # (Auto) Sodium Potassium Chloride Carbon Dioxide Anion Gap BUN Creatinine Est GFR ( Amer) Est GFR (Non-Af Amer) POC Glucose (mg/dL) 41 L 32 L* Random Glucose Calcium Phosphorus Magnesium Total Bilirubin AST ALT Alkaline Phosphatase Total Protein Albumin Globulin Albumin/Globulin Ratio Urine Color Yellow Urine Appearance Sl cloudy Urine pH 6.0 Ur Specific [place] 1.015 Urine Protein Trace H Urine Glucose (UA) Negative Urine Ketones Negative Urine Blood Moderate H Urine Nitrate Negative Urine Bilirubin Negative Urine Urobilinogen 0.2 Ur Leukocyte Esterase Negative Urine RBC 1 - 3 Urine WBC 0 - 2 Ur Epithelial Cells 0 - 2 Urine Opiates Screen Urine Methadone Screen Ur Barbiturates Screen Ur Phencyclidine Scrn Ur Amphetamines Screen U Benzodiazepines Scrn U Oth Cocaine Metabols U Cannabinoids Screen 07/01/17 07/01/17 07/02/17 23:00 23:46 04:23 WBC RBC Hgb Hct MCV MCH MCHC RDW Plt Count MPV Gran % Lymph % (Auto) [place] % (Auto) Eos % (Auto) Baso % (Auto) Gran # Lymph # (Auto) [place] # (Auto) Eos # (Auto) Baso # (Auto) Sodium Potassium Chloride Carbon Dioxide Anion Gap BUN Creatinine Est GFR ( Amer) Est GFR (Non-Af Amer) POC Glucose (mg/dL) 201 H 118 H Random Glucose Calcium Phosphorus Magnesium Total Bilirubin AST ALT Alkaline Phosphatase Total Protein Albumin Globulin Albumin/Globulin Ratio Urine Color Urine Appearance Urine pH Ur Specific [place] Urine Protein Urine Glucose (UA) Urine Ketones Urine Blood Urine Nitrate Urine Bilirubin Urine Urobilinogen Ur Leukocyte Esterase Urine RBC Urine WBC Ur Epithelial Cells Urine Opiates Screen Negative Urine Methadone Screen Negative Ur Barbiturates Screen Negative Ur Phencyclidine Scrn Negative Ur Amphetamines Screen Negative U Benzodiazepines Scrn Negative U Oth Cocaine Metabols Negative U Cannabinoids Screen Positive H 07/02/17 07/02/17 07/02/17 07:14 07:47 10:45 WBC 2.8 L* D RBC 3.41 L Hgb 10.7 L D Hct 31.4 L MCV 92.1 MCH 31.4 MCHC 34.1 RDW 12.9 Plt Count 72 L MPV 9.1 Gran % 76.1 H Lymph % (Auto) 23.2 [place] % (Auto) 0.7 L Eos % (Auto) 0.0 L Baso % (Auto) 0.0 Gran # 2.16 Lymph # (Auto) 0.7 L [place] # (Auto) 0.0 L Eos # (Auto) 0.0 Baso # (Auto) 0.00 Sodium Potassium Chloride Carbon Dioxide Anion Gap BUN Creatinine Est GFR ( Amer) Est GFR (Non-Af Amer) POC Glucose (mg/dL) 23 L* 96 Random Glucose Calcium Phosphorus Magnesium Total Bilirubin AST ALT Alkaline Phosphatase Total Protein Albumin Globulin Albumin/Globulin Ratio Urine Color Urine Appearance Urine pH Ur Specific [place] Urine Protein Urine Glucose (UA) Urine Ketones Urine Blood Urine Nitrate Urine Bilirubin Urine Urobilinogen Ur Leukocyte Esterase Urine RBC Urine WBC Ur Epithelial Cells Urine Opiates Screen Urine Methadone Screen Ur Barbiturates Screen Ur Phencyclidine Scrn Ur Amphetamines Screen U Benzodiazepines Scrn U Oth Cocaine Metabols U Cannabinoids Screen 07/02/17 07/02/17 10:45 11:03 WBC RBC Hgb Hct MCV MCH MCHC RDW Plt Count MPV Gran % Lymph % (Auto) [place] % (Auto) Eos % (Auto) Baso % (Auto) Gran # Lymph # (Auto) [place] # (Auto) Eos # (Auto) Baso # (Auto) Sodium 137 Potassium 3.6 Chloride 96 L Carbon Dioxide 34 H Anion Gap 11 BUN 34 H Creatinine 0.8 Est GFR ( Amer) > 60 Est GFR (Non-Af Amer) > 60 POC Glucose (mg/dL) 154 H Random Glucose 132 H Calcium 7.5 L Phosphorus 3.1 Magnesium 1.8 Total Bilirubin 1.6 H AST 183 H ALT 172 H Alkaline Phosphatase 157 H Total Protein 6.1 Albumin 2.9 L Globulin 3.1 Albumin/Globulin Ratio 0.9 L Urine Color Urine Appearance Urine pH Ur Specific [place] Urine Protein Urine Glucose (UA) Urine Ketones Urine Blood Urine Nitrate Urine Bilirubin Urine Urobilinogen Ur Leukocyte Esterase Urine RBC Urine WBC Ur Epithelial Cells Urine Opiates Screen Urine Methadone Screen Ur Barbiturates Screen Ur Phencyclidine Scrn Ur Amphetamines Screen U Benzodiazepines Scrn U Oth Cocaine Metabols U Cannabinoids Screen Assessment & Plan - Assessment and Plan (Free Text) Assessment: 61 year old male with history of HTN, COPD, DM and pancreatic cancer who was admitted with AMS, hypoglycemia. Toxicology screen negative for opioids, AMS more likely due to hypoglycemia. CT of abdomen and pelvis pending The patient is known to me from previous admission. He complains of diffuse abdominal pain. He states it is relieved with IV Morphine. He takes Oxycodone at home which does not completely relieve his pain nor does relief last long "only a couple of hours". He states his appetite is good and that he is eating regularly at home. The patient is anxious. He is alternating between feelings of defeat to then saying that he's not ready to "give up". He has a young daughter at home who he is not ready to leave. Psychosocial support provided. I reassured him that we would talk again tomorrow. I explained that it will be easier to discuss goal planning once his pain is better pain controlled and his glucose levels more christine. Time spent with patient with goals of care , 15 minutes Plan: Pain Management: Increase Morphine to 2 mg IV every four hours as needed. Would consider transitioning to long acting Morphine PO with additional short acting Morphine PO for breakthrough, prior to discharge. Constipation:Bowel Regimen, Docusate 100 mg daily. Monitor for opioid induced constipation Hyper/hypoglycemia: Monitor glucose levels. Insulin( Humulin ISS) therapy as ordered. Dietary counseling. COPD: Mohit as scheduled [place] of care and advanced care planning
--- NOTE | 2017-07-02 14:27 | CT ---
PROCEDURE: CT Abdomen and Pelvis with contrast HISTORY: hx of pancreatic ca COMPARISON: CT 04/23/2017 TECHNIQUE: Contrast dose: 100 cc of Omni 350 Radiation dose: Total exam DLP = 186 mGy-cm. This CT exam was performed using one or more of the following dose reduction techniques: Automated exposure control, adjustment of the mA and/or kV according to patient size, and/or use of iterative reconstruction technique. FINDINGS: LOWER THORAX: Unremarkable. LIVER: Unremarkable. No gross lesion or ductal dilatation. GALLBLADDER AND BILE DUCTS: Unremarkable. PANCREAS: There is severe dilatation of the pancreatic duct. This measures 6 mm in diameter. There is a poorly defined mass in the pancreatic head. There is no common duct obstruction. SPLEEN: Unremarkable. ADRENALS: Unremarkable. No mass. KIDNEYS AND URETERS: Unremarkable. No hydronephrosis. No solid mass. VASCULATURE: Multiple dilated mesenteric vessels are seen. The portal vein is patent. There is narrowing of the SMV near the junction with the portal vein. This probably accounts for the multiple dilated mesenteric veins. BOWEL: Unremarkable. No obstruction. No gross mural thickening. APPENDIX: Normal appendix. PERITONEUM: Severe ascites LYMPH NODES: Unremarkable. No enlarged lymph nodes. BLADDER: Unremarkable. REPRODUCTIVE: Unremarkable. BONES: No acute fracture. OTHER FINDINGS: The study is limited by a lack of abdominal fat and ascites. Inflammatory changes would be difficult to evaluate. IMPRESSION: Severe ascites. Dilated mesenteric veins with narrowing of the SMV near the portal. Pancreatic mass not well defined. There is severe enlargement of the pancreatic duct
[2017-07-02] MEDS: Morphine 2 mg/ml ISec IVP PRN ×3 (14:31→22:05)
[2017-07-02] MEDS: Dextrose 5%/0.45% NS 1,000 ML IV SCH (22:07)
--- NOTE | 2017-07-02 22:44 | US ---
EXAM: US Abdomen Complete CLINICAL HISTORY: 61 years old, male; Pain; Abdominal pain; Generalized; Additional info: HX of pancreatic ca; Transaminitis TECHNIQUE: Real-time ultrasound of the abdomen (complete) with image documentation. COMPARISON: US - ABDOMEN COMPLETE 2017-04-07 00:38 FINDINGS: Liver: The liver is echogenic measuring 10.7 cm. No mass. No intrahepatic bile duct dilation. Gallbladder: Multiple calcified gallstones are present. Normal gallbladder wall thickness measuring 2 mm. Negative sonographic Clark's sign. Common bile duct: Markedly dilated measuring 13 mm. No stones. No dilation. Pancreas: The pancreatic duct is markedly dilated with a measuring 7 mm. The pancreatic head is enlarged. The body and tail are not well visualized. Kidneys: Unremarkable. The right kidney measures 9.1 cm and the left kidney measures 9.4 cm. No stones. No solid mass. No hydronephrosis. Spleen: The spleen measures 8.4 cm. There is a calcification measuring 1.4 cm. No splenomegaly. Aorta: Not well-visualized. Inferior vena cava: Not well-visualized. Free fluid: There is a large amount of ascites in the abdomen. IMPRESSION: Enlarged pancreatic head with dilated pancreatic duct, unchanged. Pancreatic mass not excluded. Cholelithiasis. Dilated common bile duct.
[2017-07-02] MEDS ORDERED: Dextrose 50% SYRINGE Inj (50 ml) IVP ONE (22:55)
[2017-07-03] MEDS: Morphine 2 mg/ml ISec IVP PRN ×5 (02:13→20:40)
[2017-07-03] MEDS: Albuterol-Ipratrop 3 mg / 0.5 (3 ml) UD IH SCH ×4 (02:14→19:28)
--- NOTE | 2017-07-03 06:49 | CP.PCM.CON ---
<Lencho Manjarrez - Last Filed: 07/03/17 12:17> History of Present Illness - History of Present Illness History of Present Illness: Subjective: CC: AMS HPI: Patient is a 61 year old male with past medical history of pancreatic cancer diagnosed 04/2017, hypertension, COPD, DM and NSTEMI who was admitted for evaluation and treatment for altered mental status. As per prior records patient was found by his brother laying next to a bottle of oxycodone. Patient became more alert/awake s/p narcan in the field. Also of note, patient's blood sugar was found to be 30 which improved s/p D50. Currently patient is awake, alert, responds to verbal stimuli, follows commands, and moves extremities past midline. GI consulted for management of patients elevated LFTs. Offers no new GI symptoms at this time. Admits to baseline abdominal discomfort. Denies fever , chills, chest pain, SOB, N/V, diarrhea, constipation, and urinary symptoms. He denied chest pain, palpitations, SOB, abdominal pain, nausea, vomiting, fever, chills, cough, focal weakness, numbness, tingling. 12 point ROS negative except as indicated in HPI. PMHx: pancreatic cancer diagnosed 04/2017, hypertension, COPD, DM and NSTEMI PSHx: denies Allergies: NKDA Social History: Smokes 7-8 cigarettes a day for past 15 years, smokes marijuana , denies alcohol use Family Hx: Non-contributory Physical Examination: - Constitutional Appears: Cachectic, Chronically Ill - Head Exam Head Exam: NORMAL INSPECTION - Eye Exam Eye Exam: EOMI - ENT Exam ENT Exam: Mucous Membranes Moist - Respiratory Exam Respiratory Exam: Decreased Breath Sounds - Cardiovascular Exam Cardiovascular Exam: +S1, +S2 - GI/Abdominal Exam GI & Abdominal Exam: Normal Bowel Sounds, soft, NTTP, absent: guarding, rigidity , rebound tenderness, organomegaly - Extremities Exam Extremities exam: Positive for: normal inspection, pedal pulses present - Neurological Exam Neurological exam: Alert, Oriented x3 - Skin Skin Exam: Dry, warm Assessment and Plan: Patient is a 61 year old male with past medical history of pancreatic cancer diagnosed 04/2017, hypertension, COPD, DM and NSTEMI who was admitted for evaluation and treatment for altered mental status which has resolved s/p narcan and d50. GI consulted for management of patient elevated LFTs. Abdominal CT reveals severe ascites, dilated mesenteric veins with narrowing of the SMV near the portal vein, pancreatic mass, and a severe enlargement of the pancreatic duct. Pancreatic cancer Elevated LFTs, Total bilirubin Abnormal CT finding Hx of HTN Hx of COPD Hx of DM Hx of NSTEMI - no acute GI intervention required at this time - continue with heart healthy diet and pancreatic enzyme supplementation - pain control - continue tight glycemic control - follow up outpatient setting for potential duodenal stent and celiac plexus neurolysis Thank you for the opportunity for participating in the care of this patient. Patient case reviewed with and plan approved by attending physician, Dr. Gonzalez. Past Patient History - Infectious Disease Hx of Infectious Diseases: None - Tetanus Immunizations Tetanus Immunization: Up to Date - Past Medical History & Family History Past Medical History?: Yes - Past Social History Smoking Status: Current Some Days Smoker - CARDIAC Hx Cardiac Disorders: Yes Hx Hypertension: Yes - PULMONARY Hx Chronic Obstructive Pulmonary Disease (COPD): Yes - NEUROLOGICAL Hx Neurological Disorder: No Hx Dizziness: Yes - HEENT Hx HEENT Problems: No - RENAL Hx Chronic Kidney Disease: No - ENDOCRINE/METABOLIC Hx Diabetes Mellitus Type 2: Yes - HEMATOLOGICAL/ONCOLOGICAL Hx Blood Disorders: No - INTEGUMENTARY Hx Dermatological Problems: No - MUSCULOSKELETAL/RHEUMATOLOGICAL Hx Musculoskeletal Disorders: Yes Hx Back Pain: Yes Hx Falls: No - GASTROINTESTINAL Hx Gastrointestinal Disorders: Yes Hx Pancreatitis: Yes Other/Comment: DIARRHEA, ABDOMINAL PAIN - GENITOURINARY/GYNECOLOGICAL Hx Genitourinary Disorders: No - PSYCHIATRIC Hx Psychophysiologic Disorder: No Hx Anxiety: No Hx Bipolar Disorder: No Hx Depression: Yes Hx Emotional Abuse: No Hx Hallucinations: No Hx Panic Symptoms: No Hx Post Traumatic Stress Disorder: No Hx Psychosis: No Hx Physical Abuse: No Hx Schizophrenia: No Hx Sexual Abuse: No Hx Substance Use: Yes (Marijuana) - SURGICAL HISTORY Other/Comment: BRONCHOSCOPY, EGD EUS - ANESTHESIA Hx Anesthesia: Yes Hx Anesthesia Reactions: No Hx Malignant Hyperthermia: No Meds Allergies/Adverse Reactions: Allergies Allergy/AdvReac Type Severity Reaction Status Date / Time No Known Allergies Allergy Verified 04/30/17 11:04 - Medications Medications: Current Medications Albuterol/Ipratropium (Duoneb 3 Mg/0.5 Mg (3 Ml) Ud) 3 ml IH [id number] PRN PRN Reason: Shortness of Breath Albuterol/Ipratropium (Duoneb 3 Mg/0.5 Mg (3 Ml) Ud) 3 ml IH [id number] [facility] Last Admin: 07/03/17 02:14 Dose: Not Given Amlodipine Besylate (Norvasc) 10 mg PO DAILY [facility] Last Admin: 07/02/17 10:47 Dose: 10 mg Amylase (Pancrease 93889 U-5000 U-[id number] U) 5,000 unit PO WM [facility] Last Admin: 07/02/17 18:14 Dose: 5,000 unit Aspirin (Aspirin Chewable) 81 mg PO DAILY [facility] Last Admin: 07/02/17 10:47 Dose: 81 mg Docusate Sodium (Colace) 100 mg PO DAILY [facility] Dextrose/Sodium Chloride (Dextrose 5%/0.45% Ns 1000 Ml) 1,000 mls @ 80 mls/hr IV .[id number] [facility] Last Admin: 07/02/17 22:07 Dose: 80 mls/hr Morphine Sulfate (Morphine) 2 mg IVP Q4H PRN PRN Reason: Pain, severe (8-10) Last Admin: 07/03/17 06:21 Dose: 2 mg Ondansetron HCl (Zofran Inj) 4 mg IVP Q6H PRN PRN Reason: Nausea/Vomiting Pantoprazole Sodium (Protonix Ec Tab) 40 mg PO ACB [facility] Results - Vital Signs Recent Vital Signs: Last Vital Signs Temp 97.8 F 07/02/17 17:34 Pulse 73 07/03/17 06:00 Resp 20 07/02/17 17:34 BP 123/75 07/02/17 17:34 Pulse Ox 98 07/02/17 17:34 - Labs Result Diagrams: 07/03/17 06:20 07/03/17 06:20 Labs: Laboratory Results - last 24 hr 07/02/17 07/02/17 07/02/17 07:14 07:47 10:45 WBC 2.8 L* D RBC 3.41 L Hgb 10.7 L D Hct 31.4 L MCV 92.1 MCH 31.4 MCHC 34.1 RDW 12.9 Plt Count 72 L MPV 9.1 Gran % 76.1 H Lymph % (Auto) 23.2 [place] % (Auto) 0.7 L Eos % (Auto) 0.0 L Baso % (Auto) 0.0 Gran # 2.16 Lymph # (Auto) 0.7 L [place] # (Auto) 0.0 L Eos # (Auto) 0.0 Baso # (Auto) 0.00 Sodium Potassium Chloride Carbon Dioxide Anion Gap BUN Creatinine Est GFR ( Amer) Est GFR (Non-Af Amer) POC Glucose (mg/dL) 23 L* 96 Random Glucose Calcium Phosphorus Magnesium Total Bilirubin AST ALT Alkaline Phosphatase Total Protein Albumin Globulin Albumin/Globulin Ratio 07/02/17 07/02/17 07/02/17 10:45 11:03 16:02 WBC RBC Hgb Hct MCV MCH MCHC RDW Plt Count MPV Gran % Lymph % (Auto) [place] % (Auto) Eos % (Auto) Baso % (Auto) Gran # Lymph # (Auto) [place] # (Auto) Eos # (Auto) Baso # (Auto) Sodium 137 Potassium 3.6 Chloride 96 L Carbon Dioxide 34 H Anion Gap 11 BUN 34 H Creatinine 0.8 Est GFR ( Amer) > 60 Est GFR (Non-Af Amer) > 60 POC Glucose (mg/dL) 154 H 73 Random Glucose 132 H Calcium 7.5 L Phosphorus 3.1 Magnesium 1.8 Total Bilirubin 1.6 H AST 183 H ALT 172 H Alkaline Phosphatase 157 H Total Protein 6.1 Albumin 2.9 L Globulin 3.1 Albumin/Globulin Ratio 0.9 L 07/02/17 07/02/17 07/02/17 21:24 22:03 23:27 WBC RBC Hgb Hct MCV MCH MCHC RDW Plt Count MPV Gran % Lymph % (Auto) [place] % (Auto) Eos % (Auto) Baso % (Auto) Gran # Lymph # (Auto) [place] # (Auto) Eos # (Auto) Baso # (Auto) Sodium Potassium Chloride Carbon Dioxide Anion Gap BUN Creatinine Est GFR ( Amer) Est GFR (Non-Af Amer) POC Glucose (mg/dL) 60 L 50 L 192 H Random Glucose Calcium Phosphorus Magnesium Total Bilirubin AST ALT Alkaline Phosphatase Total Protein Albumin Globulin Albumin/Globulin Ratio 07/03/17 02:03 WBC RBC Hgb Hct MCV MCH MCHC RDW Plt Count MPV Gran % Lymph % (Auto) [place] % (Auto) Eos % (Auto) Baso % (Auto) Gran # Lymph # (Auto) [place] # (Auto) Eos # (Auto) Baso # (Auto) Sodium Potassium Chloride Carbon Dioxide Anion Gap BUN Creatinine Est GFR ( Amer) Est GFR (Non-Af Amer) POC Glucose (mg/dL) 112 H Random Glucose Calcium Phosphorus Magnesium Total Bilirubin AST ALT Alkaline Phosphatase Total Protein Albumin Globulin Albumin/Globulin Ratio <Dinh Gonzalez - Last Filed: 07/03/17 16:10> Meds - Medications Medications: Current Medications Albuterol/Ipratropium (Duoneb 3 Mg/0.5 Mg (3 Ml) Ud) 3 ml IH [id number] PRN PRN Reason: Shortness of Breath Albuterol/Ipratropium (Duoneb 3 Mg/0.5 Mg (3 Ml) Ud) 3 ml IH [id number] [facility] Last Admin: 07/03/17 13:35 Dose: 3 ml Amlodipine Besylate (Norvasc) 10 mg PO DAILY [facility] Last Admin: 07/03/17 09:22 Dose: 10 mg Amylase (Pancrease 97017 U-5000 U-[id number] U) 5,000 unit PO WM [facility] Last Admin: 07/03/17 13:32 Dose: 5,000 unit Aspirin (Aspirin Chewable) 81 mg PO DAILY [facility] Last Admin: 07/03/17 09:22 Dose: 81 mg Docusate Sodium (Colace) 100 mg PO DAILY [facility] Last Admin: 07/03/17 09:22 Dose: 100 mg Dextrose/Sodium Chloride (Dextrose 5%/0.45% Ns 1000 Ml) 1,000 mls @ 80 mls/hr IV .[id number] [facility] Last Admin: 07/03/17 12:09 Dose: 80 mls/hr Morphine Sulfate (Morphine) 1 mg IVP Q6H PRN PRN Reason: Pain, moderate (4-7) Last Admin: 07/03/17 15:35 Dose: 1 mg Ondansetron HCl (Zofran Inj) 4 mg IVP Q6H PRN PRN Reason: Nausea/Vomiting Pantoprazole Sodium (Protonix Ec Tab) 40 mg PO ACB [facility] Last Admin: 07/03/17 08:13 Dose: 40 mg Results - Vital Signs Recent Vital Signs: Last Vital Signs Temp 97.7 F 07/03/17 08:13 Pulse 92 H 07/03/17 14:00 Resp 20 07/03/17 08:13 BP 105/76 07/03/17 09:22 Pulse Ox 100 07/03/17 08:13 - Labs Result Diagrams: 07/03/17 06:20 07/03/17 06:20 Labs: Laboratory Results - last 24 hr 07/02/17 07/02/17 07/02/17 21:24 22:03 23:27 WBC RBC Hgb Hct MCV MCH MCHC RDW Plt Count MPV Gran % Lymph % (Auto) [place] % (Auto) Eos % (Auto) Baso % (Auto) Gran # Lymph # (Auto) [place] # (Auto) Eos # (Auto) Baso # (Auto) Sodium Potassium Chloride Carbon Dioxide Anion Gap BUN Creatinine Est GFR ( Amer) Est GFR (Non-Af Amer) POC Glucose (mg/dL) 60 L 50 L 192 H Random Glucose Calcium Total Bilirubin AST ALT Alkaline Phosphatase Total Protein Albumin Globulin Albumin/Globulin Ratio 07/03/17 07/03/17 07/03/17 02:03 06:20 06:20 WBC 2.5 L* RBC 3.93 Hgb 12.5 L Hct 36.4 L MCV 92.6 MCH 31.8 MCHC 34.3 RDW 12.8 Plt Count 69 L MPV 9.7 Gran % 48.6 L Lymph % (Auto) 50.6 H [place] % (Auto) 0.8 L Eos % (Auto) 0.0 L Baso % (Auto) 0.0 Gran # 1.19 L Lymph # (Auto) 1.2 [place] # (Auto) 0.0 L Eos # (Auto) 0.0 Baso # (Auto) 0.00 Sodium 136 Potassium 3.4 L Chloride 92 L Carbon Dioxide 35 H Anion Gap 12 BUN 26 H Creatinine 0.7 L Est GFR ( Amer) > 60 Est GFR (Non-Af Amer) > 60 POC Glucose (mg/dL) 112 H Random Glucose 100 Calcium 7.6 L Total Bilirubin 2.0 H AST 238 H D ALT 229 H Alkaline Phosphatase 228 H D Total Protein 6.7 Albumin 3.3 Globulin 3.4 Albumin/Globulin Ratio 1.0 L 07/03/17 07/03/17 07:24 11:17 WBC RBC Hgb Hct MCV MCH MCHC RDW Plt Count MPV Gran % Lymph % (Auto) [place] % (Auto) Eos % (Auto) Baso % (Auto) Gran # Lymph # (Auto) [place] # (Auto) Eos # (Auto) Baso # (Auto) Sodium Potassium Chloride Carbon Dioxide Anion Gap BUN Creatinine Est GFR ( Amer) Est GFR (Non-Af Amer) POC Glucose (mg/dL) 99 120 H Random Glucose Calcium Total Bilirubin AST ALT Alkaline Phosphatase Total Protein Albumin Globulin Albumin/Globulin Ratio Attending/Attestation - Attestation I have personally seen and examined this patient.: Yes I have fully participated in the care of the patient.: Yes I have reviewed all pertinent clinical information: Yes Notes (Text): 07/03/17 16:09 61 year old male with h/o pancreatic cancer on chemotherapy with progressive weight loss and rising LFTs. Suspect impending biliary and duodenal obstruction due to pancreatic malignancy. Diet as tolerated. Will tentatively plan for possible EGD with duodenal stent and ERCP with biliary stent on depending on clinical course. Monitor daily LFTs. Pain control as needed. Nutritional support.
[2017-07-03 06:54] LABS: ALBUMIN 3.3 g/dL (3.0-4.8); ALT/SGPT 229 U/L (7-56); AST/SGOT 238 U/L (17-59); BLOOD UREA NITROGEN 26 mg/dL (7-21); CALCIUM 7.6 mg/dL (8.4-10.5); GFR AFRICAN-AMERICAN > 60; GFR NON-AFRICAN AMERICAN > 60
[2017-07-03 07:00] LABS: GRAN # 1.19 (1.4-6.5); GRAN % 48.6 % (50.0-68.0); HEMOGLOBIN 12.5 g/dL (14.0-18.0); LYMPH # 1.2 (1.2-3.4); LYMPH % 50.6 % (22.0-35.0); MEAN CELL VOLUME 92.6 fl (80.0-105.0); MEAN CORPUSCULAR HEMOGLOBIN 31.8 pg (25.0-35.0); MEAN CORPUSCULAR HGB CONC 34.3 g/dl (31.0-37.0); MEAN PLATELET VOLUME 9.7 fl (7.0-11.0); MONO % 0.8 % (1.0-6.0); RBC 3.93 10^6/uL (3.5-6.1); RED CELL DISTRIBUTION WIDTH 12.8 % (11.5-14.5)
[2017-07-03 07:02] LABS: WHITE BLOOD COUNT 2.5 10^3/ul (4.5-11.0)
--- NOTE | 2017-07-03 07:49 | CP.PCM.PN ---
<VibhaChad - Last Filed: 07/03/17 12:53> Subjective - Date & Time of Evaluation Date of Evaluation: 07/03/17 Time of Evaluation: 07:25 - Subjective Subjective: Medicine Note for Dr. Cohn Patient seen and examined at bedside. Overnight, he had two hypoglycemic episodes but resolved without symptoms. Patient complains of mild abdominal pain. He is tolerating diet and having normal BMs. No other complaints at this time. Objective - Vital Signs/Intake and Output Vital Signs (last 24 hours): Temp Pulse Resp BP Pulse Ox 97.8 F 73 20 123/75 98 07/02/17 17:34 07/03/17 06:00 07/02/17 17:34 07/02/17 17:34 07/02/17 17:34 Intake and Output: 07/03/17 07/03/17 06:59 18:59 Intake Total 1860 Output Total 1200 Balance 660 - Medications Medications: Current Medications Albuterol/Ipratropium (Duoneb 3 Mg/0.5 Mg (3 Ml) Ud) 3 ml IH [id number] PRN PRN Reason: Shortness of Breath Albuterol/Ipratropium (Duoneb 3 Mg/0.5 Mg (3 Ml) Ud) 3 ml IH [id number] [facility] Last Admin: 07/03/17 07:25 Dose: 3 ml Amlodipine Besylate (Norvasc) 10 mg PO DAILY [facility] Last Admin: 07/02/17 10:47 Dose: 10 mg Amylase (Pancrease 37089 U-5000 U-24636 U) 5,000 unit PO WM [facility] Last Admin: 07/02/17 18:14 Dose: 5,000 unit Aspirin (Aspirin Chewable) 81 mg PO DAILY [facility] Last Admin: 07/02/17 10:47 Dose: 81 mg Docusate Sodium (Colace) 100 mg PO DAILY [facility] Dextrose/Sodium Chloride (Dextrose 5%/0.45% Ns 1000 Ml) 1,000 mls @ 80 mls/hr IV .[id number] [facility] Last Admin: 07/02/17 22:07 Dose: 80 mls/hr Morphine Sulfate (Morphine) 2 mg IVP Q4H PRN PRN Reason: Pain, severe (8-10) Last Admin: 07/03/17 06:21 Dose: 2 mg Ondansetron HCl (Zofran Inj) 4 mg IVP Q6H PRN PRN Reason: Nausea/Vomiting Pantoprazole Sodium (Protonix Ec Tab) 40 mg PO ACB [facility] - Labs Labs: 07/03/17 06:20 07/03/17 06:20 PT 22.9 SECONDS (9.4-12.5) H 07/01/17 14:09 INR 1.98 (0.93-1.08) H 07/01/17 14:09 - Additional Findings Additional findings: - Constitutional Appears: No Acute Distress, Cachectic, Chronically Ill - Head Exam Head Exam: ATRAUMATIC, NORMOCEPHALIC - Eye Exam Eye Exam: EOMI, Normal appearance Pupil Exam: PERRL - ENT Exam ENT Exam: Mucous Membranes Dry - Respiratory Exam Respiratory Exam: Clear to Ausculation Bilateral, NORMAL BREATHING PATTERN - Cardiovascular Exam Cardiovascular Exam: REGULAR RHYTHM, +S1, +S2 - GI/Abdominal Exam GI & Abdominal Exam: Soft, Normal Bowel Sounds. absent: Distended, Firm, Guarding, Rigid, Tenderness, Rebound - Extremities Exam Extremities Exam: Normal Capillary Refill - Back Exam Back Exam: absent: CVA tenderness (L), CVA tenderness (R) - Neurological Exam Neurological Exam: Alert, Awake, CN II-XII Intact, Oriented x3 - Psychiatric Exam Psychiatric exam: Normal Affect, Normal Mood - Skin Skin Exam: Dry, Intact, Warm Assessment and Plan - Assessment and Plan (Free Text) Assessment: 61M with history of Pancreatic CA, COPD, HTN, DM presents with altered mental status due to hypoglycemia Plan: 1. Altered mental status; resolved -secondary to hypoglycemia 2. Hypoglycemia D5/0.45% NS 80 cc/hr D50 given this morning Accuchecks Q4H Heart healthy diet 3. Pancreatic Ca/Elevated LFT's -CT abd/pelvis: ascites. narrowing of SMV near portal junction with dilated mesenteric veins (see full report) -Prior EGD revealed pancreatic duct stricture, moderate dilation of the pancreatic duct in the body of the pancrease and pancreatic duct in the tail of the panceas was found diffusely. EUS showed mass in the pancreas head -Pathology revealed invasive adenocarcinoma, moderate to poorly differentiated -Pet Scan did not show evidence of metastasis; pulmonary nodule was present, read as inflammatory -Zofran prn nausea -Morphine prn pain 4. COPD -CXR reviewed -Duoneb [facility]SE[facility]UEL and PRN 5. Hypertension -Norvasc 10mg PO daily 6.Prophylactic measures -Protonix 40mg IVP daily -Heparin 5000 Q12H Case discussed with Dr. Lalit Dunne PGY1 <Lydia Cohn - Last Filed: 07/04/17 14:19> Objective - Vital Signs/Intake and Output Vital Signs (last 24 hours): Temp Pulse Resp BP Pulse Ox 98.1 F 86 20 100/75 100 07/04/17 08:27 07/04/17 08:27 07/04/17 08:27 07/04/17 09:30 07/04/17 08:27 Intake and Output: 07/04/17 07/04/17 06:59 18:59 Intake Total 840 180 Output Total 550 300 Balance 290 -120 - Medications Medications: Current Medications Albuterol/Ipratropium (Duoneb 3 Mg/0.5 Mg (3 Ml) Ud) 3 ml IH [id number] PRN PRN Reason: Shortness of Breath Albuterol/Ipratropium (Duoneb 3 Mg/0.5 Mg (3 Ml) Ud) 3 ml IH [id number] [facility] Last Admin: 07/04/17 13:35 Dose: 3 ml Amlodipine Besylate (Norvasc) 10 mg PO DAILY [facility] Last Admin: 07/04/17 09:30 Dose: 10 mg Amylase (Pancrease 72030 U-5000 U-09578 U) 5,000 unit PO WM [facility] Last Admin: 07/04/17 12:16 Dose: 5,000 unit Docusate Sodium (Colace) 100 mg PO DAILY [facility] Last Admin: 07/04/17 09:30 Dose: 100 mg Dextrose/Sodium Chloride (Dextrose 5%/0.45% Ns 1000 Ml) 1,000 mls @ 80 mls/hr IV .[id number] [facility] Last Admin: 07/04/17 09:32 Dose: 80 mls/hr Megestrol Acetate (Megace) 800 mg PO DAILY [facility] Last Admin: 07/04/17 13:09 Dose: 800 mg Morphine Sulfate (Morphine) 2 mg IVP Q4H PRN PRN Reason: Pain, moderate (4-7) Morphine Sulfate (Morphine Extended Release Tab) 15 mg PO Q12 [facility] Last Admin: 07/04/17 12:16 Dose: 15 mg Ondansetron HCl (Zofran Inj) 4 mg IVP Q6H PRN PRN Reason: Nausea/Vomiting Pantoprazole Sodium (Protonix Ec Tab) 40 mg PO ACB [facility] Last Admin: 07/04/17 07:54 Dose: 40 mg - Labs Labs: 07/04/17 13:30 07/04/17 13:30 PT 22.9 SECONDS (9.4-12.5) H 07/01/17 14:09 INR 1.98 (0.93-1.08) H 07/01/17 14:09 Attending/Attestation - Attestation I have personally seen and examined this patient.: Yes I have fully participated in the care of the patient.: Yes I have reviewed all pertinent clinical information, including history, physical exam and plan: Yes Notes (Text): 07/04/17 14:16 Medical record note made by the resident after discussion with my direction and input after the patient was personally seen and examined by me. I have reviewed the chart and agree that the record accurately reflects by personal performance of the history, physical exam, data review, and medical decision-making, in the course for the patient. I have also personally directed the plan of care. 61 yrs old male with PMH of invasive adenocarcinoma of the pancreas 04/2017 , HTN, chronic smoking and drug abuse was admitted for evaluation and treatment for altered mental status which has resolved.He is s/p narcan and d50. Patient was hypoglycemic at the time of admission.Blood sugars are better now.Patient is alert,awake and oriented.Patient has elevated LFT.Abdominal CT reveals severe ascites, dilated mesenteric veins with narrowing of the SMV near the portal vein, pancreatic mass , and a severe enlargement of the pancreatic duct.Patient was evaluated by GI and GI is planning for ERCP and billiary stent on 07/05. Management plan was discussed in detail with patient. Education was provided, need reinforcement. Prognosis is guarded. 07/04/17 14:18
[2017-07-03] MEDS: Amylase/Lipase/Protease 5,000 Units ECC PO SCH ×3 (08:13→17:36)
[2017-07-03] MEDS: Pantoprazole 40 mg EC Tab PO SCH (08:13)
[2017-07-03] MEDS ORDERED: Potassium Chloride 20 mEq ER Tab PO ONE (08:44)
[2017-07-03] MEDS: Dextrose 5%/0.45% NS 1,000 ML IV SCH ×2 (12:09→21:00)
[2017-07-04] MEDS: Albuterol-Ipratrop 3 mg / 0.5 (3 ml) UD IH SCH ×5 (01:10→20:17)
[2017-07-04] MEDS: Morphine 2 mg/ml ISec IVP PRN ×4 (02:53→21:45)
--- NOTE | 2017-07-04 06:42 | CP.PCM.PN ---
Addendum entered and electronically signed by Lencho Manjarrez DO 07/04/17 09:57: Addition to Plan: - IR to be consulted for potential paracentesis - fluid cytology and studies to be ordered- will follow up Original Note: <Lencho Manjarrez - Last Filed: 07/04/17 09:09> Subjective - Date & Time of Evaluation Date of Evaluation: 07/04/17 Time of Evaluation: 08:30 - Subjective Subjective: Subjective: Patient seen and examined at bedside. Admits to increase in abdominal pain. States he is very upset about his change in pain medications. Tolerating diet despite baseline nausea. Denies fever, chills, chest pain, SOB, abdominal pain, vomiting, diarrhea, constipation, and urinary symptoms. Physical Examination: - Constitutional Appears: Cachectic, Chronically Ill - Head Exam Head Exam: NORMAL INSPECTION - Eye Exam Eye Exam: EOMI - ENT Exam ENT Exam: Mucous Membranes Moist - Respiratory Exam Respiratory Exam: Decreased Breath Sounds - Cardiovascular Exam Cardiovascular Exam: +S1, +S2 - GI/Abdominal Exam GI & Abdominal Exam: Normal Bowel Sounds, soft, NTTP, absent: guarding, rigidity , rebound tenderness, organomegaly - Extremities Exam Extremities exam: Positive for: normal inspection, pedal pulses present - Neurological Exam Neurological exam: Alert, Oriented x3 - Skin Skin Exam: Dry, warm Assessment and Plan: Patient is a 61 year old male with past medical history of pancreatic cancer diagnosed 04/2017, hypertension, COPD, DM and NSTEMI who was admitted for evaluation and treatment for altered mental status which has resolved s/p narcan and d50. GI consulted for management of patient elevated LFTs. Abdominal CT reveals severe ascites, dilated mesenteric veins with narrowing of the SMV near the portal vein, pancreatic mass, and a severe enlargement of the pancreatic duct. Pancreatic cancer Elevated LFTs, Total bilirubin Abnormal CT finding Hx of HTN Hx of COPD Hx of DM Hx of NSTEMI - clinical course- impending biliary and duodenal obstruction due to pancreatic malignancy - tentatively plan for possible EGD with duodenal stent and ERCP with biliary stent on 07/05/17 - continue with heart healthy diet and pancreatic enzyme supplementation - pain control - continue strict glycemic control Thank you for the opportunity for participating in the care of this patient. We will continue to follow with you. Patient case reviewed with and plan approved by attending physician, Dr. Marin. Objective - Vital Signs/Intake and Output Vital Signs (last 24 hours): Temp Pulse Resp BP Pulse Ox 98.6 F 115 H 20 103/81 98 07/03/17 16:30 07/03/17 18:00 07/03/17 16:30 07/03/17 16:30 07/03/17 16:30 Intake and Output: 07/03/17 07/04/17 18:59 06:59 Intake Total 720 840 Output Total 200 550 Balance 520 290 - Medications Medications: Current Medications Albuterol/Ipratropium (Duoneb 3 Mg/0.5 Mg (3 Ml) Ud) 3 ml IH [id number] PRN PRN Reason: Shortness of Breath Albuterol/Ipratropium (Duoneb 3 Mg/0.5 Mg (3 Ml) Ud) 3 ml IH [id number] [facility] Last Admin: 07/04/17 01:10 Dose: Not Given Amlodipine Besylate (Norvasc) 10 mg PO DAILY [facility] Last Admin: 07/03/17 09:22 Dose: 10 mg Amylase (Pancrease 97564 U-5000 U-[id number] U) 5,000 unit PO WM [facility] Last Admin: 07/03/17 17:36 Dose: 5,000 unit Aspirin (Aspirin Chewable) 81 mg PO DAILY [facility] Last Admin: 07/03/17 09:22 Dose: 81 mg Docusate Sodium (Colace) 100 mg PO DAILY [facility] Last Admin: 07/03/17 09:22 Dose: 100 mg Dextrose/Sodium Chloride (Dextrose 5%/0.45% Ns 1000 Ml) 1,000 mls @ 80 mls/hr IV .[id number] [facility] Last Admin: 07/03/17 21:00 Dose: 80 mls/hr Morphine Sulfate (Morphine) 1 mg IVP Q6H PRN PRN Reason: Pain, moderate (4-7) Last Admin: 07/04/17 02:53 Dose: 1 mg Ondansetron HCl (Zofran Inj) 4 mg IVP Q6H PRN PRN Reason: Nausea/Vomiting Pantoprazole Sodium (Protonix Ec Tab) 40 mg PO ACB [facility] Last Admin: 07/03/17 08:13 Dose: 40 mg - Labs Labs: 07/03/17 06:20 07/03/17 06:20 PT 22.9 SECONDS (9.4-12.5) H 07/01/17 14:09 INR 1.98 (0.93-1.08) H 07/01/17 14:09 <Gordo Marin - Last Filed: 07/04/17 13:49> Objective - Vital Signs/Intake and Output Vital Signs (last 24 hours): Temp Pulse Resp BP Pulse Ox 98.1 F 86 20 100/75 100 07/04/17 08:27 07/04/17 08:27 07/04/17 08:27 07/04/17 09:30 07/04/17 08:27 Intake and Output: 07/04/17 07/04/17 06:59 18:59 Intake Total 840 180 Output Total 550 300 Balance 290 -120 - Medications Medications: Current Medications Albuterol/Ipratropium (Duoneb 3 Mg/0.5 Mg (3 Ml) Ud) 3 ml IH [id number] PRN PRN Reason: Shortness of Breath Albuterol/Ipratropium (Duoneb 3 Mg/0.5 Mg (3 Ml) Ud) 3 ml IH [id number] [facility] Last Admin: 07/04/17 13:35 Dose: 3 ml Amlodipine Besylate (Norvasc) 10 mg PO DAILY [facility] Last Admin: 07/04/17 09:30 Dose: 10 mg Amylase (Pancrease 67250 U-5000 U-54548 U) 5,000 unit PO WM [facility] Last Admin: 07/04/17 12:16 Dose: 5,000 unit Docusate Sodium (Colace) 100 mg PO DAILY [facility] Last Admin: 07/04/17 09:30 Dose: 100 mg Dextrose/Sodium Chloride (Dextrose 5%/0.45% Ns 1000 Ml) 1,000 mls @ 80 mls/hr IV .[id number] [facility] Last Admin: 07/04/17 09:32 Dose: 80 mls/hr Megestrol Acetate (Megace) 800 mg PO DAILY [facility] Last Admin: 07/04/17 13:09 Dose: 800 mg Morphine Sulfate (Morphine) 2 mg IVP Q4H PRN PRN Reason: Pain, moderate (4-7) Morphine Sulfate (Morphine Extended Release Tab) 15 mg PO Q12 [facility] Last Admin: 07/04/17 12:16 Dose: 15 mg Ondansetron HCl (Zofran Inj) 4 mg IVP Q6H PRN PRN Reason: Nausea/Vomiting Pantoprazole Sodium (Protonix Ec Tab) 40 mg PO ACB [facility] Last Admin: 07/04/17 07:54 Dose: 40 mg - Labs Labs: 07/03/17 06:20 07/03/17 06:20 PT 22.9 SECONDS (9.4-12.5) H 07/01/17 14:09 INR 1.98 (0.93-1.08) H 07/01/17 14:09 Attending/Attestation - Attestation I have personally seen and examined this patient.: Yes I have fully participated in the care of the patient.: Yes I have reviewed all pertinent clinical information, including history, physical exam and plan: Yes Notes (Text): 07/04/17 13:48 61 year old male with h/o pancreatic cancer on chemotherapy with progressive weight loss and rising LFTs. Suspect impending biliary and duodenal obstruction due to pancreatic malignancy. Diet as tolerated. Will tentatively plan for possible EGD with duodenal stent and ERCP with biliary stent on . Monitor daily LFTs. Pain control as needed. Nutritional support.
[2017-07-04] MEDS ORDERED: Morphine 2 mg/ml ISec IVP STA (07:46)
[2017-07-04] MEDS: Amylase/Lipase/Protease 5,000 Units ECC PO SCH ×3 (07:54→17:05)
[2017-07-04] MEDS: Pantoprazole 40 mg EC Tab PO SCH (07:54)
[2017-07-04] MEDS ORDERED: Potassium Chloride 40 MEQ in Dextrose 5%/0.45% NS 1,000 ML IV SCH (09:05)
--- NOTE | 2017-07-04 09:26 | CP.PCM.PN ---
<VibhaChad - Last Filed: 07/04/17 13:06> Subjective - Date & Time of Evaluation Date of Evaluation: 07/04/17 Time of Evaluation: 08:30 - Subjective Subjective: Medicine Note for Dr. Cohn Patient seen and examined at bedside. No acute event overnight. Patient complains of mild abdominal pain especially with meals. He reports that he is unable to eat due to pain and nausea. He sent back entire tray of breakfast without eating. Palliative care is following and assisting in symptom control. No other complaints at this time. Objective - Vital Signs/Intake and Output Vital Signs (last 24 hours): Temp Pulse Resp BP Pulse Ox 98.1 F 86 20 100/75 100 07/04/17 08:27 07/04/17 08:27 07/04/17 08:27 07/04/17 08:27 07/04/17 08:27 Intake and Output: 07/04/17 07/04/17 06:59 18:59 Intake Total 840 180 Output Total 550 300 Balance 290 -120 - Medications Medications: Current Medications Albuterol/Ipratropium (Duoneb 3 Mg/0.5 Mg (3 Ml) Ud) 3 ml IH [id number] PRN PRN Reason: Shortness of Breath Albuterol/Ipratropium (Duoneb 3 Mg/0.5 Mg (3 Ml) Ud) 3 ml IH [id number] [facility] Last Admin: 07/04/17 07:46 Dose: 3 ml Amlodipine Besylate (Norvasc) 10 mg PO DAILY [facility] Last Admin: 07/03/17 09:22 Dose: 10 mg Amylase (Pancrease 10372 U-5000 U-59928 U) 5,000 unit PO WM [facility] Last Admin: 07/04/17 07:54 Dose: 5,000 unit Aspirin (Aspirin Chewable) 81 mg PO DAILY [facility] Last Admin: 07/03/17 09:22 Dose: 81 mg Docusate Sodium (Colace) 100 mg PO DAILY [facility] Last Admin: 07/03/17 09:22 Dose: 100 mg Dextrose/Sodium Chloride (Dextrose 5%/0.45% Ns 1000 Ml) 1,000 mls @ 80 mls/hr IV .[id number] [facility] Morphine Sulfate (Morphine) 1 mg IVP Q6H PRN PRN Reason: Pain, moderate (4-7) Last Admin: 07/04/17 02:53 Dose: 1 mg Ondansetron HCl (Zofran Inj) 4 mg IVP Q6H PRN PRN Reason: Nausea/Vomiting Pantoprazole Sodium (Protonix Ec Tab) 40 mg PO ACB [facility] Last Admin: 07/04/17 07:54 Dose: 40 mg - Labs Labs: 07/03/17 06:20 07/03/17 06:20 PT 22.9 SECONDS (9.4-12.5) H 07/01/17 14:09 INR 1.98 (0.93-1.08) H 07/01/17 14:09 - Constitutional Appears: No Acute Distress, Cachectic, Chronically Ill - Head Exam Head Exam: ATRAUMATIC, NORMOCEPHALIC - Eye Exam Eye Exam: Normal appearance - ENT Exam ENT Exam: Mucous Membranes Moist - Respiratory Exam Respiratory Exam: Clear to Ausculation Bilateral, NORMAL BREATHING PATTERN - Cardiovascular Exam Cardiovascular Exam: REGULAR RHYTHM - GI/Abdominal Exam GI & Abdominal Exam: Soft, Tenderness (mild), Normal Bowel Sounds. absent: Firm , Guarding, Rigid, Rebound - Extremities Exam Extremities Exam: Normal Capillary Refill - Neurological Exam Neurological Exam: Alert, Awake, Oriented x3 - Psychiatric Exam Psychiatric exam: Normal Affect, Normal Mood - Skin Skin Exam: Dry, Intact, Normal Color, Warm Assessment and Plan - Assessment and Plan (Free Text) Plan: 61M with history of Pancreatic CA, COPD, HTN, DM presents with altered mental status due to hypoglycemia 1. Altered mental status; resolved -secondary to hypoglycemia 2. Hypoglycemia D5/0.45% NS 80 cc/hr Accuchecks Q4H Heart healthy diet 3. Pancreatic Ca/Elevated LFTs -Plan for duodenal/biliary stent placement by GI team -Paracentesis for Ascites control -CT abd/pelvis: ascites. narrowing of SMV near portal junction with dilated mesenteric veins (see full report) -Prior EGD revealed pancreatic duct stricture, moderate dilation of the pancreatic duct in the body of the pancrease and pancreatic duct in the tail of the panceas was found diffusely. EUS showed mass in the pancreas head -Pathology revealed invasive adenocarcinoma, moderate to poorly differentiated -Pet Scan did not show evidence of metastasis; pulmonary nodule was present, read as inflammatory -Zofran prn nausea -Morphine ER 15 mg PO Q12H -Morphine 2 mg IVP PRN breakthrough pain -Megace for appetitie stimulation -Palliative Care consult, help appreciated 4. COPD -Duoneb [facility] and PRN 5. Hypertension -Norvasc 10mg PO daily 6.Prophylactic measures -Protonix 40mg IVP daily -Heparin 5000 Q12H Case discussed with Dr. Lalit Dunne PGY1 <Lydia Cohn - Last Filed: 07/04/17 14:23> Objective - Vital Signs/Intake and Output Vital Signs (last 24 hours): Temp Pulse Resp BP Pulse Ox 98.1 F 86 20 100/75 100 07/04/17 08:27 07/04/17 08:27 07/04/17 08:27 07/04/17 09:30 07/04/17 08:27 Intake and Output: 07/04/17 07/04/17 06:59 18:59 Intake Total 840 180 Output Total 550 300 Balance 290 -120 - Medications Medications: Current Medications Albuterol/Ipratropium (Duoneb 3 Mg/0.5 Mg (3 Ml) Ud) 3 ml IH [id number] PRN PRN Reason: Shortness of Breath Albuterol/Ipratropium (Duoneb 3 Mg/0.5 Mg (3 Ml) Ud) 3 ml IH [id number] [facility] Last Admin: 07/04/17 13:35 Dose: 3 ml Amlodipine Besylate (Norvasc) 10 mg PO DAILY [facility] Last Admin: 07/04/17 09:30 Dose: 10 mg Amylase (Pancrease 34593 U-5000 U-87584 U) 5,000 unit PO WM [facility] Last Admin: 07/04/17 12:16 Dose: 5,000 unit Docusate Sodium (Colace) 100 mg PO DAILY [facility] Last Admin: 07/04/17 09:30 Dose: 100 mg Dextrose/Sodium Chloride (Dextrose 5%/0.45% Ns 1000 Ml) 1,000 mls @ 80 mls/hr IV .[id number] [facility] Last Admin: 07/04/17 09:32 Dose: 80 mls/hr Megestrol Acetate (Megace) 800 mg PO DAILY [facility] Last Admin: 07/04/17 13:09 Dose: 800 mg Morphine Sulfate (Morphine) 2 mg IVP Q4H PRN PRN Reason: Pain, moderate (4-7) Morphine Sulfate (Morphine Extended Release Tab) 15 mg PO Q12 [facility] Last Admin: 07/04/17 12:16 Dose: 15 mg Ondansetron HCl (Zofran Inj) 4 mg IVP Q6H PRN PRN Reason: Nausea/Vomiting Pantoprazole Sodium (Protonix Ec Tab) 40 mg PO ACB [facility] Last Admin: 07/04/17 07:54 Dose: 40 mg - Labs Labs: 07/04/17 13:30 07/04/17 13:30 PT 22.9 SECONDS (9.4-12.5) H 07/01/17 14:09 INR 1.98 (0.93-1.08) H 07/01/17 14:09 Attending/Attestation - Attestation I have personally seen and examined this patient.: Yes I have fully participated in the care of the patient.: Yes I have reviewed all pertinent clinical information, including history, physical exam and plan: Yes Notes (Text): 07/04/17 14:19 Medical record note made by the resident after discussion with my direction and input after the patient was personally seen and examined by me. I have reviewed the chart and agree that the record accurately reflects by personal performance of the history, physical exam, data review, and medical decision-making, in the course for the patient. I have also personally directed the plan of care. 61 yrs old AAM with PMH of recently diagnosed invasive adenocarcinoma of the pancreas 04/2017 , HTN, chronic smoking , drug abuse and non compliance was admitted for evaluation and treatment for altered mental status which has resolved.He is s/p Narcan and d50. Patient was hypoglycemic at the time of admission.Blood sugars are better now.Patient is alert,awake and oriented.Patient also has elevated LFT.Abdominal CT reveals severe ascites, dilated mesenteric veins with narrowing of the SMV near the portal vein, pancreatic mass, and a severe enlargement of the pancreatic duct.AST and ALT are coming down.GI is following.Patient is for ERCP and billiary stent by GI on . Management plan was discussed in detail with patient. Education was provided. Progonis is guarded/ 07/04/17 14:21
[2017-07-04] MEDS: Dextrose 5%/0.45% NS 1,000 ML IV SCH ×2 (09:32→21:40)
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
[2017-07-04] MEDS: Morphine 15 mg SR Tab PO SCH ×2 (12:16→21:39)
[2017-07-04] MEDS ORDERED: Phytonadione 5 MG in Sodium Chloride 0.9% 50 ML IV ONE (12:25)
[2017-07-04] MEDS ORDERED: Megestrol Acetate 40 mg/ml Cup PO SCH (12:45)
[2017-07-04] MEDS: Megestrol Acetate 40 mg/ml Cup PO SCH (13:09)
[2017-07-04 14:00] LABS: GRAN # 1.58 (1.4-6.5); GRAN % 62.4 % (50.0-68.0); HEMOGLOBIN 10.8 g/dL (14.0-18.0); LYMPH # 0.9 (1.2-3.4); LYMPH % 36.4 % (22.0-35.0); MEAN CELL VOLUME 91.5 fl (80.0-105.0); MEAN CORPUSCULAR HEMOGLOBIN 31.5 pg (25.0-35.0); MEAN CORPUSCULAR HGB CONC 34.4 g/dl (31.0-37.0); MEAN PLATELET VOLUME 8.7 fl (7.0-11.0); MONO % 1.2 % (1.0-6.0); RBC 3.43 10^6/uL (3.5-6.1); RED CELL DISTRIBUTION WIDTH 12.7 % (11.5-14.5)
[2017-07-04 14:07] LABS: ALB/GLOB RATIO 0.9 (1.1-1.8); ALBUMIN 2.6 g/dL (3.0-4.8); ALT/SGPT 176 U/L (7-56); AST/SGOT 138 U/L (17-59); BLOOD UREA NITROGEN 23 mg/dL (7-21); CALCIUM 7.3 mg/dL (8.4-10.5); GFR AFRICAN-AMERICAN > 60; GFR NON-AFRICAN AMERICAN > 60
[2017-07-04 14:09] LABS: WHITE BLOOD COUNT 2.5 10^3/ul (4.5-11.0)
--- NOTE | 2017-07-04 14:52 | CON ---
DATE: 07/04/2017 HISTORY OF PRESENT ILLNESS: This is a 61-year-old man with widely metastatic pancreas cancer, newly diagnosed. He got his first dose of Gemzar chemotherapy 2 weeks ago, relatively lower dose and a second injection of Gemzar several days ago. He is now brought in to the hospital by his [id number], who says that he found the patient unresponsive and it was unclear as to why that was and that he did thought it was the oxycodone that he took, but his blood sugar was measured to be about 30 and in the emergency room, he woke up not from the Narcan, but from the sugar infusion. The CAT scan that was done recently shows the severe dilatation of the pancreatic duct and dilated mesenteric vessels. Otherwise, his x-rays never really showed the pancreas cancer very well, but it has been showing on the biopsies. His other laboratory findings show white count of 2.5, platelet count 70. The liver function, bilirubin of 2 and his was about 230. At this point, the patient is very weak. I have had multiple discussions with him as an outpatient in terms of hospice. He says he wants everything done. I see that they called the palliative care consultation and at this point from my perspective, if he wants the treatment, I will try to treat it as best as I can without harming him in terms of the chemotherapy. He takes oxycodone at home, but at this point, I believe that he wants all things done and he is on the morphine pills. So at this point, he is palliative care and when he is ready to go home, he will be discharged and he is due for his chemotherapy next Sunday. Nick Oquendo MD
[2017-07-04] MEDS ORDERED: Dextrose 50% SYRINGE Inj (50 ml) ONE (18:56)
[2017-07-04] MEDS ORDERED: Dextrose 50% SYRINGE Inj (50 ml) IVP STA (22:37)
[2017-07-05] MEDS: Albuterol-Ipratrop 3 mg / 0.5 (3 ml) UD IH SCH ×5 (01:08→20:30)
[2017-07-05] MEDS: Morphine 2 mg/ml ISec IVP PRN ×3 (03:36→13:25)
[2017-07-05 07:09] LABS: GRAN # 1.61 (1.4-6.5); GRAN % 61.9 % (50.0-68.0); HEMOGLOBIN 11.4 g/dL (14.0-18.0); LYMPH # 0.9 (1.2-3.4); MEAN CELL VOLUME 91.4 fl (80.0-105.0); MEAN CORPUSCULAR HEMOGLOBIN 31.7 pg (25.0-35.0); MEAN CORPUSCULAR HGB CONC 34.7 g/dl (31.0-37.0); MEAN PLATELET VOLUME 9.6 fl (7.0-11.0); MONO # 0.1 (0.1-0.6); MONO % 3.1 % (1.0-6.0); RBC 3.6 10^6/uL (3.5-6.1); RED CELL DISTRIBUTION WIDTH 12.6 % (11.5-14.5)
[2017-07-05 07:22] LABS: WHITE BLOOD COUNT 2.6 10^3/ul (4.5-11.0)
[2017-07-05 07:26] LABS: INR 1.74 (0.93-1.08); PROTHROMBIN TIME 20.2 SECONDS (9.4-12.5)
--- NOTE | 2017-07-05 07:39 | CP.PCM.PN ---
<Lencho Manjarrez - Last Filed: 07/05/17 09:14> Subjective - Date & Time of Evaluation Date of Evaluation: 07/05/17 Time of Evaluation: 06:50 - Subjective Subjective: Subjective: Patient seen and examined at bedside. Admits to experiencing mechanical fall yesterday. Denies loss of consciousness and trauma to the head. Admits to one bout of emesis with questionable streak of blood overnight. States he is experiencing abdominal pain at baseline. Denies fever, chills, chest pain, SOB, diarrhea, constipation, and urinary symptoms. Physical Examination: - Constitutional Appears: Cachectic, Chronically Ill - Head Exam Head Exam: NORMAL INSPECTION - Eye Exam Eye Exam: EOMI - ENT Exam ENT Exam: Mucous Membranes Moist - Respiratory Exam Respiratory Exam: Decreased Breath Sounds - Cardiovascular Exam Cardiovascular Exam: +S1, +S2 - GI/Abdominal Exam GI & Abdominal Exam: Normal Bowel Sounds, soft, NTTP, absent: guarding, rigidity , rebound tenderness, organomegaly - Extremities Exam Extremities exam: Positive for: normal inspection, pedal pulses present - Neurological Exam Neurological exam: Alert, Oriented x3 - Skin Skin Exam: Dry, warm Assessment and Plan: Patient is a 61 year old male with past medical history of pancreatic cancer diagnosed 04/2017, hypertension, COPD, DM and NSTEMI who was admitted for evaluation and treatment for altered mental status which has resolved s/p narcan and d50. GI consulted for management of patient elevated LFTs. Abdominal CT reveals severe ascites, dilated mesenteric veins with narrowing of the SMV near the portal vein, pancreatic mass, and a severe enlargement of the pancreatic duct. Pancreatic cancer Elevated LFTs, Total bilirubin Abnormal CT finding Hypokalemia Thrombocytopenia Hx of HTN Hx of COPD Hx of DM Hx of NSTEMI - clinical course- impending biliary and duodenal obstruction due to pancreatic malignancy - plan for possible EGD with duodenal stent and ERCP with biliary stent on - 3 ffp and platelets ordered - paracentesis scheduled for 07/05/17 - keep NPO for procedure - pain control - replete electrolytes Thank you for the opportunity for participating in the care of this patient. We will continue to follow with you. Patient case reviewed with and plan approved by attending physician, Dr. Gonzalez Objective - Vital Signs/Intake and Output Vital Signs (last 24 hours): Temp Pulse Resp BP Pulse Ox 98 F 72 20 118/85 99 07/04/17 18:03 07/05/17 06:00 07/04/17 18:03 07/04/17 18:03 07/04/17 18:03 Intake and Output: 07/05/17 07/05/17 06:59 18:59 Intake Total 660 0 Output Total 1400 250 Balance -740 -250 - Medications Medications: Current Medications Albuterol/Ipratropium (Duoneb 3 Mg/0.5 Mg (3 Ml) Ud) 3 ml IH [id number] PRN PRN Reason: Shortness of Breath Albuterol/Ipratropium (Duoneb 3 Mg/0.5 Mg (3 Ml) Ud) 3 ml IH [id number] [facility] Last Admin: 07/05/17 07:20 Dose: 3 ml Amlodipine Besylate (Norvasc) 10 mg PO DAILY [facility] Last Admin: 07/04/17 09:30 Dose: 10 mg Amylase (Pancrease 47547 U-5000 U-10278 U) 5,000 unit PO WM [facility] Last Admin: 07/04/17 17:05 Dose: 5,000 unit Docusate Sodium (Colace) 100 mg PO DAILY [facility] Last Admin: 07/04/17 09:30 Dose: 100 mg Dextrose/Sodium Chloride (Dextrose 5%/0.45% Ns 1000 Ml) 1,000 mls @ 80 mls/hr IV .[id number] [facility] Last Admin: 07/04/17 21:40 Dose: 80 mls/hr Megestrol Acetate (Megace) 800 mg PO DAILY [facility] Last Admin: 07/04/17 13:09 Dose: 800 mg Morphine Sulfate (Morphine) 2 mg IVP Q4H PRN PRN Reason: Pain, moderate (4-7) Last Admin: 07/05/17 03:36 Dose: 2 mg Morphine Sulfate (Morphine Extended Release Tab) 15 mg PO Q12 [facility] Last Admin: 07/04/17 21:39 Dose: 15 mg Ondansetron HCl (Zofran Inj) 4 mg IVP Q6H PRN PRN Reason: Nausea/Vomiting Pantoprazole Sodium (Protonix Ec Tab) 40 mg PO ACB [facility] Last Admin: 07/04/17 07:54 Dose: 40 mg - Labs Labs: 07/05/17 06:30 07/04/17 13:30 PT 20.2 SECONDS (9.4-12.5) H 07/05/17 06:30 INR 1.74 (0.93-1.08) H 07/05/17 06:30 <LisaDinh - Last Filed: 07/05/17 13:15> Objective - Vital Signs/Intake and Output Vital Signs (last 24 hours): Temp Pulse Resp BP Pulse Ox 98.0 F 94 H 18 110/80 96 07/05/17 09:26 07/05/17 09:26 07/05/17 09:26 07/05/17 09:26 07/05/17 07:53 Intake and Output: 07/05/17 07/05/17 06:59 18:59 Intake Total 660 0 Output Total 1400 250 Balance -740 -250 - Medications Medications: Current Medications Albuterol/Ipratropium (Duoneb 3 Mg/0.5 Mg (3 Ml) Ud) 3 ml IH [id number] PRN PRN Reason: Shortness of Breath Albuterol/Ipratropium (Duoneb 3 Mg/0.5 Mg (3 Ml) Ud) 3 ml IH [id number] [facility] Last Admin: 07/05/17 13:08 Dose: Not Given Amlodipine Besylate (Norvasc) 10 mg PO DAILY [facility] Last Admin: 07/04/17 09:30 Dose: 10 mg Amylase (Pancrease 76740 U-5000 U-85279 U) 5,000 unit PO WM [facility] Last Admin: 07/05/17 08:49 Dose: 5,000 unit Docusate Sodium (Colace) 100 mg PO DAILY [facility] Last Admin: 07/05/17 11:13 Dose: 100 mg Dextrose/Sodium Chloride (Dextrose 5%/0.45% Ns 1000 Ml) 1,000 mls @ 80 mls/hr IV .[id number] [facility] Last Admin: 07/04/17 21:40 Dose: 80 mls/hr Megestrol Acetate (Megace) 800 mg PO DAILY [facility] Last Admin: 07/05/17 11:13 Dose: 800 mg Morphine Sulfate (Morphine) 2 mg IVP Q4H PRN PRN Reason: Pain, moderate (4-7) Last Admin: 07/05/17 07:53 Dose: 2 mg Morphine Sulfate (Morphine Extended Release Tab) 15 mg PO Q12 [facility] Last Admin: 07/05/17 11:13 Dose: 15 mg Ondansetron HCl (Zofran Inj) 4 mg IVP Q6H PRN PRN Reason: Nausea/Vomiting Last Admin: 07/05/17 08:50 Dose: 4 mg - Labs Labs: 07/05/17 06:30 07/05/17 06:30 PT 20.2 SECONDS (9.4-12.5) H 07/05/17 06:30 INR 1.74 (0.93-1.08) H 07/05/17 06:30 Attending/Attestation - Attestation I have personally seen and examined this patient.: Yes I have fully participated in the care of the patient.: Yes I have reviewed all pertinent clinical information, including history, physical exam and plan: Yes Notes (Text): 07/05/17 13:13 61 year old male with pancreatic cancer, vomiting today, severe weight loss/ malnutrition, elevated lfts, likely malignant duodenal obstruction and duodenal obstruction. Also with ascites. Recommend paracentesis. Severe abdominal pain due to malignancy. Recommend EGD with duodenal stent placement, EUS with celiac plexus neurolysis, ERCP with biliary stent placement. Discussed the risks, benefits of procedure with patient who agrees to proceed. Preop vitamin k, FFP, and platelet transfusions given.
--- NOTE | 2017-07-05 07:54 | CP.PCM.PN ---
<Anneliese Negrete - Last Filed: 07/05/17 14:32> Subjective - Date & Time of Evaluation Date of Evaluation: 07/05/17 Time of Evaluation: 07:48 - Subjective Subjective: Hospitalist Service Patient seen and examined at bedside. Patient reports having nausea and clear emesis. Patient reports he has an appetite, but cannot keep food down due to nausea and abdominal pain. Chart review indicates code star was called yesterday as patient fell in the bathroom on his buttocks in the bathroom. He denies any pain, trauma, or bleeding. Patient is scheduled for two procedures today. He is to be sonographically evaluated for any ascites by Dr. Yousif Pryor. ERCP today is scheduled at 14:00. Internal Medicine Resident on GI service, Dr. Lencho Manjarrez, was contacted in regards to FFP administration. Objective - Vital Signs/Intake and Output Vital Signs (last 24 hours): Temp Pulse Resp BP Pulse Ox 98 F 72 20 118/85 99 07/04/17 18:03 07/05/17 06:00 07/04/17 18:03 07/04/17 18:03 07/04/17 18:03 Intake and Output: 07/05/17 07/05/17 06:59 18:59 Intake Total 660 0 Output Total 1400 250 Balance -740 -250 - Medications Medications: Current Medications Albuterol/Ipratropium (Duoneb 3 Mg/0.5 Mg (3 Ml) Ud) 3 ml IH [id number] PRN PRN Reason: Shortness of Breath Albuterol/Ipratropium (Duoneb 3 Mg/0.5 Mg (3 Ml) Ud) 3 ml IH [id number] [facility] Last Admin: 07/05/17 07:20 Dose: 3 ml Amlodipine Besylate (Norvasc) 10 mg PO DAILY [facility] Last Admin: 07/04/17 09:30 Dose: 10 mg Amylase (Pancrease 60682 U-5000 U-78408 U) 5,000 unit PO WM [facility] Last Admin: 07/04/17 17:05 Dose: 5,000 unit Docusate Sodium (Colace) 100 mg PO DAILY [facility] Last Admin: 07/04/17 09:30 Dose: 100 mg Dextrose/Sodium Chloride (Dextrose 5%/0.45% Ns 1000 Ml) 1,000 mls @ 80 mls/hr IV .[id number] [facility] Last Admin: 07/04/17 21:40 Dose: 80 mls/hr Megestrol Acetate (Megace) 800 mg PO DAILY [facility] Last Admin: 07/04/17 13:09 Dose: 800 mg Morphine Sulfate (Morphine) 2 mg IVP Q4H PRN PRN Reason: Pain, moderate (4-7) Last Admin: 07/05/17 03:36 Dose: 2 mg Morphine Sulfate (Morphine Extended Release Tab) 15 mg PO Q12 [facility] Last Admin: 07/04/17 21:39 Dose: 15 mg Ondansetron HCl (Zofran Inj) 4 mg IVP Q6H PRN PRN Reason: Nausea/Vomiting Pantoprazole Sodium (Protonix Ec Tab) 40 mg PO ACB [facility] Last Admin: 07/04/17 07:54 Dose: 40 mg - Labs Labs: 07/05/17 06:30 07/04/17 13:30 PT 20.2 SECONDS (9.4-12.5) H 07/05/17 06:30 INR 1.74 (0.93-1.08) H 07/05/17 06:30 - Constitutional Appears: Cachectic - Head Exam Head Exam: ATRAUMATIC, NORMOCEPHALIC - Eye Exam Eye Exam: EOMI, Normal appearance Pupil Exam: NORMAL ACCOMODATION, PERRL - ENT Exam ENT Exam: Mucous Membranes Moist - Respiratory Exam Respiratory Exam: Clear to Ausculation Bilateral, NORMAL BREATHING PATTERN. absent: Accessory Muscle Use - Cardiovascular Exam Cardiovascular Exam: RRR, +S1, +S2 - GI/Abdominal Exam GI & Abdominal Exam: Soft. absent: Distended, Tenderness - Extremities Exam Extremities Exam: Normal Inspection - Back Exam Back Exam: NORMAL INSPECTION. absent: CVA tenderness (L), CVA tenderness (R) - Neurological Exam Neurological Exam: Alert, Awake, Oriented x3 Neuro motor strength exam: Left Upper Extremity: 5, Right Upper Extremity: 5, Left Lower Extremity: 5, Right Lower Extremity: 5 - Psychiatric Exam Psychiatric exam: Normal Affect, Normal Mood - Skin Skin Exam: Dry, Intact, Normal Color, Warm Assessment and Plan - Assessment and Plan (Free Text) Assessment: 61M with history of Pancreatic CA, COPD, HTN, DM presented with altered mental status possibly due to hypoglycemia that has since resolved. Patient is scheduled for abdominal US and possible paracentesis with Dr. Yousif Pryor and ERCP with Dr. Gonzalez tentatively at 14:00. 3 units of FFP to be administered prior to procedure. 1) Altered mental status; resolved -secondary to hypoglycemia 2) Hypoglycemia D5/0.45% NS 80 cc/hr Accuchecks Q4H Heart healthy diet 3) Pancreatic Ca/Elevated LFTs/Pancretic insuffiency -Plan for duodenal/biliary stent placement by GI team -Paracentesis for Ascites control -CT abd/pelvis: ascites. narrowing of SMV near portal junction with dilated mesenteric veins (see full report) -Prior EGD revealed pancreatic duct stricture, moderate dilation of the pancreatic duct in the body of the pancrease and pancreatic duct in the tail of the panceas was found diffusely. EUS showed mass in the pancreas head -Pathology revealed invasive adenocarcinoma, moderate to poorly differentiated -Pet Scan did not show evidence of metastasis; pulmonary nodule was present, read as inflammatory -Zofran prn nausea -Morphine ER 15 mg PO Q12H -Morphine 2 mg IVP PRN breakthrough pain -Megace for appetitie stimulation -Palliative Care consult, help appreciated - Amylase 5,000 units WM 4. COPD -Duoneb JOSEMANUEL and PRN 5. Hypertension -Norvasc 10mg PO daily 6.Prophylactic measures -Protonix 40mg IVP daily -Heparin 5000 Q12H Case discussed with Dr. Lalit Negrete PGY1 <Lydia Cohn - Last Filed: 07/07/17 13:26> Objective - Vital Signs/Intake and Output Vital Signs (last 24 hours): Temp Pulse Resp BP Pulse Ox 97.5 F L 116 H 20 103/77 96 07/07/17 08:08 07/07/17 08:08 07/07/17 08:08 07/07/17 10:11 07/07/17 08:08 Intake and Output: 07/07/17 07/07/17 06:59 18:59 Output Total 200 Balance -200 - Medications Medications: Current Medications Albuterol/Ipratropium (Duoneb 3 Mg/0.5 Mg (3 Ml) Ud) 3 ml IH [id number] PRN PRN Reason: Shortness of Breath Albuterol/Ipratropium (Duoneb 3 Mg/0.5 Mg (3 Ml) Ud) 3 ml IH [id number] [facility] Last Admin: 07/07/17 08:45 Dose: 3 ml Amlodipine Besylate (Norvasc) 10 mg PO DAILY [facility] Last Admin: 07/07/17 10:11 Dose: 10 mg Amylase (Pancrease 59771 U-5000 U-88178 U) 5,000 unit PO WM [facility] Last Admin: 07/07/17 10:11 Dose: 5,000 unit Dextrose (Dextrose 50% Inj) 50 ml IVP ONCE PRN PRN Reason: hypoglycemia<60 or symptomatic Docusate Sodium (Colace) 100 mg PO DAILY [facility] Last Admin: 07/07/17 10:11 Dose: 100 mg Dextrose/Sodium Chloride (Dextrose 5%/0.9% Ns 1000 Ml) 1,000 mls @ 60 mls/hr IV .[id number] [facility] Megestrol Acetate (Megace) 800 mg PO DAILY [facility] Last Admin: 07/06/17 10:29 Dose: 800 mg Morphine Sulfate (Morphine Extended Release Tab) 15 mg PO Q12 [facility] Last Admin: 07/07/17 10:11 Dose: 15 mg Morphine Sulfate (Morphine) 2 mg IVP Q4H PRN PRN Reason: Pain, moderate (4-7) Stop: 07/09/17 12:39 Last Admin: 07/07/17 04:42 Dose: 2 mg Nystatin (Nystatin Oral Susp) 5 ml PO QID [facility] Last Admin: 07/07/17 10:28 Dose: Not Given Ondansetron HCl (Zofran Inj) 4 mg IVP Q6H PRN PRN Reason: Nausea/Vomiting Last Admin: 07/07/17 10:16 Dose: 4 mg Pantoprazole Sodium (Protonix Inj) 40 mg IVP Q12 [facility] Last Admin: 07/07/17 10:17 Dose: 40 mg Potassium Phos/Sodium Phos (Neutra-Phos) 1 pkt PO TID [facility] Last Admin: 07/07/17 10:28 Dose: Not Given Sucralfate (Carafate Oral Susp) 1 gm PO QID [facility] Last Admin: 07/07/17 10:27 Dose: Not Given - Labs Labs: 07/07/17 08:10 07/07/17 06:30 PT 20.2 SECONDS (9.4-12.5) H 07/05/17 06:30 INR 1.74 (0.93-1.08) H 07/05/17 06:30 Attending/Attestation - Attestation I have personally seen and examined this patient.: Yes I have fully participated in the care of the patient.: Yes I have reviewed all pertinent clinical information, including history, physical exam and plan: Yes Notes (Text): 07/07/17 13:25 Medical record note made by the resident after discussion with my direction and input after the patient was personally seen and examined by me. I have reviewed the chart and agree that the record accurately reflects by personal performance of the history, physical exam, data review, and medical decision-making, in the course for the patient. I have also personally directed the plan of care. 61 yrs old AAM with PMH of recently diagnosed invasive adenocarcinoma of the pancreas 04/2017 , HTN, chronic smoking , drug abuse and non compliance was admitted for evaluation and treatment for altered mental status due to hypoglycemia which has resolved..Blood sugars are better now.Patient is alert, awake and oriented.Patient also has elevated LFT.Abdominal CT reveals severe ascites, dilated mesenteric veins with narrowing of the SMV near the portal vein , pancreatic mass, and a severe enlargement of the pancreatic duct.AST and ALT are coming down.GI is following.Patient is for ERCP and billiary stent by GI today.He is getting FFP and platelet prior to procedure. Progonis is guarded Management plan was discussed in detail with patient. Education was provided.
[2017-07-05 08:04] LABS: ALB/GLOB RATIO 0.9 (1.1-1.8); ALBUMIN 2.9 g/dL (3.0-4.8); ALT/SGPT 190 U/L (7-56); AST/SGOT 147 U/L (17-59); BLOOD UREA NITROGEN 24 mg/dL (7-21); CALCIUM 7.8 mg/dL (8.4-10.5); GFR AFRICAN-AMERICAN > 60; GFR NON-AFRICAN AMERICAN > 60
[2017-07-05] MEDS ORDERED: Potassium Chloride 40 mEq/30 ml LIQ UD PO ONE (08:09)
[2017-07-05] MEDS: Amylase/Lipase/Protease 5,000 Units ECC PO SCH ×3 (08:49→18:04)
[2017-07-05] MEDS ORDERED: ETHANOL ONE (10:32)
[2017-07-05] MEDS ORDERED: Bupivacaine 0.25% Inj(30mL) ONE (10:32)
[2017-07-05] MEDS ORDERED: Sodium Chloride 0.9% 1,000 ML IV STA (11:06)
[2017-07-05] MEDS ORDERED: Iohexol 240 (50 ml) ONE ×2 (11:06→14:21)
[2017-07-05] MEDS ORDERED: Indomethacin 50 MG Suppository PR ONE (11:06)
[2017-07-05] MEDS: Megestrol Acetate 40 mg/ml Cup PO SCH (11:13)
[2017-07-05] MEDS: Morphine 15 mg SR Tab PO SCH ×2 (11:13→21:41)
[2017-07-05] MEDS ORDERED: Dextrose 50% SYRINGE Inj (50 ml) ONE (11:16)
[2017-07-05 12:00] LABS: BODY FLUID TYPE PERITONEAL/ASCITES
[2017-07-05] MEDS ORDERED: Bupivacaine 0.25% Inj(30mL) IJ ONE (12:12)
[2017-07-05] MEDS ORDERED: ETHANOL INJ ONE (12:13)
[2017-07-05 12:18] LABS: BF GROSS APPEARANCE CLOUDY (CLEAR)
[2017-07-05 12:20] LABS: BODY FLUID TOTAL COUNT 100 (0-0)
--- NOTE | 2017-07-05 12:29 | CP.PCM.PN ---
Subjective - Date & Time of Evaluation Date of Evaluation: 07/05/17 Time of Evaluation: 10:00 - Subjective Subjective: Vomited this morning, pain exacerbated with vomiting Objective - Vital Signs/Intake and Output Vital Signs (last 24 hours): Temp Pulse Resp BP Pulse Ox 98.0 F 94 H 18 110/80 96 07/05/17 09:26 07/05/17 09:26 07/05/17 09:26 07/05/17 09:26 07/05/17 07:53 Intake and Output: 07/05/17 07/05/17 06:59 18:59 Intake Total 660 0 Output Total 1400 250 Balance -740 -250 - Medications Medications: Current Medications Albuterol/Ipratropium (Duoneb 3 Mg/0.5 Mg (3 Ml) Ud) 3 ml IH [id number] PRN PRN Reason: Shortness of Breath Albuterol/Ipratropium (Duoneb 3 Mg/0.5 Mg (3 Ml) Ud) 3 ml IH [id number] [facility] Last Admin: 07/05/17 07:20 Dose: 3 ml Alcohol (Dehydrated Alcohol) 30 ml INJ ONCE ONE Stop: 07/05/17 12:14 Amlodipine Besylate (Norvasc) 10 mg PO DAILY [facility] Last Admin: 07/04/17 09:30 Dose: 10 mg Amylase (Pancrease 37090 U-5000 U-24581 U) 5,000 unit PO WM [facility] Last Admin: 07/05/17 08:49 Dose: 5,000 unit Docusate Sodium (Colace) 100 mg PO DAILY [facility] Last Admin: 07/05/17 11:13 Dose: 100 mg Dextrose/Sodium Chloride (Dextrose 5%/0.45% Ns 1000 Ml) 1,000 mls @ 80 mls/hr IV .[id number] [facility] Last Admin: 07/04/17 21:40 Dose: 80 mls/hr Megestrol Acetate (Megace) 800 mg PO DAILY [facility] Last Admin: 07/05/17 11:13 Dose: 800 mg Morphine Sulfate (Morphine) 2 mg IVP Q4H PRN PRN Reason: Pain, moderate (4-7) Last Admin: 07/05/17 07:53 Dose: 2 mg Morphine Sulfate (Morphine Extended Release Tab) 15 mg PO Q12 [facility] Last Admin: 05/17/18 11:13 Dose: 15 mg Ondansetron HCl (Zofran Inj) 4 mg IVP Q6H PRN PRN Reason: Nausea/Vomiting Last Admin: 07/05/17 08:50 Dose: 4 mg - Labs Labs: 07/05/17 06:30 07/05/17 06:30 PT 20.2 SECONDS (9.4-12.5) H 07/05/17 06:30 INR 1.74 (0.93-1.08) H 07/05/17 06:30 - Constitutional Appears: Cachectic, Chronically Ill - Eye Exam Eye Exam: Normal appearance, PERRL - ENT Exam ENT Exam: Mucous Membranes Moist - Respiratory Exam Respiratory Exam: Decreased Breath Sounds - Cardiovascular Exam Cardiovascular Exam: Tachycardia, +S1, +S2 - GI/Abdominal Exam GI & Abdominal Exam: Distended, Tenderness, Diminished Bowel Sounds - Back Exam Back Exam: vertebral tenderness - Neurological Exam Neurological Exam: Alert, Oriented x3 - Skin Skin Exam: Dry, Pallor Assessment and Plan - Assessment and Plan (Free Text) Assessment: 61 year old make with history of pancreatic cancer admitted with intractable pain, hypoglycemia, non febrile neutropenia and thrombocytopenia s/p chemotherapy( gemzar), nausea, vomiting, ascites,elevated LFT's, possible billiary obstruction. Nausea, vomited dark fluid mixed with food particles. Abdomen distended,tender awaiting paracentisis, EGD with billiary stent placement. Plan: Nausea/vomiting/distention: EGD/ biliary stent, paracentisis, Zofran prn Pain Management: [id number] ER, Continue Morphine 2 mg IV as needed. Will revaluate after procedure
--- NOTE | 2017-07-05 14:10 | US ---
PROCEDURE: Ultrasound guided paracentesis. HISTORY: Metastatic pancreatic CA. Abdominal pain and distention. Ascites. Needs therapeutic paracentesis. PHYSICIAN(S): Yousif Pryor MD. TECHNIQUE: The relative risks and indications for the procedure were explained to the patient and informed written consent obtained. Sonography of the abdomen was performed in a supine position. This revealed a small to moderate amount of non-loculated ascites, greatest in the lower abdomen. A significant amount of dilated gas-filled bowel loops are present. A puncture site was selected and the area was prepped and draped in the usual sterile fashion. 1% Xylocaine was used to anesthetize the skin and soft tissues. A 7 Croatian paracentesis catheter was trocared into the right lower abdomenand 1500 cc of trent fluid aspirated. Cell count and differential was sent IMPRESSION: Ultrasound-guided paracentesis in the right lower quadrant. 1500 cc of fluid were aspirated. Cell count and differential was sent
[2017-07-05] MEDS ORDERED: Lactated Ringer's 1,000 ML IV SCH (16:45)
[2017-07-05] MEDS ORDERED: HYDROmorphone 0.5 mg/0.5 ml ISec IVP PRN (16:46)
[2017-07-05] MEDS ORDERED: Dextrose 50% SYRINGE Inj (50 ml) IVP ONE (17:14)
[2017-07-05] MEDS ORDERED: HYDROmorphone 0.5 mg/0.5 ml ISec ONE (17:50)
[2017-07-05] MEDS ORDERED: HYDROmorphone 0.5 mg/0.5 ml ISec IVP ONE (17:52)
[2017-07-05] MEDS ORDERED: Labetalol 5 mg/ml Inj 20ML IV ONE (17:53)
[2017-07-05] MEDS ORDERED: Labetalol 5 mg/ml Inj 20ML ONE (18:07)
[2017-07-05] MEDS: Nystatin 100,000 Units/ml Oral Susp 5 ml UD PO SCH ×2 (18:51→21:41)
[2017-07-05] MEDS: Sucralfate 1 gm/10 ml Oral Susp UD PO SCH ×2 (18:51→21:40)
[2017-07-06] MEDS: Albuterol-Ipratrop 3 mg / 0.5 (3 ml) UD IH SCH ×4 (02:44→20:33)
[2017-07-06] MEDS: Dextrose 5%/0.45% NS 1,000 ML IV SCH (05:02)
[2017-07-06 06:50] LABS: GRAN # 0.58 (1.4-6.5); GRAN % 72.5 % (50.0-68.0); LYMPH # 0.2 (1.2-3.4); MEAN CELL VOLUME 88.6 fl (80.0-105.0); MEAN CORPUSCULAR HEMOGLOBIN 31.4 pg (25.0-35.0); MEAN CORPUSCULAR HGB CONC 35.4 g/dl (31.0-37.0); MEAN PLATELET VOLUME 9.2 fl (7.0-11.0); MONO # 0.1 (0.1-0.6); MONO % 7.5 % (1.0-6.0); RBC 2.9 10^6/uL (3.5-6.1); RED CELL DISTRIBUTION WIDTH 12.2 % (11.5-14.5)
--- NOTE | 2017-07-06 07:12 | CP.PCM.PN ---
<Chad Dunne - Last Filed: 07/06/17 13:05> Subjective - Date & Time of Evaluation Date of Evaluation: 07/06/17 Time of Evaluation: 07:30 - Subjective Subjective: Medicine Note for Dr. Cohn Patient seen and examined at bedside. No acute event overnight. Patient states that pain and appetite has improved. he is s/p duodenal stent placement POD#1. Patient was asking for extra tray for breakfast. He is in [facility] spirits and grateful. He has no complaints this morning. Objective - Vital Signs/Intake and Output Vital Signs (last 24 hours): Temp Pulse Resp BP Pulse Ox 98.0 F 86 18 140/93 H 98 07/05/17 18:30 07/06/17 06:00 07/05/17 18:30 07/05/17 18:30 07/05/17 18:30 Intake and Output: 07/06/17 07/06/17 06:59 18:59 Intake Total 840 Output Total 1450 Balance -610 - Medications Medications: Current Medications Albuterol/Ipratropium (Duoneb 3 Mg/0.5 Mg (3 Ml) Ud) 3 ml IH [id number] PRN PRN Reason: Shortness of Breath Albuterol/Ipratropium (Duoneb 3 Mg/0.5 Mg (3 Ml) Ud) 3 ml IH [id number] [facility] Last Admin: 07/06/17 02:44 Dose: Not Given Amlodipine Besylate (Norvasc) 10 mg PO DAILY [facility] Last Admin: 07/05/17 18:05 Dose: 10 mg Amylase (Pancrease 22354 U-5000 [id number] U) 5,000 unit PO WM [facility] Last Admin: 07/05/17 18:04 Dose: Not Given Docusate Sodium (Colace) 100 mg PO DAILY [facility] Last Admin: 07/05/17 11:13 Dose: 100 mg Dextrose/Sodium Chloride (Dextrose 5%/0.45% Ns 1000 Ml) 1,000 mls @ 80 mls/hr IV .[id number] [facility] Last Admin: 07/06/17 05:02 Dose: 80 mls/hr Megestrol Acetate (Megace) 800 mg PO DAILY [facility] Last Admin: 07/05/17 11:13 Dose: 800 mg Morphine Sulfate (Morphine) 2 mg IVP Q4H PRN PRN Reason: Pain, moderate (4-7) Last Admin: 07/05/17 13:25 Dose: 2 mg Morphine Sulfate (Morphine Extended Release Tab) 15 mg PO Q12 [facility] Last Admin: 07/05/17 21:41 Dose: 15 mg Nystatin (Nystatin Oral Susp) 5 ml PO QID [facility] Last Admin: 07/05/17 21:41 Dose: 5 ml Ondansetron HCl (Zofran Inj) 4 mg IVP Q6H PRN PRN Reason: Nausea/Vomiting Last Admin: 07/05/17 08:50 Dose: 4 mg Pantoprazole Sodium (Protonix Inj) 40 mg IVP Q12 [facility] Last Admin: 07/05/17 21:42 Dose: 40 mg Sucralfate (Carafate Oral Susp) 1 gm PO QID [facility] Last Admin: 07/05/17 21:40 Dose: 1 gm - Labs Labs: 07/05/17 06:30 07/05/17 06:30 PT 20.2 SECONDS (9.4-12.5) H 07/05/17 06:30 INR 1.74 (0.93-1.08) H 07/05/17 06:30 - Constitutional Appears: No Acute Distress, Cachectic, Chronically Ill - Head Exam Head Exam: ATRAUMATIC, NORMOCEPHALIC - Eye Exam Eye Exam: Normal appearance - ENT Exam ENT Exam: Mucous Membranes Moist - Neck Exam Neck Exam: Normal Inspection - Respiratory Exam Respiratory Exam: Clear to Ausculation Bilateral, NORMAL BREATHING PATTERN - Cardiovascular Exam Cardiovascular Exam: REGULAR RHYTHM - GI/Abdominal Exam GI & Abdominal Exam: Soft, Normal Bowel Sounds. absent: Tenderness - Extremities Exam Extremities Exam: Normal Capillary Refill - Neurological Exam Neurological Exam: Alert, Awake, Oriented x3 - Psychiatric Exam Psychiatric exam: Normal Affect, Normal Mood - Skin Skin Exam: Dry, Intact, Normal Color, Warm Assessment and Plan - Assessment and Plan (Free Text) Assessment: 61M with history of Pancreatic CA, COPD, HTN, DM presented with altered mental status possibly due to hypoglycemia that has since resolved, s/p duodenal stent placement POD#1 1.) Electrolyte disturbacnces -K 2.4 -> 2.6 -Mag 1.4 -Phos 2.0 -Repleting K with oral potassium and k riders -Mag sulfate 2 gm IVPB -Neutraphos TID -f/u labs at 1630 -Monitor for refeeding syndrome, replete as needed to prevent 2.) Neutropenia WBC 0.8 Granix daily Neutropenic precautions (reverse isolation) Monitor WBC 3.) Hypoglycemia D5/0.45% NS 80 cc/hr Accuchecks Q4H Heart healthy diet 4.) Pancreatic Ca/Elevated LFTs/Pancretic insuffiency -s/p duodenal stent placement by GI team -Paracentesis for Ascites control -CT abd/pelvis: ascites. narrowing of SMV near portal junction with dilated mesenteric veins (see full report) -Prior EGD revealed pancreatic duct stricture, moderate dilation of the pancreatic duct in the body of the pancrease and pancreatic duct in the tail of the panceas was found diffusely. EUS showed mass in the pancreas head -Pathology revealed invasive adenocarcinoma, moderate to poorly differentiated -Pet Scan did not show evidence of metastasis; pulmonary nodule was present, read as inflammatory -Zofran prn nausea -Morphine ER 15 mg PO Q12H -Morphine 2 mg IVP PRN breakthrough pain -Megace for appetitie stimulation -Palliative Care consult, help appreciated -Amylase 5,000 units WM -Megace for appetite 4.) COPD -Duoneb JOSEMANUEL and PRN 5.) Hypertension -Norvasc 10mg PO daily 6.) Prophylactic measures -Protonix 40mg IVP daily -Heparin 5000 Q12H Case discussed with Dr. Lalit Dunne PGY1 <Lydia Cohn - Last Filed: 07/07/17 13:21> Objective - Vital Signs/Intake and Output Vital Signs (last 24 hours): Temp Pulse Resp BP Pulse Ox 97.5 F L 116 H 20 103/77 96 07/07/17 08:08 07/07/17 08:08 07/07/17 08:08 07/07/17 10:11 07/07/17 08:08 Intake and Output: 07/07/17 07/07/17 06:59 18:59 Output Total 200 Balance -200 - Medications Medications: Current Medications Albuterol/Ipratropium (Duoneb 3 Mg/0.5 Mg (3 Ml) Ud) 3 ml IH [id number] PRN PRN Reason: Shortness of Breath Albuterol/Ipratropium (Duoneb 3 Mg/0.5 Mg (3 Ml) Ud) 3 ml IH [id number] [facility] Last Admin: 07/07/17 08:45 Dose: 3 ml Amlodipine Besylate (Norvasc) 10 mg PO DAILY [facility] Last Admin: 07/07/17 10:11 Dose: 10 mg Amylase (Pancrease 19545 U-5000 U-[id number] U) 5,000 unit PO WM [facility] Last Admin: 07/07/17 10:11 Dose: 5,000 unit Dextrose (Dextrose 50% Inj) 50 ml IVP ONCE PRN PRN Reason: hypoglycemia<60 or symptomatic Docusate Sodium (Colace) 100 mg PO DAILY [facility] Last Admin: 07/07/17 10:11 Dose: 100 mg Dextrose/Sodium Chloride (Dextrose 5%/0.9% Ns 1000 Ml) 1,000 mls @ 60 mls/hr IV .[id number] [facility] Megestrol Acetate (Megace) 800 mg PO DAILY [facility] Last Admin: 07/06/17 10:29 Dose: 800 mg Morphine Sulfate (Morphine Extended Release Tab) 15 mg PO Q12 [facility] Last Admin: 07/07/17 10:11 Dose: 15 mg Morphine Sulfate (Morphine) 2 mg IVP Q4H PRN PRN Reason: Pain, moderate (4-7) Stop: 07/09/17 12:39 Last Admin: 07/07/17 04:42 Dose: 2 mg Nystatin (Nystatin Oral Susp) 5 ml PO QID [facility] Last Admin: 07/07/17 10:28 Dose: Not Given Ondansetron HCl (Zofran Inj) 4 mg IVP Q6H PRN PRN Reason: Nausea/Vomiting Last Admin: 07/07/17 10:16 Dose: 4 mg Pantoprazole Sodium (Protonix Inj) 40 mg IVP Q12 [facility] Last Admin: 07/07/17 10:17 Dose: 40 mg Potassium Phos/Sodium Phos (Neutra-Phos) 1 pkt PO TID [facility] Last Admin: 07/07/17 10:28 Dose: Not Given Sucralfate (Carafate Oral Susp) 1 gm PO QID [facility] Last Admin: 07/07/17 10:27 Dose: Not Given - Labs Labs: 07/07/17 08:10 07/07/17 06:30 PT 20.2 SECONDS (9.4-12.5) H 07/05/17 06:30 INR 1.74 (0.93-1.08) H 07/05/17 06:30 Attending/Attestation - Attestation I have personally seen and examined this patient.: Yes I have fully participated in the care of the patient.: Yes I have reviewed all pertinent clinical information, including history, physical exam and plan: Yes Notes (Text): 07/07/17 13:20 Medical record note made by the resident after discussion with my direction and input after the patient was personally seen and examined by me. I have reviewed the chart and agree that the record accurately reflects by personal performance of the history, physical exam, data review, and medical decision-making, in the course for the patient. I have also personally directed the plan of care. 61 yrs old AAM with PMH of recently diagnosed invasive adenocarcinoma of the pancreas 04/2017 , HTN, chronic smoking , drug abuse and noncompliance was admitted for evaluation and treatment for altered mental status which has resolved. Patient was hypoglycemic at the time of admission. .Patient also has elevated LFT.Abdominal CT reveals severe ascites, dilated mesenteric veins with narrowing of the SMV near the portal vein, pancreatic mass, and a severe enlargement of the pancreatic duct. Patient is SP /p EGD with duodenal stent, ERCP with distal CBD stricture and stent placement, and EUS guided celiac plexus block.Patient is tolerating food. Neutropenia and thrombocytopenia is due to recent chemotherapy.Patient is afebrile , was started on GRANIX 480 MG Daily by Hematology, we will monitor. Hypokalemia and Hypophosphatemia , replacement were given, will follow up electrolyte. Management plan was discussed in detail with patient. Education was provided. Prognosis is guarded.
[2017-07-06 07:28] LABS: ALBUMIN 2.7 g/dL (3.0-4.8); ALT/SGPT 130 U/L (7-56); AST/SGOT 98 U/L (17-59); BLOOD UREA NITROGEN 19 mg/dL (7-21); CALCIUM 7.4 mg/dL (8.4-10.5); GFR AFRICAN-AMERICAN > 60; GFR NON-AFRICAN AMERICAN > 60
--- NOTE | 2017-07-06 07:28 | CP.PCM.PN ---
<Lencho Manjarrez - Last Filed: 07/06/17 11:14> Subjective - Date & Time of Evaluation Date of Evaluation: 07/06/17 Time of Evaluation: 07:15 - Subjective Subjective: Subjective: Patient seen and examined at bedside. No acute events overnight. States abdominal pain has significantly improved relative to baseline. Positive for appetite. Tolerating diet. Denies fever, chills, chest pain, SOB, nausea, vomiting, diarrhea, constipation, and urinary symptoms. Physical Examination: - Constitutional Appears: Cachectic, Chronically Ill - Head Exam Head Exam: NORMAL INSPECTION - Eye Exam Eye Exam: EOMI - ENT Exam ENT Exam: Mucous Membranes Moist - Respiratory Exam Respiratory Exam: Decreased Breath Sounds - Cardiovascular Exam Cardiovascular Exam: +S1, +S2 - GI/Abdominal Exam GI & Abdominal Exam: Normal Bowel Sounds, soft, NTTP, absent: guarding, rigidity , rebound tenderness, organomegaly - Extremities Exam Extremities exam: Positive for: normal inspection, pedal pulses present - Neurological Exam Neurological exam: Alert, Oriented x3 - Skin Skin Exam: Dry, warm Assessment and Plan: Patient is a 61 year old male with past medical history of pancreatic cancer diagnosed 04/2017, hypertension, COPD, DM and NSTEMI who was admitted for evaluation and treatment for altered mental status which has resolved s/p narcan and d50. GI consulted for management of patient elevated LFTs. Abdominal CT reveals severe ascites, dilated mesenteric veins with narrowing of the SMV near the portal vein, pancreatic mass, and a severe enlargement of the pancreatic duct. Underwent EUS with celiac plexus neurolysis, ERCP with biliary stent placement, and EGD with duodenal stent placement. Pancreatic cancer Elevated LFTs- downtrending Eleavted Total bilirubin- stable 1.[address] finding Anemia Hypokalemia Hypomagnesemia Leukopenia Thrombocytopenia Hx of HTN Hx of COPD Hx of DM Hx of NSTEMI - pt is s/p paracentesis on 07/05/2017- 1500 cc of straw colored fluid withdrawn - pt is s/p EUS with celiac plexus neurolysis, ERCP with biliary stent placement , and EGD with duodenal stent placement - patient started on granx 480 micrograms/day for 5 days total therapy as per hematology/oncology - pt given 3 ffp and 1 pack of platelets on 07/05/17 - diet advanced to GI altered, soft - pain control - replete electrolytes Thank you for the opportunity for participating in the care of this patient. We will continue to follow with you. Patient seen, case reviewed with, and plan approved by attending physician, Dr. Shaver. Objective - Vital Signs/Intake and Output Vital Signs (last 24 hours): Temp Pulse Resp BP Pulse Ox 98.0 F 86 18 140/93 H 98 07/05/17 18:30 07/06/17 06:00 07/05/17 18:30 07/05/17 18:30 07/05/17 18:30 Intake and Output: 07/06/17 07/06/17 06:59 18:59 Intake Total 840 Output Total 1450 Balance -610 - Medications Medications: Current Medications Albuterol/Ipratropium (Duoneb 3 Mg/0.5 Mg (3 Ml) Ud) 3 ml IH [id number] PRN PRN Reason: Shortness of Breath Albuterol/Ipratropium (Duoneb 3 Mg/0.5 Mg (3 Ml) Ud) 3 ml IH [id number] [facility] Last Admin: 07/06/17 07:15 Dose: Not Given Amlodipine Besylate (Norvasc) 10 mg PO DAILY [facility] Last Admin: 07/05/17 18:05 Dose: 10 mg Amylase (Pancrease 90027 U-5000 U-[id number] U) 5,000 unit PO WM [facility] Last Admin: 07/05/17 18:04 Dose: Not Given Docusate Sodium (Colace) 100 mg PO DAILY [facility] Last Admin: 07/05/17 11:13 Dose: 100 mg Dextrose/Sodium Chloride (Dextrose 5%/0.45% Ns 1000 Ml) 1,000 mls @ 80 mls/hr IV .[id number] [facility] Last Admin: 07/06/17 05:02 Dose: 80 mls/hr Megestrol Acetate (Megace) 800 mg PO DAILY [facility] Last Admin: 07/05/17 11:13 Dose: 800 mg Morphine Sulfate (Morphine) 2 mg IVP Q4H PRN PRN Reason: Pain, moderate (4-7) Last Admin: 07/05/17 13:25 Dose: 2 mg Morphine Sulfate (Morphine Extended Release Tab) 15 mg PO Q12 [facility] Last Admin: 07/05/17 21:41 Dose: 15 mg Nystatin (Nystatin Oral Susp) 5 ml PO QID [facility] Last Admin: 07/05/17 21:41 Dose: 5 ml Ondansetron HCl (Zofran Inj) 4 mg IVP Q6H PRN PRN Reason: Nausea/Vomiting Last Admin: 07/05/17 08:50 Dose: 4 mg Pantoprazole Sodium (Protonix Inj) 40 mg IVP Q12 [facility] Last Admin: 07/05/17 21:42 Dose: 40 mg Sucralfate (Carafate Oral Susp) 1 gm PO QID [facility] Last Admin: 07/05/17 21:40 Dose: 1 gm - Labs Labs: 07/05/17 06:30 07/06/17 05:45 PT 20.2 SECONDS (9.4-12.5) H 07/05/17 06:30 INR 1.74 (0.93-1.08) H 07/05/17 06:30 <Teofilo Shaver - Last Filed: 07/06/17 12:18> Objective - Vital Signs/Intake and Output Vital Signs (last 24 hours): Temp Pulse Resp BP Pulse Ox 97.6 F 89 20 133/97 H 100 07/06/17 06:00 07/06/17 06:00 07/06/17 06:00 07/06/17 10:31 07/06/17 06:00 Intake and Output: 07/06/17 07/06/17 06:59 18:59 Intake Total 840 Output Total 1450 Balance -610 - Medications Medications: Current Medications Albuterol/Ipratropium (Duoneb 3 Mg/0.5 Mg (3 Ml) Ud) 3 ml IH [id number] PRN PRN Reason: Shortness of Breath Albuterol/Ipratropium (Duoneb 3 Mg/0.5 Mg (3 Ml) Ud) 3 ml IH [id number] [facility] Last Admin: 07/06/17 07:15 Dose: Not Given Amlodipine Besylate (Norvasc) 10 mg PO DAILY [facility] Last Admin: 07/06/17 10:31 Dose: 10 mg Amylase (Pancrease 84669 U-5000 U-[id number] U) 5,000 unit PO WM [facility] Last Admin: 07/06/17 09:24 Dose: 5,000 unit Docusate Sodium (Colace) 100 mg PO DAILY [facility] Last Admin: 07/06/17 10:31 Dose: 100 mg Potassium Chloride 40 meq/ (Dextrose/Sodium Chloride) 1,020 mls @ 80 mls/hr IV .[id number] [facility] Megestrol Acetate (Megace) 800 mg PO DAILY [facility] Last Admin: 07/06/17 10:29 Dose: 800 mg Morphine Sulfate (Morphine) 2 mg IVP Q4H PRN PRN Reason: Pain, moderate (4-7) Last Admin: 07/05/17 13:25 Dose: 2 mg Morphine Sulfate (Morphine Extended Release Tab) 15 mg PO Q12 [facility] Last Admin: 07/06/17 10:29 Dose: 15 mg Nystatin (Nystatin Oral Susp) 5 ml PO QID [facility] Last Admin: 07/06/17 10:29 Dose: 5 ml Ondansetron HCl (Zofran Inj) 4 mg IVP Q6H PRN PRN Reason: Nausea/Vomiting Last Admin: 07/05/17 08:50 Dose: 4 mg Pantoprazole Sodium (Protonix Inj) 40 mg IVP Q12 [facility] Last Admin: 07/06/17 10:31 Dose: 40 mg Potassium Phos/Sodium Phos (Neutra-Phos) 1 pkt PO TID [facility] Sucralfate (Carafate Oral Susp) 1 gm PO QID [facility] Last Admin: 07/05/17 21:40 Dose: 1 gm - Labs Labs: 07/06/17 05:45 07/06/17 05:45 PT 20.2 SECONDS (9.4-12.5) H 07/05/17 06:30 INR 1.74 (0.93-1.08) H 07/05/17 06:30 Attending/Attestation - Attestation I have personally seen and examined this patient.: Yes I have fully participated in the care of the patient.: Yes I have reviewed all pertinent clinical information, including history, physical exam and plan: Yes Notes (Text): 07/06/17 12:15 I have seen and examined patient with GI fellow and medical clinic manager. No acute events overnight, his abdominal pain has significantly improved. He denies nausea, vomiting, fever/chills. He was able to tolerate PO diet this morning for breakfast without difficulty. 12 point review of systems performed, negative aside from mentioned above. HTN / DM COPD Pancreatic cancer - s/p EGD with duodenal stent, ERCP with distal CBD stricture and stent placement, and EUS guided celiac plexus block Neutropenia - Diet as tolerated - LFTs stable, continue to monitor - Follow up hematology recommendations regarding management of neutropenia - Pain control - Follow up palliative care recommendations - Overall residential prognosis for patient is poor given advanced disease, will monitor clinical course post advanced endoscopic intervention
[2017-07-06 07:30] LABS: HEMOGLOBIN 9.1 g/dL (14.0-18.0); WHITE BLOOD COUNT 0.8 10^3/ul (4.5-11.0)
[2017-07-06] MEDS ORDERED: Potassium Chloride 40 mEq/30 ml LIQ UD PO ONE ×3 (07:34→11:30)
[2017-07-06] MEDS ORDERED: Magnesium Sulfate 2 GM in Sodium Chloride 0.9% 100 ML IVPB ONE (07:35)
[2017-07-06] MEDS ORDERED: Potassium Chloride 40 MEQ in Dextrose 5%/0.45% NS 1,000 ML IV SCH (07:50)
[2017-07-06] MEDS: Amylase/Lipase/Protease 5,000 Units ECC PO SCH ×3 (09:24→18:50)
--- NOTE | 2017-07-06 10:01 | RAD ---
PROCEDURE: ERCP HISTORY: ? CBD OBST COMPARISON: TECHNIQUE: Fluoroscopy was provided in the endoscopy suite. 230 seconds of fluoro time with cumulative dose of 13.96 mGy. Seven images were submitted FINDINGS: The study shows placement of a common duct stent IMPRESSION: As above
--- NOTE | 2017-07-06 10:03 | RAD ---
HISTORY: status post endoscopy with stent deployment COMPARISON: No prior. FINDINGS: BOWEL: Normal. No obstruction. No free air. BONES: Normal. OTHER FINDINGS: There is a common duct stent and a stent in the duodenum. IMPRESSION: As above
[2017-07-06] MEDS: Megestrol Acetate 40 mg/ml Cup PO SCH (10:29)
[2017-07-06] MEDS: Morphine 15 mg SR Tab PO SCH ×2 (10:29→21:46)
[2017-07-06] MEDS: Nystatin 100,000 Units/ml Oral Susp 5 ml UD PO SCH ×3 (10:29→21:48)
[2017-07-06 12:32] LABS: BLOOD UREA NITROGEN 19 mg/dL (7-21); CALCIUM 7.4 mg/dL (8.4-10.5); GFR AFRICAN-AMERICAN > 60; GFR NON-AFRICAN AMERICAN > 60
[2017-07-06] MEDS: Potassium & Sodium Phosphate PO SCH ×2 (12:46→16:20)
[2017-07-06] MEDS: Sucralfate 1 gm/10 ml Oral Susp UD PO SCH ×3 (13:05→21:45)
[2017-07-06] MEDS: Potassium Chloride 20 mEq ER Tab PO SCH ×2 (13:06→16:23)
[2017-07-06] MEDS ORDERED: Dextrose 50% SYRINGE Inj (50 ml) IVP PRN (15:43)
[2017-07-06] MEDS: Potassium Chloride 40 MEQ in Dextrose 5%/0.45% NS 1,000 ML IV SCH (16:10)
[2017-07-06] MEDS: Morphine 2 mg/ml ISec IVP PRN ×2 (16:40→21:49)
[2017-07-06 17:44] LABS: BLOOD UREA NITROGEN 20 mg/dL (7-21); GFR AFRICAN-AMERICAN > 60; GFR NON-AFRICAN AMERICAN > 60
[2017-07-06 17:45] LABS: CALCIUM 7.5 mg/dL (8.4-10.5)
[2017-07-07] MEDS: Potassium Chloride 40 MEQ in Dextrose 5%/0.45% NS 1,000 ML IV SCH (01:08)
[2017-07-07] MEDS: Morphine 4 mg/ml ISec IVP PRN ×3 (01:09→15:24)
[2017-07-07] MEDS: Albuterol-Ipratrop 3 mg / 0.5 (3 ml) UD IH SCH ×4 (03:00→20:15)
--- NOTE | 2017-07-07 08:03 | CP.PCM.PN ---
<Kasi Manjarrez - Last Filed: 07/07/17 11:16> Subjective - Date & Time of Evaluation Date of Evaluation: 07/07/17 Time of Evaluation: 07:00 - Subjective Subjective: PGY4 GI Follow-up Pt seen and examined bedside complaining of lower abd pain Pt states that she ate 3 trays yesterday and started to experience pain afterwards denies any BM +nausea and vomiting ROS: 12 point ROS conducted, neg other than above Objective - Vital Signs/Intake and Output Vital Signs (last 24 hours): Temp Pulse Resp BP Pulse Ox 98.8 F 93 H 20 131/79 99 07/06/17 21:58 07/06/17 21:58 07/06/17 21:58 07/06/17 21:58 07/06/17 21:58 Intake and Output: 07/07/17 07/07/17 06:59 18:59 Output Total 200 Balance -200 - Medications Medications: Current Medications Albuterol/Ipratropium (Duoneb 3 Mg/0.5 Mg (3 Ml) Ud) 3 ml IH [id number] PRN PRN Reason: Shortness of Breath Albuterol/Ipratropium (Duoneb 3 Mg/0.5 Mg (3 Ml) Ud) 3 ml IH [id number] [facility] Last Admin: 07/07/17 03:00 Dose: Not Given Amlodipine Besylate (Norvasc) 10 mg PO DAILY [facility] Last Admin: 07/06/17 10:31 Dose: 10 mg Amylase (Pancrease 36154 U-5000 U-40004 U) 5,000 unit PO WM [facility] Last Admin: 07/06/17 18:50 Dose: 5,000 unit Dextrose (Dextrose 50% Inj) 50 ml IVP ONCE PRN PRN Reason: hypoglycemia<60 or symptomatic Docusate Sodium (Colace) 100 mg PO DAILY [facility] Last Admin: 07/06/17 10:31 Dose: 100 mg Potassium Chloride 40 meq/ (Dextrose/Sodium Chloride) 1,020 mls @ 100 mls/hr IV .[id number] [facility] Last Admin: 07/07/17 01:08 Dose: 100 mls/hr Megestrol Acetate (Megace) 800 mg PO DAILY [facility] Last Admin: 07/06/17 10:29 Dose: 800 mg Morphine Sulfate (Morphine Extended Release Tab) 15 mg PO Q12 [facility] Last Admin: 07/06/17 21:46 Dose: 15 mg Morphine Sulfate (Morphine) 2 mg IVP Q4H PRN PRN Reason: Pain, moderate (4-7) Stop: 07/09/17 12:39 Last Admin: 07/07/17 04:42 Dose: 2 mg Nystatin (Nystatin Oral Susp) 5 ml PO QID [facility] Last Admin: 07/06/17 21:48 Dose: 5 ml Ondansetron HCl (Zofran Inj) 4 mg IVP Q6H PRN PRN Reason: Nausea/Vomiting Last Admin: 07/06/17 22:02 Dose: 4 mg Pantoprazole Sodium (Protonix Inj) 40 mg IVP Q12 [facility] Last Admin: 07/06/17 21:48 Dose: 40 mg Potassium Phos/Sodium Phos (Neutra-Phos) 1 pkt PO TID [facility] Last Admin: 07/06/17 16:20 Dose: 1 pkt Sucralfate (Carafate Oral Susp) 1 gm PO QID [facility] Last Admin: 07/06/17 21:45 Dose: 1 gm - Labs Labs: 07/06/17 05:45 07/06/17 17:21 PT 20.2 SECONDS (9.4-12.5) H 07/05/17 06:30 INR 1.74 (0.93-1.08) H 07/05/17 06:30 - Constitutional Appears: In Acute Distress, Cachectic, Chronically Ill - Head Exam Head Exam: ATRAUMATIC, NORMOCEPHALIC - Eye Exam Eye Exam: Normal appearance Pupil Exam: NORMAL ACCOMODATION - ENT Exam ENT Exam: Mucous Membranes Moist, Normal Exam - Neck Exam Neck Exam: Normal Inspection - Respiratory Exam Respiratory Exam: Clear to Ausculation Bilateral, NORMAL BREATHING PATTERN. absent: Rales, Rhonchi, Wheezes, Respiratory Distress - Cardiovascular Exam Cardiovascular Exam: REGULAR RHYTHM, +S1, +S2 - GI/Abdominal Exam GI & Abdominal Exam: Soft, Tenderness (lower quad b/l), Normal Bowel Sounds. absent: Distended, Firm, Guarding, Rigid, Organomegaly - Extremities Exam Extremities Exam: absent: Joint Swelling, Pedal Edema - Neurological Exam Neurological Exam: Alert, Awake, Oriented x3 - Psychiatric Exam Psychiatric exam: Normal Affect, Normal Mood - Skin Skin Exam: Dry, Intact, Normal Color, Warm Assessment and Plan - Assessment and Plan (Free Text) Assessment: Bandar Berman is a 61 year old male with past medical history of pancreatic cancer diagnosed 04/2017, hypertension, COPD, DM and NSTEMI who was admitted for evaluation and treatment for altered mental. S/p EUS with celiac plexus neurolysis, ERCP with biliary stent placement, and EGD with duodenal stent placement. 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 Gonzalez <Dinh Gonzalez - Last Filed: 07/07/17 18:20> Objective - Vital Signs/Intake and Output Vital Signs (last 24 hours): Temp Pulse Resp BP Pulse Ox 97.5 F L 133 H 19 112/83 94 L 07/07/17 08:08 07/07/17 16:00 07/07/17 16:00 07/07/17 16:00 07/07/17 16:00 Intake and Output: 07/07/17 07/07/17 06:59 18:59 Intake Total 0 Output Total 200 Balance -200 0 - Medications Medications: Current Medications Albuterol/Ipratropium (Duoneb 3 Mg/0.5 Mg (3 Ml) Ud) 3 ml IH [id number] PRN PRN Reason: Shortness of Breath Albuterol/Ipratropium (Duoneb 3 Mg/0.5 Mg (3 Ml) Ud) 3 ml IH [id number] [facility] Last Admin: 07/07/17 14:00 Dose: 3 ml Amlodipine Besylate (Norvasc) 10 mg PO DAILY [facility] Last Admin: 07/07/17 10:11 Dose: 10 mg Amylase (Pancrease 00237 U-5000 U-63337 U) 5,000 unit PO WM [facility] Last Admin: 07/07/17 13:44 Dose: Not Given Dextrose (Dextrose 50% Inj) 50 ml IVP ONCE PRN PRN Reason: hypoglycemia<60 or symptomatic Docusate Sodium (Colace) 100 mg PO DAILY [facility] Last Admin: 07/07/17 10:11 Dose: 100 mg Dextrose/Sodium Chloride (Dextrose 5%/0.9% Ns 1000 Ml) 1,000 mls @ 60 mls/hr IV .[id number] [facility] Last Admin: 07/07/17 13:45 Dose: 60 mls/hr Megestrol Acetate (Megace) 800 mg PO DAILY [facility] Last Admin: 07/06/17 10:29 Dose: 800 mg Morphine Sulfate (Morphine Extended Release Tab) 15 mg PO Q12 [facility] Last Admin: 07/07/17 10:11 Dose: 15 mg Morphine Sulfate (Morphine) 2 mg IVP Q4H PRN PRN Reason: Pain, moderate (4-7) Stop: 07/09/17 12:39 Last Admin: 07/07/17 15:24 Dose: 2 mg Nystatin (Nystatin Oral Susp) 5 ml PO QID [facility] Last Admin: 07/07/17 13:44 Dose: Not Given Ondansetron HCl (Zofran Inj) 4 mg IVP Q6H PRN PRN Reason: Nausea/Vomiting Last Admin: 07/07/17 10:16 Dose: 4 mg Pantoprazole Sodium (Protonix Inj) 40 mg IVP Q12 [facility] Last Admin: 07/07/17 10:17 Dose: 40 mg Potassium Phos/Sodium Phos (Neutra-Phos) 1 pkt PO TID [facility] Last Admin: 07/07/17 13:43 Dose: Not Given Sucralfate (Carafate Oral Susp) 1 gm PO QID [facility] Last Admin: 07/07/17 13:43 Dose: Not Given - Labs Labs: 07/07/17 08:10 07/07/17 06:30 PT 20.2 SECONDS (9.4-12.5) H 07/05/17 06:30 INR 1.74 (0.93-1.08) H 07/05/17 06:30 Attending/Attestation - Attestation I have personally seen and examined this patient.: Yes I have fully participated in the care of the patient.: Yes I have reviewed all pertinent clinical information, including history, physical exam and plan: Yes Notes (Text): 07/07/17 18:19 61 year old male with pancreatic cancer c/b malignant biliary and duodenal obstruction now s/p ERCP with stent and duodenal stent. Diet as tolerated. Small freq meals. Pain control as needed.
[2017-07-07 08:35] LABS: GRAN # 2.21 (1.4-6.5); GRAN % 85.3 % (50.0-68.0); HEMOGLOBIN 11.5 g/dL (14.0-18.0); LYMPH # 0.3 (1.2-3.4); LYMPH % 11.2 % (22.0-35.0); MEAN CELL VOLUME 90.5 fl (80.0-105.0); MEAN CORPUSCULAR HEMOGLOBIN 31.3 pg (25.0-35.0); MEAN CORPUSCULAR HGB CONC 34.5 g/dl (31.0-37.0); MEAN PLATELET VOLUME 11.2 fl (7.0-11.0); MONO # 0.1 (0.1-0.6); MONO % 3.5 % (1.0-6.0); RBC 3.68 10^6/uL (3.5-6.1); RED CELL DISTRIBUTION WIDTH 12.6 % (11.5-14.5); WHITE BLOOD COUNT 2.6 10^3/ul (4.5-11.0)
--- NOTE | 2017-07-07 09:52 | CP.PCM.PN ---
<Anneliese Negrete - Last Filed: 07/07/17 11:19> Subjective - Date & Time of Evaluation Date of Evaluation: 07/07/17 Time of Evaluation: 09:00 - Subjective Subjective: Hospitalist Service Patient seen and examined at bedside. Patient reports nausea, vomiting, lower abdominal pain after eating. Nurse report no events overnight. Objective - Vital Signs/Intake and Output Vital Signs (last 24 hours): Temp Pulse Resp BP Pulse Ox 97.5 F L 116 H 20 103/77 96 07/07/17 08:08 07/07/17 08:08 07/07/17 08:08 07/07/17 08:08 07/07/17 08:08 Intake and Output: 07/07/17 07/07/17 06:59 18:59 Output Total 200 Balance -200 - Medications Medications: Current Medications Albuterol/Ipratropium (Duoneb 3 Mg/0.5 Mg (3 Ml) Ud) 3 ml IH [id number] PRN PRN Reason: Shortness of Breath Albuterol/Ipratropium (Duoneb 3 Mg/0.5 Mg (3 Ml) Ud) 3 ml IH [id number] [facility] Last Admin: 07/07/17 08:45 Dose: 3 ml Amlodipine Besylate (Norvasc) 10 mg PO DAILY [facility] Last Admin: 07/06/17 10:31 Dose: 10 mg Amylase (Pancrease 64358 U-5000 U-27288 U) 5,000 unit PO WM [facility] Last Admin: 07/06/17 18:50 Dose: 5,000 unit Dextrose (Dextrose 50% Inj) 50 ml IVP ONCE PRN PRN Reason: hypoglycemia<60 or symptomatic Docusate Sodium (Colace) 100 mg PO DAILY [facility] Last Admin: 07/06/17 10:31 Dose: 100 mg Potassium Chloride 40 meq/ (Dextrose/Sodium Chloride) 1,020 mls @ 100 mls/hr IV .[id number] [facility] Last Admin: 07/07/17 01:08 Dose: 100 mls/hr Megestrol Acetate (Megace) 800 mg PO DAILY [facility] Last Admin: 07/06/17 10:29 Dose: 800 mg Morphine Sulfate (Morphine Extended Release Tab) 15 mg PO Q12 [facility] Last Admin: 07/06/17 21:46 Dose: 15 mg Morphine Sulfate (Morphine) 2 mg IVP Q4H PRN PRN Reason: Pain, moderate (4-7) Stop: 07/09/17 12:39 Last Admin: 07/07/17 04:42 Dose: 2 mg Nystatin (Nystatin Oral Susp) 5 ml PO QID [facility] Last Admin: 07/06/17 21:48 Dose: 5 ml Ondansetron HCl (Zofran Inj) 4 mg IVP Q6H PRN PRN Reason: Nausea/Vomiting Last Admin: 07/06/17 22:02 Dose: 4 mg Pantoprazole Sodium (Protonix Inj) 40 mg IVP Q12 [facility] Last Admin: 07/06/17 21:48 Dose: 40 mg Potassium Phos/Sodium Phos (Neutra-Phos) 1 pkt PO TID [facility] Last Admin: 07/06/17 16:20 Dose: 1 pkt Sucralfate (Carafate Oral Susp) 1 gm PO QID [facility] Last Admin: 07/06/17 21:45 Dose: 1 gm - Labs Labs: 07/07/17 08:10 PT 20.2 SECONDS (9.4-12.5) H 07/05/17 06:30 INR 1.74 (0.93-1.08) H 07/05/17 06:30 - Constitutional Appears: Cachectic, Chronically Ill - Head Exam Head Exam: ATRAUMATIC, NORMOCEPHALIC - Eye Exam Eye Exam: EOMI, Normal appearance - Neck Exam Neck Exam: Normal Inspection - Respiratory Exam Respiratory Exam: Clear to Ausculation Bilateral, NORMAL BREATHING PATTERN. absent: Accessory Muscle Use - Cardiovascular Exam Cardiovascular Exam: RRR, +S1, +S2 - GI/Abdominal Exam GI & Abdominal Exam: absent: Guarding, Rebound - Extremities Exam Extremities Exam: Normal Inspection - Back Exam Back Exam: NORMAL INSPECTION. absent: CVA tenderness (L), CVA tenderness (R) - Neurological Exam Neurological Exam: Awake, Oriented x3 - Psychiatric Exam Psychiatric exam: Depressed - Skin Skin Exam: Dry, Intact, Normal Color, Warm Assessment and Plan - Assessment and Plan (Free Text) Assessment: 61M with history of Pancreatic CA, COPD, HTN, DM presented with altered mental status possibly due to hypoglycemia that has since resolved. Patient is s/p paracentesis on 07/05/2017- 1500 cc of straw colored fluid withdrawn, s/p EUS with celiac plexus neurolysis, ERCP with biliary stent placement, and EGD with duodenal stent placement. 1.) Electrolyte disturbances - will replete as needed - Monitor for refeeding syndrome, replete as needed to prevent - Neutro-Phos 1 packet TID 2.) Neutropenia WBC 2.5 with ANC of 2.21 Granix daily for a total of 5 days Neutropenic precautions (reverse isolation) Monitor WBC 3.) Hypoglycemia D5/NS 60 cc/hr Accuchecks Q4H Heart healthy diet 4.) Pancreatic Ca/Elevated LFTs/Pancretic insuffiency -s/p EUS with celiac plexus neurolysis, s/p duodenal and biliary stent placement by GI team - Paracentesis for Ascites control -CT abd/pelvis: ascites. narrowing of SMV near portal junction with dilated mesenteric veins (see full report) -Prior EGD revealed pancreatic duct stricture, moderate dilation of the pancreatic duct in the body of the pancrease and pancreatic duct in the tail of the panceas was found diffusely. EUS showed mass in the pancreas head -Pathology revealed invasive adenocarcinoma, moderate to poorly differentiated -Pet Scan did not show evidence of metastasis; pulmonary nodule was present, read as inflammatory -Zofran prn nausea -Morphine ER 15 mg PO Q12H -Morphine 2 mg IVP PRN breakthrough pain -Megace for appetitie stimulation -Palliative Care consult, help appreciated -Amylase 5,000 units WM -Megace for appetite 4.) COPD -Duoneb JOSEMANUEL and PRN 5.) Hypertension -Norvasc 10mg PO daily 6.) Prophylactic measures -Protonix 40mg IVP daily -Heparin 5000 Q12H 7) Oropharyngeal candidiasis - Nystatin QID Case reviewed and discussed with attending physician, Dr. Cohn <Lydia Cohn - Last Filed: 07/07/17 13:24> Objective - Vital Signs/Intake and Output Vital Signs (last 24 hours): Temp Pulse Resp BP Pulse Ox 97.5 F L 116 H 20 103/77 96 07/07/17 08:08 07/07/17 08:08 07/07/17 08:08 07/07/17 10:11 07/07/17 08:08 Intake and Output: 07/07/17 07/07/17 06:59 18:59 Output Total 200 Balance -200 - Medications Medications: Current Medications Albuterol/Ipratropium (Duoneb 3 Mg/0.5 Mg (3 Ml) Ud) 3 ml IH [id number] PRN PRN Reason: Shortness of Breath Albuterol/Ipratropium (Duoneb 3 Mg/0.5 Mg (3 Ml) Ud) 3 ml IH [id number] [facility] Last Admin: 07/07/17 08:45 Dose: 3 ml Amlodipine Besylate (Norvasc) 10 mg PO DAILY [facility] Last Admin: 07/07/17 10:11 Dose: 10 mg Amylase (Pancrease 73144 U-5000 U-64004 U) 5,000 unit PO WM [facility] Last Admin: 07/07/17 10:11 Dose: 5,000 unit Dextrose (Dextrose 50% Inj) 50 ml IVP ONCE PRN PRN Reason: hypoglycemia<60 or symptomatic Docusate Sodium (Colace) 100 mg PO DAILY [facility] Last Admin: 07/07/17 10:11 Dose: 100 mg Dextrose/Sodium Chloride (Dextrose 5%/0.9% Ns 1000 Ml) 1,000 mls @ 60 mls/hr IV .[id number] [facility] Megestrol Acetate (Megace) 800 mg PO DAILY [facility] Last Admin: 07/06/17 10:29 Dose: 800 mg Morphine Sulfate (Morphine Extended Release Tab) 15 mg PO Q12 [facility] Last Admin: 07/07/17 10:11 Dose: 15 mg Morphine Sulfate (Morphine) 2 mg IVP Q4H PRN PRN Reason: Pain, moderate (4-7) Stop: 07/09/17 12:39 Last Admin: 07/07/17 04:42 Dose: 2 mg Nystatin (Nystatin Oral Susp) 5 ml PO QID [facility] Last Admin: 07/07/17 10:28 Dose: Not Given Ondansetron HCl (Zofran Inj) 4 mg IVP Q6H PRN PRN Reason: Nausea/Vomiting Last Admin: 07/07/17 10:16 Dose: 4 mg Pantoprazole Sodium (Protonix Inj) 40 mg IVP Q12 [facility] Last Admin: 07/07/17 10:17 Dose: 40 mg Potassium Phos/Sodium Phos (Neutra-Phos) 1 pkt PO TID [facility] Last Admin: 07/07/17 10:28 Dose: Not Given Sucralfate (Carafate Oral Susp) 1 gm PO QID [facility] Last Admin: 07/07/17 10:27 Dose: Not Given - Labs Labs: 07/07/17 08:10 07/07/17 06:30 PT 20.2 SECONDS (9.4-12.5) H 07/05/17 06:30 INR 1.74 (0.93-1.08) H 07/05/17 06:30 Attending/Attestation - Attestation I have personally seen and examined this patient.: Yes I have fully participated in the care of the patient.: Yes I have reviewed all pertinent clinical information, including history, physical exam and plan: Yes Notes (Text): 07/07/17 13:22 Medical record note made by the resident after discussion with my direction and input after the patient was personally seen and examined by me. I have reviewed the chart and agree that the record accurately reflects by personal performance of the history, physical exam, data review, and medical decision-making, in the course for the patient. I have also personally directed the plan of care. 61 yrs old AAM with PMH of recently diagnosed invasive adenocarcinoma of the pancreas 04/2017 , HTN, chronic smoking , drug abuse and noncompliance was admitted for evaluation and treatment for altered mental status which has resolved. Patient was hypoglycemic at the time of admission. .Patient also has elevated LFT.Abdominal CT reveals severe ascites, dilated mesenteric veins with narrowing of the SMV near the portal vein, pancreatic mass, and a severe enlargement of the pancreatic duct. Patient is SP /p EGD with duodenal stent, ERCP with distal CBD stricture and stent placement, and EUS guided celiac plexus block.Patient is tolerating food.Abdominal pain is better. Neutropenia and thrombocytopenia is due to recent chemotherapy.Patient is afebrile , was started on GRANIX 480 MG Daily by Hematology,Neutopenia is improving.Platelet count is also improving.. Patient is a f ull code at this time.. Prognosis is guarded. Management plan was discussed in detail with patient. Education was provided.
[2017-07-07 10:05] LABS: ALT/SGPT 150 U/L (7-56); AST/SGOT 131 U/L (17-59); BLOOD UREA NITROGEN 33 mg/dL (7-21); CALCIUM 8.1 mg/dL (8.4-10.5); GFR AFRICAN-AMERICAN > 60; GFR NON-AFRICAN AMERICAN > 60
[2017-07-07] MEDS: Amylase/Lipase/Protease 5,000 Units ECC PO SCH ×3 (10:11→19:21)
[2017-07-07] MEDS: Morphine 15 mg SR Tab PO SCH (10:11)
[2017-07-07] MEDS: Sucralfate 1 gm/10 ml Oral Susp UD PO SCH ×3 (10:27→19:18)
[2017-07-07] MEDS: Potassium & Sodium Phosphate PO SCH ×3 (10:28→19:20)
[2017-07-07] MEDS: Nystatin 100,000 Units/ml Oral Susp 5 ml UD PO SCH ×4 (10:28→23:00)
[2017-07-07] MEDS ORDERED: Dextrose 5%/0.9% NS 1,000 ML IV SCH (10:30)
[2017-07-07] MEDS ORDERED: Dextrose 50% SYRINGE Inj (50 ml) ONE ×2 (16:31→20:49)
[2017-07-07] MEDS ORDERED: HYDROmorphone 2 mg/ml ISec IVP STA (17:04)
[2017-07-07] MEDS ORDERED: Morphine 2 mg/ml ISec IVP PRN (18:19)
[2017-07-07] MEDS ORDERED: Morphine 4 mg/ml ISec IVP PRN (18:38)
[2017-07-07] MEDS: Megestrol Acetate 40 mg/ml Cup PO SCH (19:18)
[2017-07-07] MEDS ORDERED: Sodium Chloride 0.9% 1,000 ML IV STA (20:45)
[2017-07-07] MEDS ORDERED: Dextrose 50% SYRINGE Inj (50 ml) IVP ONE ×2 (20:47→21:34)
[2017-07-07 21:13] LABS: ARTERIAL BLOOD GAS HCO3 25.4 mmol/L (21-28); ARTERIAL BLOOD GAS O2 SAT 93.2 % (95-98); ARTERIAL BLOOD GAS PCO2 47 mm/Hg (35-45); ARTERIAL BLOOD GAS PH 7.34 (7.35-7.45); ARTERIAL BLOOD GAS TCO2 26.8 mmol.L (22-28)
[2017-07-07] MEDS ORDERED: Morphine 30 mg SR Tab PO SCH (22:00)
[2017-07-07 22:21] LABS: BLOOD UREA NITROGEN 44 mg/dL (7-21); CALCIUM 7.4 mg/dL (8.4-10.5); GFR AFRICAN-AMERICAN > 60; GFR NON-AFRICAN AMERICAN 57
[2017-07-07] MEDS ORDERED: cefTRIAXone 1 gm 1 GM/100 ML BAG IVPB SCH (22:23)
[2017-07-07] MEDS ORDERED: metroNIDAZOLE IV 500 mg/100 ml 500 MG/100 ML BAG IVPB SCH (22:30)
[2017-07-07] MEDS ORDERED: Sod Polystyrene Sulf 15 gm/60 ml Susp PR ONE (22:35)
[2017-07-07] MEDS ORDERED: Cefepime 1gm in NS 100ml 1 GM/100 ML BAG IVPB SCH (23:15)
[2017-07-07] MEDS ORDERED: Meropenem 500 MG in Sodium Chloride 0.9% 50 ML IVPB SCH (23:45)
[2017-07-07] MEDS ORDERED: Vancomycin 1gm in NS 250ml 1 GM/250 ML BAG IVPB SCH (23:45)
--- NOTE | 2017-07-08 01:45 | CT ---
EXAM: CT Abdomen and Pelvis Without Intravenous Contrast CLINICAL HISTORY: 61 years old, male; Condition or disease; Other: Pancreatic ca; Patient HX: R/O duodenal stent migration vs perf TECHNIQUE: Axial computed tomography images of the abdomen and pelvis without intravenous contrast. All CT scans at this facility use one or more dose reduction techniques, viz.: automated exposure control; ma/kV adjustment per patient size (including targeted exams where dose is matched to indication; i.e. head); or iterative reconstruction technique. Coronal and sagittal reformatted images were created and reviewed. COMPARISON: CT - ABD PELVIS IV CONTRAST ONLY 2017-07-02 13:22 FINDINGS: Limitations: The study is markedly limited by the lack of IV and oral contrast as well resulting in poor differentiation between the hollow and solid organs. Lung bases: New right lower lobe airspace consolidation. Mild right middle lobe ground glass infiltrate. Findings are suspicious for pneumonia. Pleural space: New small right pleural effusion. ABDOMEN: Liver: Intrahepatic pneumobilia is identified. Gallbladder and bile ducts: There is air fluid level in the gallbladder, image 22 series 2. No calcified stones. Status post stent placement in the common bile duct. There is a metallic stent as well as a single pigtail stent. The proximal stent is in the region of the ru hepatis. The distal stent terminates in the region of the second portion of the duodenum. Pancreas: Limited. The known pancreatic head mass is not well-visualized. The pancreatic duct is dilated measuring 7 mm, unchanged. Spleen: Grossly unremarkable. No splenomegaly. Adrenals: Not well-visualized. Kidneys and ureters: Limited. Stomach and bowel: There is splint placement of a duodenal stent. The proximal portion of the duodenal stent arises from the region of the second portion of the duodenum. However, the mid and distal portion of the stent does not cross the midline, at the expected location of the third portion of the duodenum. Instead, it is kinked in the midportion of the stent and courses anteriorly towards the anterior abdomen. Findings raise suspicion for malposition/migration of the duodenal stent. It is unclear if the distal portion of the stent is intraluminal due to motion artifact and poorly delineated bowel. There is mottled gas in the region of the distal stent. Bowel perforation is not excluded. The stomach is distended with fluid and air. There is a nasogastric tube in the stomach. The colon is moderately distended with air and stool measuring up to 8.2 cm in greatest diameter. PELVIS: Bladder: Limited. Grossly unremarkable. Reproductive: Limited. ABDOMEN and PELVIS: Intraperitoneal space: There is a moderate to large amount of ascites in the abdomen and pelvis. Bones/joints: Stable Soft tissues: Unremarkable. Vasculature: The vasculature demonstrates diffuse moderate atherosclerotic calcification. No abdominal aortic aneurysm. Tubes, lines and devices: A nasogastric tube lies with its tip in the stomach. IMPRESSION: Markedly limited study secondary to motion and the lack of intravenous and oral contrast. The hollow and solid organs are not well delineated. Suspect malposition/migration of the duodenal stent. The possibility of perforation is not excluded. New small right pleural effusion and right middle and lower lobe airspace disease suspicious for pneumonia. Pneumobilia. Suspect gas and poorly visualized gallbladder likely related to recent stent placement. Moderate gas-filled distended large bowel. Interval placement of biliary stent appears satisfactory in position.
[2017-07-08] MEDS: Albuterol-Ipratrop 3 mg / 0.5 (3 ml) UD IH SCH ×4 (02:00→20:00)
--- NOTE | 2017-07-08 02:06 | CP.PCM.CON ---
<Conrado Solano - Last Filed: 07/08/17 02:48> History of Present Illness - History of Present Illness History of Present Illness: ICU Consult Note for Dr. Tavarez Consultation for hypotension, hypoglycemia, labored breathing, and altered mental status HPI: Patient is a 61yo male with past medical history of pancreatic cancer diagnosed 04/2017, hypertension, COPD, DM and NSTEMI who initially presented to [facility] with report of altered mental status. During his hospitalization thus far, patient has been treated for presumed opiate overdose, and recurrent hypoglycemia. He also had ascites, s/p paracentesis which showed lymphocytic leukocytosis. Patient also has pancytopenia, which is/has been treated with PRBC transfusions, Granix (tbo-filgrastim), and platelet transfusion. Patient was intermittently neutropenic during hospitalization secondary to pancreatic cancer and chemotherapy. Patient was also treated for biliary and duodenal obstruction due to pancreatic malignancy with EGD with duodenal stent placement , EUS and celiac plexus neurolysis, and ERCP with biliary stent on 07/05/17. Currently, patient is lethargic, but easily arousable, responding appropriately to questions and obeying commands. He is complaining of abdominal pain and nausea. There is a basin at the bedside with scant dark brown vomitus. He reportedly had not been eating all day. He denies chest pain or shortness of breath. Denies headache or confusion. Admits to difficulty breathing. Denies fever or chills. Per nursing staff, he has not been urinating much, and appears to be having difficulty breathing, and is more tired than previously. Remainder of ROS was limited by current mental status/lethargy. PMH: Pancreatic CA diagnosed 04/2017, hypertension, COPD, DM and NSTEMI PSH: denies Allergies: NKDA Social History: Smokes 7-8 cigarettes a day, smokes marijuana, denies alcohol use Family Hx: Non-contributory Past Patient History - Infectious Disease Hx of Infectious Diseases: None - Tetanus Immunizations Tetanus Immunization: Up to Date - Past Medical History & Family History Past Medical History?: Yes - Past Social History Smoking Status: Current Some Days Smoker - CARDIAC Hx Cardiac Disorders: Yes Hx Hypertension: Yes - PULMONARY Hx Chronic Obstructive Pulmonary Disease (COPD): Yes - NEUROLOGICAL Hx Neurological Disorder: No Hx Dizziness: Yes - HEENT Hx HEENT Problems: No - RENAL Hx Chronic Kidney Disease: No - ENDOCRINE/METABOLIC Hx Diabetes Mellitus Type 2: Yes - HEMATOLOGICAL/ONCOLOGICAL Hx Blood Transfusions: Yes - INTEGUMENTARY Hx Dermatological Problems: No - MUSCULOSKELETAL/RHEUMATOLOGICAL Hx Musculoskeletal Disorders: Yes Hx Back Pain: Yes Hx Falls: No - GASTROINTESTINAL Hx Gastrointestinal Disorders: Yes Hx Pancreatitis: Yes Other/Comment: DIARRHEA, ABDOMINAL PAIN - GENITOURINARY/GYNECOLOGICAL Hx Genitourinary Disorders: No - PSYCHIATRIC Hx Psychophysiologic Disorder: No Hx Anxiety: No Hx Bipolar Disorder: No Hx Depression: Yes Hx Emotional Abuse: No Hx Hallucinations: No Hx Panic Symptoms: No Hx Post Traumatic Stress Disorder: No Hx Psychosis: No Hx Physical Abuse: No Hx Schizophrenia: No Hx Sexual Abuse: No Hx Substance Use: Yes (Marijuana) - SURGICAL HISTORY Hx Surgeries: Yes - ANESTHESIA Hx Anesthesia Reactions: No Hx Malignant Hyperthermia: No Meds Allergies/Adverse Reactions: Allergies Allergy/AdvReac Type Severity Reaction Status Date / Time No Known Allergies Allergy Verified 04/30/17 11:04 - Medications Medications: Current Medications Albuterol/Ipratropium (Duoneb 3 Mg/0.5 Mg (3 Ml) Ud) 3 ml IH [id number] PRN PRN Reason: Shortness of Breath Albuterol/Ipratropium (Duoneb 3 Mg/0.5 Mg (3 Ml) Ud) 3 ml IH [id number] [facility] Last Admin: 07/07/17 20:15 Dose: 3 ml Amlodipine Besylate (Norvasc) 10 mg PO DAILY [facility] Last Admin: 07/07/17 10:11 Dose: 10 mg Amylase (Pancrease [id number] [id number] U) 5,000 unit PO [facility] Last Admin: 07/07/17 19:21 Dose: Not Given Dextrose (Dextrose 50% Inj) 50 ml IVP ONCE PRN PRN Reason: hypoglycemia<60 or symptomatic Docusate Sodium (Colace) 100 mg PO DAILY [facility] Last Admin: 07/07/17 10:11 Dose: 100 mg Dextrose (Dextrose 10% In Water) 500 mls @ 60 mls/hr IV .[id number] [facility] Meropenem 500 mg/ Sodium (Chloride) 50 mls @ 100 mls/hr IVPB Q12H [facility] PRN Reason: Protocol Stop: 07/08/17 12:14 Vancomycin HCl (Vancomycin 1gm) 1 gm in 250 mls @ 167 mls/hr IVPB Q12H [facility] PRN Reason: Protocol Last Admin: 07/08/17 00:20 Dose: 167 mls/hr NOREPINEPHRINE BIT/0.9 % NACL (Levophed 4 Mg/ 250 Ml Ns Premixed) 4 mg in 250 mls @ 15 mls/hr IV .[id number] PRN; Protocol; 4 MCG/MIN PRN Reason: TITRATE PER MD ORDER Megestrol Acetate (Megace) 800 mg PO DAILY [facility] Last Admin: 07/07/17 19:18 Dose: Not Given Morphine Sulfate (Morphine Extended Release Tab) 30 mg PO Q12 [facility] Morphine Sulfate (Morphine) 2 mg IVP Q2H PRN PRN Reason: Pain, severe (8-10) Nystatin (Nystatin Oral Susp) 5 ml PO QID [facility] Last Admin: 07/07/17 19:20 Dose: Not Given Ondansetron HCl (Zofran Inj) 4 mg IVP Q6H PRN PRN Reason: Nausea/Vomiting Last Admin: 07/07/17 18:20 Dose: 4 mg Pantoprazole Sodium (Protonix Inj) 40 mg IVP Q12 [facility] Last Admin: 07/08/17 00:21 Dose: 40 mg Potassium Phos/Sodium Phos (Neutra-Phos) 1 pkt PO TID [facility] Last Admin: 07/07/17 19:20 Dose: Not Given Sucralfate (Carafate Oral Susp) 1 gm PO QID [facility] Last Admin: 07/07/17 19:18 Dose: Not Given Physical Exam - Constitutional Appears: Toxic, In Acute Distress, Cachectic, Chronically Ill - Head Exam Head Exam: NORMAL INSPECTION - Eye Exam Eye Exam: EOMI, Normal appearance - ENT Exam ENT Exam: Mucous Membranes Dry - Neck Exam Neck exam: Positive for: Normal Inspection - Respiratory Exam Respiratory Exam: Accessory Muscle Use, Clear to Auscultation Bilateral, Respiratory Distress. absent: Decreased Breath Sounds, Rales, Rhonchi, Wheezes - Cardiovascular Exam Cardiovascular Exam: Tachycardia, +S1, +S2. absent: Diastolic murmur, Systolic Murmur - GI/Abdominal Exam GI & Abdominal Exam: Distended, Firm, Guarding, Hypoactive Bowel Sounds, Tenderness. absent: Rebound, Rigid - Exam External exam: NORMAL EXTERNAL EXAM - Extremities Exam Extremities exam: Negative for: calf tenderness, pedal edema - Neurological Exam Additional comments: Lethargic, but easily arousable. Moving all four extremities past midline. Tongue is midline. Equal strength in bilateral upper extremities. Obeys simple commands. Oriented to person, place, and time. - Skin Skin Exam: Dry, Intact, Normal Color Results - Vital Signs Recent Vital Signs: Last Vital Signs Temp 95.9 F L 07/08/17 01:40 Pulse 107 H 07/08/17 01:40 Resp 12 07/08/17 01:40 BP 86/53 L 07/08/17 01:00 Pulse Ox 95 07/08/17 01:40 - Labs Result Diagrams: 07/07/17 08:10 07/07/17 21:45 Labs: Laboratory Results - last 24 hr 07/07/17 07/07/17 07/07/17 06:30 07:16 08:10 WBC 2.6 L* D RBC 3.68 Hgb 11.5 L D Hct 33.3 L MCV 90.5 MCH 31.3 MCHC 34.5 RDW 12.6 Plt Count 92 L MPV 11.2 H Gran % 85.3 H Lymph % (Auto) 11.2 L [place] % (Auto) 3.5 Eos % (Auto) 0.0 L Baso % (Auto) 0.0 Gran # 2.21 Lymph # (Auto) 0.3 L [place] # (Auto) 0.1 Eos # (Auto) 0.0 Baso # (Auto) 0.00 pCO2 pO2 HCO3 ABG pH ABG Total CO2 ABG O2 Saturation ABG Base Excess ABG Potassium Glucose Lactate FiO2 Sodium 136 Potassium 5.1 H Chloride 98 Carbon Dioxide 29 Anion Gap 14 BUN 33 H Creatinine 0.7 L Est GFR ( Amer) > 60 Est GFR (Non-Af Amer) > 60 POC Glucose (mg/dL) 112 H Random Glucose 76 Calcium 8.1 L Phosphorus 2.7 Magnesium 2.2 Total Bilirubin 1.5 H AST 131 H D ALT 150 H Alkaline Phosphatase 171 H D Troponin I Total Protein 6.2 Albumin 3.0 Globulin 3.1 Albumin/Globulin Ratio 1.0 L Arterial Blood Potassium 07/07/17 07/07/17 07/07/17 11:08 16:26 16:43 WBC RBC Hgb Hct MCV MCH MCHC RDW Plt Count MPV Gran % Lymph % (Auto) [place] % (Auto) Eos % (Auto) Baso % (Auto) Gran # Lymph # (Auto) [place] # (Auto) Eos # (Auto) Baso # (Auto) pCO2 pO2 HCO3 ABG pH ABG Total CO2 ABG O2 Saturation ABG Base Excess ABG Potassium Glucose Lactate FiO2 Sodium Potassium Chloride Carbon Dioxide Anion Gap BUN Creatinine Est GFR ( Amer) Est GFR (Non-Af Amer) POC Glucose (mg/dL) 74 27 L* 64 L Random Glucose Calcium Phosphorus Magnesium Total Bilirubin AST ALT Alkaline Phosphatase Troponin I Total Protein Albumin Globulin Albumin/Globulin Ratio Arterial Blood Potassium 07/07/17 07/07/17 07/07/17 20:46 21:10 21:27 WBC RBC Hgb Hct MCV MCH MCHC RDW Plt Count MPV Gran % Lymph % (Auto) [place] % (Auto) Eos % (Auto) Baso % (Auto) Gran # Lymph # (Auto) [place] # (Auto) Eos # (Auto) Baso # (Auto) pCO2 47 H pO2 59.0 L HCO3 25.4 ABG pH 7.34 L ABG Total CO2 26.8 ABG O2 Saturation 93.2 L ABG Base Excess -0.8 ABG Potassium 5.1 Glucose 134 H Lactate 3.4 H FiO2 28.0 Sodium 131.0 L Potassium Chloride 102.0 Carbon Dioxide Anion Gap BUN Creatinine Est GFR ( Amer) Est GFR (Non-Af Amer) POC Glucose (mg/dL) 49 L 30 L* Random Glucose Calcium Phosphorus Magnesium Total Bilirubin AST ALT Alkaline Phosphatase Troponin I Total Protein Albumin Globulin Albumin/Globulin Ratio Arterial Blood Potassium 5.1 07/07/17 07/07/17 21:45 23:30 WBC RBC Hgb Hct MCV MCH MCHC RDW Plt Count MPV Gran % Lymph % (Auto) [place] % (Auto) Eos % (Auto) Baso % (Auto) Gran # Lymph # (Auto) [place] # (Auto) Eos # (Auto) Baso # (Auto) pCO2 pO2 HCO3 ABG pH ABG Total CO2 ABG O2 Saturation ABG Base Excess ABG Potassium Glucose Lactate FiO2 Sodium 134 Potassium 5.7 H* Chloride 99 Carbon Dioxide 24 Anion Gap 17 BUN 44 H Creatinine 1.3 Est GFR ( Amer) > 60 Est GFR (Non-Af Amer) 57 POC Glucose (mg/dL) Random Glucose 100 Calcium 7.4 L Phosphorus Magnesium Total Bilirubin AST ALT Alkaline Phosphatase Troponin I 0.07 D Total Protein Albumin Globulin Albumin/Globulin Ratio Arterial Blood Potassium Assessment & Plan - Assessment and Plan (Free Text) Assessment: 61 yo M with PMH of COPD, CAD, DM, HTN, pancreatic cancer on chemo and g-CSF s/ p EUS with celiac plexus neurolysis, EGD with duodenal stent, and ERCP with biliary stent, who initially presented with AMS 2/2 to hypoglycemia, now with respiratory distress, distended tender abdomen, and lethargy. Abdominal XR shows gas in small bowel; NG tube placed at bedside with nearly 2L of gastric contents drained, with subsequent improvement in respiratory status. Patient also has persistent hypoglycemia, tachycardia, and worsening hypotension and lethargy. Admitted to ICU for persistent hypoglycemia, and hypotension with altered mental status. Neuro: -- Patient is lethargic, but easily arousable and oriented x3 with a normal neurologic exam -- Mental status improves slightly with dextrose administration -- Maintain euglycemia and euthermia Cardio: -- Patient is tachycardic and hypotensive -- Ordered 2 L NS bolus, will monitor response and administer more fluids or place central line and arterial line for vasopressors if unresponsive to fluids -- Patient has history of mildly impaired LV systolic dysfunction (LVEF 45% on ) -- Hold oral antihypertensives -- Maintain normotension Pulm: -- Patient speaks in full sentences, and respiratory status improved slightly after NG decompression, though still using accessory muscles -- ABG (before NG decompression) showed mild hypoxia and marked lactic acidosis ; will repeat ABG in 3 hours after acute management -- Continue O2 by NC; titrate to FiO2>90% GI: -- NPO -- Maintain NGT to continuous suction -- Abdominal XR shows large amounts of gas in the small bowel and stomach -- Ordered Abdominal CT to r/o perforation; discussed with GI fellow; will continue to monitor closely and follow up CT results -- Protonix IV for GI ppx -- GI on consult; appreciate recs Renal: -- Stat BMP shows mild ILYA compared to baseline; likely prerenal azotemia -- Ordered 2L NS bolus -- Ordered lerner catheter to r/o obstructive uropathy and to monitor I&O -- Will recheck renal function with next ABG -- Monitor and replete electrolytes as needed Endo: -- Patient has persistent hypoglycemia; s/p two amps of D50 -- Ordered D10 at 60cc/hr -- Maintain euglycemia Heme: -- Patient does not appear to be actively bleeding at this time; with recheck CBC with next ABG -- Type and screen with next set of labs ID: -- Patient has been intermittently neutropenic since admission; recently, leukopenia was slightly improved, though with a new relative left-shift -- Currently mildly hypothermic -- Instructed nurse to apply Lenard hugger to maintain normothermia -- Ordered blood cultures; UA and urine cultures ordered -- Ordered Merrem and Vanc for broad spectrum coverage, pending septic workup -- Requested ID consult; appreciate recs GI Ppx: Protonix IV DVT Ppx: SCDs Patient seen, discussed, and reviewed with Dr. Tavarez <Daysi SERRANO,[facility] - Last Filed: 07/08/17 06:25> Meds - Medications Medications: Current Medications Albumin Human (Albumin Human 5% (12.5 Gm/250 Ml)) 12.5 gm IV Q4H [facility] Last Admin: 07/08/17 03:43 Dose: 12.5 gm Albuterol/Ipratropium (Duoneb 3 Mg/0.5 Mg (3 Ml) Ud) 3 ml IH [id number] PRN PRN Reason: Shortness of Breath Albuterol/Ipratropium (Duoneb 3 Mg/0.5 Mg (3 Ml) Ud) 3 ml IH [id number] [facility] Last Admin: 07/08/17 02:00 Dose: Not Given Amlodipine Besylate (Norvasc) 10 mg PO DAILY [facility] Last Admin: 07/07/17 10:11 Dose: 10 mg Amylase (Pancrease [id number] U-[id number] U) 5,000 unit PO [facility] Last Admin: 07/07/17 19:21 Dose: Not Given Dextrose (Dextrose 50% Inj) 50 ml IVP ONCE PRN PRN Reason: hypoglycemia<60 or symptomatic Docusate Sodium (Colace) 100 mg PO DAILY [facility] Last Admin: 07/07/17 10:11 Dose: 100 mg Meropenem 500 mg/ Sodium (Chloride) 50 mls @ 100 mls/hr IVPB Q12H [facility] PRN Reason: Protocol Stop: 07/08/17 12:14 Last Admin: 07/08/17 00:30 Dose: 100 mls/hr Vancomycin HCl (Vancomycin 1gm) 1 gm in 250 mls @ 167 mls/hr IVPB Q12H [facility] PRN Reason: Protocol Last Admin: 07/08/17 00:20 Dose: 167 mls/hr NOREPINEPHRINE BIT/0.9 % NACL (Levophed 4 Mg/ 250 Ml Ns Premixed) 4 mg in 250 mls @ 15 mls/hr IV .[id number] PRN; Protocol; 4 MCG/MIN PRN Reason: TITRATE PER MD ORDER Last Admin: 07/08/17 05:46 Dose: 25 mcg/min, 93.75 mls/hr Dextrose (Dextrose 10% In Water) 500 mls @ 100 mls/hr IV .Q5H [facility] Last Admin: 07/08/17 05:27 Dose: 100 mls/hr Sodium Chloride (Sodium Chloride 0.9%) 1,000 mls @ 999 mls/hr IV .Q1H1M [facility] Stop: 07/08/17 06:58 Megestrol Acetate (Megace) 800 mg PO DAILY [facility] Last Admin: 07/07/17 19:18 Dose: Not Given Morphine Sulfate (Morphine Extended Release Tab) 30 mg PO Q12 [facility] Last Admin: 07/07/17 23:00 Dose: Not Given Morphine Sulfate (Morphine) 2 mg IVP Q2H PRN PRN Reason: Pain, severe (8-10) Nystatin (Nystatin Oral Susp) 5 ml PO QID [facility] Last Admin: 07/07/17 23:00 Dose: Not Given Ondansetron HCl (Zofran Inj) 4 mg IVP Q6H PRN PRN Reason: Nausea/Vomiting Last Admin: 07/07/17 18:20 Dose: 4 mg Pantoprazole Sodium (Protonix Inj) 40 mg IVP Q12 [facility] Last Admin: 07/08/17 00:21 Dose: 40 mg Potassium Phos/Sodium Phos (Neutra-Phos) 1 pkt PO TID [facility] Last Admin: 07/07/17 19:20 Dose: Not Given Sucralfate (Carafate Oral Susp) 1 gm PO QID [facility] Last Admin: 07/08/17 03:04 Dose: Not Given Results - Vital Signs Recent Vital Signs: Last Vital Signs Temp 97.7 F 07/08/17 05:20 Pulse 121 H 07/08/17 05:20 Resp 20 07/08/17 05:20 BP 89/43 L 07/08/17 05:15 Pulse Ox 91 L 07/08/17 05:20 - Labs Result Diagrams: 07/08/17 05:30 07/08/17 05:30 Labs: Laboratory Results - last 24 hr 07/07/17 07/07/17 07/07/17 06:30 07:16 08:10 WBC 2.6 L* D RBC 3.68 Hgb 11.5 L D Hct 33.3 L MCV 90.5 MCH 31.3 MCHC 34.5 RDW 12.6 Plt Count 92 L MPV 11.2 H Gran % 85.3 H Lymph % (Auto) 11.2 L [place] % (Auto) 3.5 Eos % (Auto) 0.0 L Baso % (Auto) 0.0 Gran # 2.21 Lymph # (Auto) 0.3 L [place] # (Auto) 0.1 Eos # (Auto) 0.0 Baso # (Auto) 0.00 pCO2 pO2 HCO3 ABG pH ABG Total CO2 ABG O2 Saturation ABG Base Excess ABG Potassium Glucose Lactate FiO2 Sodium 136 Potassium 5.1 H Chloride 98 Carbon Dioxide 29 Anion Gap 14 BUN 33 H Creatinine 0.7 L Est GFR ( Amer) > 60 Est GFR (Non-Af Amer) > 60 POC Glucose (mg/dL) 112 H Random Glucose 76 Calcium 8.1 L Phosphorus 2.7 Magnesium 2.2 Total Bilirubin 1.5 H AST 131 H D ALT 150 H Alkaline Phosphatase 171 H D Troponin I Total Protein 6.2 Albumin 3.0 Globulin 3.1 Albumin/Globulin Ratio 1.0 L Arterial Blood Potassium Urine Color Urine Appearance Urine pH Ur Specific [place] Urine Protein Urine Glucose (UA) Urine Ketones Urine Blood Urine Nitrate Urine Bilirubin Urine Urobilinogen Ur Leukocyte Esterase Urine RBC Urine WBC Ur Epithelial Cells Amorphous Sediment Urine Bacteria 07/07/17 07/07/17 07/07/17 11:08 16:26 16:43 WBC RBC Hgb Hct MCV MCH MCHC RDW Plt Count MPV Gran % Lymph % (Auto) [place] % (Auto) Eos % (Auto) Baso % (Auto) Gran # Lymph # (Auto) [place] # (Auto) Eos # (Auto) Baso # (Auto) pCO2 pO2 HCO3 ABG pH ABG Total CO2 ABG O2 Saturation ABG Base Excess ABG Potassium Glucose Lactate FiO2 Sodium Potassium Chloride Carbon Dioxide Anion Gap BUN Creatinine Est GFR ( Amer) Est GFR (Non-Af Amer) POC Glucose (mg/dL) 74 27 L* 64 L Random Glucose Calcium Phosphorus Magnesium Total Bilirubin AST ALT Alkaline Phosphatase Troponin I Total Protein Albumin Globulin Albumin/Globulin Ratio Arterial Blood Potassium Urine Color Urine Appearance Urine pH Ur Specific [place] Urine Protein Urine Glucose (UA) Urine Ketones Urine Blood Urine Nitrate Urine Bilirubin Urine Urobilinogen Ur Leukocyte Esterase Urine RBC Urine WBC Ur Epithelial Cells Amorphous Sediment Urine Bacteria 07/07/17 07/07/17 07/07/17 20:46 21:10 21:27 WBC RBC Hgb Hct MCV MCH MCHC RDW Plt Count MPV Gran % Lymph % (Auto) [place] % (Auto) Eos % (Auto) Baso % (Auto) Gran # Lymph # (Auto) [place] # (Auto) Eos # (Auto) Baso # (Auto) pCO2 47 H pO2 59.0 L HCO3 25.4 ABG pH 7.34 L ABG Total CO2 26.8 ABG O2 Saturation 93.2 L ABG Base Excess -0.8 ABG Potassium 5.1 Glucose 134 H Lactate 3.4 H FiO2 28.0 Sodium 131.0 L Potassium Chloride 102.0 Carbon Dioxide Anion Gap BUN Creatinine Est GFR ( Amer) Est GFR (Non-Af Amer) POC Glucose (mg/dL) 49 L 30 L* Random Glucose Calcium Phosphorus Magnesium Total Bilirubin AST ALT Alkaline Phosphatase Troponin I Total Protein Albumin Globulin Albumin/Globulin Ratio Arterial Blood Potassium 5.1 Urine Color Urine Appearance Urine pH Ur Specific [place] Urine Protein Urine Glucose (UA) Urine Ketones Urine Blood Urine Nitrate Urine Bilirubin Urine Urobilinogen Ur Leukocyte Esterase Urine RBC Urine WBC Ur Epithelial Cells Amorphous Sediment Urine Bacteria 07/07/17 07/07/17 07/08/17 21:45 23:30 02:10 WBC RBC Hgb Hct MCV MCH MCHC RDW Plt Count MPV Gran % Lymph % (Auto) [place] % (Auto) Eos % (Auto) Baso % (Auto) Gran # Lymph # (Auto) [place] # (Auto) Eos # (Auto) Baso # (Auto) pCO2 34 L pO2 115.0 H HCO3 18.8 L ABG pH 7.35 ABG Total CO2 19.8 L ABG O2 Saturation 98.2 H ABG Base Excess -6.0 L ABG Potassium 4.4 Glucose 91 Lactate 5.6 H* FiO2 100.0 Sodium 134 133.0 Potassium 5.7 H* Chloride 99 108.0 H Carbon Dioxide 24 Anion Gap 17 BUN 44 H Creatinine 1.3 Est GFR ( Amer) > 60 Est GFR (Non-Af Amer) 57 POC Glucose (mg/dL) Random Glucose 100 Calcium 7.4 L Phosphorus Magnesium Total Bilirubin AST ALT Alkaline Phosphatase Troponin I 0.07 D Total Protein Albumin Globulin Albumin/Globulin Ratio Arterial Blood Potassium 4.4 Urine Color Urine Appearance Urine pH Ur Specific [place] Urine Protein Urine Glucose (UA) Urine Ketones Urine Blood Urine Nitrate Urine Bilirubin Urine Urobilinogen Ur Leukocyte Esterase Urine RBC Urine WBC Ur Epithelial Cells Amorphous Sediment Urine Bacteria 07/08/17 07/08/17 07/08/17 02:20 02:20 03:20 WBC 0.1 L* D 0.1 L* RBC 2.00 L 1.86 L Hgb 6.4 L* D 5.9 L* Hct 18.5 L* 17.1 L* MCV 92.5 91.9 MCH 32.0 31.7 MCHC 34.6 34.5 RDW 13.1 13.1 Plt Count 33 L* 26 L* MPV 9.8 10.6 Gran % 33.3 L 28.5 L Lymph % (Auto) 41.7 H 42.9 H [place] % (Auto) 25.0 H 28.6 H Eos % (Auto) 0.0 L 0.0 L Baso % (Auto) 0.0 0.0 Gran # 0.04 L 0.04 L Lymph # (Auto) 0.1 L 0.1 L [place] # (Auto) 0.0 L 0.0 L Eos # (Auto) 0.0 0.0 Baso # (Auto) 0.00 0.00 pCO2 pO2 HCO3 ABG pH ABG Total CO2 ABG O2 Saturation ABG Base Excess ABG Potassium Glucose Lactate FiO2 Sodium 134 Potassium 5.1 H Chloride 103 Carbon Dioxide 23 Anion Gap 14 BUN 43 H Creatinine 1.5 Est GFR ( Amer) 58 Est GFR (Non-Af Amer) 48 POC Glucose (mg/dL) Random Glucose 91 Calcium 6.4 L* Phosphorus 2.7 Magnesium 1.6 L Total Bilirubin 1.8 H AST 178 H D ALT 146 H Alkaline Phosphatase 95 Troponin I Total Protein 3.7 L Albumin 1.6 L Globulin 2.1 Albumin/Globulin Ratio 0.7 L Arterial Blood Potassium Urine Color Urine Appearance Urine pH Ur Specific [place] Urine Protein Urine Glucose (UA) Urine Ketones Urine Blood Urine Nitrate Urine Bilirubin Urine Urobilinogen Ur Leukocyte Esterase Urine RBC Urine WBC Ur Epithelial Cells Amorphous Sediment Urine Bacteria 07/08/17 07/08/17 03:20 04:15 WBC RBC Hgb Hct MCV MCH MCHC RDW Plt Count MPV Gran % Lymph % (Auto) [place] % (Auto) Eos % (Auto) Baso % (Auto) Gran # Lymph # (Auto) [place] # (Auto) Eos # (Auto) Baso # (Auto) pCO2 pO2 HCO3 ABG pH ABG Total CO2 ABG O2 Saturation ABG Base Excess ABG Potassium Glucose Lactate FiO2 Sodium 134 Potassium 5.0 Chloride 105 Carbon Dioxide 20 L Anion Gap 14 BUN 41 H Creatinine 1.5 Est GFR ( Amer) 58 Est GFR (Non-Af Amer) 48 POC Glucose (mg/dL) Random Glucose 98 Calcium 6.0 L* Phosphorus Magnesium Total Bilirubin 1.7 H AST 172 H ALT 138 H Alkaline Phosphatase 85 Troponin I Total Protein 3.4 L Albumin 1.4 L Globulin 2.0 Albumin/Globulin Ratio 0.7 L Arterial Blood Potassium Urine Color Yellow Urine Appearance Sl cloudy Urine pH 6.0 Ur Specific [place] 1.025 Urine Protein 100 H Urine Glucose (UA) Negative Urine Ketones Negative Urine Blood Large H Urine Nitrate Negative Urine Bilirubin Negative Urine Urobilinogen 0.2 Ur Leukocyte Esterase Negative Urine RBC 2 - 5 Urine WBC 2 - 5 Ur Epithelial Cells 0 - 2 Amorphous Sediment Few Urine Bacteria Mod Attending/Attestation - Attestation I have personally seen and examined this patient.: Yes I have fully participated in the care of the patient.: Yes I have reviewed all pertinent clinical information: Yes Notes (Text): -I agree with the above ICU consult note completed by the resident physician with the following additions and/or changes: Impression: 1. Septic Shock (due to PNA and/or intra-abdominal infection) 2. Suspected Duodenal Stent Malposition (with perforation NOT excluded on CT- scan result) 3. Recurrent Hypoglycemia (likely associated with pancreatic mass and/or sepsis) 3. Pancytopenia (including neutropenia) 4. Acute Anemia (UGIB vs immunosuppression) 5. ILYA (due to intravascular depletion) 6. COPD 7. NDDM 8. Recent history of NSTEMI (conservatively managed) 9. Pancreatic Adenocarcinoma (recently diagnosed) 10. HTN Plan: -Patients condition is critical and prognosis very poor -IV contrast relatively contraindicated given ILYA (serum Cr: 0.81.5 over past 24hrs) and therefore only non-contrast CT-AP done. -Per radiologist (V-Rads), CT-AP very limited due to lack of contrast but suspicious for malposition of duodenal stent (radiologist couldnt exclude perforation w/o contrast) -Given potentially concerning CT findings, GI fellow updated and surgery consulted overnight -NGT placed (with approx. 2-3L non-bloody output) -Of note, patients abdomen is non-distended but diffusely tender to deep palpation (without evidence of peritoneal signs) -D10W IVFs @100cc/hr with Accu-checks Q1hrs monitored -Overnight, patient resuscitated aggressively with 4-5L of IVF boluses, 3units of PRBCs, 1unit platelet, IV Albumin Q4hrs and Levophed drip. -Femoral TLC and femoral arterial line placed -Empiric IV Meropenem and Vanco started (and ID consulted) -Arvizu-cultures, procalcitonin and repeat ABGs ordered -Patient A&Ox2 and able to protect airway for now (but very lethargic and increasing somnolent) -Palliative care already on board -Patients very poor prognosis and critically ill condition explained to family overnight Critical Care Time Spent: 90-120 minutes
--- NOTE | 2017-07-08 02:11 | PCM.PROC ---
Procedures Attestation:: I certify that I have explained the specified Operation(s) or Procedure(s), risks, benefits and reasonable alternatives to the Patient and/or other person responsible. The opportunity was given to ask questions and all questions answered - Arterial Line Left Femoral Aseptic technique was employed throughout the procedure: Hand Hygiene done prior to procedure, Full sterile barriers (mask, hair cover, sterile gown, sterile gloves), Chloraprep Antiseptic: 2 minute prep for Femoral Time Out Performed: Yes Pt. placed on Pulse Ox Monitor: Yes Central Line Prep: Chlorhexidine-Alcohol Combination Local Anesthesia Used: Lidocaine 1% Amount of Anesthesia Used (mls): 2 Ultrasound Used for Placement: Yes Gauge (Size): 20 gauge Technique Used: Guide Wire Technique Secured by: Suture Post procedure dressing: Clear vapor permeable, Chlorhexidine disc (Biopatch) Patient Tolerated Procedure: no complications Immediate Complications: none Additional Comments: Overseen by Dr. Aden Dooley DO
--- NOTE | 2017-07-08 02:14 | PCM.PROC ---
Procedures Attestation:: I certify that I have explained the specified Operation(s) or Procedure(s), risks, benefits and reasonable alternatives to the Patient and/or other person responsible. The opportunity was given to ask questions and all questions answered - Central Line Placement Right Femoral Triple Lumen Catheter Aseptic technique was employed throughout the procedure: Hand Hygiene done prior to procedure, Full sterile barriers (mask, hair cover, sterile gown, sterile gloves), Chloraprep Antiseptic: 2 minute prep for Femoral CVP Time Out Performed: Yes Pt. Placed on Pulse Ox Monitor: Yes Central Line Prep: Chlorhexidine-Alcohol Combination Local Anesthesia Used: Lidocaine 1% Amount of Anesthesia Used (mls): 2 Ultrasound Used for Placement: Yes Central Line Lumen Inserted: triple Central Line Length: 20 cm Post Procedure: Sutured in Place, Good Blood Return, All Ports Aspirated, Flushed, Capped, Sterile Dressing Applied Secured by: Suture Post procedure dressing: Clear vapor permeable, Chlorhexidine disc (Biopatch) Post Procedure X-Ray: No Patient Tolerated Procedure: Well Immediate Complications: None Additional Comments: Overseen by Dr. Aden Dooley
[2017-07-08] MEDS: NOREPINEPHRINE BIT/0.9 % NACL 4 MG/250 ML BAG IV PRN ×6 (02:15→21:45)
[2017-07-08 02:18] LABS: ARTERIAL BLOOD GAS HCO3 18.8 mmol/L (21-28); ARTERIAL BLOOD GAS O2 SAT 98.2 % (95-98); ARTERIAL BLOOD GAS PCO2 34 mm/Hg (35-45); ARTERIAL BLOOD GAS PH 7.35 (7.35-7.45); ARTERIAL BLOOD GAS TCO2 19.8 mmol.L (22-28)
[2017-07-08 02:38] LABS: GRAN # 0.04 (1.4-6.5); GRAN % 33.3 % (50.0-68.0); LYMPH # 0.1 (1.2-3.4); LYMPH % 41.7 % (22.0-35.0); MEAN CELL VOLUME 92.5 fl (80.0-105.0); MEAN CORPUSCULAR HGB CONC 34.6 g/dl (31.0-37.0); MEAN PLATELET VOLUME 9.8 fl (7.0-11.0); RED CELL DISTRIBUTION WIDTH 13.1 % (11.5-14.5)
[2017-07-08] MEDS ORDERED: Sodium Chloride 0.9% 1,000 ML IV STA ×3 (02:49→09:17)
[2017-07-08 03:00] LABS: ALB/GLOB RATIO 0.7 (1.1-1.8); ALBUMIN 1.6 g/dL (3.0-4.8); CALCIUM 6.4 mg/dL (8.4-10.5)
[2017-07-08 03:02] LABS: HEMOGLOBIN 6.4 g/dL (14.0-18.0); WHITE BLOOD COUNT 0.1 10^3/ul (4.5-11.0)
[2017-07-08] MEDS: Sucralfate 1 gm/10 ml Oral Susp UD PO SCH ×7 (03:04→22:19)
[2017-07-08 03:31] LABS: GRAN # 0.04 (1.4-6.5); GRAN % 28.5 % (50.0-68.0); LYMPH # 0.1 (1.2-3.4); LYMPH % 42.9 % (22.0-35.0); MEAN CELL VOLUME 91.9 fl (80.0-105.0); MEAN CORPUSCULAR HEMOGLOBIN 31.7 pg (25.0-35.0); MEAN CORPUSCULAR HGB CONC 34.5 g/dl (31.0-37.0); MEAN PLATELET VOLUME 10.6 fl (7.0-11.0); MONO % 28.6 % (1.0-6.0); RBC 1.86 10^6/uL (3.5-6.1); RED CELL DISTRIBUTION WIDTH 13.1 % (11.5-14.5)
[2017-07-08] MEDS: Albumin Human 5% (12.5 gm/250 ml) IV SCH ×6 (03:43→23:51)
[2017-07-08 04:07] LABS: HEMOGLOBIN 5.9 g/dL (14.0-18.0); WHITE BLOOD COUNT 0.1 10^3/ul (4.5-11.0)
[2017-07-08 04:08] LABS: PLATELET COUNT 26 10^3/uL (120.0-450.0)
[2017-07-08 04:10] LABS: ALB/GLOB RATIO 0.7 (1.1-1.8); ALBUMIN 1.4 g/dL (3.0-4.8)
[2017-07-08 04:31] LABS: URINE BILIRUBIN NEGATIVE (NEGATIVE); URINE BLOOD LARGE (NEGATIVE); URINE GLUCOSE (UA) NEGATIVE (NEGATIVE); URINE LEUKOCYTE ESTERASE NEGATIVE Leu/uL (NEGATIVE); URINE PROTEIN 100 mg/dL (<30 mg/dL); URINE UROBILINOGEN 0.2 E.U./dL (<1 E.U./dL)
[2017-07-08 04:36] LABS: URINE APPEARANCE SL CLOUDY (CLEAR); URINE COLOR YELLOW (YELLOW)
[2017-07-08 04:59] LABS: URINE AMORPHOUS SEDIMENT FEW; URINE BACTERIA MOD (NEG); URINE EPITHELIAL CELLS 0 - 2 /hpf (0-5)
[2017-07-08] MEDS ORDERED: Dextrose 50% SYRINGE Inj (50 ml) ONE ×2 (05:05→20:06)
[2017-07-08 05:38] LABS: ARTERIAL BLOOD GAS HCO3 19.2 mmol/L (21-28); ARTERIAL BLOOD GAS O2 SAT 90.6 % (95-98); ARTERIAL BLOOD GAS PCO2 47 mm/Hg (35-45); ARTERIAL BLOOD GAS PH 7.22 (7.35-7.45); ARTERIAL BLOOD GAS TCO2 20.6 mmol.L (22-28)
[2017-07-08 05:43] LABS: GRAN # 0.02 (1.4-6.5); GRAN % 13.3 % (50.0-68.0); LYMPH # 0.1 (1.2-3.4); LYMPH % 46.7 % (22.0-35.0); MEAN CELL VOLUME 93.4 fl (80.0-105.0); MEAN CORPUSCULAR HEMOGLOBIN 31.7 pg (25.0-35.0); MEAN CORPUSCULAR HGB CONC 33.9 g/dl (31.0-37.0); MEAN PLATELET VOLUME 10.7 fl (7.0-11.0); MONO # 0.1 (0.1-0.6); RBC 1.83 10^6/uL (3.5-6.1); RED CELL DISTRIBUTION WIDTH 13.1 % (11.5-14.5)
[2017-07-08] MEDS ORDERED: Sodium Bicarbonate (8.4%) 50 Meq Syringe IVP ONE (05:51)
[2017-07-08 05:58] LABS: VENOUS BLOOD GAS BASE EXCESS -9.3 mmol/L (0.0-2.0); VENOUS BLOOD GAS PO2 164 mm/Hg (30-55)
[2017-07-08 06:04] LABS: ALB/GLOB RATIO 0.8 (1.1-1.8); ALBUMIN 1.5 g/dL (3.0-4.8)
[2017-07-08 06:07] LABS: HEMOGLOBIN 5.8 g/dL (14.0-18.0); WHITE BLOOD COUNT 0.2 10^3/ul (4.5-11.0)
[2017-07-08 06:08] LABS: PLATELET COUNT 29 10^3/uL (120.0-450.0)
--- NOTE | 2017-07-08 06:11 | CP.PCM.PN ---
<Kasi Manjarrez - Last Filed: 07/08/17 09:58> Subjective - Date & Time of Evaluation Date of Evaluation: 07/08/17 Time of Evaluation: 06:00 - Subjective Subjective: PGY4 GI Follow-up Pt seen and examined bedside Overnight events noted In ICU On pressors 2-3 L NG oupt Obtunded, not responsive ROS: 12 point ROS conducted, neg other than above Objective - Vital Signs/Intake and Output Vital Signs (last 24 hours): Temp Pulse Resp BP Pulse Ox 97.7 F 121 H 20 89/43 L 91 L 07/08/17 05:20 07/08/17 05:20 07/08/17 05:20 07/08/17 05:15 07/08/17 05:20 Intake and Output: 07/07/17 07/08/17 18:59 06:59 Intake Total 0 250 Output Total 1900 Balance 0 -1650 - Medications Medications: Current Medications Albumin Human (Albumin Human 5% (12.5 Gm/250 Ml)) 12.5 gm IV Q4H [facility] Last Admin: 07/08/17 03:43 Dose: 12.5 gm Albuterol/Ipratropium (Duoneb 3 Mg/0.5 Mg (3 Ml) Ud) 3 ml IH [id number] PRN PRN Reason: Shortness of Breath Albuterol/Ipratropium (Duoneb 3 Mg/0.5 Mg (3 Ml) Ud) 3 ml IH [id number] [facility] Last Admin: 07/08/17 02:00 Dose: Not Given Amlodipine Besylate (Norvasc) 10 mg PO DAILY [facility] Last Admin: 07/07/17 10:11 Dose: 10 mg Amylase (Pancrease 74574 U-5000 U-[id number] U) 5,000 unit PO WM [facility] Last Admin: 07/07/17 19:21 Dose: Not Given Dextrose (Dextrose 50% Inj) 50 ml IVP ONCE PRN PRN Reason: hypoglycemia<60 or symptomatic Docusate Sodium (Colace) 100 mg PO DAILY [facility] Last Admin: 07/07/17 10:11 Dose: 100 mg Meropenem 500 mg/ Sodium (Chloride) 50 mls @ 100 mls/hr IVPB Q12H [facility] PRN Reason: Protocol Stop: 07/08/17 12:14 Last Admin: 07/08/17 00:30 Dose: 100 mls/hr Vancomycin HCl (Vancomycin 1gm) 1 gm in 250 mls @ 167 mls/hr IVPB Q12H [facility] PRN Reason: Protocol Last Admin: 07/08/17 00:20 Dose: 167 mls/hr NOREPINEPHRINE BIT/0.9 % NACL (Levophed 4 Mg/ 250 Ml Ns Premixed) 4 mg in 250 mls @ 15 mls/hr IV .[id number] PRN; Protocol; 4 MCG/MIN PRN Reason: TITRATE PER MD ORDER Last Admin: 07/08/17 05:46 Dose: 25 mcg/min, 93.75 mls/hr Dextrose (Dextrose 10% In Water) 500 mls @ 100 mls/hr IV .Q5H [facility] Last Admin: 07/08/17 05:27 Dose: 100 mls/hr Sodium Chloride (Sodium Chloride 0.9%) 1,000 mls @ 999 mls/hr IV .Q1H1M STA Stop: 07/08/17 06:58 Megestrol Acetate (Megace) 800 mg PO DAILY [facility] Last Admin: 07/07/17 19:18 Dose: Not Given Morphine Sulfate (Morphine Extended Release Tab) 30 mg PO Q12 [facility] Last Admin: 07/07/17 23:00 Dose: Not Given Morphine Sulfate (Morphine) 2 mg IVP Q2H PRN PRN Reason: Pain, severe (8-10) Nystatin (Nystatin Oral Susp) 5 ml PO QID [facility] Last Admin: 07/07/17 23:00 Dose: Not Given Ondansetron HCl (Zofran Inj) 4 mg IVP Q6H PRN PRN Reason: Nausea/Vomiting Last Admin: 07/07/17 18:20 Dose: 4 mg Pantoprazole Sodium (Protonix Inj) 40 mg IVP Q12 [facility] Last Admin: 07/08/17 00:21 Dose: 40 mg Potassium Phos/Sodium Phos (Neutra-Phos) 1 pkt PO TID [facility] Last Admin: 07/07/17 19:20 Dose: Not Given Sucralfate (Carafate Oral Susp) 1 gm PO QID [facility] Last Admin: 07/08/17 03:04 Dose: Not Given - Labs Labs: 07/08/17 03:20 07/08/17 05:30 PT 20.2 SECONDS (9.4-12.5) H 07/05/17 06:30 INR 1.74 (0.93-1.08) H 07/05/17 06:30 - Constitutional Appears: No Acute Distress - Head Exam Head Exam: ATRAUMATIC, NORMOCEPHALIC - Eye Exam Eye Exam: Normal appearance - ENT Exam ENT Exam: Mucous Membranes Moist - Neck Exam Neck Exam: Normal Inspection - Respiratory Exam Respiratory Exam: Clear to Ausculation Bilateral, NORMAL BREATHING PATTERN. absent: Rales, Rhonchi, Wheezes, Respiratory Distress - Cardiovascular Exam Cardiovascular Exam: REGULAR RHYTHM, +S1, +S2 - GI/Abdominal Exam GI & Abdominal Exam: Soft, Normal Bowel Sounds. absent: Distended, Firm, Guarding, Rigid, Tenderness, Organomegaly - Extremities Exam Extremities Exam: absent: Joint Swelling, Pedal Edema - Neurological Exam Neurological Exam: Altered - Psychiatric Exam Additional comments: cannot assess - Skin Skin Exam: Dry, Intact, Normal Color, Warm Assessment and Plan - Assessment and Plan (Free Text) Assessment: Bandar Berman is a 61 year old male with past medical history of pancreatic cancer diagnosed 04/2017, hypertension, COPD, DM and NSTEMI who was admitted for evaluation and treatment for altered mental. S/p EUS with celiac plexus neurolysis, ERCP with biliary stent placement, and EGD with duodenal stent placement. 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 Gonzalez <Dinh Gonzalez - Last Filed: 07/08/17 19:16> Objective - Vital Signs/Intake and Output Vital Signs (last 24 hours): Temp Pulse Resp BP Pulse Ox 96.8 F L 99 H 20 111/60 92 L 07/08/17 19:07 07/08/17 19:07 07/08/17 19:07 07/08/17 18:39 07/08/17 06:15 Intake and Output: 07/08/17 07/09/17 18:59 06:59 Intake Total 750 2850 Output Total 775 Balance 750 2075 - Medications Medications: Current Medications Albumin Human (Albumin Human 5% (12.5 Gm/250 Ml)) 12.5 gm IV Q4H [facility] Last Admin: 07/08/17 16:20 Dose: 12.5 gm Albuterol/Ipratropium (Duoneb 3 Mg/0.5 Mg (3 Ml) Ud) 3 ml IH [id number] PRN PRN Reason: Shortness of Breath Albuterol/Ipratropium (Duoneb 3 Mg/0.5 Mg (3 Ml) Ud) 3 ml IH [id number] [facility] Last Admin: 07/08/17 15:20 Dose: 3 ml Amlodipine Besylate (Norvasc) 10 mg PO DAILY [facility] Last Admin: 07/07/17 10:11 Dose: 10 mg Amylase (Pancrease 38587 U-5000 U-[id number] U) 5,000 unit PO WM [facility] Last Admin: 07/08/17 17:14 Dose: Not Given Dextrose (Dextrose 50% Inj) 50 ml IVP ONCE PRN PRN Reason: hypoglycemia<60 or symptomatic Docusate Sodium (Colace) 100 mg PO DAILY [facility] Last Admin: 07/07/17 10:11 Dose: 100 mg Hydrocortisone Sodium Succinate (Solu-Cortef) 50 mg IVP Q6H [facility] Last Admin: 07/08/17 18:36 Dose: 50 mg NOREPINEPHRINE BIT/0.9 % NACL (Levophed 4 Mg/ 250 Ml Ns Premixed) 4 mg in 250 mls @ 15 mls/hr IV .[id number] PRN; Protocol; 4 MCG/MIN PRN Reason: TITRATE PER MD ORDER Last Admin: 07/08/17 17:11 Dose: 15 mcg/min, 56.25 mls/hr Dextrose (Dextrose 10% In Water) 500 mls @ 100 mls/hr IV .Q5H [facility] Last Admin: 07/08/17 17:30 Dose: 100 mls/hr Vasopressin 20 units/ Sodium (Chloride) 101 mls @ 9.09 mls/hr IV .[id number] [facility]; 0.03 U/MIN PRN Reason: Protocol Last Admin: 07/08/17 18:39 Dose: 9.09 mls/hr Meropenem 500 mg/ Sodium (Chloride) 50 mls @ 100 mls/hr IVPB Q8 [facility] PRN Reason: Protocol Stop: 07/17/17 14:01 Last Admin: 07/08/17 13:28 Dose: 100 mls/hr Megestrol Acetate (Megace) 800 mg PO DAILY [facility] Last Admin: 07/08/17 12:38 Dose: Not Given Morphine Sulfate (Morphine Extended Release Tab) 30 mg PO Q12 [facility] Last Admin: 07/07/17 23:00 Dose: Not Given Morphine Sulfate (Morphine) 2 mg IVP Q2H PRN PRN Reason: Pain, severe (8-10) Nystatin (Nystatin Oral Susp) 5 ml PO QID [facility] Last Admin: 07/08/17 18:36 Dose: Not Given Ondansetron HCl (Zofran Inj) 4 mg IVP Q6H PRN PRN Reason: Nausea/Vomiting Last Admin: 07/07/17 18:20 Dose: 4 mg Pantoprazole Sodium (Protonix Inj) 40 mg IVP Q12 [facility] Last Admin: 07/08/17 12:47 Dose: 40 mg Potassium Phos/Sodium Phos (Neutra-Phos) 1 pkt PO TID [facility] Last Admin: 07/08/17 14:05 Dose: Not Given Sucralfate (Carafate Oral Susp) 1 gm PO QID [facility] Last Admin: 07/08/17 18:01 Dose: Not Given - Labs Labs: 07/08/17 14:50 07/08/17 14:50 PT 48.0 SECONDS (9.4-12.5) H 07/08/17 10:58 INR 4.06 (0.93-1.08) H* 07/08/17 10:58 APTT 52.6 Seconds (25.1-36.5) H 07/08/17 10:58 Attending/Attestation - Attestation I have personally seen and examined this patient.: Yes I have fully participated in the care of the patient.: Yes I have reviewed all pertinent clinical information, including history, physical exam and plan: Yes Notes (Text): 07/08/17 19:14 61 year old male with pancreatic cancer s/p gemcitabine 06/28, s/p EUS with celiac ganglia neurolysis, ERCP with biliary stent, and EGD with duodenal stent , now intubated and on pressors in ICU with neutropenia/pancytopenia. He is at the harry of impact of his recent chemotherapy. Recommend broad spectrum antibiotics and aggressive supportive measures including blood/platelet transfusion as needed. Vent support per ICU. NG to LIS.
--- NOTE | 2017-07-08 06:20 | CP.PCM.CON ---
<Aden Dooley - Last Filed: 07/08/17 10:50> History of Present Illness - History of Present Illness History of Present Illness: Surgery Consult note. Dr. Cope Hx obtained from chart review due to patients current condition. Patient obtunded, minimally responsive to verbal or painful stimuli. 61yo M with PMHx of advanced pancreatic CA, HTN, COPD, DM admitted on 07/01/17 for altered mental status. He was found to have pancreatic mass which is locally invading. On 07/05, he obtained an EGD/EUS/ERCP with duodenal stent placement, biliary stent placement and celiac plexus neurolysis. He is currently on chemo (last on 06/28/17) is neutropenic, pancytopenic. No signs of overt GI bleeding. Overnight, he was found to have decreased respiratory status and increased work of breathing, distended abdomen with Abd Xray consistent with possible obstruction. No overt free air noted. NGT was placed with immediate 2.5L of bilious output. Patient noted to be hypotensive, hypoglycemic and was transferred to the ICU. Abd/Pelvis CT was obtained and duodenal stent migration suspected, unable to r/o duodenal perforation due to lack of contrast. Surgery consulted for further evaluation. PMHx: Advanced Pancreatic CA, HTN, COPD, DM PSHx: Denies Family Hx: non-contributory Social Hx: Current tobacco use. Current Marijuana use. Denies ETOH use NKDA Review of Systems - Review of Systems Systems not reviewed;Unavailable: Unstable Vital Signs, Respiratory Distress, Altered Mental Status Past Patient History - Infectious Disease Hx of Infectious Diseases: None - Tetanus Immunizations Tetanus Immunization: Up to Date - Past Medical History & Family History Past Medical History?: Yes Past Family History: Reviewed and not pertinent - Past Social History Smoking Status: Current Some Days Smoker Alcohol: None Drugs: Cannabis - CARDIAC Hx Cardiac Disorders: Yes Hx Hypertension: Yes - PULMONARY Hx Chronic Obstructive Pulmonary Disease (COPD): Yes - NEUROLOGICAL Hx Neurological Disorder: No Hx Dizziness: Yes - HEENT Hx HEENT Problems: No - RENAL Hx Chronic Kidney Disease: No - ENDOCRINE/METABOLIC Hx Diabetes Mellitus Type 2: Yes - HEMATOLOGICAL/ONCOLOGICAL Hx Blood Transfusions: Yes - INTEGUMENTARY Hx Dermatological Problems: No - MUSCULOSKELETAL/RHEUMATOLOGICAL Hx Musculoskeletal Disorders: Yes Hx Back Pain: Yes Hx Falls: No - GASTROINTESTINAL Hx Gastrointestinal Disorders: Yes Hx Pancreatitis: Yes Other/Comment: DIARRHEA, ABDOMINAL PAIN - GENITOURINARY/GYNECOLOGICAL Hx Genitourinary Disorders: No - PSYCHIATRIC Hx Psychophysiologic Disorder: No Hx Anxiety: No Hx Bipolar Disorder: No Hx Depression: Yes Hx Emotional Abuse: No Hx Hallucinations: No Hx Panic Symptoms: No Hx Post Traumatic Stress Disorder: No Hx Psychosis: No Hx Physical Abuse: No Hx Schizophrenia: No Hx Sexual Abuse: No Hx Substance Use: Yes (Marijuana) - SURGICAL HISTORY Hx Surgeries: Yes - ANESTHESIA Hx Anesthesia Reactions: No Hx Malignant Hyperthermia: No Meds Allergies/Adverse Reactions: Allergies Allergy/AdvReac Type Severity Reaction Status Date / Time No Known Allergies Allergy Verified 04/30/17 11:04 - Medications Medications: Current Medications Albumin Human (Albumin Human 5% (12.5 Gm/250 Ml)) 12.5 gm IV Q4H [facility] Last Admin: 07/08/17 03:43 Dose: 12.5 gm Albuterol/Ipratropium (Duoneb 3 Mg/0.5 Mg (3 Ml) Ud) 3 ml IH [id number] PRN PRN Reason: Shortness of Breath Albuterol/Ipratropium (Duoneb 3 Mg/0.5 Mg (3 Ml) Ud) 3 ml IH [id number] [facility] Last Admin: 07/08/17 02:00 Dose: Not Given Amlodipine Besylate (Norvasc) 10 mg PO DAILY [facility] Last Admin: 07/07/17 10:11 Dose: 10 mg Amylase (Pancrease [id number] U) 5,000 unit PO WM [facility] Last Admin: 07/07/17 19:21 Dose: Not Given Dextrose (Dextrose 50% Inj) 50 ml IVP ONCE PRN PRN Reason: hypoglycemia<60 or symptomatic Docusate Sodium (Colace) 100 mg PO DAILY [facility] Last Admin: 07/07/17 10:11 Dose: 100 mg Meropenem 500 mg/ Sodium (Chloride) 50 mls @ 100 mls/hr IVPB Q12H JOSEMANUEL PRN Reason: Protocol Stop: 07/08/17 12:14 Last Admin: 07/08/17 00:30 Dose: 100 mls/hr Vancomycin HCl (Vancomycin 1gm) 1 gm in 250 mls @ 167 mls/hr IVPB Q12H JOSEMANUEL PRN Reason: Protocol Last Admin: 07/08/17 00:20 Dose: 167 mls/hr NOREPINEPHRINE BIT/0.9 % NACL (Levophed 4 Mg/ 250 Ml Ns Premixed) 4 mg in 250 mls @ 15 mls/hr IV .[id number] PRN; Protocol; 4 MCG/MIN PRN Reason: TITRATE PER MD ORDER Last Admin: 07/08/17 05:46 Dose: 25 mcg/min, 93.75 mls/hr Dextrose (Dextrose 10% In Water) 500 mls @ 100 mls/hr IV .Q5H [facility] Last Admin: 07/08/17 05:27 Dose: 100 mls/hr Sodium Chloride (Sodium Chloride 0.9%) 1,000 mls @ 999 mls/hr IV .Q1H1M STA Stop: 07/08/17 06:58 Last Admin: 07/08/17 06:10 Dose: 999 mls/hr Megestrol Acetate (Megace) 800 mg PO DAILY [facility] Last Admin: 07/07/17 19:18 Dose: Not Given Morphine Sulfate (Morphine Extended Release Tab) 30 mg PO Q12 [facility] Last Admin: 07/07/17 23:00 Dose: Not Given Morphine Sulfate (Morphine) 2 mg IVP Q2H PRN PRN Reason: Pain, severe (8-10) Nystatin (Nystatin Oral Susp) 5 ml PO QID [facility] Last Admin: 07/07/17 23:00 Dose: Not Given Ondansetron HCl (Zofran Inj) 4 mg IVP Q6H PRN PRN Reason: Nausea/Vomiting Last Admin: 07/07/17 18:20 Dose: 4 mg Pantoprazole Sodium (Protonix Inj) 40 mg IVP Q12 [facility] Last Admin: 07/08/17 00:21 Dose: 40 mg Potassium Phos/Sodium Phos (Neutra-Phos) 1 pkt PO TID [facility] Last Admin: 07/07/17 19:20 Dose: Not Given Sucralfate (Carafate Oral Susp) 1 gm PO QID [facility] Last Admin: 07/08/17 03:04 Dose: Not Given Physical Exam - Constitutional Appears: Toxic, In Acute Distress, Older Than Stated Age, Cachectic, Chronically Ill - Head Exam Head Exam: ATRAUMATIC, NORMAL INSPECTION, NORMOCEPHALIC - ENT Exam Additional comments: NGT in place with bilious output (approx 2-3L since placement) - Respiratory Exam Respiratory Exam: NORMAL BREATHING PATTERN. absent: Accessory Muscle Use, Respiratory Distress - GI/Abdominal Exam GI & Abdominal Exam: Soft, Tenderness (diffuse tenderness). absent: Distended, Rebound Additional comments: abd distention improved s/p NGT decompression - Extremities Exam Extremities exam: Positive for: normal inspection. Negative for: calf tenderness - Neurological Exam Additional comments: obtunded. minimal responsiveness to verbal and painful stimuli Results - Vital Signs Recent Vital Signs: Last Vital Signs Temp 97.7 F 07/08/17 05:20 Pulse 121 H 07/08/17 05:20 Resp 20 07/08/17 05:20 BP 89/43 L 07/08/17 05:15 Pulse Ox 91 L 07/08/17 05:20 - Labs Result Diagrams: 07/08/17 05:30 07/08/17 05:30 Labs: Laboratory Results - last 24 hr 07/07/17 07/07/17 07/07/17 06:30 07:16 08:10 WBC 2.6 L* D RBC 3.68 Hgb 11.5 L D Hct 33.3 L MCV 90.5 MCH 31.3 MCHC 34.5 RDW 12.6 Plt Count 92 L MPV 11.2 H Gran % 85.3 H Lymph % (Auto) 11.2 L [place] % (Auto) 3.5 Eos % (Auto) 0.0 L Baso % (Auto) 0.0 Gran # 2.21 Lymph # (Auto) 0.3 L [place] # (Auto) 0.1 Eos # (Auto) 0.0 Baso # (Auto) 0.00 pCO2 pO2 HCO3 ABG pH ABG Total CO2 ABG O2 Saturation ABG Base Excess ABG Potassium VBG pH VBG pCO2 VBG HCO3 VBG Total CO2 VBG O2 Sat (Calc) VBG Base Excess VBG Potassium Glucose Lactate FiO2 Sodium 136 Potassium 5.1 H Chloride 98 Carbon Dioxide 29 Anion Gap 14 BUN 33 H Creatinine 0.7 L Est GFR ( Amer) > 60 Est GFR (Non-Af Amer) > 60 POC Glucose (mg/dL) 112 H Random Glucose 76 Calcium 8.1 L Phosphorus 2.7 Magnesium 2.2 Total Bilirubin 1.5 H AST 131 H D ALT 150 H Alkaline Phosphatase 171 H D Troponin I Total Protein 6.2 Albumin 3.0 Globulin 3.1 Albumin/Globulin Ratio 1.0 L Arterial Blood Potassium Venous Blood Potassium Urine Color Urine Appearance Urine pH Ur Specific [place] Urine Protein Urine Glucose (UA) Urine Ketones Urine Blood Urine Nitrate Urine Bilirubin Urine Urobilinogen Ur Leukocyte Esterase Urine RBC Urine WBC Ur Epithelial Cells Amorphous Sediment Urine Bacteria Blood Type Antibody Screen Crossmatch BBK History Checked 07/07/17 07/07/17 07/07/17 11:08 16:26 16:43 WBC RBC Hgb Hct MCV MCH MCHC RDW Plt Count MPV Gran % Lymph % (Auto) [place] % (Auto) Eos % (Auto) Baso % (Auto) Gran # Lymph # (Auto) [place] # (Auto) Eos # (Auto) Baso # (Auto) pCO2 pO2 HCO3 ABG pH ABG Total CO2 ABG O2 Saturation ABG Base Excess ABG Potassium VBG pH VBG pCO2 VBG HCO3 VBG Total CO2 VBG O2 Sat (Calc) VBG Base Excess VBG Potassium Glucose Lactate FiO2 Sodium Potassium Chloride Carbon Dioxide Anion Gap BUN Creatinine Est GFR ( Amer) Est GFR (Non-Af Amer) POC Glucose (mg/dL) 74 27 L* 64 L Random Glucose Calcium Phosphorus Magnesium Total Bilirubin AST ALT Alkaline Phosphatase Troponin I Total Protein Albumin Globulin Albumin/Globulin Ratio Arterial Blood Potassium Venous Blood Potassium Urine Color Urine Appearance Urine pH Ur Specific [place] Urine Protein Urine Glucose (UA) Urine Ketones Urine Blood Urine Nitrate Urine Bilirubin Urine Urobilinogen Ur Leukocyte Esterase Urine RBC Urine WBC Ur Epithelial Cells Amorphous Sediment Urine Bacteria Blood Type Antibody Screen Crossmatch BBK History Checked 07/07/17 07/07/17 07/07/17 20:46 21:10 21:27 WBC RBC Hgb Hct MCV MCH MCHC RDW Plt Count MPV Gran % Lymph % (Auto) [place] % (Auto) Eos % (Auto) Baso % (Auto) Gran # Lymph # (Auto) [place] # (Auto) Eos # (Auto) Baso # (Auto) pCO2 47 H pO2 59.0 L HCO3 25.4 ABG pH 7.34 L ABG Total CO2 26.8 ABG O2 Saturation 93.2 L ABG Base Excess -0.8 ABG Potassium 5.1 VBG pH VBG pCO2 VBG HCO3 VBG Total CO2 VBG O2 Sat (Calc) VBG Base Excess VBG Potassium Glucose 134 H Lactate 3.4 H FiO2 28.0 Sodium 131.0 L Potassium Chloride 102.0 Carbon Dioxide Anion Gap BUN Creatinine Est GFR ( Amer) Est GFR (Non-Af Amer) POC Glucose (mg/dL) 49 L 30 L* Random Glucose Calcium Phosphorus Magnesium Total Bilirubin AST ALT Alkaline Phosphatase Troponin I Total Protein Albumin Globulin Albumin/Globulin Ratio Arterial Blood Potassium 5.1 Venous Blood Potassium Urine Color Urine Appearance Urine pH Ur Specific [place] Urine Protein Urine Glucose (UA) Urine Ketones Urine Blood Urine Nitrate Urine Bilirubin Urine Urobilinogen Ur Leukocyte Esterase Urine RBC Urine WBC Ur Epithelial Cells Amorphous Sediment Urine Bacteria Blood Type Antibody Screen Crossmatch BBK History Checked 07/07/17 07/07/17 07/08/17 21:45 23:30 02:10 WBC RBC Hgb Hct MCV MCH MCHC RDW Plt Count MPV Gran % Lymph % (Auto) [place] % (Auto) Eos % (Auto) Baso % (Auto) Gran # Lymph # (Auto) [place] # (Auto) Eos # (Auto) Baso # (Auto) pCO2 34 L pO2 115.0 H HCO3 18.8 L ABG pH 7.35 ABG Total CO2 19.8 L ABG O2 Saturation 98.2 H ABG Base Excess -6.0 L ABG Potassium 4.4 VBG pH VBG pCO2 VBG HCO3 VBG Total CO2 VBG O2 Sat (Calc) VBG Base Excess VBG Potassium Glucose 91 Lactate 5.6 H* FiO2 100.0 Sodium 134 133.0 Potassium 5.7 H* Chloride 99 108.0 H Carbon Dioxide 24 Anion Gap 17 BUN 44 H Creatinine 1.3 Est GFR ( Amer) > 60 Est GFR (Non-Af Amer) 57 POC Glucose (mg/dL) Random Glucose 100 Calcium 7.4 L Phosphorus Magnesium Total Bilirubin AST ALT Alkaline Phosphatase Troponin I 0.07 D Total Protein Albumin Globulin Albumin/Globulin Ratio Arterial Blood Potassium 4.4 Venous Blood Potassium Urine Color Urine Appearance Urine pH Ur Specific [place] Urine Protein Urine Glucose (UA) Urine Ketones Urine Blood Urine Nitrate Urine Bilirubin Urine Urobilinogen Ur Leukocyte Esterase Urine RBC Urine WBC Ur Epithelial Cells Amorphous Sediment Urine Bacteria Blood Type Antibody Screen Crossmatch BBK History Checked 07/08/17 07/08/17 07/08/17 02:20 02:20 03:20 WBC 0.1 L* D 0.1 L* RBC 2.00 L 1.86 L Hgb 6.4 L* D 5.9 L* Hct 18.5 L* 17.1 L* MCV 92.5 91.9 MCH 32.0 31.7 MCHC 34.6 34.5 RDW 13.1 13.1 Plt Count 33 L* 26 L* MPV 9.8 10.6 Gran % 33.3 L 28.5 L Lymph % (Auto) 41.7 H 42.9 H [place] % (Auto) 25.0 H 28.6 H Eos % (Auto) 0.0 L 0.0 L Baso % (Auto) 0.0 0.0 Gran # 0.04 L 0.04 L Lymph # (Auto) 0.1 L 0.1 L [place] # (Auto) 0.0 L 0.0 L Eos # (Auto) 0.0 0.0 Baso # (Auto) 0.00 0.00 pCO2 pO2 HCO3 ABG pH ABG Total CO2 ABG O2 Saturation ABG Base Excess ABG Potassium VBG pH VBG pCO2 VBG HCO3 VBG Total CO2 VBG O2 Sat (Calc) VBG Base Excess VBG Potassium Glucose Lactate FiO2 Sodium 134 Potassium 5.1 H Chloride 103 Carbon Dioxide 23 Anion Gap 14 BUN 43 H Creatinine 1.5 Est GFR ( Amer) 58 Est GFR (Non-Af Amer) 48 POC Glucose (mg/dL) Random Glucose 91 Calcium 6.4 L* Phosphorus 2.7 Magnesium 1.6 L Total Bilirubin 1.8 H AST 178 H D ALT 146 H Alkaline Phosphatase 95 Troponin I Total Protein 3.7 L Albumin 1.6 L Globulin 2.1 Albumin/Globulin Ratio 0.7 L Arterial Blood Potassium Venous Blood Potassium Urine Color Urine Appearance Urine pH Ur Specific [place] Urine Protein Urine Glucose (UA) Urine Ketones Urine Blood Urine Nitrate Urine Bilirubin Urine Urobilinogen Ur Leukocyte Esterase Urine RBC Urine WBC Ur Epithelial Cells Amorphous Sediment Urine Bacteria Blood Type Antibody Screen Crossmatch BBK History Checked 07/08/17 07/08/17 07/08/17 03:20 04:08 04:15 WBC RBC Hgb Hct MCV MCH MCHC RDW Plt Count MPV Gran % Lymph % (Auto) [place] % (Auto) Eos % (Auto) Baso % (Auto) Gran # Lymph # (Auto) [place] # (Auto) Eos # (Auto) Baso # (Auto) pCO2 pO2 HCO3 ABG pH ABG Total CO2 ABG O2 Saturation ABG Base Excess ABG Potassium VBG pH VBG pCO2 VBG HCO3 VBG Total CO2 VBG O2 Sat (Calc) VBG Base Excess VBG Potassium Glucose Lactate FiO2 Sodium 134 Potassium 5.0 Chloride 105 Carbon Dioxide 20 L Anion Gap 14 BUN 41 H Creatinine 1.5 Est GFR ( Amer) 58 Est GFR (Non-Af Amer) 48 POC Glucose (mg/dL) Random Glucose 98 Calcium 6.0 L* Phosphorus Magnesium Total Bilirubin 1.7 H AST 172 H ALT 138 H Alkaline Phosphatase 85 Troponin I Total Protein 3.4 L Albumin 1.4 L Globulin 2.0 Albumin/Globulin Ratio 0.7 L Arterial Blood Potassium Venous Blood Potassium Urine Color Yellow Urine Appearance Sl cloudy Urine pH 6.0 Ur Specific [place] 1.025 Urine Protein 100 H Urine Glucose (UA) Negative Urine Ketones Negative Urine Blood Large H Urine Nitrate Negative Urine Bilirubin Negative Urine Urobilinogen 0.2 Ur Leukocyte Esterase Negative Urine RBC 2 - 5 Urine WBC 2 - 5 Ur Epithelial Cells 0 - 2 Amorphous Sediment Few Urine Bacteria Mod Blood Type B NEGATIVE Antibody Screen Negative Crossmatch See Detail BBK History Checked Patient has bt 07/08/17 07/08/17 07/08/17 05:00 05:30 05:30 WBC 0.2 L* D RBC 1.83 L Hgb 5.8 L* Hct 17.1 L* MCV 93.4 MCH 31.7 MCHC 33.9 RDW 13.1 Plt Count 29 L* MPV 10.7 Gran % 13.3 L Lymph % (Auto) 46.7 H [place] % (Auto) 40.0 H Eos % (Auto) 0.0 L Baso % (Auto) 0.0 Gran # 0.02 L Lymph # (Auto) 0.1 L [place] # (Auto) 0.1 Eos # (Auto) 0.0 Baso # (Auto) 0.00 pCO2 47 H pO2 57.0 L HCO3 19.2 L ABG pH 7.22 L ABG Total CO2 20.6 L ABG O2 Saturation 90.6 L ABG Base Excess -8.5 L ABG Potassium 4.7 VBG pH VBG pCO2 VBG HCO3 VBG Total CO2 VBG O2 Sat (Calc) VBG Base Excess VBG Potassium Glucose 191 H Lactate 6.7 H* FiO2 28.0 Sodium 131.0 L 134 Potassium 4.9 Chloride 105.0 104 Carbon Dioxide 20 L Anion Gap 15 BUN 41 H Creatinine 1.6 H Est GFR ( Amer) 54 Est GFR (Non-Af Amer) 44 POC Glucose (mg/dL) Random Glucose 181 H Calcium 6.0 L* Phosphorus 2.7 Magnesium 1.6 L Total Bilirubin 2.0 H AST 191 H ALT 145 H Alkaline Phosphatase 88 Troponin I Total Protein 3.5 L Albumin 1.5 L Globulin 1.9 Albumin/Globulin Ratio 0.8 L Arterial Blood Potassium 4.7 Venous Blood Potassium Urine Color Urine Appearance Urine pH Ur Specific [place] Urine Protein Urine Glucose (UA) Urine Ketones Urine Blood Urine Nitrate Urine Bilirubin Urine Urobilinogen Ur Leukocyte Esterase Urine RBC Urine WBC Ur Epithelial Cells Amorphous Sediment Urine Bacteria Blood Type Antibody Screen Crossmatch BBK History Checked 07/08/17 05:50 WBC RBC Hgb Hct MCV MCH MCHC RDW Plt Count MPV Gran % Lymph % (Auto) [place] % (Auto) Eos % (Auto) Baso % (Auto) Gran # Lymph # (Auto) [place] # (Auto) Eos # (Auto) Baso # (Auto) pCO2 pO2 164 H HCO3 ABG pH ABG Total CO2 ABG O2 Saturation ABG Base Excess ABG Potassium VBG pH 7.20 L VBG pCO2 48.0 VBG HCO3 18.8 L VBG Total CO2 20.3 L VBG O2 Sat (Calc) 98.4 H VBG Base Excess -9.3 L VBG Potassium 4.9 Glucose 189 H Lactate 7.2 H* FiO2 21.0 Sodium 130.0 L Potassium Chloride 102.0 Carbon Dioxide Anion Gap BUN Creatinine Est GFR ( Amer) Est GFR (Non-Af Amer) POC Glucose (mg/dL) Random Glucose Calcium Phosphorus Magnesium Total Bilirubin AST ALT Alkaline Phosphatase Troponin I Total Protein Albumin Globulin Albumin/Globulin Ratio Arterial Blood Potassium Venous Blood Potassium 4.9 Urine Color Urine Appearance Urine pH Ur Specific [place] Urine Protein Urine Glucose (UA) Urine Ketones Urine Blood Urine Nitrate Urine Bilirubin Urine Urobilinogen Ur Leukocyte Esterase Urine RBC Urine WBC Ur Epithelial Cells Amorphous Sediment Urine Bacteria Blood Type Antibody Screen Crossmatch BBK History Checked Assessment & Plan - Assessment and Plan (Free Text) Assessment: 61yo M with advanced Pancreatic CA on chemo. S/p duodenal stent, biliary stent and celiac plexus neurolysis on 07/05/17 - Neutropenic - Severe anemia, no evidence of overt GI bleed - Thrombocytopenic Plan: - Patient is a poor surgical candidate. No plans for any acute surgical intervention - Recommend Hospice eval for end-stage pancreatic CA - f/u GI recs Further recs as per Dr. Anatoliy Dooley PGY1 surgery pager: [phone] <Kalia Cope - Last Filed: 07/09/17 19:55> Results - Vital Signs Recent Vital Signs: Last Vital Signs Temp 94.1 F L 07/09/17 08:37 Pulse 40 L 07/09/17 08:30 Resp 11 L 07/09/17 08:24 BP 95/40 L 07/09/17 06:43 Pulse Ox 98 07/09/17 08:19 - Labs Result Diagrams: 07/09/17 05:30 07/09/17 05:30 Labs: Laboratory Results - last 24 hr 07/06/17 07/08/17 07/08/17 21:37 04:08 19:59 WBC RBC Hgb Hct MCV MCH MCHC RDW Plt Count MPV Gran % Lymph % (Auto) [place] % (Auto) Eos % (Auto) Baso % (Auto) Gran # Lymph # (Auto) [place] # (Auto) Eos # (Auto) Baso # (Auto) PT INR APTT pCO2 pO2 HCO3 ABG pH ABG Total CO2 ABG O2 Saturation ABG Base Excess ABG Potassium Sodium Chloride Glucose Lactate FiO2 Potassium Carbon Dioxide Anion Gap BUN Creatinine Est GFR ( Amer) Est GFR (Non-Af Amer) POC Glucose (mg/dL) 84 < 20 L* Random Glucose Calcium Phosphorus Magnesium Total Bilirubin AST ALT Alkaline Phosphatase Total Protein Albumin Globulin Albumin/Globulin Ratio Arterial Blood Potassium Blood Type B NEGATIVE Antibody Screen Negative Crossmatch See Detail BBK History Checked Patient has bt 07/08/17 07/08/17 07/08/17 20:02 21:00 23:47 WBC RBC Hgb Hct MCV MCH MCHC RDW Plt Count MPV Gran % Lymph % (Auto) [place] % (Auto) Eos % (Auto) Baso % (Auto) Gran # Lymph # (Auto) [place] # (Auto) Eos # (Auto) Baso # (Auto) PT INR APTT pCO2 pO2 HCO3 ABG pH ABG Total CO2 ABG O2 Saturation ABG Base Excess ABG Potassium Sodium Chloride Glucose Lactate FiO2 Potassium Carbon Dioxide Anion Gap BUN Creatinine Est GFR ( Amer) Est GFR (Non-Af Amer) POC Glucose (mg/dL) 22 L* 148 H 114 H Random Glucose Calcium Phosphorus Magnesium Total Bilirubin AST ALT Alkaline Phosphatase Total Protein Albumin Globulin Albumin/Globulin Ratio Arterial Blood Potassium Blood Type Antibody Screen Crossmatch BBK History Checked 07/09/17 07/09/17 07/09/17 03:54 05:20 05:23 WBC RBC Hgb Hct MCV MCH MCHC RDW Plt Count MPV Gran % Lymph % (Auto) [place] % (Auto) Eos % (Auto) Baso % (Auto) Gran # Lymph # (Auto) [place] # (Auto) Eos # (Auto) Baso # (Auto) PT INR APTT pCO2 45 pO2 66.0 L HCO3 8.4 L* ABG pH 6.88 L* ABG Total CO2 9.8 L ABG O2 Saturation 94.6 L ABG Base Excess -24.7 L ABG Potassium 5.9 H Sodium 128.0 L Chloride 106.0 Glucose 225 H Lactate 10.0 H* FiO2 50.0 Potassium Carbon Dioxide Anion Gap BUN Creatinine Est GFR ( Amer) Est GFR (Non-Af Amer) POC Glucose (mg/dL) 48 L 76 Random Glucose Calcium Phosphorus Magnesium Total Bilirubin AST ALT Alkaline Phosphatase Total Protein Albumin Globulin Albumin/Globulin Ratio Arterial Blood Potassium 5.9 H Blood Type Antibody Screen Crossmatch BBK History Checked 07/09/17 07/09/17 07/09/17 05:30 05:30 05:30 WBC 3.7 L D RBC 2.38 L Hgb 7.2 L Hct 22.7 L MCV 95.4 D MCH 30.3 MCHC 31.7 RDW 17.5 H Plt Count 11 L* MPV 11.5 H Gran % 19.4 L Lymph % (Auto) 11.3 L [place] % (Auto) 68.5 H Eos % (Auto) 0.5 L Baso % (Auto) 0.3 Gran # 0.72 L Lymph # (Auto) 0.4 L [place] # (Auto) 2.6 H Eos # (Auto) 0.0 Baso # (Auto) 0.01 PT 61.0 H INR 5.17 H* APTT > 400.0 H* pCO2 pO2 HCO3 ABG pH ABG Total CO2 ABG O2 Saturation ABG Base Excess ABG Potassium Sodium 131 L Chloride 106 Glucose Lactate FiO2 Potassium 6.1 H* D Carbon Dioxide 11 L Anion Gap 21 H BUN 36 H Creatinine 1.7 H Est GFR ( Amer) 50 Est GFR (Non-Af Amer) 41 POC Glucose (mg/dL) Random Glucose 220 H Calcium 5.2 L* Phosphorus 4.7 H Magnesium 1.7 Total Bilirubin 4.2 H AST 464 H D ALT 244 H Alkaline Phosphatase 89 Total Protein 3.2 L Albumin 1.6 L Globulin 1.6 Albumin/Globulin Ratio 1.0 L Arterial Blood Potassium Blood Type Antibody Screen Crossmatch BBK History Checked 07/09/17 07/09/17 07/09/17 06:00 07:25 07:49 WBC RBC Hgb Hct MCV MCH MCHC RDW Plt Count MPV Gran % Lymph % (Auto) [place] % (Auto) Eos % (Auto) Baso % (Auto) Gran # Lymph # (Auto) [place] # (Auto) Eos # (Auto) Baso # (Auto) PT INR APTT pCO2 pO2 HCO3 ABG pH ABG Total CO2 ABG O2 Saturation ABG Base Excess ABG Potassium Sodium Chloride Glucose Lactate FiO2 Potassium Carbon Dioxide Anion Gap BUN Creatinine Est GFR ( Amer) Est GFR (Non-Af Amer) POC Glucose (mg/dL) 45 L 108 185 H Random Glucose Calcium Phosphorus Magnesium Total Bilirubin AST ALT Alkaline Phosphatase Total Protein Albumin Globulin Albumin/Globulin Ratio Arterial Blood Potassium Blood Type Antibody Screen Crossmatch BBK History Checked Attending/Attestation - Attestation I have personally seen and examined this patient.: Yes I have fully participated in the care of the patient.: Yes I have reviewed all pertinent clinical information: Yes Notes (Text): Pt was seen and examined at bedside Agree with above note and assessment Pt with MODS, Septic shock and stage 4 Pancreatic Ca Poor prognosis C/w current ICU management No acute general surgery consult required Plan d.w primary team in detail Risk and benefit explained in detail.
[2017-07-08] MEDS ORDERED: Etomidate 20 mg/10ml Inj IV ONE (07:08)
--- NOTE | 2017-07-08 07:46 | PCM.PROC ---
<Robert Guzman - Last Filed: 07/08/17 07:45> Procedures Attestation:: I certify that I have explained the specified Operation(s) or Procedure(s), risks, benefits and reasonable alternatives to the Patient and/or other person responsible. The opportunity was given to ask questions and all questions answered - Intubation Sedative: Etomidate Laryngoscope: Elliot (3) ET Tube Size: 7.5 ET Tube Secured at Depth: 24 ET Tube Secured [place]: Lips ET Tube Placement Confirmation: Visualized Passing Through Cords, Breath Sounds Equal Bilaterally, No Breath Sounds Over Epigastrum, Confirmation w/Capnometry Patient Tolerated Procedure: Well Procedure Immediate Complications: None <Mihir Bennett - Last Filed: 07/08/17 13:21> Attending/Attestation - Attestation I have personally seen and examined this patient.: Yes I have fully participated in the care of the patient.: Yes I have reviewed all pertinent clinical information, including history, physical exam and plan: Yes Notes (Text): 07/08/17 13:20 I was present throughout the procedure and directly supervised Dr. Guzman. ET placement confirmed by gastric and b/l lung auscultation as well as change of the color of the end tidal C02 and finally CXR
--- NOTE | 2017-07-08 08:19 | CP.PCM.PN ---
<CadenAnneliese - Last Filed: 07/08/17 11:13> Subjective - Date & Time of Evaluation Date of Evaluation: 07/08/17 Time of Evaluation: 08:18 - Subjective Subjective: Hospitalist Service Patient seen and examined in room 129-03. Overnight events noted, including rapid response note and ICU consult note. Patient is intubated, mechanically ventilated, receiving blood products, vasopressors, on neutropenic precautions. ROS is limited as patient is not responsive. Objective - Vital Signs/Intake and Output Vital Signs (last 24 hours): Temp Pulse Resp BP Pulse Ox 96.8 F L 122 H 14 105/60 92 L 07/08/17 06:15 07/08/17 06:15 07/08/17 06:15 07/08/17 06:15 07/08/17 06:15 Intake and Output: 07/08/17 07/08/17 06:59 18:59 Intake Total 6490 Output Total 2650 Balance 3840 - Medications Medications: Current Medications Albumin Human (Albumin Human 5% (12.5 Gm/250 Ml)) 12.5 gm IV Q4H [facility] Last Admin: 07/08/17 03:43 Dose: 12.5 gm Albuterol/Ipratropium (Duoneb 3 Mg/0.5 Mg (3 Ml) Ud) 3 ml IH [id number] PRN PRN Reason: Shortness of Breath Albuterol/Ipratropium (Duoneb 3 Mg/0.5 Mg (3 Ml) Ud) 3 ml IH [id number] [facility] Last Admin: 07/08/17 02:00 Dose: Not Given Amlodipine Besylate (Norvasc) 10 mg PO DAILY [facility] Last Admin: 07/07/17 10:11 Dose: 10 mg Amylase (Pancrease 95100 U-5000 U-90755 U) 5,000 unit PO WM [facility] Last Admin: 07/07/17 19:21 Dose: Not Given Dextrose (Dextrose 50% Inj) 50 ml IVP ONCE PRN PRN Reason: hypoglycemia<60 or symptomatic Docusate Sodium (Colace) 100 mg PO DAILY [facility] Last Admin: 07/07/17 10:11 Dose: 100 mg Hydrocortisone Sodium Succinate (Solu-Cortef) 50 mg IVP Q6H [facility] Meropenem 500 mg/ Sodium (Chloride) 50 mls @ 100 mls/hr IVPB Q12H [facility] PRN Reason: Protocol Stop: 07/08/17 12:14 Last Admin: 07/08/17 00:30 Dose: 100 mls/hr Vancomycin HCl (Vancomycin 1gm) 1 gm in 250 mls @ 167 mls/hr IVPB Q12H [facility] PRN Reason: Protocol Last Admin: 07/08/17 00:20 Dose: 167 mls/hr NOREPINEPHRINE BIT/0.9 % NACL (Levophed 4 Mg/ 250 Ml Ns Premixed) 4 mg in 250 mls @ 15 mls/hr IV .[id number] PRN; Protocol; 4 MCG/MIN PRN Reason: TITRATE PER MD ORDER Last Admin: 07/08/17 05:46 Dose: 25 mcg/min, 93.75 mls/hr Dextrose (Dextrose 10% In Water) 500 mls @ 100 mls/hr IV .Q5H [facility] Last Admin: 07/08/17 05:27 Dose: 100 mls/hr Vasopressin 20 units/ Sodium (Chloride) 101 mls @ 9.09 mls/hr IV .Q11H7M [facility]; 0.03 U/MIN PRN Reason: Protocol Megestrol Acetate (Megace) 800 mg PO DAILY [facility] Last Admin: 07/07/17 19:18 Dose: Not Given Morphine Sulfate (Morphine Extended Release Tab) 30 mg PO Q12 [facility] Last Admin: 07/07/17 23:00 Dose: Not Given Morphine Sulfate (Morphine) 2 mg IVP Q2H PRN PRN Reason: Pain, severe (8-10) Nystatin (Nystatin Oral Susp) 5 ml PO QID [facility] Last Admin: 07/07/17 23:00 Dose: Not Given Ondansetron HCl (Zofran Inj) 4 mg IVP Q6H PRN PRN Reason: Nausea/Vomiting Last Admin: 07/07/17 18:20 Dose: 4 mg Pantoprazole Sodium (Protonix Inj) 40 mg IVP Q12 [facility] Last Admin: 07/08/17 00:21 Dose: 40 mg Potassium Phos/Sodium Phos (Neutra-Phos) 1 pkt PO TID [facility] Last Admin: 07/07/17 19:20 Dose: Not Given Sucralfate (Carafate Oral Susp) 1 gm PO QID [facility] Last Admin: 07/08/17 03:04 Dose: Not Given - Labs Labs: 07/08/17 05:30 07/08/17 05:30 PT 20.2 SECONDS (9.4-12.5) H 07/05/17 06:30 INR 1.74 (0.93-1.08) H 07/05/17 06:30 - Constitutional Appears: Chronically Ill - Head Exam Head Exam: ATRAUMATIC, NORMOCEPHALIC - Respiratory Exam Respiratory Exam: Decreased Breath Sounds - Cardiovascular Exam Cardiovascular Exam: +S1, +S2 - GI/Abdominal Exam GI & Abdominal Exam: absent: Rebound - Extremities Exam Extremities Exam: Normal Inspection - Neurological Exam Additional comments: patient not responsive Assessment and Plan - Assessment and Plan (Free Text) Assessment: 61 year old male with a past medical history of Pancreatic cancer, COPD, HTN, and DM II who presented with altered mental status possibly due to hypoglycemia that resolved. Patient received paracentesis on 07/05/2017- 1500 cc of straw colored fluid withdrawn, s/p EUS with celiac plexus neurolysis, ERCP with biliary stent placement, and EGD with duodenal stent placement. Patient became lethargic overnight, rapid response called due to lethargy and inadequate respiratory response, patient now in critical condition- intubated, mechanically ventilated, on two vasopressors, receiving blood products, etc. ICU is closely managing him though his prognosis is grim at this point in time. Plan: 1. Septic Shock (due to PNA and/or intra-abdominal infection) - Vancomycin and Merropenem - Infectious disease consulted - Stress dose steroids - Overnight the patient resuscitated aggressively with 4-5L of IVF boluses, 3units of PRBCs, 1 unit platelet, IV Albumin Q4hrs and Levophed drip. - Vasopressin drip, titrate/continue per ICU team - Levophed drip, continue per ICU team - Will defer to ICU team at this time 2. Suspected Duodenal Stent Malposition (with perforation NOT excluded on CT- scan result) - GI is following the patient - Surgery consulted, defer any intervention as patient is an extremely poor surgical candidate 3. Recurrent Hypoglycemia (likely associated with pancreatic mass and/or sepsis) - D10W IVFs @100cc/hr with Accu-checks Q1hrs monitored 3. Pancytopenia (including neutropenia) - Blood products per ICU team and continue with Granix 480 mcg daily for 5 total course 4. Acute Anemia (UGIB vs immunosuppression) - Blood products per ICU 5. ILYA (due to intravascular depletion) - will continue to monitor Disposition: Dismal, family made aware of patient's critical condition. ICU team will continue communicating with the family as they are the most proximate to the patient and his status at this time. Case reviewed and discussed in detail with attending physician, Dr. Cohn. <Lydia Cohn - Last Filed: 07/08/17 15:04> Objective - Vital Signs/Intake and Output Vital Signs (last 24 hours): Temp Pulse Resp BP Pulse Ox 98.1 F 116 H 18 108/51 L 92 L 07/08/17 11:46 07/08/17 11:46 07/08/17 11:46 07/08/17 11:00 07/08/17 06:15 Intake and Output: 07/08/17 07/08/17 06:59 18:59 Intake Total 6490 500 Output Total 2650 Balance 3840 500 - Medications Medications: Current Medications Albumin Human (Albumin Human 5% (12.5 Gm/250 Ml)) 12.5 gm IV Q4H [facility] Last Admin: 07/08/17 12:45 Dose: 12.5 gm Albuterol/Ipratropium (Duoneb 3 Mg/0.5 Mg (3 Ml) Ud) 3 ml IH [id number] PRN PRN Reason: Shortness of Breath Albuterol/Ipratropium (Duoneb 3 Mg/0.5 Mg (3 Ml) Ud) 3 ml IH [id number] [facility] Last Admin: 07/08/17 02:00 Dose: Not Given Amlodipine Besylate (Norvasc) 10 mg PO DAILY [facility] Last Admin: 07/07/17 10:11 Dose: 10 mg Amylase (Pancrease 02568 U-5000 U-64067 U) 5,000 unit PO WM [facility] Last Admin: 07/08/17 12:39 Dose: Not Given Dextrose (Dextrose 50% Inj) 50 ml IVP ONCE PRN PRN Reason: hypoglycemia<60 or symptomatic Docusate Sodium (Colace) 100 mg PO DAILY [facility] Last Admin: 07/07/17 10:11 Dose: 100 mg Hydrocortisone Sodium Succinate (Solu-Cortef) 50 mg IVP Q6H [facility] Last Admin: 07/08/17 08:48 Dose: 50 mg NOREPINEPHRINE BIT/0.9 % NACL (Levophed 4 Mg/ 250 Ml Ns Premixed) 4 mg in 250 mls @ 15 mls/hr IV .[id number] PRN; Protocol; 4 MCG/MIN PRN Reason: TITRATE PER MD ORDER Last Admin: 07/08/17 13:47 Dose: 15 mcg/min, 56.25 mls/hr Dextrose (Dextrose 10% In Water) 500 mls @ 100 mls/hr IV .Q5H [facility] Last Admin: 07/08/17 10:26 Dose: 100 mls/hr Vasopressin 20 units/ Sodium (Chloride) 101 mls @ 9.09 mls/hr IV .Q11H7M [facility]; 0.03 U/MIN PRN Reason: Protocol Last Admin: 07/08/17 08:52 Dose: 9.09 mls/hr Meropenem 500 mg/ Sodium (Chloride) 50 mls @ 100 mls/hr IVPB Q8 [facility] PRN Reason: Protocol Stop: 07/17/17 14:01 Last Admin: 07/08/17 13:28 Dose: 100 mls/hr Vancomycin HCl (Vancomycin 1gm) 1 gm in 250 mls @ 167 mls/hr IVPB DAILY [facility] PRN Reason: Protocol Stop: 07/17/17 10:01 Last Admin: 07/08/17 10:07 Dose: 167 mls/hr Megestrol Acetate (Megace) 800 mg PO DAILY [facility] Last Admin: 07/08/17 12:38 Dose: Not Given Morphine Sulfate (Morphine Extended Release Tab) 30 mg PO Q12 [facility] Last Admin: 07/07/17 23:00 Dose: Not Given Morphine Sulfate (Morphine) 2 mg IVP Q2H PRN PRN Reason: Pain, severe (8-10) Nystatin (Nystatin Oral Susp) 5 ml PO QID [facility] Last Admin: 07/08/17 12:39 Dose: Not Given Ondansetron HCl (Zofran Inj) 4 mg IVP Q6H PRN PRN Reason: Nausea/Vomiting Last Admin: 07/07/17 18:20 Dose: 4 mg Pantoprazole Sodium (Protonix Inj) 40 mg IVP Q12 [facility] Last Admin: 07/08/17 12:47 Dose: 40 mg Potassium Phos/Sodium Phos (Neutra-Phos) 1 pkt PO TID [facility] Last Admin: 07/08/17 12:38 Dose: Not Given Sucralfate (Carafate Oral Susp) 1 gm PO QID [facility] Last Admin: 07/08/17 12:33 Dose: Not Given - Labs Labs: 07/08/17 05:30 07/08/17 05:30 PT 48.0 SECONDS (9.4-12.5) H 07/08/17 10:58 INR 4.06 (0.93-1.08) H* 07/08/17 10:58 APTT 52.6 Seconds (25.1-36.5) H 07/08/17 10:58 Attending/Attestation - Attestation I have personally seen and examined this patient.: Yes I have fully participated in the care of the patient.: Yes I have reviewed all pertinent clinical information, including history, physical exam and plan: Yes Notes (Text): 07/08/17 14:58 Medical record note made by the resident after discussion with my direction and input after the patient was personally seen and examined by me. I have reviewed the chart and agree that the record accurately reflects by personal performance of the history, physical exam, data review, and medical decision-making, in the course for the patient. I have also personally directed the plan of care. 61 yrs old male with PMH of recently diagnosed invasive adenocarcinoma of the pancreas 04/2017 , HTN, chronic smoking , drug abuse and noncompliance was admitted with change of mental status. Patient was hypoglycemic , and also has elevated LFT.Abdominal CT reveals severe ascites, dilated mesenteric veins with narrowing of the SMV near the portal vein, pancreatic mass, and a severe enlargement of the pancreatic duct. Patient underwent SP EGD with duodenal stent, ERCP with distal CBD stricture and stent placement, and EUS guided celiac plexus block, after the procedure patient was tolerating diet.Patientr had rapid response last night, and is intubated for Resp Failure due to Aspiration Pneumonia, patient is also hypotensive on pressors, dropped hemoglobin and is Pancytopenic. CT scan of abdomen and Pelvis showed possible stent,migration / perforation was not rule out,Patient , was evaluated by surgery,as per surgery he is not not a candidate for any surgery. Patient condition was discussed with mother over the phone, Prognosis is guarded
[2017-07-08] MEDS ORDERED: Magnesium Sulfate 1 gm in D5W 1 GM/100 ML BAG IVPB ONE (08:27)
--- NOTE | 2017-07-08 08:44 | RAD ---
HISTORY: severe abdominal pain; s/p stent placement COMPARISON: July 07, 2017. CT abdomen and pelvis FINDINGS: BOWEL: Normal. No obstruction. No free air. BONES: Normal. OTHER FINDINGS: Incompletely visualized thus characterize biliary stents better visualized on the CT scan. IMPRESSION: No acute findings related to/accounting for the clinical presentation.
--- NOTE | 2017-07-08 08:46 | RAD ---
HISTORY: Distension COMPARISON: July 07, 2017. Time of the most recent examination: 18:48 July 07, 2017. CT abdomen and pelvis FINDINGS: BOWEL: Normal. No obstruction. No free air. BONES: Normal. OTHER FINDINGS: Biliary stents are incompletely visualized. IMPRESSION: No upper abdominal abnormalities.
--- NOTE | 2017-07-08 09:19 | RAD ---
HISTORY: intubation COMPARISON: July 07, 2017. FINDINGS: LUNGS: Acute pulmonary edema asymmetrical right lung greater than left. PLEURA: No significant pleural effusion identified, no pneumothorax apparent. CARDIOVASCULAR: No radiographic findings to suggest acute or significant cardiovascular disease. OSSEOUS STRUCTURES: No significant abnormalities. VISUALIZED UPPER ABDOMEN: Normal. OTHER FINDINGS: Satisfactory position of endotracheal tube. Nasogastric tube in good position in the stomach, the tip is not visualized. IMPRESSION: Acute asymmetric pulmonary edema/ bilateral airspace disease right substantially greater than left. Satisfactory position of recently placed support apparatus including endotracheal tube and nasogastric tube.
[2017-07-08 09:22] LABS: ARTERIAL BLOOD GAS HCO3 16.4 mmol/L (21-28); ARTERIAL BLOOD GAS O2 SAT 96.1 % (95-98); ARTERIAL BLOOD GAS PCO2 41 mm/Hg (35-45); ARTERIAL BLOOD GAS PH 7.21 (7.35-7.45); ARTERIAL BLOOD GAS TCO2 17.7 mmol.L (22-28)
[2017-07-08] MEDS ORDERED: Vancomycin 1gm in NS 250ml 1 GM/250 ML BAG IVPB SCH (10:00)
[2017-07-08] MEDS ORDERED: cefTRIAXone 1 gm 1 GM/100 ML BAG IVPB SCH (10:00)
[2017-07-08 11:25] LABS: PARTIAL THROMBOPLASTIN TIME 52.6 Seconds (25.1-36.5)
[2017-07-08 11:27] LABS: INR 4.06 (0.93-1.08)
[2017-07-08 12:37] LABS: VENOUS BLOOD GAS BASE EXCESS -14.4 mmol/L (0.0-2.0); VENOUS BLOOD GAS PO2 51 mm/Hg (30-55); VENOUS BLOOD PH 7.08 (7.32-7.43)
[2017-07-08] MEDS: Megestrol Acetate 40 mg/ml Cup PO SCH (12:38)
[2017-07-08] MEDS: Potassium & Sodium Phosphate PO SCH ×2 (12:38→14:05)
[2017-07-08] MEDS: Nystatin 100,000 Units/ml Oral Susp 5 ml UD PO SCH ×3 (12:39→23:07)
[2017-07-08] MEDS: Amylase/Lipase/Protease 5,000 Units ECC PO SCH ×2 (12:39→17:14)
--- NOTE | 2017-07-08 13:08 | CARD ---
APPROVED REPORT EKG Measurement Heart [id number] <Conclusion> Sinus tachycardia with 1st degree AV block Septal infarct, age undetermined Marked ST abnormality, possible anterior subendocardial injury Abnormal ECG
[2017-07-08] MEDS: Meropenem 500 MG in Sodium Chloride 0.9% 50 ML IVPB SCH ×2 (13:28→21:51)
--- NOTE | 2017-07-08 14:08 | PN ---
DATE: 07/08/2017 SUBJECTIVE: This 61-year-old gentleman with history of COPD, hypertension, diabetes and coronary artery disease, who was diagnosed with pancreatic cancer in April 2017, which was poorly responsive to chemotherapy and progressed since then. [place] [facility] [place] with altered mental status which was attributed to opioid overuse (he had been prescribed opioids for pain associated with cancer) and recurrent hypoglycemia. The patient also was found to have pancytopenia, which thought to be attributed to chemotherapy and was started on Granix. He was diagnosed with SBO and subsequently had stent placed with jainism of GI tract patency. Yesterday, however, his mental status and hemodynamic status substantially deteriorated and he was transferred to intensive care unit where he had to be emergently intubated for hypoxemic respiratory failure. Subsequent chest x-ray revealed bilateral fluffy infiltrates consistent with ARDS. PAST MEDICAL HISTORY: Diabetes, hypertension, COPD, coronary artery disease, advanced pancreatic cancer. PAST SURGICAL HISTORY: None. ALLERGIES: NKDA. SOCIAL HISTORY The patient is active smoker and denies alcohol use. FAMILY HISTORY Noncontributory. REVIEW OF SYSTEM: Review of 12-organ system other than mentioned in history of present illness is negative. PHYSICAL EXAMINATION: VITAL SIGNS: The patient currently is intubated. He is on PRVC 470/15/5/50% on that setting. His oxygen saturation is 97%, heart rate 118, blood pressure 103/36, temperature 97 (he is on Lenard Hugger), respiratory rate 16. The patient is on norepinephrine 20 mcg per minute, vasopressin 0.03 units per minute and stress-dose steroids. He is also on D10 at 100 mL/hour. ENT: Head and neck atraumatic. LUNGS: Few crackles bibasilar. HEART: Regular rate and rhythm. S1, S2 normal. ABDOMEN: Slightly distended, does not appear to be tender. SKIN: Moist. PSYCH: The patient is very somnolent and does not require sedation and appeared to be comfortable. Abdomen and pelvis CAT scan revealed markedly limited study secondary to motion and the lack of intravenous and oral contrast. The hollow and solid organs are not well delineated, suspect malposition/migration of the duodenal stent. The possibility of perforation is not excluded. New small right pleural effusion and the right middle and lower lobe airspace disease suspicious for pneumonia, pneumobilia, suspect gas, poorly visualized gallbladder, likely related to stent placement, moderate gas filled distended large bowel. ASSESSMENT AND PLAN: This is a 61-year-old gentleman with advanced ? end-stage pancreatic cancer, who was admitted to ICU for hypoxemic respiratory failure secondary to distributive shock with multiorgan system failure. Neuro: The patient is nonresponsive to touch or painful stimuli and currently is off of sedation. We will consider EEG if she would not become responsive soon. Pulmonary: We will continue with protective lung ventilation strategy, 4 to 8 mL per predicted body weight of tidal volume and plateau pressure less than 30 cmH20. We will continue with head of bed elevated more than 35 degrees and oral hygiene. Possibility of infectious component to chest x-ray findings cannot be ruled out. The patient is on broad-spectrum antibiotics and septic workup was initiated. We will continue with conservative oxygen management. If/when shock resolved, conservative fluid management will be next step. Once shock resolved, daily sedation vacation and attempted extubation will be undertaken. Cardiovascular: The patient appears to be in septic/distributive shock with multiorgan system failure. He is on norepinephrine, vasopressin and stress dose steroids for hemodynamic support. Echocardiogram revealed slightly impaired left ventricular function. Some ionotropic support can be provided with norepinephrine as well. Gastrointestinal: The patient had advanced pancreatic cancer, status post duodenal stent placed by Gastroenterology Service. I spoke with Gastroenterology service and they reviewed CAT scan and do not think that stent is malpositioned or need to be adjusted. Surgical service was also involved, however, he was deemed to be not operative candidate due to extremely high mortality risk. At present time, we will proceed with n.p.o. IV fluids, gastrointestinal prophylaxis. INFECTIOUS DISEASE: The patient is in distributive shock, most likely secondary to ongoing sepsis whether related to ascending cholangitis, enteritis or pneumonia. Infectious Disease service will be requested. Antibiotics will be adjusted, septic workup will be initiated including blood culture, urine culture and procalcitonin. Sputum culture will be also sent. Renal: The patient has acute kidney injury. We will continue with fluid resuscitation and maintain mean arterial pressure more than 65 avoiding hyperchloremia and nephrotoxins. Most likely, acute kidney injury is secondary to acute tubular necrosis in the setting of sepsis. Hematology/Oncologic: The patient has severe pancytopenia, most likely related to chemotherapy and sepsis-related bone marrow suppression. I will touch base with Dr. Oquendo, but it appears that the patient would not be a candidate for another round of chemotherapy until she recovers from consultation. I will touch base with Dr. Oquendo also about continuing G-CSF (Granix). We will maintain platelet count more than [id number] and hemoglobin level within 7 to 9 range. Endocrine: We will continue with maintaining blood glucose within 140-180 range. The patient is on D10 IV fluid. We will avoid hypoglycemia. Most likely hypoglycemia relates to underlying malignancy and ongoing sepsis. We will continue with deep venous thrombosis and gastrointestinal prophylaxis. ccm time 40 min Mihir Bennett MD MTDD
[2017-07-08 15:04] LABS: EOS % 1.5 % (1.5-5.0); GRAN # 0.09 (1.4-6.5); GRAN % 13.4 % (50.0-68.0); HEMOGLOBIN 8.8 g/dL (14.0-18.0); LYMPH # 0.2 (1.2-3.4); LYMPH % 26.9 % (22.0-35.0); MEAN CELL VOLUME 91.2 fl (80.0-105.0); MEAN CORPUSCULAR HEMOGLOBIN 30.9 pg (25.0-35.0); MEAN CORPUSCULAR HGB CONC 33.8 g/dl (31.0-37.0); MEAN PLATELET VOLUME 10.1 fl (7.0-11.0); MONO # 0.4 (0.1-0.6); MONO % 58.2 % (1.0-6.0); RBC 2.85 10^6/uL (3.5-6.1)
--- NOTE | 2017-07-08 15:13 | CON ---
DATE: 07/08/2017 LOCATION: The patient is in CCU 129, bed 3. CHIEF COMPLAINT: Weakness, poorly responsive atria 61-year-old male who is end stage COPD who was cachectic. He has TIAs, long-time smoker, coronary artery disease, diabetes mellitus, hypertension, emphysema, depression. He had been in long-term in the past and exposure to tuberculosis in the past and a negative PPD, was diagnosed recently with pancreatic cancer. He has had chemotherapy, also had an EUS with celiac plexus neurolysis and had an ERCP with biliary stent placement and endoscopy with duodenal stent placement and also had paracentesis 3 days ago, now in the ICU with hypotension, tachycardia, dyspnea, poorly responsive hypothermia, on pressors, about to be intubated. REVIEW OF SYSTEMS: As mentioned. The patient has had hypothermia, shortness of breath, abdominal pain, and there is cough and the patient also has a femoral line, a left femoral line. PAST MEDICAL HISTORY: Significant for end-stage, cachectic, wasting syndrome with BMI of 30 and TIA, end-stage chronic obstructive lung disease, diabetes, coronary artery disease, history of non-ST elevation myocardial infarction, hypertension, emphysema, depression, exposure to tuberculosis. Negative PPD. Recent diagnosis of pancreatitis and chemotherapy. PAST SURGICAL HISTORY: In the past, he has had a lung biopsy. He has also recently had an EUS with celiac plexus neurolysis and ERCP with biliary stent placement and endoscopy with duodenal stent and a paracentesis 3 days ago. ALLERGIES: THE PATIENT HAS NO KNOWN ALLERGIES. PHYSICAL EXAMINATION: GENERAL: On exam, he appears end-stage, cachectic, short of breath critically ill. VITAL SIGNS: With a temperature of 99. Temperature was low at 94.6, blood pressure of 75/40, respiratory rate of 24, heart rate of 120. HEENT: Examination of HEENT is temporal wasting. NECK: Supple. LUNGS: Have decreased breath sounds. HEART: Normal S1, S2. ABDOMEN: Examination has mild tenderness and no rebound or guarding and femoral line is in the left femoral. LABORATORY DATA: Laboratory examination reveals the patient's white count is 0.1 and hemoglobin of 5 and platelets of 26 and the patient has 28% granulocytosis, 42% lymphocytosis, 28% monocytosis. Coagulation is noted and INR of 1.74. Blood gases are reviewed. Chemistries reveal the patient's creatinine is 1.6, which has increased from 0.5. The patient's calcium is low. LFTs are elevated and urinalysis is noted and WBCs in the peritoneal fluid is 312. The patient is mostly lymphocytic 88%. The toxicology shows cannabinoids being positive and microbiology is pending. In the past, the patient has had negative blood cultures and radiologically, today's chest x-ray results are pending. The patient had a CT scan which was reviewed. Endoscopy is reviewed. ASSESSMENT AND PLAN: A 61-year-old -[place] male with end-stage transient ischemic attack, end-stage chronic obstructive pulmonary disease, diabetes, long-time smoker, coronary artery disease, non-ST elevation myocardial infarction, hypertension, emphysema, depression, history of exposure to tuberculosis in the past, history of being in long-term in the past with negative PPD. Pancreatic cancer, status post chemotherapy, status post endoscopic ultrasound, status post endoscopic retrograde cholangiopancreatography with biliary stent, status post endoscopy with duodenal stent, status post paracentesis, now hypothermia, hypotension, neutropenia, tachycardia, dyspnea and septic shock with right lower lobe healthcare-associated pneumonia with acute kidney injury in a patient status post chemotherapy and neutropenia. The patient is about to be intubated with respiratory failure and the patient does have a left femoral line. We will treat the patient with vancomycin and meropenem, adjust the vancomycin and meropenem both for renal insufficiency. Overall prognosis is quite poor with this patient with multiorgan failure and septic shock and end-stage, cachectic, strongly recommend hospice setting for this patient and we will follow with you. Sandoval Callejas MD
[2017-07-08 15:18] LABS: WHITE BLOOD COUNT 0.7 10^3/ul (4.5-11.0)
[2017-07-08 15:19] LABS: PLATELET COUNT 20 10^3/uL (120.0-450.0)
[2017-07-08 15:23] LABS: CALCIUM 5.6 mg/dL (8.4-10.5)
[2017-07-08 15:24] LABS: ALB/GLOB RATIO 0.9 (1.1-1.8); ALBUMIN 1.7 g/dL (3.0-4.8)
[2017-07-08 16:39] LABS: LYMPHOCYTE 20 % (22.0-35.0); METAMYELOCYTE 5 %; MONOCYTE 10 % (1.0-6.0); MYELOCYTE 9 %; NEUTROPHIL 33 % (50.0-70.0)
[2017-07-08 16:41] LABS: BAND 23 % (0-2)
[2017-07-08 16:42] LABS: BURR CELLS 3+; PLATELET ESTIMATE LOW (NORMAL)
[2017-07-08] MEDS ORDERED: Phytonadione 5 MG in Sodium Chloride 0.9% 50 ML IV ONE (17:56)
[2017-07-09] MEDS: NOREPINEPHRINE BIT/0.9 % NACL 4 MG/250 ML BAG IV PRN ×3 (00:15→05:30)
[2017-07-09] MEDS: Albuterol-Ipratrop 3 mg / 0.5 (3 ml) UD IH SCH ×2 (01:32→07:47)
[2017-07-09] MEDS ORDERED: Sodium Chloride 0.9% 1,000 ML IV SCH (03:15)
[2017-07-09] MEDS: Albumin Human 5% (12.5 gm/250 ml) IV SCH ×2 (03:18→08:19)
[2017-07-09] MEDS ORDERED: Dextrose 50% SYRINGE Inj (50 ml) ONE ×2 (03:57→07:28)
[2017-07-09] MEDS ORDERED: Dextrose 50% SYRINGE Inj (50 ml) IVP ONE ×2 (04:13→06:00)
[2017-07-09 05:27] LABS: ARTERIAL BLOOD GAS O2 SAT 94.6 % (95-98); ARTERIAL BLOOD GAS PCO2 45 mm/Hg (35-45); ARTERIAL BLOOD GAS TCO2 9.8 mmol.L (22-28)
[2017-07-09] MEDS ORDERED: Sodium Bicarbonate (8.4%) 50 Meq Syringe IVP ONE (05:36)
[2017-07-09 05:41] LABS: ARTERIAL BLOOD GAS PH 6.88 (7.35-7.45)
[2017-07-09 05:42] LABS: ARTERIAL BLOOD GAS HCO3 8.4 mmol/L (21-28)
[2017-07-09] MEDS ORDERED: Sodium Bicarbonate 8.4% 75 MEQ in Dextrose 5% In Water 1,000 ML IV SCH (05:45)
[2017-07-09] MEDS ORDERED: Sodium Bicarbonate 8.4% 150 MEQ in Dextrose 5% In Water 1,000 ML IV SCH (06:00)
--- NOTE | 2017-07-09 06:03 | CP.PCM.PN ---
Subjective - Date & Time of Evaluation Date of Evaluation: 07/09/17 Time of Evaluation: 05:56 - Subjective Subjective: Code Blue was called for patient at 0538 for asystole. Chest compressions were initiated and patient was placed on bag valve mask. One dose of epinephrine was given at 0538. Pulse check at 0540 revealed no palpable pulse. One dose of bicarb was given at 0541. Second dose of epinephrine was given at 0542. ROSC was achieved at 0544 as sinus tachycardia. Second dose of bicarb was given at 0545. Dr. Guzman instructed staff to place patient back on mechanical ventilator and for Bicarb drip to be started. Blood sugar was noted to be 45 shortly after ROSC was achieved and one amp of D50 was given. Code blue was concluded at 0547. Objective - Vital Signs/Intake and Output Vital Signs (last 24 hours): Temp Pulse Resp BP Pulse Ox 98.6 F 72 22 111/60 92 L 07/09/17 03:26 07/09/17 03:26 07/08/17 20:51 07/08/17 18:39 07/08/17 06:15 Intake and Output: 07/08/17 07/09/17 18:59 06:59 Intake Total 750 3674 Output Total 775 Balance 750 2899 - Medications Medications: Current Medications Albumin Human (Albumin Human 5% (12.5 Gm/250 Ml)) 12.5 gm IV Q4H [facility] Last Admin: 07/09/17 03:18 Dose: 12.5 gm Albuterol/Ipratropium (Duoneb 3 Mg/0.5 Mg (3 Ml) Ud) 3 ml IH [id number] PRN PRN Reason: Shortness of Breath Albuterol/Ipratropium (Duoneb 3 Mg/0.5 Mg (3 Ml) Ud) 3 ml IH [id number] [facility] Last Admin: 07/09/17 01:32 Dose: 3 ml Amlodipine Besylate (Norvasc) 10 mg PO DAILY [facility] Last Admin: 07/07/17 10:11 Dose: 10 mg Amylase (Pancrease 58339 U-5000 U-16535 U) 5,000 unit PO WM [facility] Last Admin: 07/08/17 17:14 Dose: Not Given Dextrose (Dextrose 50% Inj) 50 ml IVP ONCE PRN PRN Reason: hypoglycemia<60 or symptomatic Last Admin: 07/08/17 20:00 Dose: 50 ml Docusate Sodium (Colace) 100 mg PO DAILY [facility] Last Admin: 07/07/17 10:11 Dose: 100 mg Hydrocortisone Sodium Succinate (Solu-Cortef) 50 mg IVP Q6H [facility] Last Admin: 07/09/17 01:30 Dose: 50 mg NOREPINEPHRINE BIT/0.9 % NACL (Levophed 4 Mg/ 250 Ml Ns Premixed) 4 mg in 250 mls @ 15 mls/hr IV .[id number] PRN; Protocol; 4 MCG/MIN PRN Reason: TITRATE PER MD ORDER Last Admin: 07/09/17 02:50 Dose: 30 mcg/min, 112.5 mls/hr Dextrose (Dextrose 10% In Water) 500 mls @ 100 mls/hr IV .Q5H [facility] Last Admin: 07/09/17 04:29 Dose: 100 mls/hr Vasopressin 20 units/ Sodium (Chloride) 101 mls @ 9.09 mls/hr IV .[id number] JOSEMANUEL; 0.03 U/MIN PRN Reason: Protocol Last Admin: 07/08/17 18:39 Dose: 9.09 mls/hr Meropenem 500 mg/ Sodium (Chloride) 50 mls @ 100 mls/hr IVPB Q8 JOSEMANUEL PRN Reason: Protocol Stop: 07/17/17 14:01 Last Admin: 07/08/17 21:51 Dose: 100 mls/hr Phenylephrine HCl 40 mg/ (Sodium Chloride) 254 mls @ 38.1 mls/hr IV .Q6H40M PRN ; Protocol; 100 MCG/MIN PRN Reason: TITRATE PER MD ORDER Last Titration: 07/09/17 02:45 Dose: 80 mcg/min, 30.48 mls/hr Sodium Bicarbonate 150 meq/ (Dextrose) 1,150 mls @ 100 mls/hr IV .[id number] [facility] Megestrol Acetate (Megace) 800 mg PO DAILY [facility] Last Admin: 07/08/17 12:38 Dose: Not Given Morphine Sulfate (Morphine Extended Release Tab) 30 mg PO Q12 [facility] Last Admin: 07/07/17 23:00 Dose: Not Given Morphine Sulfate (Morphine) 2 mg IVP Q2H PRN PRN Reason: Pain, severe (8-10) Nystatin (Nystatin Oral Susp) 5 ml PO QID [facility] Last Admin: 07/08/17 23:07 Dose: Not Given Ondansetron HCl (Zofran Inj) 4 mg IVP Q6H PRN PRN Reason: Nausea/Vomiting Last Admin: 07/07/17 18:20 Dose: 4 mg Pantoprazole Sodium (Protonix Inj) 40 mg IVP Q12 [facility] Last Admin: 07/08/17 21:50 Dose: 40 mg Potassium Phos/Sodium Phos (Neutra-Phos) 1 pkt PO TID [facility] Last Admin: 07/08/17 14:05 Dose: Not Given Sucralfate (Carafate Oral Susp) 1 gm PO QID [facility] Last Admin: 07/08/17 22:19 Dose: Not Given - Labs Labs: 07/08/17 14:50 07/08/17 14:50 PT 48.0 SECONDS (9.4-12.5) H 07/08/17 10:58 INR 4.06 (0.93-1.08) H* 07/08/17 10:58 APTT 52.6 Seconds (25.1-36.5) H 07/08/17 10:58
[2017-07-09 06:06] LABS: ALBUMIN 1.6 g/dL (3.0-4.8); CALCIUM 5.2 mg/dL (8.4-10.5)
[2017-07-09] MEDS: Meropenem 500 MG in Sodium Chloride 0.9% 50 ML IVPB SCH (06:08)
[2017-07-09 06:16] LABS: BASO # 0.01 K/mm3 (0.0-2.0); BASO % 0.3 % (0.0-3.0); EOS % 0.5 % (1.5-5.0); GRAN # 0.72 (1.4-6.5); GRAN % 19.4 % (50.0-68.0); HEMOGLOBIN 7.2 g/dL (14.0-18.0); LYMPH # 0.4 (1.2-3.4); LYMPH % 11.3 % (22.0-35.0); MEAN CELL VOLUME 95.4 fl (80.0-105.0); MEAN CORPUSCULAR HEMOGLOBIN 30.3 pg (25.0-35.0); MEAN CORPUSCULAR HGB CONC 31.7 g/dl (31.0-37.0); MEAN PLATELET VOLUME 11.5 fl (7.0-11.0); MONO # 2.6 (0.1-0.6); MONO % 68.5 % (1.0-6.0); RED CELL DISTRIBUTION WIDTH 17.5 % (11.5-14.5); WHITE BLOOD COUNT 3.7 10^3/ul (4.5-11.0)
--- NOTE | 2017-07-09 06:23 | CP.PCM.PN ---
Subjective - Date & Time of Evaluation Date of Evaluation: 07/09/17 Objective - Vital Signs/Intake and Output Vital Signs (last 24 hours): Temp Pulse Resp BP Pulse Ox 98.6 F 72 22 111/60 92 L 07/09/17 03:26 07/09/17 03:26 07/08/17 20:51 07/08/17 18:39 07/08/17 06:15 Intake and Output: 07/08/17 07/09/17 18:59 06:59 Intake Total 750 3674 Output Total 775 Balance 750 2899 - Medications Medications: Current Medications Albumin Human (Albumin Human 5% (12.5 Gm/250 Ml)) 12.5 gm IV Q4H [facility] Last Admin: 07/09/17 03:18 Dose: 12.5 gm Albuterol/Ipratropium (Duoneb 3 Mg/0.5 Mg (3 Ml) Ud) 3 ml IH [id number] PRN PRN Reason: Shortness of Breath Albuterol/Ipratropium (Duoneb 3 Mg/0.5 Mg (3 Ml) Ud) 3 ml IH [id number] [facility] Last Admin: 07/09/17 01:32 Dose: 3 ml Amlodipine Besylate (Norvasc) 10 mg PO DAILY [facility] Last Admin: 07/07/17 10:11 Dose: 10 mg Amylase (Pancrease 40609 U-5000 U-53300 U) 5,000 unit PO WM [facility] Last Admin: 07/08/17 17:14 Dose: Not Given Dextrose (Dextrose 50% Inj) 50 ml IVP ONCE PRN PRN Reason: hypoglycemia<60 or symptomatic Last Admin: 07/08/17 20:00 Dose: 50 ml Docusate Sodium (Colace) 100 mg PO DAILY [facility] Last Admin: 07/07/17 10:11 Dose: 100 mg Hydrocortisone Sodium Succinate (Solu-Cortef) 50 mg IVP Q6H [facility] Last Admin: 07/09/17 01:30 Dose: 50 mg NOREPINEPHRINE BIT/0.9 % NACL (Levophed 4 Mg/ 250 Ml Ns Premixed) 4 mg in 250 mls @ 15 mls/hr IV .[id number] PRN; Protocol; 4 MCG/MIN PRN Reason: TITRATE PER MD ORDER Last Admin: 07/09/17 02:50 Dose: 30 mcg/min, 112.5 mls/hr Dextrose (Dextrose 10% In Water) 500 mls @ 100 mls/hr IV .Q5H [facility] Last Admin: 07/09/17 04:29 Dose: 100 mls/hr Vasopressin 20 units/ Sodium (Chloride) 101 mls @ 9.09 mls/hr IV .Q11H7M JOSEMANUEL; 0.03 U/MIN PRN Reason: Protocol Last Admin: 07/08/17 18:39 Dose: 9.09 mls/hr Meropenem 500 mg/ Sodium (Chloride) 50 mls @ 100 mls/hr IVPB Q8 JOSEMANUEL PRN Reason: Protocol Stop: 07/17/17 14:01 Last Admin: 07/09/17 06:08 Dose: 100 mls/hr Phenylephrine HCl 40 mg/ (Sodium Chloride) 254 mls @ 38.1 mls/hr IV .Q6H40M PRN ; Protocol; 100 MCG/MIN PRN Reason: TITRATE PER MD ORDER Last Titration: 07/09/17 02:45 Dose: 80 mcg/min, 30.48 mls/hr Sodium Bicarbonate 150 meq/ (Dextrose) 1,150 mls @ 100 mls/hr IV .[id number] [facility] Megestrol Acetate (Megace) 800 mg PO DAILY [facility] Last Admin: 07/08/17 12:38 Dose: Not Given Morphine Sulfate (Morphine Extended Release Tab) 30 mg PO Q12 [facility] Last Admin: 07/07/17 23:00 Dose: Not Given Morphine Sulfate (Morphine) 2 mg IVP Q2H PRN PRN Reason: Pain, severe (8-10) Nystatin (Nystatin Oral Susp) 5 ml PO QID [facility] Last Admin: 07/08/17 23:07 Dose: Not Given Ondansetron HCl (Zofran Inj) 4 mg IVP Q6H PRN PRN Reason: Nausea/Vomiting Last Admin: 07/07/17 18:20 Dose: 4 mg Pantoprazole Sodium (Protonix Inj) 40 mg IVP Q12 [facility] Last Admin: 07/08/17 21:50 Dose: 40 mg Potassium Phos/Sodium Phos (Neutra-Phos) 1 pkt PO TID [facility] Last Admin: 07/08/17 14:05 Dose: Not Given Sucralfate (Carafate Oral Susp) 1 gm PO QID [facility] Last Admin: 07/08/17 22:19 Dose: Not Given - Labs Labs: 07/08/17 14:50 07/09/17 05:30 PT 48.0 SECONDS (9.4-12.5) H 07/08/17 10:58 INR 4.06 (0.93-1.08) H* 07/08/17 10:58 APTT 52.6 Seconds (25.1-36.5) H 07/08/17 10:58
[2017-07-09 06:26] LABS: INR 5.17 (0.93-1.08); PARTIAL THROMBOPLASTIN TIME > 400.0 Seconds (25.1-36.5)
[2017-07-09 06:45] LABS: RBC 2.38 10^6/uL (3.5-6.1)
[2017-07-09 06:47] VITALS: BP 95/40
[2017-07-09 06:47] LABS: PLATELET COUNT 11 10^3/uL (120.0-450.0)
--- NOTE | 2017-07-09 07:37 | PCM.RRT ---
BASEBALL SCOUT Nurse Assessment - Situation Date: 07/09/17 Time BASEBALL SCOUT was called: 07:22 (Second code blue 7:53 am, 3rd 8:21 am) BASEBALL SCOUT Responder Arrival Time: 07:22 (Second code blue 7:53 am, 3rd 8:21 am) BASEBALL SCOUT Location:: Critical Care Unit Room Number: 129-3 BASEBALL SCOUT Reason for Call: Hypotension (Cardiac arrest) BASEBALL SCOUT Called By: RN - IV IV Inserted during BASEBALL SCOUT?: No - Respiratory Oxygen Delivery Method: Intubated Received Nebulizer Treatments:: No Was the Patient Ventilated with Bag/Mask 100% O2?: Yes Secretions Suctioned?: No - Ventilator Settings Mode: PRVC Ventilator Respiratory Rate Settin Ventilator Tidal Volume Settin PEEP: 5 Fraction of Inspired Oxygen (FIO2): 50 - Diagnostic Test Ordered EKG: No Chest X-Ray: No CT Scan: No CPR started during BASEBALL SCOUT?: Yes - Vital Signs Vital Sign: Reviewed - [place] Coma Scale Coma Scale Eye Opening: No response Coma Scale Motor: None Coma Scale Verbal: No response - Time BASEBALL SCOUT Ended Time BASEBALL SCOUT Ended: 07:28 (Second code blue 8:00 am, 3rd 8:24 am) - Vital Signs at end of BASEBALL SCOUT Vital Signs at end of BASEBALL SCOUT: Reviewed - Recommendations 5) BASEBALL SCOUT Level of Care Recommendations: Remain in current setting Notifications: Attending Physician I.Reason for BASEBALL SCOUT - A) Acute Change in Patient: (Select all that apply): Acute change in heart rate less than 50 or greater than 120 Subjective: Pt currently admitted to the ICU for septic shock and recurrent hypoglycemia on multiple pressors and mechanically ventilated was found to be in PEA by nurse. Ashely askew was called at 7:22 am. ACLS protocol was initiated. AM Labs were reviewed. Patient was given epinephrine, D50x2, calcium chloride, and insulin during the code. After multiple rounds of chest compressions and medications, ROSC was achieved. Ashely askew was called again at 7:53 am. ACLS protocol was initiated. ROSC was achieved after multiple rounds of chest compressions and epinephrine. Ashely askew was called again at 8:21 am. ACLS protocol was initiated. Prognosis was explained and discussed with family, who decided to stop resuscitation. Time of 8:24 am. - Neurological Status Other (Please specify): Comatose - Respiratory Oxygen Delivery Method: Intubated - Constitutional Appears: Toxic, Cachectic - Head Head Exam: NORMAL INSPECTION - Eyes Eye Exam: Scleral icterus. absent: EOMI, Normal appearance, PERRL - Respiratory Exam Respiratory Exam: Clear to Ausculation Bilateral. absent: Rales, Rhonchi, Wheezes - Cardiovascular Exam Cardiovascular Exam: Bradycardia, +S1, +S2. absent: Gallop, Rubs, Murmur - GI/Abdominal Exam GI & Abdominal Exam: Soft. absent: Distended, Guarding, Rebound - Neurological Exam Neurological Exam: absent: Alert, Awake, Oriented x3 - Extremities Exam Extremities Exam: Normal Inspection Plan - Assessment of Findings&Treatment Plan 61 yo M admitted to the ICU for septic shock and recurrent hypoglycemia. Patient found to be in PEA. ACLS was initiated with ROSC. Subsequent PEA, ACLS was initiated again with ROSC. - ICU - Intubated - Cont pressors, add epinephrine gtt - Ordered 3 u pRBC, 4 u FFP, and 1 u platelets - F/u AM labs, ABG, imaging After 3rd code blue, prognosis was explained and discussed in detail with family , who decided to stop resuscitation. Time of 8:24 am.
[2017-07-09] MEDS ORDERED: NOREPINEPHRINE BIT/0.9 % NACL 4 MG/250 ML BAG IV ONE (08:12)
[2017-07-09] MEDS ORDERED: EPINEPHrine- 1 MG in Sodium Chloride 0.9% 50 ML IV PRN (08:19)
--- NOTE | 2017-07-09 08:34 | CP.CCUPN ---
<Josh Dey - Last Filed: 07/09/17 10:23> CCU Subjective - Physician Review Subjective (Free Text): 07/09/17 09:12 Patient s/p CODE BLUE this AM at 0538, ROSC after compressions, Epi, and Bicarb given. This AM, developed PEA 3 further times, CODE BLUE called all 3 times ( please see AM [employer] note for additional details). During last code, pt's brother at bedside was informed of grim prognosis given recurrent episodes of PEA, and brother instructed team to stop code. Patient pronounced at 0824 ( please see pronouncement of note for additional details). CCU Objective - Vital Signs / Intake & Output Vital Signs (Last 4 hours): Vital Signs Temp Pulse Resp BP Pulse Ox 07/09/17 07:50 95.2 F L 54 L 15 07/09/17 07:49 95.2 F L 63 15 07/09/17 07:48 95.2 F L 56 L 15 07/09/17 07:47 95.2 F L 59 L 16 07/09/17 07:46 95.2 F L 58 L 16 90 L 07/09/17 07:45 95.2 F L 58 L 16 79 L 07/09/17 07:44 95.2 F L 70 16 90 L 07/09/17 07:43 95.2 F L 71 16 07/09/17 07:42 95.2 F L 63 17 93 L 07/09/17 07:41 95.2 F L 62 15 84 L 07/09/17 07:40 95.2 F L 71 18 97 07/09/17 07:30 95.4 F L 76 100 07/09/17 07:26 95.5 F L 120 H 07/09/17 07:25 95.5 F L 142 H 07/09/17 07:23 95.7 F L 62 07/09/17 07:20 95.9 F L 48 L 98 07/09/17 07:03 96.1 F L 55 L 07/09/17 07:00 96.1 F L 54 L 92 L 07/09/17 06:53 96.3 F L 55 L 07/09/17 06:50 96.3 F L 57 L 90 L 07/09/17 06:49 96.3 F L 59 L 07/09/17 06:47 96.3 F L 58 L 07/09/17 06:46 96.3 F L 58 L 07/09/17 06:45 96.3 F L 58 L 07/09/17 06:43 95/40 L 07/09/17 06:40 96.4 F L 62 95 07/09/17 06:34 96.6 F L 60 07/09/17 06:31 96.6 F L 61 07/09/17 06:30 96.6 F L 65 07/09/17 06:29 96.6 F L 65 07/09/17 06:27 96.8 F L 62 07/09/17 06:26 96.8 F L 64 07/09/17 06:25 96.8 F L 63 07/09/17 06:24 96.8 F L 64 07/09/17 06:20 97.0 F L 67 95 07/09/17 06:10 97.2 F L 68 07/09/17 06:09 97.2 F L 70 07/09/17 06:05 97.3 F L 75 07/09/17 06:04 97.3 F L 74 07/09/17 06:03 97.3 F L 75 07/09/17 06:02 97.3 F L 69 07/09/17 06:01 97.3 F L 76 07/09/17 06:00 97.3 F L 60 07/09/17 05:59 97.3 F L 75 07/09/17 05:56 97.3 F L 76 07/09/17 05:50 97.3 F L 94 H 97 07/09/17 05:45 119/87 07/09/17 05:44 97.3 F L 07/09/17 05:43 97.3 F L 07/09/17 05:42 97.3 F L 07/09/17 05:41 97.3 F L 07/09/17 05:40 97.3 F L 07/09/17 05:39 97.5 F L 51 L 07/09/17 05:38 97.5 F L 66 07/09/17 05:37 97.5 F L 39 L 07/09/17 05:36 97.5 F L 34 L 07/09/17 05:35 97.5 F L 61 07/09/17 05:34 97.5 F L 07/09/17 05:33 97.5 F L 63 07/09/17 05:32 97.7 F 62 07/09/17 05:31 97.7 F 62 07/09/17 05:30 96/64 L 07/09/17 05:29 97.7 F 64 07/09/17 05:28 97.7 F 64 07/09/17 05:27 97.7 F 63 07/09/17 05:26 97.7 F 66 07/09/17 05:25 97.7 F 07/09/17 05:23 97.7 F 62 07/09/17 05:22 97.7 F 63 07/09/17 05:21 97.7 F 62 07/09/17 05:20 97.7 F 61 07/09/17 05:19 97.7 F 61 07/09/17 05:18 97.7 F 67 07/09/17 05:10 97.7 F 65 100 07/09/17 05:08 97.7 F 65 07/09/17 05:00 97.9 F 65 98 Intake and Output (Last 8hrs): Intake & Output 07/08/17 07/09/17 07/09/17 22:59 06:59 14:59 Intake Total 3600 574 3846 Output Total 775 380 Balance 2825 574 3466 Intake: IV 3600 574 3846 Right Femoral 2500 3246 Right Forearm 350 600 Output: Gastric Amount 600 350 Nares 600 350 Urine 175 30 Urethral (Messer) 175 30 Other: # Bowel Movements 0 - Physical Exam Head: Positive for: Atraumatic, Normocephalic Pupils: Positive for: Non-Reactive Extroacular Muscles: Negative for: EOMI Conjunctiva: Positive for: Normal Mouth: Positive for: Moist Mucous Membranes, Other (ETT in place, secured by ordoñez) Nose (External): Positive for: Atraumatic, Other (NG tube in place, on suction, draining scant dark secretions) Neck: Negative for: Normal Range of Motion (no spontaneous motion appreciated) Respiratory/Chest: Positive for: Other (Intubated and ventilated, clear breath sounds on vent) Cardiovascular: Positive for: Other (initially regular rate and rhythm with rate in 60's, several episodes of bradycardia down to 40's and PEA, now asystolic) Abdomen: Negative for: Distention, Ostomy Tubes Genitourinary Male: Positive for: Normal External Genitalia. Negative for: Testicle Swelling Upper Extremity: Positive for: Normal Inspection. Negative for: Cyanosis, Edema Lower Extremity: Positive for: Normal Inspection. Negative for: Edema Neurological: Positive for: Other (unresponsive despite no sedation, now ). Negative for: GCS=15 (GCS 3T (M1, V1T, E1)), CN II-XII Intact Skin: Positive for: Warm, Dry, Normal Color. Negative for: Rashes Psychiatric: Positive for: Other (initially unresponsive, now ). Negative for: Alert, Oriented x 3, Normal Insight, Normal Concentration - Medications Active Medications: Active Medications Generic Name Dose Route Start Last Admin Trade Name Freq PRN Reason Stop Dose Admin Albumin Human 12.5 gm 07/08/17 03:15 07/09/17 08:19 Albumin Human 5% (12.5 Gm/250 Ml) IV 12.5 gm Q4H JOSEMANUEL Administration Albuterol/Ipratropium 3 ml 07/01/17 17:11 Duoneb 3 Mg/0.5 Mg (3 Ml) Ud IH [id number] PRN Shortness of Breath Albuterol/Ipratropium 3 ml 07/01/17 20:00 07/09/17 07:47 Duoneb 3 Mg/0.5 Mg (3 Ml) Ud IH 3 ml [id number] JOSEMANUEL Administration Amlodipine Besylate 10 mg 07/02/17 10:00 07/07/17 10:11 Norvasc PO 10 mg DAILY JOSEMANUEL Administration Amylase 5,000 unit 07/02/17 08:00 07/08/17 17:14 Pancrease 57421 U-5000 [id number] U PO Not Given WM JOSEMANUEL Dextrose 50 ml 07/06/17 15:43 07/08/17 20:00 Dextrose 50% Inj IVP 50 ml ONCE PRN Administration hypoglycemia<60 or symptomatic Docusate Sodium 100 mg 07/03/17 10:00 07/07/17 10:11 Colace PO 100 mg DAILY JOSEMANUEL Administration Hydrocortisone Sodium Succinate 50 mg 07/08/17 07:30 07/09/17 01:30 Solu-Cortef IVP 50 mg Q6H JOSEMANUEL Administration NOREPINEPHRINE BIT/0.9 % NACL 4 mg in 250 mls @ 15 mls/hr 07/08/17 01:18 05:30 Levophed 4 Mg/ 250 Ml Ns Premixed IV 30 mcg/min .[id number] PRN 112.5 mls/hr TITRATE PER MD ORDER Administration Protocol 4 MCG/MIN Dextrose 500 mls @ 100 mls/hr 07/08/17 02:49 07/09/17 04:29 Dextrose 10% In Water IV 100 mls/hr .Q5H JOSEMANUEL Administration Vasopressin 20 units/ Sodium 101 mls @ 9.09 mls/hr 07/08/17 07:30 07/09/17 06 :43 Chloride IV 9.09 mls/hr .[id number] JOSEMANUEL Administration Protocol 0.03 U/MIN Meropenem 500 mg/ Sodium 50 mls @ 100 mls/hr 07/08/17 14:00 07/09/17 06:08 Chloride IVPB 07/17/17 14:01 100 mls/hr Q8 JOSEMANUEL Administration Protocol Phenylephrine HCl 40 mg/ 254 mls @ 38.1 mls/hr 07/09/17 00:27 07/09/17 02:45 Sodium Chloride IV 80 mcg/min .[id number] PRN 30.48 mls/hr TITRATE PER MD ORDER Titration Protocol 100 MCG/MIN Sodium Bicarbonate 150 meq/ 1,150 mls @ 100 mls/hr 07/09/17 06:00 07/09/17 06 :31 Dextrose IV 100 mls/hr .[id number] JOSEMANUEL Administration Epinephrine HCl 1 mg/ Sodium 51 mls @ 3.06 mls/hr 07/09/17 08:19 Chloride IV .[id number] PRN TITRATE PER MD ORDER Protocol 1 MCG/MIN Megestrol Acetate 800 mg 07/04/17 12:45 07/08/17 12:38 Megace PO Not Given DAILY JOSEMANUEL Morphine Sulfate 30 mg 07/07/17 22:00 07/07/17 23:00 Morphine Extended Release Tab PO Not Given Q12 JOSEMANUEL Morphine Sulfate 2 mg 07/07/17 18:38 Morphine IVP Q2H PRN Pain, severe (8-10) Nystatin 5 ml 07/05/17 18:00 07/08/17 23:07 Nystatin Oral Susp PO Not Given QID JOSEMANUEL Ondansetron HCl 4 mg 07/01/17 17:03 07/07/17 18:20 Zofran Inj IVP 4 mg Q6H PRN Administration Nausea/Vomiting Pantoprazole Sodium 40 mg 07/05/17 22:00 07/08/17 21:50 Protonix Inj IVP 40 mg Q12 JOSEMANUEL Administration Potassium Phos/Sodium Phos 1 pkt 07/06/17 10:00 07/08/17 14:05 Neutra-Phos PO Not Given TID [facility] Sucralfate 1 gm 07/05/17 18:00 07/08/17 22:19 Carafate Oral Susp PO Not Given QID [facility] - Patient Studies Lab Studies: Microbiology Studies 07/07/17 21:30 Blood Culture - Preliminary Blood-Venous Gram Negative Steffen Gram Stain - Final 07/07/17 22:00 Blood Culture - Preliminary Blood-Venous Gram Negative Steffen Gram Stain - Final Lab Studies 07/09/17 07/09/17 07/09/17 Range/Units 06:00 05:30 05:30 WBC (4.5-11.0) 10^3/ul RBC (3.5-6.1) 10^6/uL Hgb (14.0-18.0) g/dL Hct (42.0-52.0) % MCV (80.0-105.0) fl MCH (25.0-35.0) pg MCHC (31.0-37.0) g/dl RDW (11.5-14.5) % Plt Count (120.0-450.0) 10^3/uL MPV (7.0-11.0) fl Gran % (50.0-68.0) % Lymph % (Auto) (22.0-35.0) % [place] % (Auto) (1.0-6.0) % Eos % (Auto) (1.5-5.0) % Baso % (Auto) (0.0-3.0) % Gran # (1.4-6.5) Lymph # (Auto) (1.2-3.4) [place] # (Auto) (0.1-0.6) Eos # (Auto) (0.0-0.7) Baso # (Auto) (0.0-2.0) K/mm3 Neutrophils % (Manual) (50.0-70.0) % Band Neutrophils % (0-2) % Lymphocytes % (Manual) (22.0-35.0) % Monocytes % (Manual) (1.0-6.0) % Metamyelocytes % % Myelocytes % % Platelet Evaluation (NORMAL) Waller Cells PT 61.0 H (9.4-12.5) SECONDS INR 5.17 H* (0.93-1.08) APTT > 400.0 H* (25.1-36.5) Seconds pCO2 (35-45) mm/Hg pO2 (80-100) mm/Hg HCO3 (21-28) mmol/L ABG pH (7.35-7.45) ABG Total CO2 (22-28) mmol.L ABG O2 Saturation (95-98) % ABG Base Excess (-2.0-3.0) mmol/L ABG Potassium (3.6-5.2) mmol/L VBG pH (7.32-7.43) VBG pCO2 (40-60) VBG HCO3 (21-28) mmol/l VBG Total CO2 (22-28) mmol.L VBG O2 Sat (Calc) (40-65) % VBG Base Excess (0.0-2.0) mmol/L VBG Potassium (3.6-5.2) mmol/L Sodium 131 L (132-148) mmol/L Chloride 106 (98-107) mmol/L Glucose (75-110) mg/dl Lactate (0.7-2.1) mmol/L FiO2 % Potassium 6.1 H* D (3.6-5.0) mmol/L Carbon Dioxide 11 L (21-33) mmol/L Anion Gap 21 H (10-20) BUN 36 H (7-21) mg/dL Creatinine 1.7 H (0.8-1.5) mg/dl Est GFR ( Amer) 50 Est GFR (Non-Af Amer) 41 POC Glucose (mg/dL) 45 L (65-110) mg/dL Random Glucose 220 H (70-110) mg/dL Calcium 5.2 L* (8.4-10.5) mg/dL Phosphorus 4.7 H (2.5-4.5) mg/dL Magnesium 1.7 (1.7-2.2) mg/dL Total Bilirubin 4.2 H (0.2-1.3) mg/dL AST 464 H D (17-59) U/L ALT 244 H (7-56) U/L Alkaline Phosphatase 89 (38-126) U/L Total Protein 3.2 L (5.8-8.3) g/dL Albumin 1.6 L (3.0-4.8) g/dL Globulin 1.6 gm/dL Albumin/Globulin Ratio 1.0 L (1.1-1.8) Procalcitonin (0.19-0.49) NG/ML Arterial Blood Potassium (3.6-5.2) mmol/L Venous Blood Potassium (3.6-5.2) mmol/L Blood Type Antibody Screen Crossmatch BBK History Checked 07/09/17 07/09/17 07/09/17 Range/Units 05:30 05:23 05:20 WBC 3.7 L D (4.5-11.0) 10^3/ul RBC 2.38 L (3.5-6.1) 10^6/uL Hgb 7.2 L (14.0-18.0) g/dL Hct 22.7 L (42.0-52.0) % MCV 95.4 D (80.0-105.0) fl MCH 30.3 (25.0-35.0) pg MCHC 31.7 (31.0-37.0) g/dl RDW 17.5 H (11.5-14.5) % Plt Count 11 L* (120.0-450.0) 10^3/uL MPV 11.5 H (7.0-11.0) fl Gran % 19.4 L (50.0-68.0) % Lymph % (Auto) 11.3 L (22.0-35.0) % [place] % (Auto) 68.5 H (1.0-6.0) % Eos % (Auto) 0.5 L (1.5-5.0) % Baso % (Auto) 0.3 (0.0-3.0) % Gran # 0.72 L (1.4-6.5) Lymph # (Auto) 0.4 L (1.2-3.4) [place] # (Auto) 2.6 H (0.1-0.6) Eos # (Auto) 0.0 (0.0-0.7) Baso # (Auto) 0.01 (0.0-2.0) K/mm3 Neutrophils % (Manual) (50.0-70.0) % Band Neutrophils % (0-2) % Lymphocytes % (Manual) (22.0-35.0) % Monocytes % (Manual) (1.0-6.0) % Metamyelocytes % % Myelocytes % % Platelet Evaluation (NORMAL) Waller Cells PT (9.4-12.5) SECONDS INR (0.93-1.08) APTT (25.1-36.5) Seconds pCO2 45 (35-45) mm/Hg pO2 66.0 L (80-100) mm/Hg HCO3 8.4 L* (21-28) mmol/L ABG pH 6.88 L* (7.35-7.45) ABG Total CO2 9.8 L (22-28) mmol.L ABG O2 Saturation 94.6 L (95-98) % ABG Base Excess -24.7 L (-2.0-3.0) mmol/L ABG Potassium 5.9 H (3.6-5.2) mmol/L VBG pH (7.32-7.43) VBG pCO2 (40-60) VBG HCO3 (21-28) mmol/l VBG Total CO2 (22-28) mmol.L VBG O2 Sat (Calc) (40-65) % VBG Base Excess (0.0-2.0) mmol/L VBG Potassium (3.6-5.2) mmol/L Sodium 128.0 L (132-148) mmol/L Chloride 106.0 (98-107) mmol/L Glucose 225 H (75-110) mg/dl Lactate 10.0 H* (0.7-2.1) mmol/L FiO2 50.0 % Potassium (3.6-5.0) mmol/L Carbon Dioxide (21-33) mmol/L Anion Gap (10-20) BUN (7-21) mg/dL Creatinine (0.8-1.5) mg/dl Est GFR ( Amer) Est GFR (Non-Af Amer) POC Glucose (mg/dL) 76 (65-110) mg/dL Random Glucose (70-110) mg/dL Calcium (8.4-10.5) mg/dL Phosphorus (2.5-4.5) mg/dL Magnesium (1.7-2.2) mg/dL Total Bilirubin (0.2-1.3) mg/dL AST (17-59) U/L ALT (7-56) U/L Alkaline Phosphatase (38-126) U/L Total Protein (5.8-8.3) g/dL Albumin (3.0-4.8) g/dL Globulin gm/dL Albumin/Globulin Ratio (1.1-1.8) Procalcitonin (0.19-0.49) NG/ML Arterial Blood Potassium 5.9 H (3.6-5.2) mmol/L Venous Blood Potassium (3.6-5.2) mmol/L Blood Type Antibody Screen Crossmatch BBK History Checked 07/09/17 07/08/17 07/08/17 Range/Units 03:54 23:47 21:00 WBC (4.5-11.0) 10^3/ul RBC (3.5-6.1) 10^6/uL Hgb (14.0-18.0) g/dL Hct (42.0-52.0) % MCV (80.0-105.0) fl MCH (25.0-35.0) pg MCHC (31.0-37.0) g/dl RDW (11.5-14.5) % Plt Count (120.0-450.0) 10^3/uL MPV (7.0-11.0) fl Gran % (50.0-68.0) % Lymph % (Auto) (22.0-35.0) % [place] % (Auto) (1.0-6.0) % Eos % (Auto) (1.5-5.0) % Baso % (Auto) (0.0-3.0) % Gran # (1.4-6.5) Lymph # (Auto) (1.2-3.4) [place] # (Auto) (0.1-0.6) Eos # (Auto) (0.0-0.7) Baso # (Auto) (0.0-2.0) K/mm3 Neutrophils % (Manual) (50.0-70.0) % Band Neutrophils % (0-2) % Lymphocytes % (Manual) (22.0-35.0) % Monocytes % (Manual) (1.0-6.0) % Metamyelocytes % % Myelocytes % % Platelet Evaluation (NORMAL) Waller Cells PT (9.4-12.5) SECONDS INR (0.93-1.08) APTT (25.1-36.5) Seconds pCO2 (35-45) mm/Hg pO2 (80-100) mm/Hg HCO3 (21-28) mmol/L ABG pH (7.35-7.45) ABG Total CO2 (22-28) mmol.L ABG O2 Saturation (95-98) % ABG Base Excess (-2.0-3.0) mmol/L ABG Potassium (3.6-5.2) mmol/L VBG pH (7.32-7.43) VBG pCO2 (40-60) VBG HCO3 (21-28) mmol/l VBG Total CO2 (22-28) mmol.L VBG O2 Sat (Calc) (40-65) % VBG Base Excess (0.0-2.0) mmol/L VBG Potassium (3.6-5.2) mmol/L Sodium (132-148) mmol/L Chloride (98-107) mmol/L Glucose (75-110) mg/dl Lactate (0.7-2.1) mmol/L FiO2 % Potassium (3.6-5.0) mmol/L Carbon Dioxide (21-33) mmol/L Anion Gap (10-20) BUN (7-21) mg/dL Creatinine (0.8-1.5) mg/dl Est GFR ( Amer) Est GFR (Non-Af Amer) POC Glucose (mg/dL) 48 L 114 H 148 H (65-110) mg/dL Random Glucose (70-110) mg/dL Calcium (8.4-10.5) mg/dL Phosphorus (2.5-4.5) mg/dL Magnesium (1.7-2.2) mg/dL Total Bilirubin (0.2-1.3) mg/dL AST (17-59) U/L ALT (7-56) U/L Alkaline Phosphatase (38-126) U/L Total Protein (5.8-8.3) g/dL Albumin (3.0-4.8) g/dL Globulin gm/dL Albumin/Globulin Ratio (1.1-1.8) Procalcitonin (0.19-0.49) NG/ML Arterial Blood Potassium (3.6-5.2) mmol/L Venous Blood Potassium (3.6-5.2) mmol/L Blood Type Antibody Screen Crossmatch BBK History Checked 07/08/17 07/08/17 07/08/17 Range/Units 20:02 19:59 14:50 WBC (4.5-11.0) 10^3/ul RBC (3.5-6.1) 10^6/uL Hgb (14.0-18.0) g/dL Hct (42.0-52.0) % MCV (80.0-105.0) fl MCH (25.0-35.0) pg MCHC (31.0-37.0) g/dl RDW (11.5-14.5) % Plt Count (120.0-450.0) 10^3/uL MPV (7.0-11.0) fl Gran % (50.0-68.0) % Lymph % (Auto) (22.0-35.0) % [place] % (Auto) (1.0-6.0) % Eos % (Auto) (1.5-5.0) % Baso % (Auto) (0.0-3.0) % Gran # (1.4-6.5) Lymph # (Auto) (1.2-3.4) [place] # (Auto) (0.1-0.6) Eos # (Auto) (0.0-0.7) Baso # (Auto) (0.0-2.0) K/mm3 Neutrophils % (Manual) (50.0-70.0) % Band Neutrophils % (0-2) % Lymphocytes % (Manual) (22.0-35.0) % Monocytes % (Manual) (1.0-6.0) % Metamyelocytes % % Myelocytes % % Platelet Evaluation (NORMAL) Waller Cells PT (9.4-12.5) SECONDS INR (0.93-1.08) APTT (25.1-36.5) Seconds pCO2 (35-45) mm/Hg pO2 (80-100) mm/Hg HCO3 (21-28) mmol/L ABG pH (7.35-7.45) ABG Total CO2 (22-28) mmol.L ABG O2 Saturation (95-98) % ABG Base Excess (-2.0-3.0) mmol/L ABG Potassium (3.6-5.2) mmol/L VBG pH (7.32-7.43) VBG pCO2 (40-60) VBG HCO3 (21-28) mmol/l VBG Total CO2 (22-28) mmol.L VBG O2 Sat (Calc) (40-65) % VBG Base Excess (0.0-2.0) mmol/L VBG Potassium (3.6-5.2) mmol/L Sodium 134 (132-148) mmol/L Chloride 107 (98-107) mmol/L Glucose (75-110) mg/dl Lactate (0.7-2.1) mmol/L FiO2 % Potassium 5.0 (3.6-5.0) mmol/L Carbon Dioxide 16 L (21-33) mmol/L Anion Gap 17 (10-20) BUN 36 H (7-21) mg/dL Creatinine 1.5 (0.8-1.5) mg/dl Est GFR ( Amer) 58 Est GFR (Non-Af Amer) 48 POC Glucose (mg/dL) 22 L* < 20 L* (65-110) mg/dL Random Glucose 114 H (70-110) mg/dL Calcium 5.6 L* (8.4-10.5) mg/dL Phosphorus (2.5-4.5) mg/dL Magnesium (1.7-2.2) mg/dL Total Bilirubin 3.8 H (0.2-1.3) mg/dL AST 282 H D (17-59) U/L ALT 173 H (7-56) U/L Alkaline Phosphatase 103 (38-126) U/L Total Protein 3.6 L (5.8-8.3) g/dL Albumin 1.7 L (3.0-4.8) g/dL Globulin 1.9 gm/dL Albumin/Globulin Ratio 0.9 L (1.1-1.8) Procalcitonin (0.19-0.49) NG/ML Arterial Blood Potassium (3.6-5.2) mmol/L Venous Blood Potassium (3.6-5.2) mmol/L Blood Type Antibody Screen Crossmatch BBK History Checked 07/08/17 07/08/17 07/08/17 Range/Units 14:50 12:58 12:30 WBC 0.7 L* D (4.5-11.0) 10^3/ul RBC 2.85 L (3.5-6.1) 10^6/uL Hgb 8.8 L D (14.0-18.0) g/dL Hct 26.0 L (42.0-52.0) % MCV 91.2 (80.0-105.0) fl MCH 30.9 (25.0-35.0) pg MCHC 33.8 (31.0-37.0) g/dl RDW 16.0 H (11.5-14.5) % Plt Count 20 L* (120.0-450.0) 10^3/uL MPV 10.1 (7.0-11.0) fl Gran % 13.4 L (50.0-68.0) % Lymph % (Auto) 26.9 (22.0-35.0) % [place] % (Auto) 58.2 H (1.0-6.0) % Eos % (Auto) 1.5 (1.5-5.0) % Baso % (Auto) 0.0 (0.0-3.0) % Gran # 0.09 L (1.4-6.5) Lymph # (Auto) 0.2 L (1.2-3.4) [place] # (Auto) 0.4 (0.1-0.6) Eos # (Auto) 0.0 (0.0-0.7) Baso # (Auto) 0.00 (0.0-2.0) K/mm3 Neutrophils % (Manual) 33 L (50.0-70.0) % Band Neutrophils % 23 H* (0-2) % Lymphocytes % (Manual) 20 L (22.0-35.0) % Monocytes % (Manual) 10 H (1.0-6.0) % Metamyelocytes % 5 % Myelocytes % 9 % Platelet Evaluation Low (NORMAL) Ruben Cells 3+ PT (9.4-12.5) SECONDS INR (0.93-1.08) APTT (25.1-36.5) Seconds pCO2 (35-45) mm/Hg pO2 51 (80-100) mm/Hg HCO3 (21-28) mmol/L ABG pH (7.35-7.45) ABG Total CO2 (22-28) mmol.L ABG O2 Saturation (95-98) % ABG Base Excess (-2.0-3.0) mmol/L ABG Potassium (3.6-5.2) mmol/L VBG pH 7.08 L* (7.32-7.43) VBG pCO2 53.0 (40-60) VBG HCO3 15.7 L (21-28) mmol/l VBG Total CO2 17.3 L (22-28) mmol.L VBG O2 Sat (Calc) 87.7 H (40-65) % VBG Base Excess -14.4 L (0.0-2.0) mmol/L VBG Potassium 4.8 (3.6-5.2) mmol/L Sodium 130.0 L (132-148) mmol/L Chloride 106.0 (98-107) mmol/L Glucose 132 H (75-110) mg/dl Lactate 7.1 H* (0.7-2.1) mmol/L FiO2 21.0 % Potassium (3.6-5.0) mmol/L Carbon Dioxide (21-33) mmol/L Anion Gap (10-20) BUN (7-21) mg/dL Creatinine (0.8-1.5) mg/dl Est GFR ( Amer) Est GFR (Non-Af Amer) POC Glucose (mg/dL) 96 (65-110) mg/dL Random Glucose (70-110) mg/dL Calcium (8.4-10.5) mg/dL Phosphorus (2.5-4.5) mg/dL Magnesium (1.7-2.2) mg/dL Total Bilirubin (0.2-1.3) mg/dL AST (17-59) U/L ALT (7-56) U/L Alkaline Phosphatase (38-126) U/L Total Protein (5.8-8.3) g/dL Albumin (3.0-4.8) g/dL Globulin gm/dL Albumin/Globulin Ratio (1.1-1.8) Procalcitonin (0.19-0.49) NG/ML Arterial Blood Potassium (3.6-5.2) mmol/L Venous Blood Potassium 4.8 (3.6-5.2) mmol/L Blood Type Antibody Screen Crossmatch BBK History Checked 07/08/17 07/08/17 07/08/17 Range/Units 10:58 10:34 09:10 WBC (4.5-11.0) 10^3/ul RBC (3.5-6.1) 10^6/uL Hgb (14.0-18.0) g/dL Hct (42.0-52.0) % MCV (80.0-105.0) fl MCH (25.0-35.0) pg MCHC (31.0-37.0) g/dl RDW (11.5-14.5) % Plt Count (120.0-450.0) 10^3/uL MPV (7.0-11.0) fl Gran % (50.0-68.0) % Lymph % (Auto) (22.0-35.0) % [place] % (Auto) (1.0-6.0) % Eos % (Auto) (1.5-5.0) % Baso % (Auto) (0.0-3.0) % Gran # (1.4-6.5) Lymph # (Auto) (1.2-3.4) [place] # (Auto) (0.1-0.6) Eos # (Auto) (0.0-0.7) Baso # (Auto) (0.0-2.0) K/mm3 Neutrophils % (Manual) (50.0-70.0) % Band Neutrophils % (0-2) % Lymphocytes % (Manual) (22.0-35.0) % Monocytes % (Manual) (1.0-6.0) % Metamyelocytes % % Myelocytes % % Platelet Evaluation (NORMAL) Waller Cells PT 48.0 H (9.4-12.5) SECONDS INR 4.06 H* (0.93-1.08) APTT 52.6 H (25.1-36.5) Seconds pCO2 41 (35-45) mm/Hg pO2 69.0 L (80-100) mm/Hg HCO3 16.4 L (21-28) mmol/L ABG pH 7.21 L (7.35-7.45) ABG Total CO2 17.7 L (22-28) mmol.L ABG O2 Saturation 96.1 (95-98) % ABG Base Excess -11.0 L (-2.0-3.0) mmol/L ABG Potassium 4.7 (3.6-5.2) mmol/L VBG pH (7.32-7.43) VBG pCO2 (40-60) VBG HCO3 (21-28) mmol/l VBG Total CO2 (22-28) mmol.L VBG O2 Sat (Calc) (40-65) % VBG Base Excess (0.0-2.0) mmol/L VBG Potassium (3.6-5.2) mmol/L Sodium 132.0 (132-148) mmol/L Chloride 106.0 (98-107) mmol/L Glucose 140 H (75-110) mg/dl Lactate 7.6 H* (0.7-2.1) mmol/L FiO2 50.0 % Potassium (3.6-5.0) mmol/L Carbon Dioxide (21-33) mmol/L Anion Gap (10-20) BUN (7-21) mg/dL Creatinine (0.8-1.5) mg/dl Est GFR ( Amer) Est GFR (Non-Af Amer) POC Glucose (mg/dL) 103 (65-110) mg/dL Random Glucose (70-110) mg/dL Calcium (8.4-10.5) mg/dL Phosphorus (2.5-4.5) mg/dL Magnesium (1.7-2.2) mg/dL Total Bilirubin (0.2-1.3) mg/dL AST (17-59) U/L ALT (7-56) U/L Alkaline Phosphatase (38-126) U/L Total Protein (5.8-8.3) g/dL Albumin (3.0-4.8) g/dL Globulin gm/dL Albumin/Globulin Ratio (1.1-1.8) Procalcitonin (0.19-0.49) NG/ML Arterial Blood Potassium 4.7 (3.6-5.2) mmol/L Venous Blood Potassium (3.6-5.2) mmol/L Blood Type Antibody Screen Crossmatch BBK History Checked 07/08/17 07/08/17 07/07/17 Range/Units 09:00 04:08 21:45 WBC (4.5-11.0) 10^3/ul RBC (3.5-6.1) 10^6/uL Hgb (14.0-18.0) g/dL Hct (42.0-52.0) % MCV (80.0-105.0) fl MCH (25.0-35.0) pg MCHC (31.0-37.0) g/dl RDW (11.5-14.5) % Plt Count (120.0-450.0) 10^3/uL MPV (7.0-11.0) fl Gran % (50.0-68.0) % Lymph % (Auto) (22.0-35.0) % [place] % (Auto) (1.0-6.0) % Eos % (Auto) (1.5-5.0) % Baso % (Auto) (0.0-3.0) % Gran # (1.4-6.5) Lymph # (Auto) (1.2-3.4) [place] # (Auto) (0.1-0.6) Eos # (Auto) (0.0-0.7) Baso # (Auto) (0.0-2.0) K/mm3 Neutrophils % (Manual) (50.0-70.0) % Band Neutrophils % (0-2) % Lymphocytes % (Manual) (22.0-35.0) % Monocytes % (Manual) (1.0-6.0) % Metamyelocytes % % Myelocytes % % Platelet Evaluation (NORMAL) Ruben Cells PT (9.4-12.5) SECONDS INR (0.93-1.08) APTT (25.1-36.5) Seconds pCO2 (35-45) mm/Hg pO2 (80-100) mm/Hg HCO3 (21-28) mmol/L ABG pH (7.35-7.45) ABG Total CO2 (22-28) mmol.L ABG O2 Saturation (95-98) % ABG Base Excess (-2.0-3.0) mmol/L ABG Potassium (3.6-5.2) mmol/L VBG pH (7.32-7.43) VBG pCO2 (40-60) VBG HCO3 (21-28) mmol/l VBG Total CO2 (22-28) mmol.L VBG O2 Sat (Calc) (40-65) % VBG Base Excess (0.0-2.0) mmol/L VBG Potassium (3.6-5.2) mmol/L Sodium (132-148) mmol/L Chloride (98-107) mmol/L Glucose (75-110) mg/dl Lactate (0.7-2.1) mmol/L FiO2 % Potassium (3.6-5.0) mmol/L Carbon Dioxide (21-33) mmol/L Anion Gap (10-20) BUN (7-21) mg/dL Creatinine (0.8-1.5) mg/dl Est GFR ( Amer) Est GFR (Non-Af Amer) POC Glucose (mg/dL) 129 H (65-110) mg/dL Random Glucose (70-110) mg/dL Calcium (8.4-10.5) mg/dL Phosphorus (2.5-4.5) mg/dL Magnesium (1.7-2.2) mg/dL Total Bilirubin (0.2-1.3) mg/dL AST (17-59) U/L ALT (7-56) U/L Alkaline Phosphatase (38-126) U/L Total Protein (5.8-8.3) g/dL Albumin (3.0-4.8) g/dL Globulin gm/dL Albumin/Globulin Ratio (1.1-1.8) Procalcitonin 59.51 H (0.19-0.49) NG/ML Arterial Blood Potassium (3.6-5.2) mmol/L Venous Blood Potassium (3.6-5.2) mmol/L Blood Type B NEGATIVE Antibody Screen Negative Crossmatch See Detail BBK History Checked Patient has bt Laboratory Results - last 24 hr 07/07/17 07/08/17 07/08/17 21:45 04:08 09:00 WBC RBC Hgb Hct MCV MCH MCHC RDW Plt Count MPV Gran % Lymph % (Auto) [place] % (Auto) Eos % (Auto) Baso % (Auto) Gran # Lymph # (Auto) [place] # (Auto) Eos # (Auto) Baso # (Auto) Neutrophils % (Manual) Band Neutrophils % Lymphocytes % (Manual) Monocytes % (Manual) Metamyelocytes % Myelocytes % Platelet Evaluation Waller Cells PT INR APTT pCO2 pO2 HCO3 ABG pH ABG Total CO2 ABG O2 Saturation ABG Base Excess ABG Potassium VBG pH VBG pCO2 VBG HCO3 VBG Total CO2 VBG O2 Sat (Calc) VBG Base Excess VBG Potassium Sodium Chloride Glucose Lactate FiO2 Potassium Carbon Dioxide Anion Gap BUN Creatinine Est GFR ( Amer) Est GFR (Non-Af Amer) POC Glucose (mg/dL) 129 H Random Glucose Calcium Phosphorus Magnesium Total Bilirubin AST ALT Alkaline Phosphatase Total Protein Albumin Globulin Albumin/Globulin Ratio Procalcitonin 59.51 H Arterial Blood Potassium Venous Blood Potassium Blood Type B NEGATIVE Antibody Screen Negative Crossmatch See Detail BBK History Checked Patient has bt 07/08/17 07/08/17 07/08/17 09:10 10:34 10:58 WBC RBC Hgb Hct MCV MCH MCHC RDW Plt Count MPV Gran % Lymph % (Auto) [place] % (Auto) Eos % (Auto) Baso % (Auto) Gran # Lymph # (Auto) [place] # (Auto) Eos # (Auto) Baso # (Auto) Neutrophils % (Manual) Band Neutrophils % Lymphocytes % (Manual) Monocytes % (Manual) Metamyelocytes % Myelocytes % Platelet Evaluation Ruben Cells PT 48.0 H INR 4.06 H* APTT 52.6 H pCO2 41 pO2 69.0 L HCO3 16.4 L ABG pH 7.21 L ABG Total CO2 17.7 L ABG O2 Saturation 96.1 ABG Base Excess -11.0 L ABG Potassium 4.7 VBG pH VBG pCO2 VBG HCO3 VBG Total CO2 VBG O2 Sat (Calc) VBG Base Excess VBG Potassium Sodium 132.0 Chloride 106.0 Glucose 140 H Lactate 7.6 H* FiO2 50.0 Potassium Carbon Dioxide Anion Gap BUN Creatinine Est GFR ( Amer) Est GFR (Non-Af Amer) POC Glucose (mg/dL) 103 Random Glucose Calcium Phosphorus Magnesium Total Bilirubin AST ALT Alkaline Phosphatase Total Protein Albumin Globulin Albumin/Globulin Ratio Procalcitonin Arterial Blood Potassium 4.7 Venous Blood Potassium Blood Type Antibody Screen Crossmatch BBK History Checked 07/08/17 07/08/17 07/08/17 12:30 12:58 14:50 WBC 0.7 L* D RBC 2.85 L Hgb 8.8 L D Hct 26.0 L MCV 91.2 MCH 30.9 MCHC 33.8 RDW 16.0 H Plt Count 20 L* MPV 10.1 Gran % 13.4 L Lymph % (Auto) 26.9 [place] % (Auto) 58.2 H Eos % (Auto) 1.5 Baso % (Auto) 0.0 Gran # 0.09 L Lymph # (Auto) 0.2 L [place] # (Auto) 0.4 Eos # (Auto) 0.0 Baso # (Auto) 0.00 Neutrophils % (Manual) 33 L Band Neutrophils % 23 H* Lymphocytes % (Manual) 20 L Monocytes % (Manual) 10 H Metamyelocytes % 5 Myelocytes % 9 Platelet Evaluation Low Waller Cells 3+ PT INR APTT pCO2 pO2 51 HCO3 ABG pH ABG Total CO2 ABG O2 Saturation ABG Base Excess ABG Potassium VBG pH 7.08 L* VBG pCO2 53.0 VBG HCO3 15.7 L VBG Total CO2 17.3 L VBG O2 Sat (Calc) 87.7 H VBG Base Excess -14.4 L VBG Potassium 4.8 Sodium 130.0 L Chloride 106.0 Glucose 132 H Lactate 7.1 H* FiO2 21.0 Potassium Carbon Dioxide Anion Gap BUN Creatinine Est GFR ( Amer) Est GFR (Non-Af Amer) POC Glucose (mg/dL) 96 Random Glucose Calcium Phosphorus Magnesium Total Bilirubin AST ALT Alkaline Phosphatase Total Protein Albumin Globulin Albumin/Globulin Ratio Procalcitonin Arterial Blood Potassium Venous Blood Potassium 4.8 Blood Type Antibody Screen Crossmatch BBK History Checked 07/08/17 07/08/17 07/08/17 14:50 19:59 20:02 WBC RBC Hgb Hct MCV MCH MCHC RDW Plt Count MPV Gran % Lymph % (Auto) [place] % (Auto) Eos % (Auto) Baso % (Auto) Gran # Lymph # (Auto) [place] # (Auto) Eos # (Auto) Baso # (Auto) Neutrophils % (Manual) Band Neutrophils % Lymphocytes % (Manual) Monocytes % (Manual) Metamyelocytes % Myelocytes % Platelet Evaluation Ruben Cells PT INR APTT pCO2 pO2 HCO3 ABG pH ABG Total CO2 ABG O2 Saturation ABG Base Excess ABG Potassium VBG pH VBG pCO2 VBG HCO3 VBG Total CO2 VBG O2 Sat (Calc) VBG Base Excess VBG Potassium Sodium 134 Chloride 107 Glucose Lactate FiO2 Potassium 5.0 Carbon Dioxide 16 L Anion Gap 17 BUN 36 H Creatinine 1.5 Est GFR ( Amer) 58 Est GFR (Non-Af Amer) 48 POC Glucose (mg/dL) < 20 L* 22 L* Random Glucose 114 H Calcium 5.6 L* Phosphorus Magnesium Total Bilirubin 3.8 H AST 282 H D ALT 173 H Alkaline Phosphatase 103 Total Protein 3.6 L Albumin 1.7 L Globulin 1.9 Albumin/Globulin Ratio 0.9 L Procalcitonin Arterial Blood Potassium Venous Blood Potassium Blood Type Antibody Screen Crossmatch BBK History Checked 07/08/17 07/08/17 07/09/17 21:00 23:47 03:54 WBC RBC Hgb Hct MCV MCH MCHC RDW Plt Count MPV Gran % Lymph % (Auto) [place] % (Auto) Eos % (Auto) Baso % (Auto) Gran # Lymph # (Auto) [place] # (Auto) Eos # (Auto) Baso # (Auto) Neutrophils % (Manual) Band Neutrophils % Lymphocytes % (Manual) Monocytes % (Manual) Metamyelocytes % Myelocytes % Platelet Evaluation Waller Cells PT INR APTT pCO2 pO2 HCO3 ABG pH ABG Total CO2 ABG O2 Saturation ABG Base Excess ABG Potassium VBG pH VBG pCO2 VBG HCO3 VBG Total CO2 VBG O2 Sat (Calc) VBG Base Excess VBG Potassium Sodium Chloride Glucose Lactate FiO2 Potassium Carbon Dioxide Anion Gap BUN Creatinine Est GFR ( Amer) Est GFR (Non-Af Amer) POC Glucose (mg/dL) 148 H 114 H 48 L Random Glucose Calcium Phosphorus Magnesium Total Bilirubin AST ALT Alkaline Phosphatase Total Protein Albumin Globulin Albumin/Globulin Ratio Procalcitonin Arterial Blood Potassium Venous Blood Potassium Blood Type Antibody Screen Crossmatch BBK History Checked 07/09/17 07/09/17 07/09/17 05:20 05:23 05:30 WBC 3.7 L D RBC 2.38 L Hgb 7.2 L Hct 22.7 L MCV 95.4 D MCH 30.3 MCHC 31.7 RDW 17.5 H Plt Count 11 L* MPV 11.5 H Gran % 19.4 L Lymph % (Auto) 11.3 L [place] % (Auto) 68.5 H Eos % (Auto) 0.5 L Baso % (Auto) 0.3 Gran # 0.72 L Lymph # (Auto) 0.4 L [place] # (Auto) 2.6 H Eos # (Auto) 0.0 Baso # (Auto) 0.01 Neutrophils % (Manual) Band Neutrophils % Lymphocytes % (Manual) Monocytes % (Manual) Metamyelocytes % Myelocytes % Platelet Evaluation Waller Cells PT INR APTT pCO2 45 pO2 66.0 L HCO3 8.4 L* ABG pH 6.88 L* ABG Total CO2 9.8 L ABG O2 Saturation 94.6 L ABG Base Excess -24.7 L ABG Potassium 5.9 H VBG pH VBG pCO2 VBG HCO3 VBG Total CO2 VBG O2 Sat (Calc) VBG Base Excess VBG Potassium Sodium 128.0 L Chloride 106.0 Glucose 225 H Lactate 10.0 H* FiO2 50.0 Potassium Carbon Dioxide Anion Gap BUN Creatinine Est GFR ( Amer) Est GFR (Non-Af Amer) POC Glucose (mg/dL) 76 Random Glucose Calcium Phosphorus Magnesium Total Bilirubin AST ALT Alkaline Phosphatase Total Protein Albumin Globulin Albumin/Globulin Ratio Procalcitonin Arterial Blood Potassium 5.9 H Venous Blood Potassium Blood Type Antibody Screen Crossmatch BBK History Checked 07/09/17 07/09/17 07/09/17 05:30 05:30 06:00 WBC RBC Hgb Hct MCV MCH MCHC RDW Plt Count MPV Gran % Lymph % (Auto) [place] % (Auto) Eos % (Auto) Baso % (Auto) Gran # Lymph # (Auto) [place] # (Auto) Eos # (Auto) Baso # (Auto) Neutrophils % (Manual) Band Neutrophils % Lymphocytes % (Manual) Monocytes % (Manual) Metamyelocytes % Myelocytes % Platelet Evaluation Waller Cells PT 61.0 H INR 5.17 H* APTT > 400.0 H* pCO2 pO2 HCO3 ABG pH ABG Total CO2 ABG O2 Saturation ABG Base Excess ABG Potassium VBG pH VBG pCO2 VBG HCO3 VBG Total CO2 VBG O2 Sat (Calc) VBG Base Excess VBG Potassium Sodium 131 L Chloride 106 Glucose Lactate FiO2 Potassium 6.1 H* D Carbon Dioxide 11 L Anion Gap 21 H BUN 36 H Creatinine 1.7 H Est GFR ( Amer) 50 Est GFR (Non-Af Amer) 41 POC Glucose (mg/dL) 45 L Random Glucose 220 H Calcium 5.2 L* Phosphorus 4.7 H Magnesium 1.7 Total Bilirubin 4.2 H AST 464 H D ALT 244 H Alkaline Phosphatase 89 Total Protein 3.2 L Albumin 1.6 L Globulin 1.6 Albumin/Globulin Ratio 1.0 L Procalcitonin Arterial Blood Potassium Venous Blood Potassium Blood Type Antibody Screen Crossmatch BBK History Checked Fingerstick Blood Sugar Results: 48 Review of Systems - Review of Systems Systems not reviewed;Unavailable: Intubated Critical Care Progress Note - Nutrition Nutrition: Nutrition Category Date Time Status NPO Diet [DIET] Diets 07/07/17 Dinner Ordered Assessment/Plan - Assessment and Plan (Free Text) Assessment: This is a 61 year old male with a past medical history of Pancreatic cancer, COPD, HTN, and DM II who presented with altered mental status possibly due to hypoglycemia that resolved. Unfortunately, the patient developed recurrent PEA , and during the 4th code, at instruction of family, resuscitative efforts were terminated and the patient . <Mihir Bennett - Last Filed: 07/09/17 15:25> CCU Objective - Vital Signs / Intake & Output Intake and Output (Last 8hrs): Intake & Output 07/09/17 07/09/17 07/09/17 06:59 14:59 22:59 Intake Total 574 3846 Output Total 380 Balance 574 3466 Intake: IV 574 3846 Right Femoral 3246 Right Forearm 600 Output: Gastric Amount 350 Nares 350 Urine 30 Urethral (Messer) 30 Other: # Bowel Movements 0 - Patient Studies Lab Studies: Microbiology Studies 07/07/17 23:15 MRSA Culture (Admit) - Final Naris MRSA NOT DETECTED 07/07/17 21:30 Blood Culture - Preliminary Blood-Venous Gram Negative Steffen Gram Stain - Final 07/07/17 22:00 Blood Culture - Preliminary Blood-Venous Gram Negative Steffen Gram Stain - Final Lab Studies 07/09/17 07/09/1718 Range/Units 06:00 05:30 05:30 WBC (4.5-11.0) 10^3/ul RBC (3.5-6.1) 10^6/uL Hgb (14.0-18.0) g/dL Hct (42.0-52.0) % MCV (80.0-105.0) fl MCH (25.0-35.0) pg MCHC (31.0-37.0) g/dl RDW (11.5-14.5) % Plt Count (120.0-450.0) 10^3/uL MPV (7.0-11.0) fl Gran % (50.0-68.0) % Lymph % (Auto) (22.0-35.0) % [place] % (Auto) (1.0-6.0) % Eos % (Auto) (1.5-5.0) % Baso % (Auto) (0.0-3.0) % Gran # (1.4-6.5) Lymph # (Auto) (1.2-3.4) [place] # (Auto) (0.1-0.6) Eos # (Auto) (0.0-0.7) Baso # (Auto) (0.0-2.0) K/mm3 Neutrophils % (Manual) (50.0-70.0) % Band Neutrophils % (0-2) % Lymphocytes % (Manual) (22.0-35.0) % Monocytes % (Manual) (1.0-6.0) % Metamyelocytes % % Myelocytes % % Platelet Evaluation (NORMAL) Waller Cells PT 61.0 H (9.4-12.5) SECONDS INR 5.17 H* (0.93-1.08) APTT > 400.0 H* (25.1-36.5) Seconds pCO2 (35-45) mm/Hg pO2 (80-100) mm/Hg HCO3 (21-28) mmol/L ABG pH (7.35-7.45) ABG Total CO2 (22-28) mmol.L ABG O2 Saturation (95-98) % ABG Base Excess (-2.0-3.0) mmol/L ABG Potassium (3.6-5.2) mmol/L Glucose (75-110) mg/dl Lactate (0.7-2.1) mmol/L FiO2 % Sodium 131 L (132-148) mmol/L Potassium 6.1 H* D (3.6-5.0) mmol/L Chloride 106 (98-107) mmol/L Carbon Dioxide 11 L (21-33) mmol/L Anion Gap 21 H (10-20) BUN 36 H (7-21) mg/dL Creatinine 1.7 H (0.8-1.5) mg/dl Est GFR ( Amer) 50 Est GFR (Non-Af Amer) 41 POC Glucose (mg/dL) 45 L (65-110) mg/dL Random Glucose 220 H (70-110) mg/dL Calcium 5.2 L* (8.4-10.5) mg/dL Phosphorus 4.7 H (2.5-4.5) mg/dL Magnesium 1.7 (1.7-2.2) mg/dL Total Bilirubin 4.2 H (0.2-1.3) mg/dL AST 464 H D (17-59) U/L ALT 244 H (7-56) U/L Alkaline Phosphatase 89 (38-126) U/L Total Protein 3.2 L (5.8-8.3) g/dL Albumin 1.6 L (3.0-4.8) g/dL Globulin 1.6 gm/dL Albumin/Globulin Ratio 1.0 L (1.1-1.8) Arterial Blood Potassium (3.6-5.2) mmol/L Blood Type Antibody Screen Crossmatch BBK History Checked 07/09/17 07/09/17 07/09/17 Range/Units 05:30 05:23 05:20 WBC 3.7 L D (4.5-11.0) 10^3/ul RBC 2.38 L (3.5-6.1) 10^6/uL Hgb 7.2 L (14.0-18.0) g/dL Hct 22.7 L (42.0-52.0) % MCV 95.4 D (80.0-105.0) fl MCH 30.3 (25.0-35.0) pg MCHC 31.7 (31.0-37.0) g/dl RDW 17.5 H (11.5-14.5) % Plt Count 11 L* (120.0-450.0) 10^3/uL MPV 11.5 H (7.0-11.0) fl Gran % 19.4 L (50.0-68.0) % Lymph % (Auto) 11.3 L (22.0-35.0) % [place] % (Auto) 68.5 H (1.0-6.0) % Eos % (Auto) 0.5 L (1.5-5.0) % Baso % (Auto) 0.3 (0.0-3.0) % Gran # 0.72 L (1.4-6.5) Lymph # (Auto) 0.4 L (1.2-3.4) [place] # (Auto) 2.6 H (0.1-0.6) Eos # (Auto) 0.0 (0.0-0.7) Baso # (Auto) 0.01 (0.0-2.0) K/mm3 Neutrophils % (Manual) (50.0-70.0) % Band Neutrophils % (0-2) % Lymphocytes % (Manual) (22.0-35.0) % Monocytes % (Manual) (1.0-6.0) % Metamyelocytes % % Myelocytes % % Platelet Evaluation (NORMAL) Ruben Cells PT (9.4-12.5) SECONDS INR (0.93-1.08) APTT (25.1-36.5) Seconds pCO2 45 (35-45) mm/Hg pO2 66.0 L (80-100) mm/Hg HCO3 8.4 L* (21-28) mmol/L ABG pH 6.88 L* (7.35-7.45) ABG Total CO2 9.8 L (22-28) mmol.L ABG O2 Saturation 94.6 L (95-98) % ABG Base Excess -24.7 L (-2.0-3.0) mmol/L ABG Potassium 5.9 H (3.6-5.2) mmol/L Glucose 225 H (75-110) mg/dl Lactate 10.0 H* (0.7-2.1) mmol/L FiO2 50.0 % Sodium 128.0 L (132-148) mmol/L Potassium (3.6-5.0) mmol/L Chloride 106.0 (98-107) mmol/L Carbon Dioxide (21-33) mmol/L Anion Gap (10-20) BUN (7-21) mg/dL Creatinine (0.8-1.5) mg/dl Est GFR ( Amer) Est GFR (Non-Af Amer) POC Glucose (mg/dL) 76 (65-110) mg/dL Random Glucose (70-110) mg/dL Calcium (8.4-10.5) mg/dL Phosphorus (2.5-4.5) mg/dL Magnesium (1.7-2.2) mg/dL Total Bilirubin (0.2-1.3) mg/dL AST (17-59) U/L ALT (7-56) U/L Alkaline Phosphatase (38-126) U/L Total Protein (5.8-8.3) g/dL Albumin (3.0-4.8) g/dL Globulin gm/dL Albumin/Globulin Ratio (1.1-1.8) Arterial Blood Potassium 5.9 H (3.6-5.2) mmol/L Blood Type Antibody Screen Crossmatch BBK History Checked 07/09/17 07/08/17 07/08/17 Range/Units 03:54 23:47 21:00 WBC (4.5-11.0) 10^3/ul RBC (3.5-6.1) 10^6/uL Hgb (14.0-18.0) g/dL Hct (42.0-52.0) % MCV (80.0-105.0) fl MCH (25.0-35.0) pg MCHC (31.0-37.0) g/dl RDW (11.5-14.5) % Plt Count (120.0-450.0) 10^3/uL MPV (7.0-11.0) fl Gran % (50.0-68.0) % Lymph % (Auto) (22.0-35.0) % [place] % (Auto) (1.0-6.0) % Eos % (Auto) (1.5-5.0) % Baso % (Auto) (0.0-3.0) % Gran # (1.4-6.5) Lymph # (Auto) (1.2-3.4) [place] # (Auto) (0.1-0.6) Eos # (Auto) (0.0-0.7) Baso # (Auto) (0.0-2.0) K/mm3 Neutrophils % (Manual) (50.0-70.0) % Band Neutrophils % (0-2) % Lymphocytes % (Manual) (22.0-35.0) % Monocytes % (Manual) (1.0-6.0) % Metamyelocytes % % Myelocytes % % Platelet Evaluation (NORMAL) Waller Cells PT (9.4-12.5) SECONDS INR (0.93-1.08) APTT (25.1-36.5) Seconds pCO2 (35-45) mm/Hg pO2 (80-100) mm/Hg HCO3 (21-28) mmol/L ABG pH (7.35-7.45) ABG Total CO2 (22-28) mmol.L ABG O2 Saturation (95-98) % ABG Base Excess (-2.0-3.0) mmol/L ABG Potassium (3.6-5.2) mmol/L Glucose (75-110) mg/dl Lactate (0.7-2.1) mmol/L FiO2 % Sodium (132-148) mmol/L Potassium (3.6-5.0) mmol/L Chloride (98-107) mmol/L Carbon Dioxide (21-33) mmol/L Anion Gap (10-20) BUN (7-21) mg/dL Creatinine (0.8-1.5) mg/dl Est GFR ( Amer) Est GFR (Non-Af Amer) POC Glucose (mg/dL) 48 L 114 H 148 H (65-110) mg/dL Random Glucose (70-110) mg/dL Calcium (8.4-10.5) mg/dL Phosphorus (2.5-4.5) mg/dL Magnesium (1.7-2.2) mg/dL Total Bilirubin (0.2-1.3) mg/dL AST (17-59) U/L ALT (7-56) U/L Alkaline Phosphatase (38-126) U/L Total Protein (5.8-8.3) g/dL Albumin (3.0-4.8) g/dL Globulin gm/dL Albumin/Globulin Ratio (1.1-1.8) Arterial Blood Potassium (3.6-5.2) mmol/L Blood Type Antibody Screen Crossmatch BBK History Checked 07/08/17 07/08/17 07/08/17 Range/Units 20:02 19:59 14:50 WBC (4.5-11.0) 10^3/ul RBC (3.5-6.1) 10^6/uL Hgb (14.0-18.0) g/dL Hct (42.0-52.0) % MCV (80.0-105.0) fl MCH (25.0-35.0) pg MCHC (31.0-37.0) g/dl RDW (11.5-14.5) % Plt Count (120.0-450.0) 10^3/uL MPV (7.0-11.0) fl Gran % (50.0-68.0) % Lymph % (Auto) (22.0-35.0) % [place] % (Auto) (1.0-6.0) % Eos % (Auto) (1.5-5.0) % Baso % (Auto) (0.0-3.0) % Gran # (1.4-6.5) Lymph # (Auto) (1.2-3.4) [place] # (Auto) (0.1-0.6) Eos # (Auto) (0.0-0.7) Baso # (Auto) (0.0-2.0) K/mm3 Neutrophils % (Manual) (50.0-70.0) % Band Neutrophils % (0-2) % Lymphocytes % (Manual) (22.0-35.0) % Monocytes % (Manual) (1.0-6.0) % Metamyelocytes % % Myelocytes % % Platelet Evaluation (NORMAL) Waller Cells PT (9.4-12.5) SECONDS INR (0.93-1.08) APTT (25.1-36.5) Seconds pCO2 (35-45) mm/Hg pO2 (80-100) mm/Hg HCO3 (21-28) mmol/L ABG pH (7.35-7.45) ABG Total CO2 (22-28) mmol.L ABG O2 Saturation (95-98) % ABG Base Excess (-2.0-3.0) mmol/L ABG Potassium (3.6-5.2) mmol/L Glucose (75-110) mg/dl Lactate (0.7-2.1) mmol/L FiO2 % Sodium 134 (132-148) mmol/L Potassium 5.0 (3.6-5.0) mmol/L Chloride 107 (98-107) mmol/L Carbon Dioxide 16 L (21-33) mmol/L Anion Gap 17 (10-20) BUN 36 H (7-21) mg/dL Creatinine 1.5 (0.8-1.5) mg/dl Est GFR ( Amer) 58 Est GFR (Non-Af Amer) 48 POC Glucose (mg/dL) 22 L* < 20 L* (65-110) mg/dL Random Glucose 114 H (70-110) mg/dL Calcium 5.6 L* (8.4-10.5) mg/dL Phosphorus (2.5-4.5) mg/dL Magnesium (1.7-2.2) mg/dL Total Bilirubin 3.8 H (0.2-1.3) mg/dL AST 282 H D (17-59) U/L ALT 173 H (7-56) U/L Alkaline Phosphatase 103 (38-126) U/L Total Protein 3.6 L (5.8-8.3) g/dL Albumin 1.7 L (3.0-4.8) g/dL Globulin 1.9 gm/dL Albumin/Globulin Ratio 0.9 L (1.1-1.8) Arterial Blood Potassium (3.6-5.2) mmol/L Blood Type Antibody Screen Crossmatch BBK History Checked 07/08/17 07/08/17 Range/Units 14:50 04:08 WBC (4.5-11.0) 10^3/ul RBC (3.5-6.1) 10^6/uL Hgb (14.0-18.0) g/dL Hct (42.0-52.0) % MCV (80.0-105.0) fl MCH (25.0-35.0) pg MCHC (31.0-37.0) g/dl RDW (11.5-14.5) % Plt Count (120.0-450.0) 10^3/uL MPV (7.0-11.0) fl Gran % (50.0-68.0) % Lymph % (Auto) (22.0-35.0) % [place] % (Auto) (1.0-6.0) % Eos % (Auto) (1.5-5.0) % Baso % (Auto) (0.0-3.0) % Gran # (1.4-6.5) Lymph # (Auto) (1.2-3.4) [place] # (Auto) (0.1-0.6) Eos # (Auto) (0.0-0.7) Baso # (Auto) (0.0-2.0) K/mm3 Neutrophils % (Manual) 33 L (50.0-70.0) % Band Neutrophils % 23 H* (0-2) % Lymphocytes % (Manual) 20 L (22.0-35.0) % Monocytes % (Manual) 10 H (1.0-6.0) % Metamyelocytes % 5 % Myelocytes % 9 % Platelet Evaluation Low (NORMAL) Waller Cells 3+ PT (9.4-12.5) SECONDS INR (0.93-1.08) APTT (25.1-36.5) Seconds pCO2 (35-45) mm/Hg pO2 (80-100) mm/Hg HCO3 (21-28) mmol/L ABG pH (7.35-7.45) ABG Total CO2 (22-28) mmol.L ABG O2 Saturation (95-98) % ABG Base Excess (-2.0-3.0) mmol/L ABG Potassium (3.6-5.2) mmol/L Glucose (75-110) mg/dl Lactate (0.7-2.1) mmol/L FiO2 % Sodium (132-148) mmol/L Potassium (3.6-5.0) mmol/L Chloride (98-107) mmol/L Carbon Dioxide (21-33) mmol/L Anion Gap (10-20) BUN (7-21) mg/dL Creatinine (0.8-1.5) mg/dl Est GFR ( Amer) Est GFR (Non-Af Amer) POC Glucose (mg/dL) (65-110) mg/dL Random Glucose (70-110) mg/dL Calcium (8.4-10.5) mg/dL Phosphorus (2.5-4.5) mg/dL Magnesium (1.7-2.2) mg/dL Total Bilirubin (0.2-1.3) mg/dL AST (17-59) U/L ALT (7-56) U/L Alkaline Phosphatase (38-126) U/L Total Protein (5.8-8.3) g/dL Albumin (3.0-4.8) g/dL Globulin gm/dL Albumin/Globulin Ratio (1.1-1.8) Arterial Blood Potassium (3.6-5.2) mmol/L Blood Type B NEGATIVE Antibody Screen Negative Crossmatch See Detail BBK History Checked Patient has bt Laboratory Results - last 24 hr 07/08/17 07/08/17 07/08/17 04:08 14:50 14:50 WBC RBC Hgb Hct MCV MCH MCHC RDW Plt Count MPV Gran % Lymph % (Auto) [place] % (Auto) Eos % (Auto) Baso % (Auto) Gran # Lymph # (Auto) [place] # (Auto) Eos # (Auto) Baso # (Auto) Neutrophils % (Manual) 33 L Band Neutrophils % 23 H* Lymphocytes % (Manual) 20 L Monocytes % (Manual) 10 H Metamyelocytes % 5 Myelocytes % 9 Platelet Evaluation Low Ruben Cells 3+ PT INR APTT pCO2 pO2 HCO3 ABG pH ABG Total CO2 ABG O2 Saturation ABG Base Excess ABG Potassium Glucose Lactate FiO2 Sodium 134 Potassium 5.0 Chloride 107 Carbon Dioxide 16 L Anion Gap 17 BUN 36 H Creatinine 1.5 Est GFR ( Amer) 58 Est GFR (Non-Af Amer) 48 POC Glucose (mg/dL) Random Glucose 114 H Calcium 5.6 L* Phosphorus Magnesium Total Bilirubin 3.8 H AST 282 H D ALT 173 H Alkaline Phosphatase 103 Total Protein 3.6 L Albumin 1.7 L Globulin 1.9 Albumin/Globulin Ratio 0.9 L Arterial Blood Potassium Blood Type B NEGATIVE Antibody Screen Negative Crossmatch See Detail BBK History Checked Patient has bt 07/08/17 07/08/17 07/08/17 19:59 20:02 21:00 WBC RBC Hgb Hct MCV MCH MCHC RDW Plt Count MPV Gran % Lymph % (Auto) [place] % (Auto) Eos % (Auto) Baso % (Auto) Gran # Lymph # (Auto) [place] # (Auto) Eos # (Auto) Baso # (Auto) Neutrophils % (Manual) Band Neutrophils % Lymphocytes % (Manual) Monocytes % (Manual) Metamyelocytes % Myelocytes % Platelet Evaluation Ruben Cells PT INR APTT pCO2 pO2 HCO3 ABG pH ABG Total CO2 ABG O2 Saturation ABG Base Excess ABG Potassium Glucose Lactate FiO2 Sodium Potassium Chloride Carbon Dioxide Anion Gap BUN Creatinine Est GFR ( Amer) Est GFR (Non-Af Amer) POC Glucose (mg/dL) < 20 L* 22 L* 148 H Random Glucose Calcium Phosphorus Magnesium Total Bilirubin AST ALT Alkaline Phosphatase Total Protein Albumin Globulin Albumin/Globulin Ratio Arterial Blood Potassium Blood Type Antibody Screen Crossmatch BBK History Checked 07/08/17 07/09/17 07/09/17 23:47 03:54 05:20 WBC RBC Hgb Hct MCV MCH MCHC RDW Plt Count MPV Gran % Lymph % (Auto) [place] % (Auto) Eos % (Auto) Baso % (Auto) Gran # Lymph # (Auto) [place] # (Auto) Eos # (Auto) Baso # (Auto) Neutrophils % (Manual) Band Neutrophils % Lymphocytes % (Manual) Monocytes % (Manual) Metamyelocytes % Myelocytes % Platelet Evaluation Ruben Cells PT INR APTT pCO2 45 pO2 66.0 L HCO3 8.4 L* ABG pH 6.88 L* ABG Total CO2 9.8 L ABG O2 Saturation 94.6 L ABG Base Excess -24.7 L ABG Potassium 5.9 H Glucose 225 H Lactate 10.0 H* FiO2 50.0 Sodium 128.0 L Potassium Chloride 106.0 Carbon Dioxide Anion Gap BUN Creatinine Est GFR ( Amer) Est GFR (Non-Af Amer) POC Glucose (mg/dL) 114 H 48 L Random Glucose Calcium Phosphorus Magnesium Total Bilirubin AST ALT Alkaline Phosphatase Total Protein Albumin Globulin Albumin/Globulin Ratio Arterial Blood Potassium 5.9 H Blood Type Antibody Screen Crossmatch BBK History Checked 07/09/17 07/09/17 07/09/17 05:23 05:30 05:30 WBC 3.7 L D RBC 2.38 L Hgb 7.2 L Hct 22.7 L MCV 95.4 D MCH 30.3 MCHC 31.7 RDW 17.5 H Plt Count 11 L* MPV 11.5 H Gran % 19.4 L Lymph % (Auto) 11.3 L [place] % (Auto) 68.5 H Eos % (Auto) 0.5 L Baso % (Auto) 0.3 Gran # 0.72 L Lymph # (Auto) 0.4 L [place] # (Auto) 2.6 H Eos # (Auto) 0.0 Baso # (Auto) 0.01 Neutrophils % (Manual) Band Neutrophils % Lymphocytes % (Manual) Monocytes % (Manual) Metamyelocytes % Myelocytes % Platelet Evaluation Wall[place] Cells PT INR APTT pCO2 pO2 HCO3 ABG pH ABG Total CO2 ABG O2 Saturation ABG Base Excess ABG Potassium Glucose Lactate FiO2 Sodium 131 L Potassium 6.1 H* D Chloride 106 Carbon Dioxide 11 L Anion Gap 21 H BUN 36 H Creatinine 1.7 H Est GFR ( Amer) 50 Est GFR (Non-Af Amer) 41 POC Glucose (mg/dL) 76 Random Glucose 220 H Calcium 5.2 L* Phosphorus 4.7 H Magnesium 1.7 Total Bilirubin 4.2 H AST 464 H D ALT 244 H Alkaline Phosphatase 89 Total Protein 3.2 L Albumin 1.6 L Globulin 1.6 Albumin/Globulin Ratio 1.0 L Arterial Blood Potassium Blood Type Antibody Screen Crossmatch BBK History Checked 07/09/17 07/09/17 05:30 06:00 WBC RBC Hgb Hct MCV MCH MCHC RDW Plt Count MPV Gran % Lymph % (Auto) [place] % (Auto) Eos % (Auto) Baso % (Auto) Gran # Lymph # (Auto) [place] # (Auto) Eos # (Auto) Baso # (Auto) Neutrophils % (Manual) Band Neutrophils % Lymphocytes % (Manual) Monocytes % (Manual) Metamyelocytes % Myelocytes % Platelet Evaluation Ruben Cells PT 61.0 H INR 5.17 H* APTT > 400.0 H* pCO2 pO2 HCO3 ABG pH ABG Total CO2 ABG O2 Saturation ABG Base Excess ABG Potassium Glucose Lactate FiO2 Sodium Potassium Chloride Carbon Dioxide Anion Gap BUN Creatinine Est GFR ( Amer) Est GFR (Non-Af Amer) POC Glucose (mg/dL) 45 L Random Glucose Calcium Phosphorus Magnesium Total Bilirubin AST ALT Alkaline Phosphatase Total Protein Albumin Globulin Albumin/Globulin Ratio Arterial Blood Potassium Blood Type Antibody Screen Crossmatch BBK History Checked Critical Care Progress Note - Nutrition Nutrition: Nutrition Category Date Time Status NPO Diet [DIET] Diets 07/07/17 Dinner Ordered Attending/Attestation - Attestation I have personally seen and examined this patient.: Yes I have fully participated in the care of the patient.: Yes I have reviewed all pertinent clinical information: Yes Notes (Text): 07/09/17 15:23 61 yo male with septic shock and multiorgan system failure in the setting of end stage pancreatic cancer. Coded 3 times. ACLS protocol instituted each time. Despite best effort patient has ccm time 40 min
--- NOTE | 2017-07-09 08:34 | CP.PCM.PRO ---
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 [id number]
--- NOTE | 2017-07-09 09:18 | RAD ---
HISTORY: post code COMPARISON: 07/08/2017 FINDINGS: LUNGS: There is an extensive alveolar infiltrate in the right lung that has slightly increased. There is also an infiltrate in the left upper lobe with bilateral apical pleural thickening PLEURA: No significant pleural effusion identified, no pneumothorax apparent. CARDIOVASCULAR: Normal. OSSEOUS STRUCTURES: No significant abnormalities. VISUALIZED UPPER ABDOMEN: Normal. OTHER FINDINGS: Endotracheal tube and nasogastric tube IMPRESSION: There is an extensive alveolar infiltrate in the right lung that has slightly increased. There is also an infiltrate in the left upper lobe with bilateral apical pleural thickening
[2017-07-09 10:24] VITALS: PULSE 40; RESP 11; TEMP 94.1; O2SAT 98
--- NOTE | 2017-07-09 12:57 | CP.PCM.DIS ---
<Manoj Griffin - Last Filed: 07/09/17 13:06> Provider - Provider Date of Admission: 07/01/17 16:09 Attending physician: Lydia Cohn MD Consults: GI - Dr. Gonzalez ICU - Dr. Bennett ID - Dr. Callejas Surgery - Dr. Yoana CORTES - Dr. Pryor Time Spent in preparation of Discharge (in minutes): 50 Hospital Course - Lab Results Lab Results: Micro Results 07/07/17 23:15 Naris MRSA Culture (Admit) - Final MRSA NOT DETECTED 07/07/17 21:30 Blood-Venous Blood Culture - Preliminary Gram Negative Steffen 07/07/17 21:30 Blood-Venous Gram Stain - Final 07/07/17 22:00 Blood-Venous Blood Culture - Preliminary Gram Negative Steffen 07/07/17 22:00 Blood-Venous Gram Stain - Final Most Recent Lab Values WBC 3.7 10^3/ul (4.5-11.0) L D 07/09/17 05:30 RBC 2.38 10^6/uL (3.5-6.1) L 07/09/17 05:30 Hgb 7.2 g/dL (14.0-18.0) L 07/09/17 05:30 Hct 22.7 % (42.0-52.0) L 07/09/17 05:30 MCV 95.4 fl (80.0-105.0) D 07/09/17 05:30 MCH 30.3 pg (25.0-35.0) 07/09/17 05:30 MCHC 31.7 g/dl (31.0-37.0) 07/09/17 05:30 RDW 17.5 % (11.5-14.5) H 07/09/17 05:30 Plt Count 11 10^3/uL (120.0-450.0) L* 07/09/17 05:30 MPV 11.5 fl (7.0-11.0) H 07/09/17 05:30 Gran % 19.4 % (50.0-68.0) L 07/09/17 05:30 Lymph % (Auto) 11.3 % (22.0-35.0) L 07/09/17 05:30 Ector % (Auto) 68.5 % (1.0-6.0) H 07/09/17 05:30 Eos % (Auto) 0.5 % (1.5-5.0) L 07/09/17 05:30 Baso % (Auto) 0.3 % (0.0-3.0) 07/09/17 05:30 Gran # 0.72 (1.4-6.5) L 07/09/17 05:30 Lymph # (Auto) 0.4 (1.2-3.4) L 07/09/17 05:30 [place] # (Auto) 2.6 (0.1-0.6) H 07/09/17 05:30 Eos # (Auto) 0.0 (0.0-0.7) 07/09/17 05:30 Baso # (Auto) 0.01 K/mm3 (0.0-2.0) 07/09/17 05:30 Corrected WBC (Man) Cancelled 07/08/17 02:20 Neutrophils % (Manual) 33 % (50.0-70.0) L 07/08/17 14:50 Band Neutrophils % 23 % (0-2) H* 07/08/17 14:50 Lymphocytes % (Manual) 20 % (22.0-35.0) L 07/08/17 14:50 Atypical Lymphs % Cancelled 07/08/17 02:20 Monocytes % (Manual) 10 % (1.0-6.0) H 07/08/17 14:50 Eosinophils % (Manual) Cancelled 07/08/17 02:20 Basophils % (Manual) Cancelled 07/08/17 02:20 Metamyelocytes % 5 % 07/08/17 14:50 Myelocytes % 9 % 07/08/17 14:50 Promyelocytes % Cancelled 07/08/17 02:20 Nucleated RBC % Cancelled 07/08/17 02:20 Hypersegmented Polys Cancelled 07/08/17 02:20 Immature Lymphocytes Cancelled 07/08/17 02:20 Blast Cells Cancelled 07/08/17 02:20 Smudge Cells Cancelled 07/08/17 02:20 Toxic Granulation Cancelled 07/08/17 02:20 Dohle Bodies Cancelled 07/08/17 02:20 Paula Rods Cancelled 07/08/17 02:20 Platelet Evaluation Low (NORMAL) 07/08/17 14:50 Plt Clumps, EDTA Cancelled 07/08/17 02:20 Large Platelets Cancelled 07/08/17 02:20 Giant Platelets Cancelled 07/08/17 02:20 Polychromasia Cancelled 07/08/17 02:20 Hypochromasia Cancelled 07/08/17 02:20 Hyperchromasia Cancelled 07/08/17 02:20 Poikilocytosis (manual Cancelled 07/08/17 02:20 Basophilic Stippling Cancelled 07/08/17 02:20 Anisocytosis (manual) Cancelled 07/08/17 02:20 Microcytosis (manual) Cancelled 07/08/17 02:20 Macrocytosis (manual) Cancelled 07/08/17 02:20 Spherocytes Cancelled 07/08/17 02:20 Sickle Cells Cancelled 07/08/17 02:20 Target Cells Cancelled 07/08/17 02:20 Tear Drop Cells Cancelled 07/08/17 02:20 Ovalocytes Cancelled 07/08/17 02:20 Stomatocytes Cancelled 07/08/17 02:20 Helmet Cells Cancelled 07/08/17 02:20 [place] Rings Cancelled 07/08/17 02:20 S [place] Cells 3+ 07/08/17 14:50 Acanthocytes (Spur) Cancelled 07/08/17 02:20 Rouleaux Cancelled 07/08/17 02:20 Schistocytes Cancelled 07/08/17 02:20 PT 61.0 SECONDS (9.4-12.5) H 07/09/17 05:30 INR 5.17 (0.93-1.08) H* 07/09/17 05:30 APTT > 400.0 Seconds (25.1-36.5) H* 07/09/17 05:30 pCO2 45 mm/Hg (35-45) 07/09/17 05:20 pO2 66.0 mm/Hg (80-100) L 07/09/17 05:20 HCO3 8.4 mmol/L (21-28) L* 07/09/17 05:20 ABG pH 6.88 (7.35-7.45) L* 07/09/17 05:20 ABG Total CO2 9.8 mmol.L (22-28) L 07/09/17 05:20 ABG O2 Saturation 94.6 % (95-98) L 07/09/17 05:20 ABG Base Excess -24.7 mmol/L (-2.0-3.0) L 07/09/17 05:20 ABG Potassium 5.9 mmol/L (3.6-5.2) H 07/09/17 05:20 VBG pH 7.08 (7.32-7.43) L* 07/08/17 12:30 VBG pCO2 53.0 (40-60) 07/08/17 12:30 VBG HCO3 15.7 mmol/l (21-28) L 07/08/17 12:30 VBG Total CO2 17.3 mmol.L (22-28) L 07/08/17 12:30 VBG O2 Sat (Calc) 87.7 % (40-65) H 07/08/17 12:30 VBG Base Excess -14.4 mmol/L (0.0-2.0) L 07/08/17 12:30 VBG Potassium 4.8 mmol/L (3.6-5.2) 07/08/17 12:30 Sodium 128.0 mmol/L (132-148) L 07/09/17 05:20 Chloride 106.0 mmol/L (98-107) 07/09/17 05:20 Glucose 225 mg/dl (75-110) H 07/09/17 05:20 Lactate 10.0 mmol/L (0.7-2.1) H* 07/09/17 05:20 FiO2 50.0 % 07/09/17 05:20 Sodium 131 mmol/L (132-148) L 07/09/17 05:30 Potassium 6.1 mmol/L (3.6-5.0) H* D 07/09/17 05:30 Chloride 106 mmol/L (98-107) 07/09/17 05:30 Carbon Dioxide 11 mmol/L (21-33) L 07/09/17 05:30 Anion Gap 21 (10-20) H 07/09/17 05:30 BUN 36 mg/dL (7-21) H 07/09/17 05:30 Creatinine 1.7 mg/dl (0.8-1.5) H 07/09/17 05:30 Est GFR ( Amer) 50 07/09/17 05:30 Est GFR (Non-Af Amer) 41 07/09/17 05:30 POC Glucose (mg/dL) 45 mg/dL (65-110) L 07/09/17 06:00 Random Glucose 220 mg/dL (70-110) H 07/09/17 05:30 Calcium 5.2 mg/dL (8.4-10.5) L* 07/09/17 05:30 Phosphorus 4.7 mg/dL (2.5-4.5) H 07/09/17 05:30 Magnesium 1.7 mg/dL (1.7-2.2) 07/09/17 05:30 Total Bilirubin 4.2 mg/dL (0.2-1.3) H 07/09/17 05:30 AST 464 U/L (17-59) H D 07/09/17 05:30 ALT 244 U/L (7-56) H 07/09/17 05:30 Alkaline Phosphatase 89 U/L (38-126) 07/09/17 05:30 Ammonia 24 umol/L (9-33) 07/04/17 13:30 Lactate Dehydrogenase 1169 U/L (333-699) H 07/01/17 14:09 Total Creatine Kinase 422 U/L (35-230) H 07/01/17 14:09 CK-MB (CK-2) 3.1 ng/mL (0.0-3.6) 07/01/17 14:09 CK-MB (CK-2) % Cancelled 07/01/17 14:09 Troponin I 0.07 ng/mL D 07/07/17 23:30 NT-Pro-B Natriuret Pep 1980 pg/mL (0-450) H 07/01/17 14:09 Total Protein 3.2 g/dL (5.8-8.3) L 07/09/17 05:30 Albumin 1.6 g/dL (3.0-4.8) L 07/09/17 05:30 Globulin 1.6 gm/dL 07/09/17 05:30 Albumin/Globulin Ratio 1.0 (1.1-1.8) L 07/09/17 05:30 Lipase 2150 U/L (23-300) H 07/01/17 14:09 Procalcitonin 59.51 NG/ML (0.19-0.49) H 07/07/17 21:45 Arterial Blood Potassium 5.9 mmol/L (3.6-5.2) H 07/09/17 05:20 Venous Blood Potassium 4.8 mmol/L (3.6-5.2) 07/08/17 12:30 Urine Color Yellow (YELLOW) 07/08/17 04:15 Urine Appearance Sl cloudy (CLEAR) 07/08/17 04:15 Urine pH 6.0 (4.7-8.0) 07/08/17 04:15 Ur Specific [place] 1.025 (1.005-1.035) 07/08/17 04:15 Urine Protein 100 mg/dL (<30 mg/dL) H 07/08/17 04:15 Urine Glucose (UA) Negative mg/dL (NEGATIVE) 07/08/17 04:15 Urine Ketones Negative mg/dL (NEGATIVE) 07/08/17 04:15 Urine Blood Large (NEGATIVE) H 07/08/17 04:15 Urine Nitrate Negative (NEGATIVE) 07/08/17 04:15 Urine Bilirubin Negative (NEGATIVE) 07/08/17 04:15 Urine Urobilinogen 0.2 E.U./dL (<1 E.U./dL) 07/08/17 04:15 Ur Leukocyte Esterase Negative Ailyn/uL (NEGATIVE) 07/08/17 04:15 Urine RBC 2 - 5 /hpf (0-2) 07/08/17 04:15 Urine WBC 2 - 5 /hpf (0-6) 07/08/17 04:15 Ur Epithelial Cells 0 - 2 /hpf (0-5) 07/08/17 04:15 Amorphous Sediment Few 07/08/17 04:15 Urine Bacteria Mod (NEG) 07/08/17 04:15 Fluid Source Peritoneal/ascites 07/05/17 12:00 Fluid Appearance Cloudy (CLEAR) 07/05/17 12:00 Fluid WBC 312.0 /uL (0.0-300.0) H 07/05/17 12:00 Fluid RBC 71072.0 /uL (0.0-0.0) H 07/05/17 12:00 Fluid Tot Cell Count 100 (0-0) H 07/05/17 12:00 Fluid Neutrophils 11.5 % (0-0) H 07/05/17 12:00 Fluid Lymphocytes 88.5 % (0-0) H 07/05/17 12:00 Fld Monocyte/Macrophag TEST NOT PERFORMED 07/05/17 12:00 Fluid Comment Lt.red color 07/05/17 12:00 Urine Opiates Screen Negative (NEGATIVE) 07/01/17 23:00 Urine Methadone Screen Negative (NEGATIVE) 07/01/17 23:00 Ur Barbiturates Screen Negative (NEGATIVE) 07/01/17 23:00 Ur Phencyclidine Scrn Negative (NEGATIVE) 07/01/17 23:00 Ur Amphetamines Screen Negative (NEGATIVE) 07/01/17 23:00 U Benzodiazepines Scrn Negative (NEGATIVE) 07/01/17 23:00 U Oth Cocaine Metabols Negative (NEGATIVE) 07/01/17 23:00 U Cannabinoids Screen Positive (NEGATIVE) H 07/01/17 23:00 Alcohol, Quantitative < 10 mg/dL (0-10) 07/01/17 14:09 Blood Type B NEGATIVE 07/08/17 04:08 Antibody Screen Negative 07/08/17 04:08 Crossmatch See Detail 07/08/17 04:08 BBK History Checked Patient has bt 07/08/17 04:08 - Hospital Course Hospital Course: 61yo male with history of invasive pancreatic adenocarcinoma diagnosed 04/2017, hypertension, COPD, DM and NSTEMI had presented to [facility] with report of altered mental status. Patient had been found at home by his brother and was noted to have a blood sugar of 30 during initial evaluation. During the patients hospital course, his hypoglycemia was treated with D5 fluids however his liver function tests worsened. 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 GI was consulted and a stent was placed. He subsequently became neutropenic and granix was given. Unfortunately, patient developed septic shock secondary to bacteremia on pressors in the setting of recurrent hypoglycemia. Mookie askew was called on 07/09/17 as patient was found to be in PEA by nurse. ACLS protocol was initiated. He was treated with epinephrine , D50, calcium chloride and insulin during the code. ROSC was achieved however patient subsequently coded once again. On mookie askew, patient's brother who was aware of patient's poor prognosis, requested to stop resuscitative efforts. Time of was recorded at 8:24am. Discharge Exam - Head Exam Head Exam: ATRAUMATIC, NORMOCEPHALIC Additional comments: TOXIC appearing, in acute distress - Respiratory Exam Respiratory Exam: absent: Rales, Rhonchi, Wheezes - Cardiovascular Exam Cardiovascular Exam: Bradycardia. absent: Clicks, Gallop, RRR - GI/Abdominal Exam GI & Abdominal Exam: Distended, Soft. absent: Firm, Guarding - Neurological Exam Additional comments: intubated, unresponsive on no sedation - Skin Skin Exam: Dry, Intact Discharge Plan - Follow Up Plan Condition: Disposition: WITH WITHOUT AUTOPSY <Burt Mario - Last Filed: 07/09/17 16:08> Provider - Provider Date of Admission: 07/01/17 16:09 Attending physician: Lydia Cohn MD Hospital Course - Lab Results Lab Results: Micro Results 07/07/17 23:15 Naris MRSA Culture (Admit) - Final MRSA NOT DETECTED 07/07/17 21:30 Blood-Venous Blood Culture - Preliminary Gram Negative Steffen 07/07/17 21:30 Blood-Venous Gram Stain - Final 07/07/17 22:00 Blood-Venous Blood Culture - Preliminary Gram Negative Steffen 07/07/17 22:00 Blood-Venous Gram Stain - Final Most Recent Lab Values WBC 3.7 10^3/ul (4.5-11.0) L D 07/09/17 05:30 RBC 2.38 10^6/uL (3.5-6.1) L 07/09/17 05:30 Hgb 7.2 g/dL (14.0-18.0) L 07/09/17 05:30 Hct 22.7 % (42.0-52.0) L 07/09/17 05:30 MCV 95.4 fl (80.0-105.0) D 07/09/17 05:30 MCH 30.3 pg (25.0-35.0) 07/09/17 05:30 MCHC 31.7 g/dl (31.0-37.0) 07/09/17 05:30 RDW 17.5 % (11.5-14.5) H 07/09/17 05:30 Plt Count 11 10^3/uL (120.0-450.0) L* 05/21/18 05:30 MPV 11.5 fl (7.0-11.0) H 07/09/17 05:30 Gran % 19.4 % (50.0-68.0) L 07/09/17 05:30 Lymph % (Auto) 11.3 % (22.0-35.0) L 07/09/17 05:30 [place] % (Auto) 68.5 % (1.0-6.0) H 07/09/17 05:30 Eos % (Auto) 0.5 % (1.5-5.0) L 07/09/17 05:30 Baso % (Auto) 0.3 % (0.0-3.0) 07/09/17 05:30 Gran # 0.72 (1.4-6.5) L 07/09/17 05:30 Lymph # (Auto) 0.4 (1.2-3.4) L 07/09/17 05:30 [place] # (Auto) 2.6 (0.1-0.6) H 07/09/17 05:30 Eos # (Auto) 0.0 (0.0-0.7) 07/09/17 05:30 Baso # (Auto) 0.01 K/mm3 (0.0-2.0) 07/09/17 05:30 Corrected WBC (Man) Cancelled 07/08/17 02:20 Neutrophils % (Manual) 33 % (50.0-70.0) L 07/08/17 14:50 Band Neutrophils % 23 % (0-2) H* 07/08/17 14:50 Lymphocytes % (Manual) 20 % (22.0-35.0) L 07/08/17 14:50 Atypical Lymphs % Cancelled 07/08/17 02:20 Monocytes % (Manual) 10 % (1.0-6.0) H 07/08/17 14:50 Eosinophils % (Manual) Cancelled 07/08/17 02:20 Basophils % (Manual) Cancelled 07/08/17 02:20 Metamyelocytes % 5 % 07/08/17 14:50 Myelocytes % 9 % 07/08/17 14:50 Promyelocytes % Cancelled 07/08/17 02:20 Nucleated RBC % Cancelled 07/08/17 02:20 Hypersegmented Polys Cancelled 07/08/17 02:20 Immature Lymphocytes Cancelled 07/08/17 02:20 Blast Cells Cancelled 07/08/17 02:20 Smudge Cells Cancelled 07/08/17 02:20 Toxic Granulation Cancelled 07/08/17 02:20 Dohle Bodies Cancelled 07/08/17 02:20 Paula Rods Cancelled 07/08/17 02:20 Platelet Evaluation Low (NORMAL) 07/08/17 14:50 Plt Clumps, EDTA Cancelled 07/08/17 02:20 Large Platelets Cancelled 07/08/17 02:20 Giant Platelets Cancelled 07/08/17 02:20 Polychromasia Cancelled 07/08/17 02:20 Hypochromasia Cancelled 07/08/17 02:20 Hyperchromasia Cancelled 07/08/17 02:20 Poikilocytosis (manual Cancelled 07/08/17 02:20 Basophilic Stippling Cancelled 07/08/17 02:20 Anisocytosis (manual) Cancelled 07/08/17 02:20 Microcytosis (manual) Cancelled 07/08/17 02:20 Macrocytosis (manual) Cancelled 07/08/17 02:20 Spherocytes Cancelled 07/08/17 02:20 Sickle Cells Cancelled 07/08/17 02:20 Target Cells Cancelled 07/08/17 02:20 Tear Drop Cells Cancelled 07/08/17 02:20 Ovalocytes Cancelled 07/08/17 02:20 Stomatocytes Cancelled 07/08/17 02:20 Helmet Cells Cancelled 07/08/17 02:20 [place] Rings Cancelled 07/08/17 02:20 [place] Cells 3+ 07/08/17 14:50 Acanthocytes (Spur) Cancelled 07/08/17 02:20 Rouleaux Cancelled 07/08/17 02:20 Schistocytes Cancelled 07/08/17 02:20 PT 61.0 SECONDS (9.4-12.5) H 07/09/17 05:30 INR 5.17 (0.93-1.08) H* 07/09/17 05:30 APTT > 400.0 Seconds (25.1-36.5) H* 07/09/17 05:30 pCO2 45 mm/Hg (35-45) 07/09/17 05:20 pO2 66.0 mm/Hg (80-100) L 07/09/17 05:20 HCO3 8.4 mmol/L (21-28) L* 07/09/17 05:20 ABG pH 6.88 (7.35-7.45) L* 07/09/17 05:20 ABG Total CO2 9.8 mmol.L (22-28) L 07/09/17 05:20 ABG O2 Saturation 94.6 % (95-98) L 07/09/17 05:20 ABG Base Excess -24.7 mmol/L (-2.0-3.0) L 07/09/17 05:20 ABG Potassium 5.9 mmol/L (3.6-5.2) H 07/09/17 05:20 VBG pH 7.08 (7.32-7.43) L* 07/08/17 12:30 VBG pCO2 53.0 (40-60) 07/08/17 12:30 VBG HCO3 15.7 mmol/l (21-28) L 07/08/17 12:30 VBG Total CO2 17.3 mmol.L (22-28) L 07/08/17 12:30 VBG O2 Sat (Calc) 87.7 % (40-65) H 07/08/17 12:30 VBG Base Excess -14.4 mmol/L (0.0-2.0) L 07/08/17 12:30 VBG Potassium 4.8 mmol/L (3.6-5.2) 07/08/17 12:30 Sodium 128.0 mmol/L (132-148) L 07/09/17 05:20 Chloride 106.0 mmol/L (98-107) 07/09/17 05:20 Glucose 225 mg/dl (75-110) H 07/09/17 05:20 Lactate 10.0 mmol/L (0.7-2.1) H* 07/09/17 05:20 FiO2 50.0 % 07/09/17 05:20 Sodium 131 mmol/L (132-148) L 07/09/17 05:30 Potassium 6.1 mmol/L (3.6-5.0) H* D 07/09/17 05:30 Chloride 106 mmol/L (98-107) 07/09/17 05:30 Carbon Dioxide 11 mmol/L (21-33) L 07/09/17 05:30 Anion Gap 21 (10-20) H 07/09/17 05:30 BUN 36 mg/dL (7-21) H 07/09/17 05:30 Creatinine 1.7 mg/dl (0.8-1.5) H 07/09/17 05:30 Est GFR ( Amer) 50 07/09/17 05:30 Est GFR (Non-Af Amer) 41 07/09/17 05:30 POC Glucose (mg/dL) 185 mg/dL (65-110) H 07/09/17 07:49 Random Glucose 220 mg/dL (70-110) H 07/09/17 05:30 Calcium 5.2 mg/dL (8.4-10.5) L* 07/09/17 05:30 Phosphorus 4.7 mg/dL (2.5-4.5) H 07/09/17 05:30 Magnesium 1.7 mg/dL (1.7-2.2) 07/09/17 05:30 Total Bilirubin 4.2 mg/dL (0.2-1.3) H 07/09/17 05:30 AST 464 U/L (17-59) H D 07/09/17 05:30 ALT 244 U/L (7-56) H 07/09/17 05:30 Alkaline Phosphatase 89 U/L (38-126) 07/09/17 05:30 Ammonia 24 umol/L (9-33) 07/04/17 13:30 Lactate Dehydrogenase 1169 U/L (333-699) H 07/01/17 14:09 Total Creatine Kinase 422 U/L (35-230) H 07/01/17 14:09 CK-MB (CK-2) 3.1 ng/mL (0.0-3.6) 07/01/17 14:09 CK-MB (CK-2) % Cancelled 07/01/17 14:09 Troponin I 0.07 ng/mL D 07/07/17 23:30 NT-Pro-B Natriuret Pep 1980 pg/mL (0-450) H 07/01/17 14:09 Total Protein 3.2 g/dL (5.8-8.3) L 07/09/17 05:30 Albumin 1.6 g/dL (3.0-4.8) L 07/09/17 05:30 Globulin 1.6 gm/dL 07/09/17 05:30 Albumin/Globulin Ratio 1.0 (1.1-1.8) L 07/09/17 05:30 Lipase 2150 U/L (23-300) H 07/01/17 14:09 Procalcitonin 59.51 NG/ML (0.19-0.49) H 07/07/17 21:45 Arterial Blood Potassium 5.9 mmol/L (3.6-5.2) H 07/09/17 05:20 Venous Blood Potassium 4.8 mmol/L (3.6-5.2) 07/08/17 12:30 Urine Color Yellow (YELLOW) 07/08/17 04:15 Urine Appearance Sl cloudy (CLEAR) 07/08/17 04:15 Urine pH 6.0 (4.7-8.0) 07/08/17 04:15 Ur Specific [place] 1.025 (1.005-1.035) 07/08/17 04:15 Urine Protein 100 mg/dL (<30 mg/dL) H 07/08/17 04:15 Urine Glucose (UA) Negative mg/dL (NEGATIVE) 07/08/17 04:15 Urine Ketones Negative mg/dL (NEGATIVE) 07/08/17 04:15 Urine Blood Large (NEGATIVE) H 07/08/17 04:15 Urine Nitrate Negative (NEGATIVE) 07/08/17 04:15 Urine Bilirubin Negative (NEGATIVE) 07/08/17 04:15 Urine Urobilinogen 0.2 E.U./dL (<1 E.U./dL) 07/08/17 04:15 Ur Leukocyte Esterase Negative Ailyn/uL (NEGATIVE) 07/08/17 04:15 Urine RBC 2 - 5 /hpf (0-2) 07/08/17 04:15 Urine WBC 2 - 5 /hpf (0-6) 07/08/17 04:15 Ur Epithelial Cells 0 - 2 /hpf (0-5) 07/08/17 04:15 Amorphous Sediment Few 07/08/17 04:15 Urine Bacteria Mod (NEG) 07/08/17 04:15 Fluid Source Peritoneal/ascites 07/05/17 12:00 Fluid Appearance Cloudy (CLEAR) 07/05/17 12:00 Fluid WBC 312.0 /uL (0.0-300.0) H 07/05/17 12:00 Fluid RBC 87817.0 /uL (0.0-0.0) H 07/05/17 12:00 Fluid Tot Cell Count 100 (0-0) H 07/05/17 12:00 Fluid Neutrophils 11.5 % (0-0) H 07/05/17 12:00 Fluid Lymphocytes 88.5 % (0-0) H 07/05/17 12:00 Fld Monocyte/Macrophag TEST NOT PERFORMED 07/05/17 12:00 Fluid Comment Lt.red color 07/05/17 12:00 Urine Opiates Screen Negative (NEGATIVE) 07/01/17 23:00 Urine Methadone Screen Negative (NEGATIVE) 07/01/17 23:00 Ur Barbiturates Screen Negative (NEGATIVE) 07/01/17 23:00 Ur Phencyclidine Scrn Negative (NEGATIVE) 07/01/17 23:00 Ur Amphetamines Screen Negative (NEGATIVE) 07/01/17 23:00 U Benzodiazepines Scrn Negative (NEGATIVE) 07/01/17 23:00 U Oth Cocaine Metabols Negative (NEGATIVE) 07/01/17 23:00 U Cannabinoids Screen Positive (NEGATIVE) H 07/01/17 23:00 Alcohol, Quantitative < 10 mg/dL (0-10) 07/01/17 14:09 Blood Type B NEGATIVE 07/08/17 04:08 Antibody Screen Negative 07/08/17 04:08 Crossmatch See Detail 07/08/17 04:08 BBK History Checked Patient has bt 07/08/17 04:08 Attending/Attestation - Attestation I have personally seen and examined this patient.: No I have fully participated in the care of the patient.: No I have reviewed all pertinent clinical information, including history, physical exam and plan: Yes Notes (Text): Patient today. Signed certificate.
== END 2017-07-09 08:24 | DRG 468 ==
LOC: ED 13:37 → ERH 16:09 → 3RNO 17:35 → CCU 07-07 22:35
PROVIDERS: ADMIT Hospitalist; ATTEND Internal Medicine
PROC: 30233K1 Transfusion of Nonautologous Frozen Plasma into Peripheral Vein, Percutaneous Approach (ICD-10-PCS; 2017-07-05)
PROC: 6A550Z2 Pheresis of Platelets, Single (ICD-10-PCS; 2017-07-05)
PROC: 0F7D8DZ Dilation of Pancreatic Duct with Intraluminal Device, Via Natural or Artificial Opening Endoscopic (ICD-10-PCS; principal; 2017-07-05 11:00)
PROC: 0DB58ZX Excision of Esophagus, Via Natural or Artificial Opening Endoscopic, Diagnostic (ICD-10-PCS; 2017-07-05 14:00)
PROC: 0D798DZ Dilation of Duodenum with Intraluminal Device, Via Natural or Artificial Opening Endoscopic (ICD-10-PCS; 2017-07-05 14:00)
PROC: BD47ZZZ Ultrasonography of Gastrointestinal Tract (ICD-10-PCS; 2017-07-05 14:00)
PROC: 3E0T3TZ Introduction of Destructive Agent into Peripheral Nerves and Plexi, Percutaneous Approach (ICD-10-PCS; 2017-07-05 14:00)
PROC: 0DJ08ZZ Inspection of Upper Intestinal Tract, Via Natural or Artificial Opening Endoscopic (ICD-10-PCS; 2017-07-05 14:00)
PROC: 04HY32Z Insertion of Monitoring Device into Lower Artery, Percutaneous Approach (ICD-10-PCS; 2017-07-08)
PROC: B54CZZA Ultrasonography of Left Lower Extremity Veins, Guidance (ICD-10-PCS; 2017-07-08)
PROC: 06HY33Z Insertion of Infusion Device into Lower Vein, Percutaneous Approach (ICD-10-PCS; 2017-07-08)
PROC: B54BZZA Ultrasonography of Right Lower Extremity Veins, Guidance (ICD-10-PCS; 2017-07-08)
PROC: 0BH18EZ Insertion of Endotracheal Airway into Trachea, Via Natural or Artificial Opening Endoscopic (ICD-10-PCS; 2017-07-08)
PROC: 5A1945Z Respiratory Ventilation, 24-96 Consecutive Hours (ICD-10-PCS; 2017-07-08)
PROC: 30233N1 Transfusion of Nonautologous Red Blood Cells into Peripheral Vein, Percutaneous Approach (ICD-10-PCS; 2017-07-08)
PROC: 5A12012 Performance of Cardiac Output, Single, Manual (ICD-10-PCS; 2017-07-09)
PROC: 6A550Z2 Pheresis of Platelets, Single (ICD-10-PCS; 2017-07-09)
DX: C25.9 Malignant neoplasm of pancreas, unspecified (principal); A41.9 Sepsis, unspecified organism; J69.0 Pneumonitis due to inhalation of food and vomit; J96.91 Respiratory failure, unspecified with hypoxia; N17.0 Acute kidney failure with tubular necrosis; R65.21 Severe sepsis with septic shock; K31.5 Obstruction of duodenum; B37.0 Candidal stomatitis; B37.89 Other sites of candidiasis; D61.818 Other pancytopenia; E11.649 Type 2 diabetes mellitus with hypoglycemia without coma; E46 Unspecified protein-calorie malnutrition; E87.6 Hypokalemia; E87.2 Acidosis; I46.9 Cardiac arrest, cause unspecified; J43.9 Emphysema, unspecified; K56.609 Unspecified intestinal obstruction, unspecified as to partial versus complete obstruction; K83.0 Cholangitis; R18.8 Other ascites; R57.8 Other shock; R64 Cachexia; D70.1 Agranulocytosis secondary to cancer chemotherapy; D70.3 Neutropenia due to infection; E83.39 Other disorders of phosphorus metabolism; E83.42 Hypomagnesemia; F12.90 Cannabis use, unspecified, uncomplicated; F17.210 Nicotine dependence, cigarettes, uncomplicated; G89.3 Neoplasm related pain (acute) (chronic); I10 Essential (primary) hypertension; I25.10 Atherosclerotic heart disease of native coronary artery without angina pectoris; I25.2 Old myocardial infarction; K52.9 Noninfective gastroenteritis and colitis, unspecified; K83.1 Obstruction of bile duct; T40.601A Poisoning by unspecified narcotics, accidental (unintentional), initial encounter; T45.1X5A Adverse effect of antineoplastic and immunosuppressive drugs, initial encounter; W18.30XA Fall on same level, unspecified, initial encounter; Y92.002 Bathroom of unspecified non-institutional (private) residence as the place of occurrence of the external cause; Y95 Nosocomial condition; Z51.5 Encounter for palliative care; Z79.899 Other long term (current) drug therapy; Z86.73 Personal history of transient ischemic attack (TIA), and cerebral infarction without residual deficits; Z91.19 Patient's noncompliance with other medical treatment and regimen